=== PATIENT | female | born 1940 | race Caucasian/White ===

== ENCOUNTER 2016-06-19 10:29 | Inpatient (IN) | payer OTHER ==
[~2016-06-19] VITALS: Ht 157.5 cm; Wt 92.8 kg
[2016-06-19] VITALS (10 sets, daily range): BP systolic 115–153; BP diastolic 56–78; PULSE 62–72; TEMP 36.9; O2SAT 92–100; Ht 157.5 cm; Wt 92.8 kg
[~2016-06-19 10:29] MED LIST: CALCTAB5 PO; CYAN3INJ; CYM60 PO; FERR325T51 PO; GABA-113 PO; LYR/50 PO; MISCTAB30 PO; MULT-190 PO; MULT-506 PO; NXM/40 PO; PRAM0.129 PO; VERA240C2 PO; WARF5TAB90 PO; ZOLP5TAB6 PO
[2016-06-19] MEDS ORDERED: HEPARIN 25000 UNIT/500 ML D5W ONE (10:50)
--- NOTE | 2016-06-19 10:50 | EMERGENCY ROOM VISIT NOTE ---
History Report prepared by Andres: Christine Gill Under the Supervision of: Dr. Roman Will M.D. 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 The patient was initially seen at [facility] and was given TPA and started on Heparin drip. Her pain resolved after being started on Heparin. Her EKG en route to [facility] suggested that the patient was having an inferior wall STEMI. The patient was pain free en route to [facility] and is currently pain free. The patient is on Xarelto. She took her dose yesterday, but did not get the chance to take today's dose prior to going to the hospital this morning. The patient does not have a history of heart or lung problems. 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 A total of 10 systems reviewed and were otherwise negative. Past Medical & Surgical Medical Problems: (1) DVT (deep venous thrombosis) (2) Dyslipidemia (3) GERD (gastroesophageal reflux disease) (4) Hypertension (5) Hypertension (6) Osteoarthritis (7) Osteoporosis (8) RLS (restless legs syndrome) Surgical Problems: (1) History of gastric bypass (2) S/P appendectomy (3) S/P cholecystectomy (4) S/p left hip surgery (5) S/p lumbar spine decompression/ fusion (6) S/P MINA-BSO (7) Status post total knee replacement, bilateral Family History Diabetes mellitus Hypertension Social History Smoking Status: Never Smoker Alcohol Use: none Drug Use: none Marital Status: Housing Status: lives alone Occupation Status: retired Current/Historical Medications Scheduled Calcium Carbonate-Vitamin D (Calcium + D), 1 TAB PO DAILY Celecoxib (CeleBREX), 200 MG PO DAILY Cyanocobalamin (Vitamin B-12 Inj), 1 ML MONTHLY Duloxetine HCl (Duloxetine HCl), 60 MG PO DAILY Esomeprazole Magnesium (Nexium), 40 MG PO DAILY Pramipexole (Mirapex), 2 TABS PO HS Pramipexole Dihydrochloride (Mirapex), 0.125 MG PO NOON Prednisone (Prednisone), 5 MG PO DAILY Pregabalin (Lyrica), 50 MG PO DAILY Rivaroxaban (Xarelto), 20 MG PO DAILY Verapamil Hcl (Verapamil Hcl Er), 240 MG PO BID [Ferrous Gluconate], 200 MG PO DAILY Scheduled PRN Oxycodone/Acetaminophen 5MG/325MG (Percocet 5MG/325MG), 1 TABLET PO Q6H PRN for Pain Tramadol (Ultram), 50 MG PO TID PRN for Pain Allergies Coded Allergies: Hydrocodone (Unverified Allergy, Severe, SHORTNESS OF BREATH, 06/19/16) pt reported this am Oxaprozin (Verified Allergy, Mild, RASH, 06/19/16) Sulfamethoxazole w/Trimethoprim (Unverified Allergy, Unknown, INCREASED POTASSIUM LEVELS, 06/19/16) Sertraline (Verified Adverse Reaction, Intermediate, MOOD SWING, 06/19/16) Erythromycin (Verified Adverse Reaction, Mild, N/V, 06/19/16) Lisinopril (Verified Adverse Reaction, Unknown, cough, 06/19/16) Physical Exam Vital Signs Date Time Temp Pulse Resp B/P Pulse Ox O2 Delivery O2 Flow Rate FiO2 06/19/16 14:38 82 20 155/64 100 06/19/16 13:45 82 20 155/64 100 Nasal Cannula 2.0 06/19/16 13:03 73 06/19/16 12:20 85 18 138/83 99 Nasal Cannula 2.0 06/19/16 11:50 81 16 155/70 93 Room Air 06/19/16 11:21 84 18 146/95 100 Nasal Cannula 06/19/16 11:03 81 18 152/91 100 Nasal Cannula 2.0 06/19/16 10:42 79 06/19/16 10:31 100 Nasal Cannula 2.0 06/19/16 10:30 36.9 79 18 148/66 100 Room Air 06/19/16 10:30 100 Room Air 06/19/16 10:30 100 Room Air Physical Exam GENERAL: Patient is a healthy-appearing well-nourished 76 year old female HEAD: Normocephalic atraumatic EYES: Ocular movements intact pupils equal and react to light OROPHARYNX mucous membranes are moist no exudates present no erythema or edema present NECK: Supple no nuchal rigidity CHEST: Good equal expansion LUNGS: Clear and equal to auscultation CARDIAC: Normal S1 and S2 ABDOMEN: Soft nontender no guarding BACK: No CVA tenderness EXTREMITIES: No pain upon palpation normal muscle strength in all groups no clubbing cyanosis or edema NEURO: Patient is following commands is answering questions appropriately. Alert and oriented x3 Cranial Nerves 2-12 grossly intact Medical Decision & Procedures ER Provider Diagnostic Interpretation: X-ray results as stated below per interpretation by me and the radiologist: CHEST ONE VIEW PORTABLE CLINICAL HISTORY: CHEST PAIN dyspnea COMPARISON STUDY: 08/06/2014 FINDINGS: The bones soft tissues and hemidiaphragms are normal. The cardiomediastinal silhouette is normal. The lungs are clear. The pulmonary vasculature is normal. IMPRESSION: Negative chest. Electronically signed by: Gurinder Beauchamp M.D. 06/19/2016 11:07 AM Laboratory Results Test 06/19/16 12:13 Creatine Kinase MB Ratio (0-3.0) Labs reviewed by ED physician. Medications Administered Medications (Trade) Dose Ordered Sig/[place] Route Start Time Stop Time Status Last Admin Dose Admin Heparin Sodium/ Dextrose 1 ea NOW STAT N/A 06/19/16 10:36 06/19/16 10:38 DC 06/19/16 10:36 1 EA Heparin Sodium/ Dextrose (Heparin 25,000 Unit/500ml D5W) 25,000 unit STK-MED ONCE .ROUTE 06/19/16 10:50 06/19/16 10:51 DC 06/19/16 10:58 25,000 UNIT Metoprolol Tartrate (Lopressor Tab) 25 mg NOW ONCE PO 06/19/16 12:00 06/19/16 13:15 DC 06/19/16 13:42 25 MG Atorvastatin Calcium (Lipitor Tab) 80 mg NOW ONCE PO 06/19/16 12:00 06/19/16 13:16 DC 06/19/16 13:43 80 MG Losartan Potassium (coZAAR TAB) 50 mg NOW ONCE PO 06/19/16 12:15 06/19/16 13:16 DC 06/19/16 13:43 50 MG Perflutren Lipid Microsphere (Definity) 2 ml ONE ONCE IV 06/19/16 13:29 06/19/16 13:30 DC 06/19/16 13:30 2 ML ECG Indication: chest pain Rate (beats per minute): 79 Rhythm: normal sinus Findings: no acute ischemic change, no ectopy ED Course 1028: Past medical records reviewed. The patient was evaluated in room A1. A complete history and physical examination was performed. Dr. Bruno was at bedside. 1036: Ordered Heparin Sodium/Dextrose 1 ea. 1051: I discussed the case with [facility]. The patient will be evaluated for further management. Medical Decision Differential diagnosis: Etiologies such as cardiac ischemia, aortic dissection, pulmonary embolism, pneumonia, pneumothorax, musculoskeletal, infections, pericarditis, myocarditis , esophageal rupture, gastrointestinal, as well as others were entertained. This is a 76-year-old female who presents emergency department complaining of chest pain. The patient was already seen at [facility] and is being transferred here for cardiology consultation. The patient received lytics at [place] was placed on a heparin drip. Upon arrival to the emergency department here she is pain-free. I did discuss the case with Dr. Bruno in the emergency department. Patient will be admitted and started on a heparin drip and was in agreement with the treatment plan. Consults Time Called: 1048 Consulting Physician: [facility] Returned Call: [phone] I discussed the case with her. The patient will be evaluated for further management. Impression Primary Impression: STEMI (ST elevation myocardial infarction) Critical Care I have personally spent greater than 30 minutes of critical care time in the direct management of this patient. This includes bedside care, interpretation of diagnostic studies, and testing, discussion with consultants, patient, and family members, and other required patient management activities. This 30 minutes is in excess of all separately billable procedures. Scribe Attestation The scribe's documentation has been prepared under my direction and personally reviewed by me in its entirety. I confirm that the note above accurately reflects all work, treatment, procedures, and medical decision making performed by me. Departure Information Dispostion Being Evaluated By Hospitalist Chuy Molina (PCP) Patient Instructions A Signature Page, My [facility]
--- NOTE | 2016-06-19 11:09 | DIAGNOSTIC IMAGING REPORT ---
CHEST ONE VIEW PORTABLE CLINICAL HISTORY: CHEST PAIN dyspnea COMPARISON STUDY: 08/06/2014 FINDINGS: The bones soft tissues and hemidiaphragms are normal. The cardiomediastinal silhouette is normal. The lungs are clear. The pulmonary vasculature is normal. IMPRESSION: Negative chest. Electronically signed by: Gurinder Beauchamp M.D. 06/19/2016 11:07 AM
[2016-06-19] MEDS ORDERED: RIVA1TAB4 PO (11:16)
[2016-06-19] MEDS ORDERED: PRED-301 PO (11:16)
[2016-06-19] MEDS ORDERED: LISI40TA PO (11:16)
[2016-06-19] MEDS ORDERED: FERROUS GLUCONATE PO (11:16)
[2016-06-19] MEDS ORDERED: CLB/200 PO (11:16)
[2016-06-19] MEDS ORDERED: OXYC-57 PO (11:39)
[2016-06-19] MEDS ORDERED: PRAM0.129 PO (11:39)
[2016-06-19] MEDS ORDERED: TRAM-10 PO (11:39)
[2016-06-19] MEDS ORDERED: MULT-190 PO (11:40)
[2016-06-19] MEDS ORDERED: MULT-506 PO (11:40)
[2016-06-19] MEDS ORDERED: CALC500T85 PO (11:41)
[2016-06-19] MEDS ORDERED: DNSIS60 INJ (11:41)
[2016-06-19] MEDS ORDERED: METOPROLOL TARTRATE 25 MG TAB PO ONE (12:00)
[2016-06-19] MEDS ORDERED: ATORVASTATIN 40 MG TAB PO ONE (12:00)
[2016-06-19] MEDS ORDERED: LOSARTAN POTASSIUM 50 MG TAB PO ONE (12:15)
[2016-06-19] MEDS ORDERED: ONDANSETRON INJ 2 MG/ML 2 ML VIAL IV PRN (13:00)
[2016-06-19] MEDS ORDERED: CALC600T9 PO (13:10)
[2016-06-19] MEDS ORDERED: TRAMADOL HCL 50 MG TAB PO PRN (13:15)
[2016-06-19] MEDS ORDERED: OXYCODONE/ACETAMINOPHEN 5-325 TAB PO PRN (13:15)
[2016-06-19] MEDS ORDERED: PERFLUTREN LIPID MICROSPHERE (DEFINITY) IV ONE (13:29)
--- NOTE | 2016-06-19 14:19 | CARDIOLOGY CONSULTATION ---
DATE OF CONSULTATION: 06/19/2016 REFERRING PHYSICIAN: Roman Will MD and Meg Pantoja PA-C PRIMARY PHYSICIAN: Chuy Magdaleno MD CONSULTATION: Dale Bruno MD HISTORY OF PRESENT ILLNESS: The patient is a 76-year-old white female. No prior history of heart disease. No history of cerebrovascular disease or peripheral vascular disease. History of hypertension. History of a total cholesterol of 197. No history of diabetes mellitus. No family history of premature coronary artery disease. She has never smoked cigarettes. The patient states that 3 days prior to admission, she began to awaken in the morning from sleep with sensation of lower retrosternal burning. This would radiate into her neck. The symptoms would be relieved with getting out of bed and walking around. The longest episodes lasted 10-15 minutes. After the symptoms would resolve, she would feel fine in the rest of the day. No unusual fatigue over the past 3 days. Stable exercise tolerance and stamina. No dyspnea at rest or with her normal activities. This morning, she awoke at approximately 5:30 a.m. with the same discomfort. However, it was more intense than the previous days. It did not resolve with getting up and walking around. The patient lives with her daughter. 911 was called. An electrocardiogram performed by emergency medical services at 06:59 a.m. revealed normal sinus rhythm, ST segment elevations in the inferior leads, slight ST elevation in leads V5 and V6, and ST depressions in leads 1, aVL, V1, and V2. She was transported by ambulance to [facility]. An electrocardiogram performed at [facility] at 07:36 a.m. revealed normal sinus rhythm, inferior ST elevations. ST elevation in V4 and V6, and ST depressions in 1, aVL, V1, and V2. The patient was ultimately given intravenous alteplase 100 mg IV over 2 hours starting at 08:03 a.m. She arrived at [facility] at 07:29 a.m. An electrocardiogram performed at 08:47 a.m. at the [facility] revealed resolution of the ST segment elevations and depressions. The patient states that after she received the intravenous thrombolytic, her chest discomfort resolved within 10-20 minutes. She was then transported by ground ambulance to [facility]. Since the resolution of her chest discomfort at [facility], she has had no further episodes of chest discomfort. No other anginal type symptoms. The patient was promptly evaluated on arrival to [facility] by Dr. Roman Will and then by myself. She appeared well. She denied any chest pain or any other anginal type pains. No neck pain. No dyspnea. No orthopnea or PND. No palpitations, lightheadedness, or syncope. No bleeding complaints other than bleeding from venipuncture sites performed at [facility]. Pressure dressings had been applied to these sites. The patient recently has had no dyspnea on exertion or with her normal activities. No orthopnea, PND, palpitations, lightheadedness, syncope, or leg edema. She does have edema of her left hand for the past year, which is felt to be secondary to arthritis. Despite to swelling in her left hand, she has no pain in her left hand. PAST MEDICAL HISTORY: Significant for deep venous thrombosis. In 1987, she underwent gastric bypass surgery. After discharge from the surgery, she developed a right leg deep venous thrombosis. This was treated with warfarin. She cannot remember the length of the course of warfarin. It was ultimately discontinued. In 2013, she underwent left hip surgery at [facility]. In 2014, she was admitted to [facility] on August 04 with a left hip abscess. This was treated with I\T\D and debridement of the fascia and greater trochanter. A PICC line was inserted in her right arm. It was planned for her to receive 6 weeks of IV cefazolin. She was discharged on 07/28/2014. [facility]. She states that within 1 day of discharge, she developed marked swelling in her right arm. She was subsequently diagnosed with a right arm DVT. This was originally treated with warfarin. She states approximately 3 months ago, she was switched to Xarelto. She still takes Xarelto. Her last dose of Xarelto was yesterday. PAST MEDICAL HISTORY: 1. Hypertension. 2. History of hypoglycemia since her gastric bypass surgery. No history of diabetes mellitus. 3. She denies history of dyslipidemia. No treatment for dyslipidemia. She states her most recent total cholesterol was 197. 4. Osteoporosis. 5. Osteoarthritis. 6. History of anemia. Her discharge hemoglobin on 06/06/2015 was 8.6. 7. History of acute kidney injury on her July 2014 admission. Peak creatinine was 2.07. At the time of discharge, her creatinine was 1.08. 8. Restless legs syndrome. 9. History of gastric ulcer. 10. Gastroesophageal reflux disease. PAST SURGICAL HISTORY: 1. Status post gastric bypass surgery in 1987. 2. Status post bilateral total knee arthroplasty. 3. Status post lumbar surgery in 2003 at [facility]. Performed by Dr. Omega Brown. 4. Status post MINA-BSO. 5. Status post incidental cholecystectomy and appendectomy at the time of her gastric bypass surgery in 1987. 6. Status post hips surgery in 2013. 7. Status post I\T\D of left hip abscess in 2014. ALLERGIES AND ADVERSE DRUG REACTIONS: Lisinopril, HYDROCODONE, OXAPROZIN, SERTRALINE, AND SULFAMETHOXAZOLE WITH TRIMETHOPRIM. THE PATIENT HAD BEEN ON LISINOPRIL FOR HYPERTENSION. SHE HAS RECENTLY DEVELOPED A COUGH WITH THIS MEDICATION. THE MEDICATION WAS DISCONTINUED BY HER PRIMARY CARE PROVIDER. THE COUGH HAS RESOLVED. MEDICATIONS: Her medications listed on her [facility] note this morning states that they are verapamil 240 mg daily, Xarelto 20 mg daily, Celebrex 200 mg daily, Cymbalta 60 mg daily, Nexium 40 mg daily, pramipexole 0.125 mg daily, vitamin B12 at 1000 units IM q. monthly, vitamin D3 daily, Lyrica 50 mg daily, and Prednisone 5 mg daily. Previously, the patient had been on lisinopril. As above, this was discontinued after she developed a cough with the lisinopril. She states that she has not been taking the prednisone recently. It had been prescribed for her arthralgias. She states that it had no effect on alleviating her arthralgias. She does achieve some relief of her arthralgias with Celebrex. SOCIAL HISTORY: The patient is a . She does not smoke cigarettes or drink alcohol. She lives with one of her daughters. She has 2 children, who are alive. It is a son and daughter. She had another daughter, who is . FAMILY HISTORY: No family history of premature coronary artery disease. There is a family history of hypertension. REVIEW OF SYSTEMS: 1. As above. 2. Arthralgias of the feet, shoulders, and hips. She states that over the past several months, she has received steroidal injections in both shoulders. 3. No history of cerebrovascular disease. No current or recent symptoms suggestive of CVA or TIA. 4. No history of peripheral vascular disease. She denies any claudication type symptoms. 5. Her stools are dark in color. She denies any black stools. No blood in her stools. 6. Her reflux symptoms are an epigastric burning. This is a different type of burning sensation in that which she has experienced for the past 3 days. No other GI complaints. 7. No HEENT complaints. She has full dentures. 8. No skin rash complaints. 9. No urinary complaints. PHYSICAL EXAMINATION: VITAL SIGNS: In the Emergency Department at [facility], her initial blood pressure is 148/66. Pulse 79. Pulse oximetry on room air 100%. Repeat blood pressures 152/91 and 146/95. GENERAL APPEARANCE: Shows her to be in no distress. HEAD: Normal. EYES: Pupils equal and round. Anicteric. Conjunctivae normal. No xanthelasma. MOUTH: Full dentures. Oropharynx visualized. No abnormalities noted. NECK: No jugular venous distention. JVP less than 7 cm. Carotids 2/2 bilaterally. Normal upstroke. No bruits. LUNGS: Normal respiratory effort. Clear. No rales or wheezes. HEART: PMI normal. No lifts or heaves. Regular rate and rhythm. S1 and S2 normal. No S3 or S4. No murmur or rub. ABDOMEN: Soft. Obese. Nontender. Normal bowel sounds. No bruits. No palpable masses or organomegaly. EXTREMITIES: Arthritic changes of the fingers of both hands. Swelling in left hand. No tenderness on palpation of the left hand. No tenderness on palpation of the fingers. No pretibial edema. PULSES: Radial pulses strongly palpable bilaterally. Dorsalis pedis and posterior tibial pulses weakly palpable bilaterally. Femoral pulses palpable bilaterally. NEUROLOGIC: Alert and oriented x3. Motor grossly intact. Gait not assessed as the patient is lying in a stretcher bed. PSYCHIATRIC: Affect is normal. SKIN: No rashes. LABORATORY DATA: Labs performed at [facility] revealed a troponin of 0.038, CK total of 37, INR 0.94, hemoglobin 11, hematocrit 36.4, WBC 13.5, and platelet count 344. Metabolic profile is not available for review. Chest x-ray at [facility] reported to be normal. Chest x-ray was also performed at [facility]. Reviewed by me. Chest x-ray reveals no heart failure. No infiltrate. Electrocardiogram on arrival to [facility] at 10:33 a.m. today shows normal sinus rhythm. Normal ST segments and T waves. No evidence of myocardial injury or ischemia. ASSESSMENT: 1. Acute inferior posterolateral myocardial infarction this morning. Preceded by a 3-day history of unstable anginal symptoms. These were new symptoms. Coronary artery disease risk factors include hypertension and probable dyslipidemia. Her total cholesterol is 197. Suspect that her LDL was greater than 100. Myocardial infarction manifested by a lower retrosternal burning sensation, radiating into her neck. Within 30 minutes of receiving intravenous thrombolytics at [facility], she had complete resolution of her chest discomfort. Normalization of ST segments. Since resolution of the chest discomfort at [facility], she has had no recurrence of any anginal type symptoms. 2. No evidence of any arrhythmias thus far. 3. No evidence of heart failure by signs or symptoms. 4. Mild hypertension this morning. 5. No cerebrovascular or peripheral vascular complaints. She does have diminished posterior tibial and dorsalis pedis pulses bilaterally. 6. Mild anemia. This may be secondary to her gastric bypass surgery and malabsorption. No symptoms of GI bleeding. She does have a history of gastric ulcer in the past. 7. Osteoarthritis. PLAN: 1. The patient received intravenous thrombolytic therapy this morning. She is also on Xarelto. Performance of cardiac catheterization today would be of increased bleeding risk. She is currently without any anginal symptoms. She is hemodynamically stable. No evidence of arrhythmias. No evidence of heart failure. Normalization of her ST segment abnormalities on electrocardiogram. Thus, there is no urgent or emergent need to perform a cardiac catheterization procedure at this time. In light of her taking Xarelto yesterday, would like to delay elective cardiac catheterization ideally for 48 hours. A femoral arterial access was needed as there could be an increased risk of bleeding. This is secondary to her body habitus. It would be first attempted to perform cardiac catheterization via radial artery access. She does have strongly palpable radial arteries bilaterally. The patient was instructed to contact the nursing staff immediately if she has any reoccurrence of her retrosternal burning discomfort. If she has recurrent anginal symptoms or return of ST segment changes of myocardial ischemia and injury, we would then perform emergent cardiac catheterization. If she remains stable, we will delay elective cardiac catheterization until 06/22/2016. 2. She was started on intravenous heparin at this time of starting the alteplase. Continue intravenous heparin. Maintain therapeutic PTT. 3. Continue aspirin. She received four 81-mg aspirin tablets this morning. She should remain on aspirin 81 mg daily. 4. Start beta gera therapy with metoprolol tartrate 25 mg b.i.d. Dose now. Titrate dose upwards as needed to control heart rate. Ideally, would want heart rate around 60. 5. Start angiotensin receptor gera with losartan 50 mg daily. Dose today. 6. Lipid profile and direct LDL. 7. Start atorvastatin 80 mg daily today. 8. If she has no evidence of bleeding later today, we will start her on intravenous Integrilin. This would be in addition to the intravenous heparin. We will not start her on clopidogrel or alternative antiplatelet agent at this time. This would be in the event that cardiac catheterization reveals coronary stenosis, which would require CABG surgery. 9. Serial electrocardiograms. Would perform at least on a daily basis. 10. Serial cardiac enzymes today. 11. Echocardiogram today to assess LV and RV function. Assess valvular function. 12. Topical nitrates. 13. Intravenous fluids. 14. We will keep the patient on clear liquids for the next several hours. If she remains stable, we will then advance her diet. 15. Check renal function, liver function, and magnesium. 16. At this time, would hold Celebrex. Treat the pain with tramadol. The above assessment and recommendations were discussed with Ms. Meg Pantoja. The plan for delaying cardiac catheterization if she remains stable was discussed with Dr. Will. I will follow this patient while she is hospitalized. Cardiac catheterization will be tentatively scheduled for June 22. This provides if she remains stable. Certainly if she develops any evidence of reocclusion, would then perform an emergency cardiac catheterization and possible coronary intervention. The procedure, risks, benefits, and alternatives of cardiac catheterization and coronary intervention were extensively discussed with the patient. She is agreeable to undergoing a procedure. At least 60 minutes of critical care time was spent by me this morning in management of this patient. RICCI
--- NOTE | 2016-06-19 15:12 | ECHOCARDIOGRAM REPORT ---
*NOTICE TO RECEIVING LIBERTARIAN AGENCY This information is strictly Confidential and protected under [place] law. [place] law prohibits you from making any further disclosure of this information unless further disclosure is expressly permitted by the written consent of the person to whom it pertains or is authorized by law. A general authorization for the release of medical or other information is not sufficient for this purpose. Hospital accepts no responsibility if the information is made available to any other person, INCLUDING THE PATIENT. Interpretation Summary * Name: LIBERTY PACK Study Date: 06/19/2016 12:55 PM BP: 138/83 mmHg * Patient Location: ED: HR: 85 * : 1940 (M/d/yyyy) Gender: Female Height: 62 in * Age: 76 yrs Ethnicity: CA Weight: 200 lb * Ordering Physician: Dale Bruno * Performed By: Irma Su RDCS * * Reason For Study: AMI * BSA: 1.9 m2 * Normal overall left ventricular systolic function. * Basal septal, inferior, and posterior hypokinesis. * Mild left atrial dilatation. * Mild aortic regurgitation. * Trace mitral regurgitation. * -- Conclusions -- * Aortic valve sclerosis mild, without significant aortic valvular stenosis. Procedure Details * A complete two-dimensional transthoracic echocardiogram was performed (2D, M-mode, Doppler and color flow Doppler). * A contrast injection of Definity was performed to improve assessment of LV function. * Contrast was injected into an intravenous site in the right arm. * One vial of Definity ultrasound contrast was diluted in normal saline to a total volume of 10 ml. A total of '2' ml of solution was administered during imaging. * Lot # [id number] of Definity utilized for procedure. * Expiration date 1 DEC 05. * The attending nurse who injected the contrast agent was Elda Edge RN. Left Ventricle * The left ventricle is normal in size. * There is normal left ventricular wall thickness. * Ejection Fraction = 55-60%. * Left ventricular systolic function is normal. * A full diastolic examination was done with clinical findings of Class I diastolic dysfunction. * Basal septal,posterior,and inferior hypokinesis. Right Ventricle * The right ventricle is normal in size and function. Atria * The left atrium is mildly dilated. * Right atrial size is normal. * No ASD detected; PFO is not assessed. Mitral Valve * The mitral valve is normal. * There is trace mitral regurgitation. Tricuspid Valve * The tricuspid valve is not well visualized, but is grossly normal. * Significant tricuspid regurgitation is absent. Aortic Valve * The aortic valve is trileaflet. * The aortic valve opens well. * Aortic valve sclerosis mild, without significant aortic valvular stenosis. * Mild aortic regurgitation. Pulmonic Valve * The pulmonic valve is not well seen, but is grossly normal. * There is no pulmonic valvular regurgitation. Great Vessels * The aortic root is normal size. Pericardium/Pleural * There is no pericardial effusion. Great Vessels * Normal inferior vena cava diameter and respiratory variation suggests normal central venous pressure. MMode 2D Measurements and Calculations IVSd 1.0 cm LVIDd 4.3 cm LVIDs 3.0 cm LVPWd 1.1 cm IVS/LVPW 0.93 FS 30.0 % EDV(Teich) 81.9 ml ESV(Teich) 34.8 ml EF(Teich) 57.5 % EDV(cubed) 78.1 ml ESV(cubed) 26.8 ml EF(cubed) 65.7 % LV mass(C)d 150.1 grams LV mass(C)dI 78.5 grams/m\S\2 CO(Teich) 3.6 l/min CI(Teich) 1.9 l/min/m\S\2 SV(Teich) 47.1 ml SI(Teich) 24.6 ml/m\S\2 CO(cubed) 3.9 l/min CI(cubed) 2.1 l/min/m\S\2 SV(cubed) 51.3 ml SI(cubed) 26.8 ml/m\S\2 Ao root diam 2.6 cm Ao root area 5.4 cm\S\2 ACS 1.9 cm LA dimension 4.4 cm asc Aorta Diam 3.1 cm LA/Ao 1.7 LVAd ap4 33.2 cm\S\2 LVLd ap4 8.0 cm EDV(MOD-sp4) 112.0 ml LVAs ap4 17.9 cm\S\2 LVLs ap4 5.8 cm ESV(MOD-sp4) 45.4 ml EF(MOD-sp4) 59.5 % LVAd ap2 32.8 cm\S\2 LVLd ap2 8.1 cm EDV(MOD-sp2) 110.0 ml LVAs ap2 18.1 cm\S\2 LVLs ap2 6.0 cm ESV(MOD-sp2) 45.3 ml EF(MOD-sp2) 58.8 % CO(MOD-sp4) 5.1 l/min CI(MOD-sp4) 2.7 l/min/m\S\2 SV(MOD-sp4) 66.6 ml SI(MOD-sp4) 34.8 ml/m\S\2 CO(MOD-sp2) 5.0 l/min CI(MOD-sp2) 2.6 l/min/m\S\2 SV(MOD-sp2) 64.7 ml SI(MOD-sp2) 33.8 ml/m\S\2 Doppler Measurements and Calculations MV E max tri 83.4 cm/sec MV A max tri 119.3 cm/sec MV E/A 0.70 MV V2 max 159.0 cm/sec MV max PG 10.1 mmHg MV V2 mean 85.5 cm/sec MV mean PG 3.5 mmHg MV V2 VTI 39.7 cm MV dec time 0.21 sec Ao V2 max 189.1 cm/sec Ao max PG 14.3 mmHg Ao max PG (full) 10.5 mmHg Ao V2 mean 120.2 cm/sec Ao mean PG 7.1 mmHg Ao V2 VTI 38.1 cm AI max tri 475.1 cm/sec AI max PG 90.3 mmHg AI dec slope 380.1 cm/sec\S\2 AI P1/2t 366.0 msec LV V1 max PG 3.8 mmHg LV V1 max 98.0 cm/sec SV(Ao) 205.2 ml SI(Ao) 107.4 ml/m\S\2 PA V2 max 114.0 cm/sec PA max PG 5.2 mmHg PA acc slope 821.8 cm/sec\S\2 PA acc time 0.10 sec PA pr(Accel) 33.1 mmHg
[2016-06-19 16:10] LABS: BASO % 0.6 %; BASO ABS # 0.07 K/uL (0-0.2); EOS % 4.4 %; HEMATOCRIT 31.6 % (37-47); IG% 0.5 %; LYMPH % 21.4 %; LYMPH ABS # 2.63 K/uL (1.2-3.4); MEAN CELL VOLUME 93.2 fL (80-100); MEAN CORPUSCULAR HEMOGLOBIN 29.5 pg (25-34); MEAN PLATELET VOLUME 9.3 fL (7.4-10.4); MONO % 11.1 %; PLATELET COUNT 287 K/uL (130-400); RED BLOOD COUNT 3.39 M/uL (4.2-5.4)
[2016-06-19 16:18] LABS: COMPLETE YES; MEAN CORPUSCULAR HGB CONC 31.6 g/dl (32-36)
[2016-06-19 16:32] LABS: BUN/CREATININE RATIO 30.6 (10-20); CALCIUM 7.9 mg/dl (8.5-10.1); CREATININE 0.65 mg/dl (0.60-1.20); MAGNESIUM 2.3 mg/dl (1.8-2.4)
[2016-06-19 16:49] LABS: URINE APPEARANCE CLEAR (CLEAR); URINE BILIRUBIN NEG (NEG); URINE COLOR YELLOW; URINE NITRITE NEG (NEG); URINE PH 7.5 (4.5-7.5); URINE SPECIFIC GRAVITY 1.007 (1.000-1.030); UROBILINOGEN NEG (NEG)
[2016-06-19 16:53] LABS: MANUAL MICROSCOPIC REQUIRED? NO; REVIEW REQ? NO
[2016-06-19 17:04] LABS: CKMB/CK RATIO 2.3 (0-3.0)
--- NOTE | 2016-06-19 18:50 | Progress Note ---
Progress Note Attending addendum: The patient was seen and examined in ER Was evaluated in [place] ER with Acute Inferolateral AR s/p TPA administration Was transferred to [facility] for continued care NO pain during my exam And the EKG is reverting to normality O/E Hemodynamically stable Chest-clear Heart-regular Abdomen-benign,no masses,bowel sound present Extremities-no edema Labs and Imaging studies were reviewed Has Acute inferior posterolateral myocardial infarction S/P TPA Since resolution of the chest discomfort at [facility] [place], she has had no recurrence of any anginal type symptoms. On Heparin,Aspirin,BB,ARB and Statin Cardiology evaluation Agree with the assessment and plan. DR Cristo Adam
--- NOTE | 2016-06-19 20:02 | History and Physical ---
History & Physical Date & Time of Service: Jun 19, 2016 at 13:21 Chief Complaint: chest pain Primary Care Physician: Chuy Magdaleno History of Present Illness Source: patient, family (daughter at bedside), hospital records This is a 76 y/o female with PMH of hypertension, borderline dyslipidemia not on medication, history of DVT on Xarelto, OA, GERD, history of gastric bypass, and other problems listed below who presents with chest pain. Pt follows with Dr. Magdaleno in [place]. Pt states she was feeling at her baseline until 2 days ago she developed chest pain described as burning in substernal area with radiation to her neck. She initially had episodes lasting 10-15 minutes which were relieved with getting up and walking around. Then this morning at 5:30 she had recurrent chest pain which was more severe, also radiating to her neck, which awoke her from sleep. 911 was called and she was brought to [place] ER by ambulance. Her EKG en route at 7:[address] elevation in inferior leads with ST depression in V2. She states the chest pain was fairly constant but resolved during infusion of tPA at [place] (infusion of 100 mg given over 2 hours ending at 10 am). She is on a heparin drip started in [place] ER. She received aspirin 324 mg this morning. [place] ER labs showed WBC 13.5, Hg 11 , troponin 0.038. No BMP in [place] records. She was transferred to [facility], at which time EKG showed resolution of ST abnormalities. Patient denies any recurrence of chest pain. Her blood draw sites from [place] ER were seeping but hemostasis was achieved with quik clot and austyn wrap. 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 She reports edema of left hand which is intermittent x 1 year and attributed to arthritis. She reports having negative doppler of the LUE. Denies diaphoresis, dizziness, cough, SOB, abdominal pain, nausea, vomiting, diarrhea, prior abnormal bleeding, increasing edema, weight gain. Pt notes she was taken off lisinopril 40 mg daily 1 month ago by her PCP due to cough which resolved with stopping the medication. She denies history of CAD, CHF, arrhythmia, lung disease. No recent stress test or echo. Past Medical/Surgical History Medical Problems: (1) DVT (deep venous thrombosis) Permanent Comment: 1st DVT occurred s/p gastric bypass in 1988; 2nd DVT occurred in right arm s/p hip surgery in 2014 Status: Chronic (2) Dyslipidemia Status: Chronic (3) GERD (gastroesophageal reflux disease) Status: Chronic (4) Hypertension Status: Chronic (5) Hypertension Status: Chronic (6) Osteoarthritis Status: Chronic (7) Osteoporosis Status: Chronic (8) RLS (restless legs syndrome) Status: Chronic Surgical Problems: (1) History of gastric bypass Status: Chronic (2) S/P appendectomy Status: Chronic (3) S/P cholecystectomy Status: Chronic (4) S/p left hip surgery Status: Chronic (5) S/p lumbar spine decompression/ fusion Status: Chronic (6) S/P MINA-BSO Status: Chronic (7) Status post total knee replacement, bilateral Status: Chronic Family History Diabetes mellitus Hypertension Stroke MOTHER (in 40s) Denies family history of CAD. Social History Smoking Status: Never Smoker Alcohol Use: none Drug Use: none Marital Status: Housing status: lives with family (lives with daughter) Occupational Status: retired Immunizations History of Tetanus Vaccine?: Unknown History of Pneumococcal: No History of Hepatitis B Vaccine: No Multi-Drug Resistant Organisms History of MDRO: No Allergies Coded Allergies: Hydrocodone (Unverified Allergy, Severe, SHORTNESS OF BREATH, 06/19/16) pt reported this am Oxaprozin (Verified Allergy, Mild, RASH, 06/19/16) Sulfamethoxazole w/Trimethoprim (Unverified Allergy, Unknown, INCREASED POTASSIUM LEVELS, 06/19/16) Sertraline (Verified Adverse Reaction, Intermediate, MOOD SWING, 06/19/16) Erythromycin (Verified Adverse Reaction, Mild, N/V, 06/19/16) Lisinopril (Verified Adverse Reaction, Unknown, cough, 06/19/16) Home Medications Scheduled Calcium Carbonate-Vitamin D (Calcium + D), 1 TAB PO DAILY Celecoxib (CeleBREX), 200 MG PO DAILY Cyanocobalamin (Vitamin B-12 Inj), 1 ML MONTHLY Duloxetine HCl (Duloxetine HCl), 60 MG PO DAILY Esomeprazole Magnesium (Nexium), 40 MG PO DAILY Pramipexole (Mirapex), 2 TABS PO HS Pramipexole Dihydrochloride (Mirapex), 0.125 MG PO NOON Prednisone (Prednisone), 5 MG PO DAILY Pregabalin (Lyrica), 50 MG PO DAILY Rivaroxaban (Xarelto), 20 MG PO DAILY Verapamil Hcl (Verapamil Hcl Er), 240 MG PO BID [Ferrous Gluconate], 200 MG PO DAILY Scheduled PRN Oxycodone/Acetaminophen 5MG/325MG (Percocet 5MG/325MG), 1 TABLET PO Q6H PRN for Pain Tramadol (Ultram), 50 MG PO TID PRN for Pain Review of Systems Constitutional: No chills, No fever Eyes: No worsening of vision ENT: No nasal symptoms Respiratory: + dyspnea on exertion, No cough, No dyspnea at rest Cardiovascular: + chest pain, + edema (+ left hand swelling intermittent x 1 year. no worsening LE edema) Abdomen: No GI bleeding, No diarrhea, No nausea, No pain, No vomiting Musculoskeletal: + joint pain (chronic), No calf pain Genitourinary - Female: No dysuria, No urinary frequency Neurologic: No problem reported (no dizziness) Hematologic / Lymphatic: + abnormal bleeding/bruising (seeping from lab draw sites in ER. no prior abnormal bleeding including gum bleeding or epistaxis) Integumentary: No rash Physical Exam Vital Signs Date Time Temp Pulse Resp B/P Pulse Ox O2 Delivery O2 Flow Rate FiO2 06/19/16 13:03 73 06/19/16 12:20 85 18 138/83 99 Nasal Cannula 2.0 06/19/16 11:50 81 16 155/70 93 Room Air 06/19/16 11:21 84 18 146/95 100 Nasal Cannula 06/19/16 11:03 81 18 152/91 100 Nasal Cannula 2.0 06/19/16 10:42 79 06/19/16 10:31 100 Nasal Cannula 2.0 06/19/16 10:30 36.9 79 18 148/66 100 Room Air 06/19/16 10:30 100 Room Air 06/19/16 10:30 100 Room Air General Appearance: no apparent distress, + obese, + pertinent finding ( daughter and son at bedside) Head: normocephalic, atraumatic Eyes: normal inspection, PERRL, EOMI, sclerae normal ENT: normal ENT inspection, hearing grossly normal, pharynx normal Neck: supple, no JVD, no carotid bruits, trachea midline Respiratory/Chest: lungs clear, normal breath sounds, no respiratory distress, no accessory muscle use Cardiovascular: regular rate, rhythm, no murmur, + pertinent finding (radial pulses 2+, right DP pulse 1+, unable to appreciate left DP pulse) Abdomen/GI: normal bowel sounds, non tender, soft, + pertinent finding (obese habitus) Extremities/Musculoskelatal: no calf tenderness, no pedal edema, + pertinent finding (trace left hand edema) Neurologic/Psych: alert, normal mood/affect, oriented x 3, + pertinent finding (no focal deficit on gross examination) Skin: normal color, warm/dry, no rash Diagnostics Laboratory Results Results Past 24 Hours Test 06/19/16 10:36 06/19/16 12:13 Range/Units Creatine Kinase MB Ratio 0-3.0 Diagnostic Radiology CHEST ONE VIEW PORTABLE CLINICAL HISTORY: CHEST PAIN dyspnea COMPARISON STUDY: 08/06/2014 FINDINGS: The bones soft tissues and hemidiaphragms are normal. The cardiomediastinal silhouette is normal. The lungs are clear. The pulmonary vasculature is normal. IMPRESSION: Negative chest. 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 Bruno; appreciate input- patient at increased risk for bleeding for 48 hours after Xarelto (last dose 06/18); plan for cath on Wednesday unless develops recurrent symptoms, ischemic EKG changes, or hemodynamic instability Continue heparin drip Started on metoprolol 25 mg BID, losartan 50 mg daily (due to hx of AUSTYN-I intolerance), atorvastatin 80 mg daily, nitro paste Cardiology to start Integrilin as long as bleeding remains controlled (was having seeping from venipuncture sites in ER) Aspirin 81 mg daily Check echo Trend cardiac enzymes- initial trop 0.038 at [facility] -> 0.238 at 1600 -> recheck x 1 Check lipid panel in am IVF's; clear liquid diet for 1st few hours then advance at dinnertime HISTORY OF DVT 2 episodes both provoked by surgery; most recently in 2014 s/p hip surgery On Xarelto- last dose yesterday- hold HYPERTENSION BP mildly elevated in [facility] ER ANEMIA Hg is 10; similar to prior baseline Monitor OSTEOARTHRITIS Hold Celebrex Continue Percocet and tramadol for pain control CODE STATUS Full code per my discussion with the patient Patient seen in collaboration with Dr. Adam. Please see his addendum. Attending addendum: The patient was seen and examined in ER Was evaluated in [place] ER with Acute Inferolateral [place] s/p TPA administration Was transferred to [facility] for continued care NO pain during my exam And the EKG is reverting to normality O/E Hemodynamically stable Chest-clear Heart-regular Abdomen-benign,no masses,bowel sound present Extremities-no edema Labs and Imaging studies were reviewed Has Acute inferior posterolateral myocardial infarction S/P TPA Since resolution of the chest discomfort at [facility], she has had no recurrence of any anginal type symptoms. On Heparin,Aspirin,BB,ARB and Statin Cardiology evaluation Agree with the assessment and plan. DR Cristo Adam VTE Prophylaxis VTE Risk Assessment Done? Y/N: Yes Risk Level: High Given or contraindicated: Other Anticoagulation
[2016-06-19] MEDS: NITROGLYCERIN OINT 2% 1GM PACKET EXT SCH (20:29)
[2016-06-19] MEDS: D5W AND NSS 1,000 ML IV SCH (20:29)
[2016-06-19] MEDS: METOPROLOL TARTRATE 25 MG TAB PO SCH (21:21)
[2016-06-19] MEDS: PANTOprazole INJ 40 MG in SYRINGE 0 ML IV SCH (21:21)
[2016-06-19] MEDS: PRAMIPEXOLE DIHYDROCHLORIDE 0.25MG TAB PO SCH (21:21)
[2016-06-19 21:51] LABS: PARTIAL THROMBOPLASTIN RATIO 2.3
[2016-06-20] VITALS (15 sets, daily range): BP systolic 121–150; BP diastolic 55–89; PULSE 63–76; TEMP 36.7–37; O2SAT 94–100
[2016-06-20] MEDS: D5W AND NSS 1,000 ML IV SCH (01:15)
[2016-06-20] MEDS: NITROGLYCERIN OINT 2% 1GM PACKET EXT SCH ×5 (01:23→21:05)
--- NOTE | 2016-06-20 02:04 | CRITICAL CARE CONSULTATION ---
DATE OF CONSULTATION: 06/19/2016 CHIEF COMPLAINT: Chest pain. HISTORY OF PRESENT ILLNESS: The patient is a 76-year-old woman with a history of hypertension and borderline hypercholesterolemia, who presented to the [facility] Emergency Department early this morning with complaints of chest pain, 7-01/28. She tells me she has been having this chest pain on and off for 3 days and she thought it was her gastroesophageal reflux disease. This morning, she woke up and sat on the side of the bed and noticed a burning sensation on the right side of her chest, which made her neck feel tingly. She denies shortness of breath, nausea, vomiting, diaphoresis. She is not a diabetic. She has never smoked. Her daughter summoned EMS and she was taken to the Emergency Room. In the ambulance, she received fentanyl and one sublingual nitroglycerin. In the Emergency Department, she received more fentanyl as well as normal saline. EKG showed acute inferior wall ST segment elevation myocardial infarction and she received TPA and heparin. She was then transferred to [facility] and is in the intensive care unit. She denies pain presently and is eating and drinking without any problems. She has been seen by Dr. Bruno and the hospitalists. She denies a family history of heart disease other than her father who at age 85. She had a stress test in 2006. PAST MEDICAL HISTORY: Upper extremity DVT in 2014, hypertension, borderline hyperlipidemia, gastroesophageal reflux disease, lower extremity DVT in 1981, restless legs syndrome, osteoarthritis, gastric ulcer, macular degeneration. 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 ALLERGIES: ERYTHROMYCIN, HYDROCODONE, LISINOPRIL, OXAPROZIN, SERTRALINE, SULFAMETHOXAZOLE WITH TRIMETHOPRIM. OUTPATIENT MEDICATIONS: Verapamil, Xarelto (she was taking Coumadin until several months ago), celecoxib, Cymbalta, Nexium, pramipexole, cyanocobalamin, vitamin D3 and Lyrica, prednisone for her joints. SOCIAL HISTORY: She lives with her daughter and does not drink or smoke. She is . FAMILY HISTORY: Significant for father who of heart disease and mother who at age 47 of a CVA. REVIEW OF SYSTEMS: She has been in her usual state of health over the past week. She walks with a cane. She wears glasses. She denies any weight loss or weight gain. She denies any hematemesis, fevers, chills, melena. PHYSICAL EXAMINATION: GENERAL: This is a very nice elderly lady lying in bed, in no acute distress. VITAL SIGNS: Temperature 36.9, heart rate 70, respiratory rate 16, blood pressure 115/78, oxygen saturation 100% on 2 liters nasal cannula. HEENT: Pupils are equally round and reactive to light. Oral mucosa is slightly dry. She is edentulous. Posterior pharynx clear. NECK: No adenopathy, no bruits. LUNGS: Clear to auscultation bilaterally. No rales, rhonchi or wheezes. HEART: Regular rate and rhythm. No murmurs. ABDOMEN: Obese, soft, nondistended, nontender. Active bowel sounds. EXTREMITIES: Warm and without pedal or ankle edema. She has Heberden's nodes and deformities of several of her DIP joints on both hands. She has a large indurated ecchymosis that begins around her antecubital fossa of the left arm and extends up to the mid part of her humerus. NEUROLOGIC: She follows commands and can carry on a conversation without any problem whatsoever. LABORATORY DATA: White blood cell count 12.3, hemoglobin 10, hematocrit 31.6, platelets 287. PTT 60.5, sodium 144, potassium 4, chloride 108, CO2 of 28, BUN 20, creatinine 0.65. Followup troponin 0.238. Urinalysis normal. Echocardiogram shows normal left ventricular systolic function, basal septal, inferior and posterior hypokinesis. Mild left atrial dilatation, mild aortic regurgitation, trace mitral regurgitation. EKGs from [facility] have been reviewed and confirmed ST segment elevation inferior wall myocardial infarction with improvement after TPA. IMPRESSION: 1. Inferior wall ST segment elevation myocardial infarction, status post tissue plasminogen activator with improvement of her symptoms and her EKG. She remains on heparin infusion. She has been seen by the cardiology service, who plan to do a cardiac catheterization in the next few days. She has no signs of active bleeding. 2. History of upper and lower extremity deep venous thrombosis, now on Xarelto, formerly on Coumadin. 3. History of gastroesophageal reflux disease, she is requesting Nexium rather than Protonix. 4. Remote history of gastric ulcers. 5. History of gastric bypass surgery. 6. History of hypertension. PLAN: 1. Continue to watch for any signs of bleeding. She is already on a baby aspirin, Cozaar, heparin infusion, Lopressor and nitroglycerin. 2. Await further information regarding when she will be taken to the cardiac catheterization lab. 3. Hold on any stress dose steroids in light of her myocardial infarction. Should she show signs of adrenal insufficiency, reconsider at that time. Thank you for asking me to see this nice lady. Please call me with any questions or concerns.
[2016-06-20 05:59] LABS: HEMATOCRIT 33.5 % (37-47); MEAN CELL VOLUME 94.6 fL (80-100); MEAN CORPUSCULAR HEMOGLOBIN 29.4 pg (25-34); MEAN PLATELET VOLUME 9.6 fL (7.4-10.4); PLATELET COUNT 290 K/uL (130-400); RED BLOOD COUNT 3.54 M/uL (4.2-5.4); WHITE BLOOD COUNT 10.91 K/uL (4.8-10.8)
[2016-06-20 06:29] LABS: BUN/CREATININE RATIO 23.2 (10-20); CALCIUM 7.9 mg/dl (8.5-10.1); CREATININE 0.63 mg/dl (0.60-1.20); MAGNESIUM 2.4 mg/dl (1.8-2.4); POTASSIUM 3.8 mmol/L (3.5-5.1)
[2016-06-20 06:32] LABS: CHOLESTEROL/HDL RATIO 2.8
[2016-06-20] MEDS ORDERED: PNEUMOCOCCAL POLYSACCHARIDES 25 MCG/0.5 ML VIAL/SYR IM. ONE (08:00)
[2016-06-20] MEDS ORDERED: PNEUMOCOCCAL ADMINISTRATION CHARGE ONE (08:00)
[2016-06-20] MEDS ORDERED: INFLUENZA ADMINISTRATION CHARGE ONE (08:00)
[2016-06-20] MEDS ORDERED: INFLUENZA VIRUS QUAD VACCINE 0.5 ML SYR IM. ONE (08:00)
[2016-06-20] MEDS ORDERED: CALCIUM 600MG + VIT D 400 IU TAB PO SCH (09:00)
[2016-06-20] MEDS ORDERED: CALCIUM CARBONATE 500 MG CHEWABLE PO SCH (09:00)
[2016-06-20] MEDS: PREGABALIN 50 MG CAP PO SCH (09:35)
[2016-06-20] MEDS: ATORVASTATIN 40 MG TAB PO SCH (09:36)
[2016-06-20] MEDS: PANTOprazole INJ 40 MG in SYRINGE 0 ML IV SCH ×2 (09:36→22:44)
[2016-06-20] MEDS: METOPROLOL TARTRATE 25 MG TAB PO SCH (09:36)
[2016-06-20] MEDS: ASPIRIN 81 MG ECTAB PO SCH (09:36)
[2016-06-20] MEDS: DULOXETINE HCL 60 MG CAP PO SCH (09:36)
[2016-06-20] MEDS: LOSARTAN POTASSIUM 50 MG TAB PO SCH (09:36)
[2016-06-20] MEDS: FERROUS GLUCONATE 324 MG TAB PO SCH (09:36)
[2016-06-20] MEDS ORDERED: EPTIFIBATIDE BOLUS / DRIP IV STA (10:12)
[2016-06-20] MEDS ORDERED: METOPROLOL TARTRATE 25 MG TAB PO ONE (10:30)
[2016-06-20] MEDS ORDERED: EPTIFIBATIDE IV ONE (10:30)
--- NOTE | 2016-06-20 11:00 | CARDIOLOGY PROGRESS NOTE ---
DATE: 06/20/2016 DATE: 06/20/2016. SUBJECTIVE: The patient was seen by me this morning in her intensive care unit room. Since admission to the ICU, she has done well. Since arrival to [facility], she has had no chest pain or other anginal type pains. She denies any dyspnea. No orthopnea or PND overnight. No palpitations, lightheadedness, syncope, or lower extremity edema. She denies any active bleeding complaints. She does have ecchymoses in her left arm at the site of venipuncture yesterday. She had had bleeding after she had received thrombolytic therapy at [facility]. She denies any pain in her hands. Her left forearm is mildly tender. No abdominal pain or nausea. No urinary complaints. No pulmonary complaints. No fevers or chills. Her only complaint is she is anxious to get out of bed today. She does have restless leg syndrome. CURRENT MEDICATIONS: Pramipexole 0.125 mg daily, duloxetine 60 mg daily, pregabalin 50 mg p.o. daily, ferrous gluconate 324 mg daily, losartan 50 mg daily, atorvastatin 80 mg daily, calcium with vitamin D 1 tablet daily, aspirin 81 mg daily, pramipexole 0.2 mg at bedtime, pantoprazole 40 mg IV b.i.d., metoprolol tartrate 25 mg b.i.d., nitroglycerin ointment 0.5 inch q. 6 hours, intravenous heparin by weight base protocol, Percocet p.r.n., tramadol p.r.n., Tylenol p.r.n., Zofran p.r.n. ALLERGIES AND ADVERSE DRUG REACTIONS: ERYTHROMYCIN, HYDROCODONE, LISINOPRIL, OXAPROZIN, SERTRALINE, SULFAMETHOXAZOLE WITH TRIMETHOPRIM. Monitor history since admission to the intensive care unit reviewed by me. Sinus rhythm. No ventricular tachycardia. No atrioventricular block. PHYSICAL EXAMINATION: VITAL SIGNS: Today with oral temperature 36.9. Most recent blood pressure 150/81. Pulse 71. Pulse oximetry room air 99%. NECK: No jugular venous distention. LUNGS: Normal respiratory effort. Clear. No rales or wheezes. HEART: Regular rate and rhythm. S1, S2 normal. No S3 or S4. 1/6 systolic murmur second right intercostal space. No diastolic murmur or rub. ABDOMEN: Soft. Nontender. No palpable masses or organomegaly. Normal bowel sounds. No bruits. EXTREMITIES: No pretibial edema. Ecchymoses and small hematoma left forearm. Slightly tender. No cyanosis or clubbing. PULSES: Distal pulses all extremities palpable. Femoral pulses are strongly palpable bilaterally. NEUROLOGIC: Alert and oriented x3. She can move all extremities. PSYCHIATRIC: Affect is normal. DATA: Electrocardiogram performed today reveals normal sinus rhythm, inferolateral T-wave inversions. No ST segment elevation or depressions suggestive of infarction or ischemia. Echocardiogram performed yesterday revealed normal overall LV ejection fraction of 55-60%, left ventricular diastolic dysfunction, basal septal, posterior, and inferior hypokinesis. Aortic valve sclerosis without stenosis. Trace mitral regurgitation. Mild aortic regurgitation. LABORATORY DATA: Labs this morning with WBC 10.91, hemoglobin 10.4, hematocrit 33.5, platelet count 290. Most recent PTT was 60.5. Metabolic profile this morning with sodium 143, potassium 3.8, chloride 108, carbon dioxide 28, BUN 15, creatinine 0.63, random glucose 91. Magnesium 2.4. Lipid profile today with triglycerides 91, total cholesterol 149, calculated LDL 77, HDL 54. Troponin I's have been 0.238 yesterday at 4:00 p.m., this morning 0.103. CK totals have been 30 and 27 with respective MBs of 0.7 and less than 0.5. ASSESSMENT: 1. Presentation to [facility] yesterday morning with acute inferolateral and posterior myocardial infarction. Successful reperfusion with administration of intravenous thrombolytic therapy with alteplase. Within a half an hour of the administration of this medication she had resolution of her chest pain and normalization of her ST segments on electrocardiogram. Since reperfusion she has had no further anginal type symptoms. She has had no reperfusion arrhythmias. Her electrocardiogram reveals only inferolateral T inversions today. Her cardiac enzymes show normal CK and CK-MB. The troponin I was minimally elevated post reperfusion. On echocardiography there is basal septal, posterior, and inferior hypokinesis. Based on the minimal enzyme elevation, suspect that these wall motion abnormalities represent stunned myocardium rather than permanently infarcted myocardium. 2. Normal overall left ventricular systolic function. Left ventricular diastolic dysfunction. No evidence of congestive heart failure on exam. No symptoms of heart failure. Good oxygen saturation. 3. No significant arrhythmias. 4. Mild systolic hypertension today. Her heart rate is generally controlled. However, she has had heart rates up into the 90s today. 5. Lipid profile following admission shows good LDL and HDL. These labs were performed after presentation yesterday. There can be acute lowering in cholesterol levels at the time of severe stress. 6. Chronic anemia. Hemoglobin actually increased today compared to yesterday. 7. Therapeutic PTT. 8. Renal function has improved since admission. Resolution of prerenal azotemia. PLAN: 1. Increase metoprolol tartrate to 50 mg b.i.d. 2. Continue metoprolol. Increase dose to 50 mg b.i.d. to achieve better heart rate control. 3. Continue aspirin and losartan. 4. Continue atorvastatin despite the good lipid profile today. There is an acute benefit of statins in regards to endothelial function. 5. Will start intravenous Integrilin this morning. This will be in addition to the heparin. It will provide additional antiplatelet effect above and beyond aspirin. 6. The patient can be transferred to the telemetry unit. 7. The patient can be out of bed to chair and restroom. 8. She is tentatively scheduled to undergo cardiac catheterization on Wednesday06/22/2016 at 7:30 a.m. The procedure, risks, benefits, and alternatives of cardiac catheterization and percutaneous coronary intervention have been discussed with the patient. She agrees to the procedure. 9. Can switch her proton pump inhibitor to oral formulation.
[2016-06-20] MEDS: HEPARIN 25,000 UNIT/500ML D5W 500 ML IV PRN (11:21)
[2016-06-20] MEDS: EPTIFIBATIDE INJ 75 MG PREMIXED IV SCH ×3 (11:22→23:49)
[2016-06-20] MEDS: PRAMIPEXOLE DIHYDROCHLORIDE 0.25MG TAB PO SCH ×2 (11:23→21:04)
--- NOTE | 2016-06-20 11:27 | Progress Note ---
Internal Med Progress Note Date of Service: Jun 20, 2016. Provider Documentation: SUBJECTIVE: The patient was seen and examined No more pain since admission Hemodynamically stable OBJECTIVE: Vital Signs-as noted below Exam: General-NO distress at rest Eyes-normal ENT-normal Neck-supple Lungs-Clear to auscultate bilaterally Heart-Regular,no murmur appreciated Abdomen-Benign,no masses,bowel sound present Extremities-Trace edema bilaterally Neuro-AAox3 Lab data as noted below. ASSESSMENT & PLAN: Acute inferior posterolateral myocardial infarction S/P TPA Risk factors- HTN, borderline dyslipidemia per patient Had EKG changes this morning [employer] (ST elevation inferior leads, 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; most recently in 2014 s/p hip surgery On Xarelto- last dose yesterday- hold Likely not to restart HYPERTENSION BP mildly elevated in [facility] ER Controlled now ANEMIA with H/O Gastric Bypass Surgery Hg is 10; similar to prior baseline Monitor OSTEOARTHRITIS Hold Celebrex Continue Percocet and tramadol for pain control CODE STATUS Full code per my discussion with the patient Disposition Awaited Vital Signs: Date Time Temp Pulse Resp B/P Pulse Ox O2 Delivery O2 Flow Rate FiO2 06/20/16 10:00 74 20 150/81 Nasal Cannula 2.0 06/20/16 08:00 69 16 140/89 94 Nasal Cannula 2.0 06/20/16 08:00 Nasal Cannula 2.0 06/20/16 05:59 76 23 140/60 99 06/20/16 04:59 67 15 128/67 96 06/20/16 04:28 98 Nasal Cannula 2.0 06/20/16 03:59 68 16 141/58 100 Nasal Cannula 2.0 06/20/16 02:59 68 23 137/68 98 Nasal Cannula 2.0 06/20/16 01:59 67 16 128/55 98 Nasal Cannula 2.0 06/20/16 00:59 36.9 68 19 132/58 98 Nasal Cannula 2.0 06/20/16 00:58 98 Nasal Cannula 2.0 06/19/16 23:40 69 18 123/61 97 Nasal Cannula 2.0 06/19/16 22:59 62 23 123/61 98 Nasal Cannula 2.0 06/19/16 21:59 66 16 119/64 98 Nasal Cannula 2.0 06/19/16 20:59 68 20 126/65 96 Nasal Cannula 2.0 06/19/16 20:04 98 Nasal Cannula 2.0 06/19/16 19:59 71 15 143/56 92 Nasal Cannula 2.0 06/19/16 18:59 68 16 122/61 97 Nasal Cannula 2.0 06/19/16 18:48 71 21 153/67 97 Nasal Cannula 2.0 06/19/16 16:59 36.9 70 16 115/78 100 Nasal Cannula 2.0 06/19/16 14:48 36.9 72 16 128/64 96 Nasal Cannula 2.0 06/19/16 14:38 82 20 155/64 100 06/19/16 13:45 82 20 155/64 100 Nasal Cannula 2.0 06/19/16 13:03 73 06/19/16 12:20 85 18 138/83 99 Nasal Cannula 2.0 06/19/16 11:50 81 16 155/70 93 Room Air 06/19/16 11:21 84 18 146/95 100 Nasal Cannula Lab Results: Results Past 24 Hours Test 06/19/16 16:00 06/19/16 16:15 06/19/16 21:10 06/20/16 05:35 Range/Units White Blood Count 12.30 10.91 4.8-10.8 K/uL Red Blood Count 3.39 3.54 4.2-5.4 M/uL Hemoglobin 10.0 10.4 12.0-16.0 g/dL Hematocrit 31.6 33.5 37-47 % Mean Corpuscular Volume 93.2 94.6 80-100 fL Mean Corpuscular Hemoglobin 29.5 29.4 25-34 pg Mean Corpuscular Hemoglobin Concent 31.6 31.0 32-36 g/dl Platelet Count 287 290 130-400 K/uL Mean Platelet Volume 9.3 9.6 7.4-10.4 fL Neutrophils (%) (Auto) 62.0 % Lymphocytes (%) (Auto) 21.4 % Monocytes (%) (Auto) 11.1 % Eosinophils (%) (Auto) 4.4 % Basophils (%) (Auto) 0.6 % Neutrophils # (Auto) 7.64 1.4-6.5 K/uL Lymphocytes # (Auto) 2.63 1.2-3.4 K/uL Monocytes # (Auto) 1.36 0.11-0.59 K/uL Eosinophils # (Auto) 0.54 0-0.5 K/uL Basophils # (Auto) 0.07 0-0.2 K/uL RDW Standard Deviation 48.9 49.6 36.4-46.3 fL RDW Coefficient of Variation 14.4 14.4 11.5-14.5 % Immature Granulocyte % (Auto) 0.5 % Immature Granulocyte # (Auto) 0.06 0.00-0.02 K/uL Sodium Level 144 143 136-145 mmol/L Potassium Level 4.0 3.8 3.5-5.1 mmol/L Chloride Level 108 108 98-107 mmol/L Carbon Dioxide Level 28 28 21-32 mmol/L Anion Gap 8.0 7.0 3-11 mmol/L Blood Urea Nitrogen 20 15 7-18 mg/dl Creatinine 0.65 0.63 0.60-1.20 mg/dl Est Creatinine Clear Calc Drug Dose 78.5 81.8 ml/min Estimated GFR () 100.7 101.7 Estimated GFR (Non- 86.8 87.7 BUN/Creatinine Ratio 30.6 23.2 10-20 Random Glucose 88 91 70-99 mg/dl Calcium Level 7.9 7.9 8.5-10.1 mg/dl Magnesium Level 2.3 2.4 1.8-2.4 mg/dl Total Creatine Kinase 30 27 26-192 U/L Creatine Kinase MB 0.7 < 0.5 0.5-3.6 ng/ml Creatine Kinase MB Ratio 2.3 0-3.0 Troponin I 0.238 0.103 0-0.045 ng/ml Urine Color YELLOW Urine Appearance CLEAR CLEAR Urine pH 7.5 4.5-7.5 Urine Specific [place] 1.007 1.000-1.030 Urine Protein NEG NEG Urine Glucose (UA) NEG NEG Urine Ketones NEG NEG Urine Occult Blood NEG NEG Urine Nitrite NEG NEG Urine Bilirubin NEG NEG Urine Urobilinogen NEG NEG Urine Leukocyte Esterase NEG NEG Activated Partial Thromboplast Time 60.5 21.0-31.0 SECONDS Partial Thromboplastin Ratio 2.3 Triglycerides Level 91 0-150 mg/dl Cholesterol Level 149 0-200 mg/dl HDL Cholesterol 54 mg/dl LDL Cholesterol, Calculated 77 mg/dl VLDL Cholesterol, Calculated 18 mg/dl Cholesterol/HDL Ratio 2.8 Microbiology Results 06/19/16 MRSA DNA Surveillance Screen - Final, Complete Specimen Positive for MRSA by DNA Probe
[2016-06-20] MEDS ORDERED: NURSING VERBAL MED ORDER ONE ×2 (13:15→15:45)
[2016-06-20] MEDS: METOPROLOL TARTRATE 50 MG TAB PO SCH (21:05)
--- NOTE | 2016-06-20 23:17 | CRITICAL CARE PROGRESS NOTE ---
DATE: 06/20/2016 There were no acute events overnight. This is a patient who presented to [facility] with acute ST segment elevation inferior wall myocardial infarction. She received TPA and was transferred to [facility] [address] [facility]. She has not had any chest pain since her admission to the ICU. She has no complaints at all. She is out of bed, in a chair, eating well. She has been started on Integrilin today by Dr. Bruno. PHYSICAL EXAMINATION: VITAL SIGNS: Temperature 36.9, heart rate 60s-70s, respiratory rate 15-20, blood pressure 128-150/70-80, oxygen saturation 98% on 2 liters nasal cannula, 24-hour fluid balance is -43 mL. GENERAL: She is awake, alert and in no distress. LUNGS: Clear to auscultation bilaterally. No rales, rhonchi or wheezes. HEART: Regular rate and rhythm, no murmurs. ABDOMEN: Obese, soft, nondistended, nontender. EXTREMITIES: Warm. No edema. LABORATORY DATA: White blood cell count 10.91, hemoglobin 10.4, hematocrit 33.5, platelets 290. Sodium 143, potassium 3.8, chloride 108, CO2 28, BUN 15, creatinine 0.63, calcium 7.9, troponin 0.238 yesterday, 0.103 this morning. Blood sugar 129. MEDICATIONS: Tylenol, aspirin, Lipitor, calcium, Cymbalta, Integrilin, ferrous gluconate, heparin infusion, losartan, Lopressor, nitroglycerin, Zofran, Percocet, Mirapex, prednisone, Lyrica, Ultram. IMPRESSION: 1. Status post acute inferior wall myocardial infarction, status post TPA doing well, now on heparin and Integrilin. 2. History of upper and lower extremity deep venous thrombosis, on Xarelto as an outpatient. 3. Chronic steroid use for her joints, she has not received stress dose steroids. 4. History of gastric ulcers, remotely. 5. History of gastric bypass surgery. 6. History of hypertension. PLAN: 1. Continue Integrilin, heparin, aspirin, Cozaar and Lopressor per cardiology service. 2. Anticipate cardiac catheterization on Wednesday morning. 3. She prefers Nexium to Protonix and has brought in her medication, which was given to her nurse. 4. She is stable for transfer to telemetry.
[2016-06-20 23:18] LABS: CKMB/CK RATIO 2.3 (0-3.0)
[2016-06-21] MEDS: NITROGLYCERIN OINT 2% 1GM PACKET EXT SCH ×4 (03:16→22:05)
[2016-06-21 04:00] VITALS: BP 155/83; PULSE 64; TEMP 36.5; O2SAT 98; O2SAT 99
[2016-06-21] MEDS: HEPARIN 25,000 UNIT/500ML D5W 500 ML IV PRN ×2 (04:05→07:24)
[2016-06-21 06:02] LABS: HEMATOCRIT 32.1 % (37-47); MEAN CELL VOLUME 93.3 fL (80-100); MEAN CORPUSCULAR HEMOGLOBIN 29.4 pg (25-34); MEAN CORPUSCULAR HGB CONC 31.5 g/dl (32-36); MEAN PLATELET VOLUME 9.5 fL (7.4-10.4); PLATELET COUNT 287 K/uL (130-400); RED BLOOD COUNT 3.44 M/uL (4.2-5.4); WHITE BLOOD COUNT 11.69 K/uL (4.8-10.8)
[2016-06-21 06:30] LABS: PARTIAL THROMBOPLASTIN RATIO 3.2
[2016-06-21 06:33] LABS: BUN/CREATININE RATIO 23.9 (10-20); CALCIUM 7.7 mg/dl (8.5-10.1); CREATININE 0.66 mg/dl (0.60-1.20); MAGNESIUM 2.4 mg/dl (1.8-2.4); POTASSIUM 3.6 mmol/L (3.5-5.1)
[2016-06-21] MEDS: EPTIFIBATIDE INJ 75 MG PREMIXED IV SCH ×3 (07:22→22:07)
[2016-06-21] MEDS: DULOXETINE HCL 60 MG CAP PO SCH (07:27)
[2016-06-21] MEDS: METOPROLOL TARTRATE 50 MG TAB PO SCH ×2 (07:28→22:05)
[2016-06-21] MEDS: CALCIUM 600MG + VIT D 400 IU TAB PO SCH (07:28)
[2016-06-21] MEDS: LOSARTAN POTASSIUM 50 MG TAB PO SCH (07:28)
[2016-06-21] MEDS: ATORVASTATIN 40 MG TAB PO SCH (07:28)
[2016-06-21] MEDS: ASPIRIN 81 MG ECTAB PO SCH (07:28)
[2016-06-21] MEDS: FERROUS GLUCONATE 324 MG TAB PO SCH (07:29)
[2016-06-21] MEDS: PREGABALIN 50 MG CAP PO SCH (07:34)
[2016-06-21 07:44] VITALS: BP 106/67; PULSE 68; TEMP 36.5; O2SAT 98
[2016-06-21] MEDS: PANTOprazole INJ 40 MG in SYRINGE 0 ML IV SCH ×2 (07:44→22:05)
[2016-06-21] MEDS ORDERED: ESOMEPRAZOLE MAGNESIUM 40 MG PO SCH (09:00)
[2016-06-21] MEDS ORDERED: ESOMEPRAZOLE MAGNESIUM 40 MG CAP PO SCH (09:00)
[2016-06-21] MEDS: PRAMIPEXOLE DIHYDROCHLORIDE 0.25MG TAB PO SCH ×2 (10:59→22:05)
[2016-06-21 11:41] VITALS: BP 147/76; PULSE 67; TEMP 36.7; O2SAT 99
--- NOTE | 2016-06-21 13:38 | PROGRESS NOTE ---
DATE: 06/21/2016 The patient was seen in her room in the telemetry unit. She is feeling well. She got good night's rest. She denies any chest pain or other anginal type pains. No dyspnea. No orthopnea or PND. No palpitations, lightheadedness, syncope or leg pain. She did have bleeding from her left forearm overnight. A pressure dressing was applied. No pain in her left arm. No cerebrovascular complaints. No GI or pulmonary complaints. No urinary complaints. CURRENT MEDICATIONS: Intravenous heparin and Integrilin by weight based protocol, Nexium 40 mg p.o. daily, Caltrate Plus 1 tab daily, metoprolol tartrate 6 mg b.i.d., Mirapex 0.125 mg daily at 12:00 noon, Mirapex 0.25 mg at bedtime, prednisone 5 mg daily, Cymbalta 60 mg daily, pregabalin 50 mg p.o. daily, ferrous gluconate 324 mg daily, losartan 50 mg daily, atorvastatin 80 mg daily, aspirin 81 mg daily, nitroglycerin ointment 1/2 inch q. 6 hours, pantoprazole 40 mg IV b.i.d., and several p.r.n. medications. ALLERGIES AND ADVERSE DRUG REACTIONS: ERYTHROMYCIN, HYDROCODONE, LISINOPRIL, SERTRALINE, BACTRIM, OXAPROZIN. Monitor history over the past 24 hours reviewed by me. Sinus rhythm. No ventricular tachycardia, no atrioventricular block. PHYSICAL EXAMINATION: This morning: VITAL SIGNS: With oral temperature 36.7, pulse 67, blood pressure 147/76, pulse oximetry room air 99%. NECK: No jugular venous distention. LUNGS: Normal respiratory effort. Clear. No rales or wheezes. HEART: Regular rate and rhythm. S1, S2 normal. No S3 or S4. 1/6 systolic murmur right upper sternal border. No diastolic murmur or rub. ABDOMEN: Soft. Nontender. No palpable masses or organomegaly. Normal bowel sounds. No bruits. EXTREMITIES: Left forearm bandage. No evidence of any active bleeding. Trace pretibial edema. No calf tenderness. PSYCHIATRIC: Affect is normal. NEUROLOGIC: Alert and oriented x3. Motor grossly intact. She can move all extremities. DATA: Electrocardiogram today with sinus rhythm, inferior T inversions. LABS TODAY: With WBC 11.69, hemoglobin 10.4, hematocrit 32.1, platelet count 287, PTT 83.5. Sodium 140, potassium 3.6, chloride 106, carbon dioxide 26, BUN 16, creatinine 0.66, random glucose 99. Magnesium 2.4. Troponin I last evening was 0.049. CK total was 40 with an MB of 0.9. Peak troponin I on day of admission at 4:00 p.m. was 0.238. This was approximately 8 hours after the administration of intravenous thrombolytics for her acute OK. ASSESSMENT: 1. Status post acute inferolateral and posterior myocardial infarction on EKG the morning of 06/19/2016. Successful reperfusion with intravenous thrombolytic therapy. Quick resolution of ST segment elevations and anginal symptoms following administration of the thrombolytic. Since then, no further anginal symptoms. Very minimal enzyme elevation. Electrocardiogram reveals small inferior T inversions. No ST segment evidence of myocardial ischemia or injury on post reperfusion electrocardiograms. Normal overall left ventricular systolic function. Basal inferior, posterior, and septal hypokinesis on echo. With the low enzyme elevation, suspect that these wall motion abnormalities represent stunned myocardium. 2. No heart failure. 3. Hypertension. Blood pressure mildly increased this morning. Blood pressures earlier today were better. 4. Heart rate controlled. 5. No significant arrhythmias. 6. Bleeding from left forearm at the site of prior venipunctures. No other bleeding complaints. 7. Hemoglobin stable. She does have chronic anemia. 8. Renal function stable. 9. No cerebrovascular or peripheral vascular complaints. PLAN: 1. Diagnostic cardiac catheterization 06/22/2016. We will attempt right radial artery access. The procedure, risk, benefits, and alternatives of cardiac catheterization and percutaneous coronary intervention have been extensively discussed with the patient. She is aware of the nature of [facility] PCI program with off-site CABG surgery. She is agreeable to undergoing the procedure at [facility]. Further plans and recommendations will be based upon the results of the catheterization and any possible coronary intervention. 2. Continue intravenous heparin and Integrilin. 3. Continue current oral cardiac medications. 4. NPO after 12:00 midnight. 5. We will start her on maintenance intravenous fluids tonight.
[2016-06-21 13:47] LABS: PARTIAL THROMBOPLASTIN RATIO 2.1
[2016-06-21 15:51] VITALS: BP 129/79; PULSE 73; TEMP 36.8; O2SAT 98
--- NOTE | 2016-06-21 15:54 | Progress Note ---
Internal Med Progress Note Date of Service: Jun 21, 2016. Provider Documentation: SUBJECTIVE: The patient was seen and examined No more pain since admission Hemodynamically stable Denies any complaints OBJECTIVE: Vital Signs-as noted below Exam: General-NO distress at rest Eyes-normal ENT-normal Neck-supple Lungs-Clear to auscultate bilaterally Heart-Regular,no murmur appreciated Abdomen-Benign,no masses,bowel sound present Extremities-Trace edema bilaterally Neuro-AAox3 Lab data as noted below. 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; most recently in 2014 s/p hip surgery On Xarelto- last dose yesterday- hold Likely not to restart Has been on Heparin and Integrelin now HYPERTENSION BP mildly elevated in [facility] ER Controlled now ANEMIA with H/O Gastric Bypass Surgery Hg is 10; similar to prior baseline Monitor ,Hb >10 OSTEOARTHRITIS Hold Celebrex Continue Percocet and tramadol for pain control CODE STATUS Full code per my discussion with the patient Disposition Awaited Vital Signs: Date Time Temp Pulse Resp B/P Pulse Ox O2 Delivery O2 Flow Rate FiO2 06/21/16 15:51 36.8 73 18 129/79 98 Room Air 06/21/16 12:00 Room Air 06/21/16 11:41 36.7 67 18 147/76 99 Room Air 06/21/16 08:00 Room Air 06/21/16 07:44 36.5 68 19 106/67 98 Room Air 06/21/16 04:00 98 Room Air 06/21/16 04:00 36.5 64 16 155/83 99 Room Air 06/20/16 23:59 98 Room Air 06/20/16 23:27 37.0 69 18 130/78 98 Room Air 06/20/16 20:05 36.7 66 20 121/68 98 Room Air 06/20/16 20:00 Room Air 06/20/16 18:07 65 18 148/76 99 Room Air 06/20/16 16:00 Nasal Cannula 2.0 Lab Results: Results Past 24 Hours Test 06/20/16 22:08 06/21/16 05:45 06/21/16 13:15 Range/Units Total Creatine Kinase 40 26-192 U/L Creatine Kinase MB 0.9 0.5-3.6 ng/ml Creatine Kinase MB Ratio 2.3 0-3.0 Troponin I 0.049 0-0.045 ng/ml White Blood Count 11.69 4.8-10.8 K/uL Red Blood Count 3.44 4.2-5.4 M/uL Hemoglobin 10.1 12.0-16.0 g/dL Hematocrit 32.1 37-47 % Mean Corpuscular Volume 93.3 80-100 fL Mean Corpuscular Hemoglobin 29.4 25-34 pg Mean Corpuscular Hemoglobin Concent 31.5 32-36 g/dl RDW Standard Deviation 48.8 36.4-46.3 fL RDW Coefficient of Variation 14.2 11.5-14.5 % Platelet Count 287 130-400 K/uL Mean Platelet Volume 9.5 7.4-10.4 fL Activated Partial Thromboplast Time 83.5 54.0 21.0-31.0 SECONDS Partial Thromboplastin Ratio 3.2 2.1 Sodium Level 140 136-145 mmol/L Potassium Level 3.6 3.5-5.1 mmol/L Chloride Level 106 98-107 mmol/L Carbon Dioxide Level 26 21-32 mmol/L Anion Gap 8.0 3-11 mmol/L Blood Urea Nitrogen 16 7-18 mg/dl Creatinine 0.66 0.60-1.20 mg/dl Est Creatinine Clear Calc Drug Dose 78.6 ml/min Estimated GFR () 100.2 Estimated GFR (Non- 86.4 BUN/Creatinine Ratio 23.9 10-20 Random Glucose 99 70-99 mg/dl Calcium Level 7.7 8.5-10.1 mg/dl Phosphorus Level 2.0 2.5-4.9 mg/dl Magnesium Level 2.4 1.8-2.4 mg/dl
[2016-06-21 19:48] VITALS: BP 130/67; PULSE 77; TEMP 37.2; O2SAT 98
[2016-06-21] MEDS: SODIUM CHLORIDE 0.9% 1000ML 1,000 ML IV SCH (22:34)
[2016-06-21 23:56] VITALS: BP 122/69; PULSE 67; TEMP 36.5; O2SAT 99
[2016-06-22] VITALS (9 sets, daily range): BP systolic 119–164; BP diastolic 61–78; PULSE 61–74; TEMP 36.6–37; O2SAT 97–100
[2016-06-22] MEDS: NITROGLYCERIN OINT 2% 1GM PACKET EXT SCH ×4 (04:16→21:01)
[2016-06-22] MEDS: EPTIFIBATIDE INJ 75 MG PREMIXED IV SCH ×4 (04:16→19:31)
[2016-06-22] MEDS ORDERED: NiCARDipine HCL INJ 2.5 MG/ML 10 ML AMP ONE (07:05)
[2016-06-22] MEDS ORDERED: FENTANYL CITRATE INJ 50 MCG/1 ML 2 ML VIAL ONE (07:05)
[2016-06-22] MEDS ORDERED: MIDAZOLAM HCL 1 MG/ML 2ML VIAL ONE ×2 (07:05→09:43)
[2016-06-22] MEDS ORDERED: HEPARIN SOD (PORCINE) 1000 UNIT/ML 10 ML VIAL ONE (07:05)
[2016-06-22] MEDS ORDERED: NITROGLYCERIN/D5W 100MCG/ML 20ML SYR ONE (07:07)
--- NOTE | 2016-06-22 07:44 | Procedure Note ---
Pre-Mod Sedation Assessment General Date of Moderate Sedation: Jun 22, 2016. Vital Signs: Vital Signs Past 12 Hours Date Time Temp Pulse Resp B/P Pulse Ox O2 Delivery O2 Flow Rate FiO2 06/22/16 04:00 Room Air 06/22/16 03:34 36.7 73 17 119/72 100 Room Air 06/22/16 00:02 Room Air 06/21/16 23:56 36.5 67 17 122/69 99 Room Air 06/21/16 20:00 Room Air 06/21/16 19:48 37.2 77 18 130/67 98 Room Air Review Cardiovascular: regular rate, rhythm, no gallop, no JVD, no murmur, normal peripheral pulses, + pertinent finding (hematoma left arm) Abdomen: normal bowel sounds, non tender, soft, no organomegaly Lungs: lungs clear, normal breath sounds, no respiratory distress, no accessory muscle use Pre-Sedation Airway Assessment Oral Cavity: Dentures Short Thick Neck: No Hx of Sleep Apnea: No Smoking Status: Never Smoker ASA Classification: Class III Procedure Planning Contraindications-for Mod Sed: None Yes Notes The planned sedation has been discussed with the patient and consent obtained. I have identified the patient, determined the appropriateness of sedation and have assessed the patient immediately prior to the procedure. All medicine(s) and interventions are by my order.
[2016-06-22] MEDS: PREGABALIN 50 MG CAP PO SCH (09:00)
[2016-06-22] MEDS ORDERED: CLOPIDOGREL BISULFATE 300 MG TAB PO ONE (10:02)
[2016-06-22] MEDS ORDERED: ATROPINE SULFATE 0.1 MG/ML 5ML SYR IV PRN (10:30)
--- NOTE | 2016-06-22 10:36 | Procedure Note ---
Post-Mod Sedation Assessment General Date of Moderate Sedation Jun 22, 2016. Vital Signs: Vital Signs Past 12 Hours Date Time Temp Pulse Resp B/P Pulse Ox O2 Delivery O2 Flow Rate FiO2 06/22/16 10:20 69 20 144/59 99 Room Air 06/22/16 10:05 74 20 153/59 99 Room Air 06/22/16 08:27 36.6 74 18 128/75 98 Room Air 06/22/16 04:00 Room Air 06/22/16 03:34 36.7 73 17 119/72 100 Room Air 06/22/16 00:02 Room Air 06/21/16 23:56 36.5 67 17 122/69 99 Room Air Review - Discharge Criteria Vital Signs Stable: Yes Alert/Oriented/Conversant: Yes Returned to Baseline Mental St: Yes Nausea Absent/Minimal: Yes Pain/Discomfort/Absent/Minimal: Yes Normal/Baseline Respirations: Yes Active Bleeding?: No Pt Received D/C Instructions: N/A Prescriptions Given: None Specific Proced. D/C Criteria Distal Pulses Present (Cardiac: Yes Groin site assessed-Card Cath: N/A Voided Prior To Discharge: N/A Discharged Patients Adult Escort/Transportation: N/A
--- NOTE | 2016-06-22 11:06 | [facility] Post Operative Brief Note ---
Preliminary Procedure Note Procedure Date Jun 22, 2016. 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 Successful reperfusion. Started on IV heparin with the lytic. Transferred to [facility]. No further chest pain. Because patient was on Xarelto and was stable , coronary angiography delayed till today. IV Integrilin started on 06/20/17. Cath site: 6 Fr slender glide sheath right radial artery. Hemostasis: Terumo TR band. Complications: none. Preliminary report: Right dominant circulation. Sub total mid RCA occlusion. DEMAR 3 flow. No other significant CAD. LVEDP 15 mm Hg. PTCA ( 2.5 X 12 mm balloon ) performed to mid RCA. 3 X 18 mm Resolute Integrity stent deployed in mid RCA. Post dilated with 3.25 X 12 mm NC balloon. Residual stenosis 0-10%. No dissection,thrombus,perforation,or distal embolic event. TIMI3 flow. Plan: DC IV heparin. Continue IV Integrilin for at least 12 hr. 600 mg clopidogrel given post PCI. Aspirin,clopidogrel for one year. ASA indefinitely. Continue metoprolol,ARB,statin. Xarelto discontinued on admission. Patient was on Xarelto for a provoked DVT over 6 months ago.Will not restart. Recommendations Medical therapy and/or Counseling, PCI without planned CABG Specimens None Fluids (cc crystalloids) 110 Drains none Procedural Complication(s) None Disposition PCU
[2016-06-22 11:13] LABS: HEMATOCRIT 30.3 % (37-47); MEAN CELL VOLUME 92.9 fL (80-100); MEAN CORPUSCULAR HEMOGLOBIN 30.1 pg (25-34); MEAN CORPUSCULAR HGB CONC 32.3 g/dl (32-36); MEAN PLATELET VOLUME 9.9 fL (7.4-10.4); PLATELET COUNT 275 K/uL (130-400); RED BLOOD COUNT 3.26 M/uL (4.2-5.4); WHITE BLOOD COUNT 10.77 K/uL (4.8-10.8)
[2016-06-22] MEDS: SODIUM CHLORIDE 0.9% 1000ML 1,000 ML IV SCH ×4 (11:20→23:49)
[2016-06-22] MEDS: ATORVASTATIN 40 MG TAB PO SCH (11:22)
[2016-06-22] MEDS: METOPROLOL TARTRATE 50 MG TAB PO SCH ×2 (11:22→21:01)
[2016-06-22] MEDS: ASPIRIN 81 MG ECTAB PO SCH (11:22)
[2016-06-22] MEDS: DULOXETINE HCL 60 MG CAP PO SCH (11:22)
[2016-06-22] MEDS: LOSARTAN POTASSIUM 50 MG TAB PO SCH (11:24)
[2016-06-22] MEDS: CALCIUM 600MG + VIT D 400 IU TAB PO SCH (11:25)
[2016-06-22] MEDS: FERROUS GLUCONATE 324 MG TAB PO SCH (11:25)
[2016-06-22] MEDS: PANTOprazole INJ 40 MG in SYRINGE 0 ML IV SCH ×2 (11:25→21:00)
[2016-06-22 11:42] LABS: BLOOD UREA NITROGEN 13 mg/dl (7-18); BUN/CREATININE RATIO 20.8 (10-20); CALCIUM 7.4 mg/dl (8.5-10.1); CARBON DIOXIDE 24 mmol/L (21-32); CHLORIDE 106 mmol/L (98-107); CREATININE 0.61 mg/dl (0.60-1.20); GLUCOSE 98 mg/dl (70-99); SODIUM 139 mmol/L (136-145)
[2016-06-22] MEDS: PRAMIPEXOLE DIHYDROCHLORIDE 0.25MG TAB PO SCH ×2 (13:54→21:00)
--- NOTE | 2016-06-22 14:57 | Progress Note ---
Internal Med Progress Note Date of Service: Jun 22, 2016. Provider Documentation: SUBJECTIVE: The patient was seen and examined No more pain since admission Hemodynamically stable Denies any complaints except left UE swelling with hematoma and bruising S/P Cardiac cath OBJECTIVE: Vital Signs-as noted below Exam: General-NO distress at rest Eyes-normal ENT-normal Neck-supple Lungs-Clear to auscultate bilaterally Heart-Regular,no murmur appreciated Abdomen-Benign,no masses,bowel sound present Extremities-Trace edema bilaterally Neuro-AAox3 Lab data as noted below. 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; most recently in 2014 s/p hip surgery On Xarelto- last dose yesterday- hold Likely not to restart Has been on Heparin and Integrilin now.Heparin stopped HYPERTENSION BP mildly elevated in [facility] ER Controlled now ANEMIA with H/O Gastric Bypass Surgery Hg is 10; similar to prior baseline Monitor ,Hb-9.8 0n 06/22/16 OSTEOARTHRITIS Hold Celebrex Continue Percocet and tramadol for pain control CODE STATUS Full code per my discussion with the patient Disposition Likely home tomorrow Vital Signs: Date Time Temp Pulse Resp B/P Pulse Ox O2 Delivery O2 Flow Rate FiO2 06/22/16 10:58 66 20 136/76 100 Room Air 06/22/16 10:44 37.0 72 20 130/65 100 Room Air 06/22/16 10:20 69 20 144/59 99 Room Air 06/22/16 10:05 74 20 153/59 99 Room Air 06/22/16 08:27 36.6 74 18 128/75 98 Room Air 06/22/16 04:00 Room Air 06/22/16 03:34 36.7 73 17 119/72 100 Room Air 06/22/16 00:02 Room Air 06/21/16 23:56 36.5 67 17 122/69 99 Room Air 06/21/16 20:00 Room Air 06/21/16 19:48 37.2 77 18 130/67 98 Room Air 06/21/16 16:00 Room Air 06/21/16 15:51 36.8 73 18 129/79 98 Room Air Lab Results: Results Past 24 Hours Test 06/22/16 11:00 06/22/16 12:00 Range/Units White Blood Count 10.77 4.8-10.8 K/uL Red Blood Count 3.26 4.2-5.4 M/uL Hemoglobin 9.8 12.0-16.0 g/dL Hematocrit 30.3 37-47 % Mean Corpuscular Volume 92.9 80-100 fL Mean Corpuscular Hemoglobin 30.1 25-34 pg Mean Corpuscular Hemoglobin Concent 32.3 32-36 g/dl RDW Standard Deviation 48.3 36.4-46.3 fL RDW Coefficient of Variation 14.3 11.5-14.5 % Platelet Count 275 130-400 K/uL Mean Platelet Volume 9.9 7.4-10.4 fL Sodium Level 139 136-145 mmol/L Potassium Level 4.3 3.5-5.1 mmol/L Chloride Level 106 98-107 mmol/L Carbon Dioxide Level 24 21-32 mmol/L Anion Gap 9.0 3-11 mmol/L Blood Urea Nitrogen 13 7-18 mg/dl Creatinine 0.61 0.60-1.20 mg/dl Est Creatinine Clear Calc Drug Dose 84.4 ml/min Estimated GFR () 102.8 Estimated GFR (Non- 88.7 BUN/Creatinine Ratio 20.8 10-20 Random Glucose 98 70-99 mg/dl Calcium Level 7.4 8.5-10.1 mg/dl
--- NOTE | 2016-06-22 18:48 | CARDIOLOGY PROGRESS NOTE ---
DATE: 06/22/2016 SUBJECTIVE: The patient was seen by me this morning and this afternoon. She was seen prior to her cardiac catheterization interventional procedure. She was seen in her room following the procedure. She did well yesterday and overnight. No chest pain or other anginal type pains. No orthopnea or PND. No palpitations, lightheadedness, syncope, or leg pain. No bleeding complaints other than bleeding from her left venipuncture sites. Pressure dressings were again applied yesterday evening. No GI bleeding symptoms. No fevers or chills. No pulmonary or urinary complaints. No cerebrovascular complaints. MEDICATIONS: This morning included intravenous heparin by weight-based protocol, intravenous Integrilin, metoprolol tartrate 50 mg b.i.d., Cymbalta 60 mg daily, prednisone 5 mg daily, pregabalin 50 mg daily, Caltrate with vitamin D 1 tablet daily, pantoprazole 40 mg IV b.i.d., Mirapex 0.125 mg daily, Mirapex at bedtime, nitroglycerin ointment 1/2 inch q. 6 hours, losartan 50 mg daily, atorvastatin 80 mg daily, aspirin 81 mg daily, and a few p.r.n. medications. ALLERGIES AND ADVERSE DRUG REACTIONS: See EHR. PHYSICAL EXAMINATION: VITAL SIGNS: Post-intervention revealed oral temperature 37.0, pulse 72, blood pressure 130/65, pulse oximetry 100%. NECK: No jugular venous distention. LUNGS: Normal respiratory effort. Clear. No rales or wheezes. HEART: Regular rate and rhythm. S1, S2 normal. No gallop or rub. 1/6 systolic murmur second right intercostal space. No diastolic murmur. ABDOMEN: Soft. Nontender. No palpable masses or organomegaly. No bruits. EXTREMITIES: Right radial catheterization site without bleeding or hematoma. No evidence of arterial insufficiency in the right hand. No pretibial edema. NEUROLOGIC: Alert and oriented x3. Motor grossly intact. PSYCHIATRIC: Affect is normal. DATA: Electrocardiogram post-PCI revealed sinus rhythm with PACs, T-wave inversion leads III and AVF. Premature supraventricular beats. No diagnostic ST-segment changes of myocardial ischemia or injury. Post-PCI - CBC with WBC 10.77, hemoglobin 9.8, hematocrit 30.3, platelet count 275. Metabolic profile - sodium 139, potassium 4.3, chloride 106, carbon dioxide 24, BUN 13, creatinine 0.61, random glucose 98. Today's electrocardiogram post-PCI without significant change from yesterday. ASSESSMENT: 1. Status post thrombolytic therapy for acute inferior posterolateral myocardial infarction on 06/19/2016. Successful clinical reperfusion. After repeat perfusion, no further anginal symptoms. Troponin I post-reperfusion minimally increased. Peak troponin I was 0.238. 2. Echocardiogram revealed basal posterior, inferior, and septal hypokinesis. Normal overall left ventricular systolic function. 3. No angina post-reperfusion. No arrhythmias. No heart failure. 4. Severe mid right coronary artery stenosis on diagnostic cardiac catheterization performed this morning. Successful intervention to the mid right coronary artery stenosis with deployment of a 3 x 18 mm drug-eluting stent. Post-dilated with a 3.25 mm diameter noncompliant balloon. No procedural complications. No post-percutaneous coronary intervention angina. No vascular complications. 5. Blood pressure under good control. 6. Anemia. This is chronic. 7. Normal renal function post-percutaneous coronary intervention. PLAN: 1. Her heparin was discontinued following PCI. 2. Continue intravenous Integrilin until 5:00 a.m. June 23. 3. She was given clopidogrel 600 mg post-PCI. 4. Continue aspirin and clopidogrel for 1 year. Aspirin therapy indefinitely. 5. Continue beta gera and angiotensin receptor gera. Continue losartan. Continue statin. 6. Out of bed as tolerated today. MTDD
[2016-06-23] VITALS (8 sets, daily range): BP systolic 115–163; BP diastolic 63–81; PULSE 74–97; TEMP 36.7–37.1; O2SAT 94–99
[2016-06-23] MEDS: EPTIFIBATIDE INJ 75 MG PREMIXED IV SCH (02:37)
[2016-06-23] MEDS: NITROGLYCERIN OINT 2% 1GM PACKET EXT SCH (03:45)
[2016-06-23] MEDS: ACETAMINOPHEN 325 MG TAB PO PRN (05:05)
[2016-06-23 06:38] LABS: HEMATOCRIT 28.9 % (37-47); MEAN CELL VOLUME 92.3 fL (80-100); MEAN CORPUSCULAR HGB CONC 32.5 g/dl (32-36); MEAN PLATELET VOLUME 9.9 fL (7.4-10.4); PLATELET COUNT 254 K/uL (130-400); RED BLOOD COUNT 3.13 M/uL (4.2-5.4); WHITE BLOOD COUNT 12.19 K/uL (4.8-10.8)
[2016-06-23 07:15] LABS: BUN/CREATININE RATIO 16.5 (10-20); CALCIUM 7.3 mg/dl (8.5-10.1); CREATININE 0.6 mg/dl (0.60-1.20); MAGNESIUM 2.5 mg/dl (1.8-2.4); POTASSIUM 3.3 mmol/L (3.5-5.1)
[2016-06-23] MEDS: PANTOprazole INJ 40 MG in SYRINGE 0 ML IV SCH (08:03)
[2016-06-23] MEDS: LOSARTAN POTASSIUM 50 MG TAB PO SCH (08:04)
[2016-06-23] MEDS: METOPROLOL TARTRATE 50 MG TAB PO SCH ×2 (08:04→22:50)
[2016-06-23] MEDS: DULOXETINE HCL 60 MG CAP PO SCH (08:05)
[2016-06-23] MEDS: FERROUS GLUCONATE 324 MG TAB PO SCH (08:05)
[2016-06-23] MEDS: ASPIRIN 81 MG ECTAB PO SCH (08:05)
[2016-06-23] MEDS: CALCIUM 600MG + VIT D 400 IU TAB PO SCH (08:05)
[2016-06-23] MEDS: ATORVASTATIN 40 MG TAB PO SCH (08:06)
[2016-06-23] MEDS: PREGABALIN 50 MG CAP PO SCH (08:12)
[2016-06-23] MEDS ORDERED: POTASSIUM CHLORIDE 20 MEQ TABCR PO ONE (08:30)
--- NOTE | 2016-06-23 09:45 | CARDIOLOGY PROGRESS NOTE ---
DATE: 06/23/2016 DATE: 06/23/2016. SUBJECTIVE: The patient was seen in her room in the telemetry unit. She is feeling very well. No chest pain or other anginal type pains. No dyspnea or orthopnea. No PND, palpitations, lightheadedness, or syncope. No bleeding complaints. No skin rash complaints. No fevers or chills. No pulmonary, GI, or urinary complaints. No cerebrovascular complaints. No vascular complaints. No pain at her right radial catheterization site. No right hand pain. MEDICATIONS: This morning were normal saline 75 mL per hour, clopidogrel 75 mg daily, metoprolol tartrate 50 mg b.i.d., pramipexole 0.125 mg daily at noontime, Cymbalta 60 mg daily, prednisone 5 mg daily, pregabalin 50 mg daily, ferrous gluconate 324 mg daily, losartan 50 mg daily, atorvastatin 80 mg daily, aspirin 81 mg daily, pramipexole 0.25 mg at bedtime, pantoprazole 40 mg IV b.i.d., nitroglycerin ointment 1/2 inch q. 6 hours. She had been on intravenous Integrilin until early this morning. This was then discontinued according to plan. PHYSICAL EXAMINATION: VITAL SIGNS: This morning with oral temperature is 36.7, pulse 76, blood pressure 159/64, pulse oximetry 99%. NECK: No jugular venous distention. LUNGS: Normal respiratory effort. Clear. No rales or wheezes. HEART: Regular rate and rhythm. S1, S2 normal. No S3 or S4. 1/6 systolic murmur second intercostal space. No diastolic murmur or rub. ABDOMEN: Soft. Nontender. No palpable masses or organomegaly. EXTREMITIES: Right radial catheterization site without bleeding or hematoma. No tenderness. Right radial pulse strongly palpable. No evidence of arterial insufficiency in the right hand. NEUROLOGIC: Alert and oriented x3. Motor grossly intact. PSYCHIATRIC: Affect is normal. LABORATORY DATA: Today with WBC 12.19, hemoglobin 9.4, hematocrit 28.9, platelet count 254. Sodium 142, potassium 3.3, chloride 110, carbon dioxide 25, BUN 10, creatinine 0.60, random glucose 84. Magnesium 2.5. ASSESSMENT: 1. Status post thrombolytic therapy for acute inferior posterolateral myocardial infarction 06/19/2016. She presented to [facility] with this myocardial infarction. Treated with intravenous thrombolytic therapy. Clinical reperfusing within 30 minutes of administration of thrombolytic. Subsequent transfer to [facility]. Since transfer to [facility], she has had no further anginal type complaints. Peak troponin I was only 0.238. Resolution of ST segment elevations following thrombolytic therapy. 2. Cardiac catheterization performed 06/22/2016 [facility] with subtotal mid right coronary artery occlusion. Successful intervention to the right coronary artery occlusion with a 3 x 18 mm drug-eluting stent. No coronary, cardiac, or vascular complications. Procedure performed via right radial artery. 3. No post-percutaneous coronary intervention angina. No vascular complications at right radial catheterization site. 4. Chronic anemia. Hemoglobin today is slightly decreased compared to yesterday. 5. Stable renal function. 6. Hypokalemia. She did receive potassium supplementation this morning after the lab results returned. RECOMMENDATIONS: 1. Discontinue IV fluids. 2. Discontinue pantoprazole IV. 3. Restart patient on her usual Nexium 40 mg daily. 4. Discontinue nitro paste. 5. No limitations to walking activities. 6. From a cardiac standpoint, the patient can be discharged home. Recommend discharge home today. 7. Outpatient cardiology follow-up visit with me in 1-2 weeks. 8. Her cardiac discharge medications should be aspirin 81 mg daily, clopidogrel 75 mg daily, metoprolol tartrate 50 mg b.i.d., losartan 50 mg daily, atorvastatin 80 mg daily, sublingual nitroglycerin 0.4 mg as needed for chest pain. At the time of admission, the patient had been on verapamil. This was discontinued. She had also been on Xarelto. This was for remote history of deep venous thrombosis in July of 2014. This was a provoked deep venous thrombosis secondary to a PICC line in her right arm. She does not require anticoagulation therapy at this time. As stated above her verapamil and Xarelto are discontinued.
--- NOTE | 2016-06-23 10:54 | Progress Note ---
Internal Med Progress Note Date of Service: Jun 23, 2016. Provider Documentation: SUBJECTIVE: The patient was seen and examined No more pain since admission Hemodynamically stable Denies any complaints except left UE swelling with hematoma and bruising S/P Cardiac cath -remained stable following cardiac cath Ready to be discharged Has had Bloody junior this morning Will not discharge today Check CBC tomorrow and if stable can be discharged OBJECTIVE: Vital Signs-as noted below Exam: General-NO distress at rest Eyes-normal ENT-normal Neck-supple Lungs-Clear to auscultate bilaterally Heart-Regular,no murmur appreciated Abdomen-Benign,no masses,bowel sound present Distended soft Extremities-Trace edema bilaterally Neuro-AAox3 Lab data as noted below. 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; most recently in 2014 s/p hip surgery On Xarelto- last dose yesterday- hold Likely not to restart Has been on Heparin and Integrilin now.Heparin stopped HYPERTENSION BP mildly elevated in [facility] Controlled now ANEMIA with H/O Gastric Bypass Surgery Hg is 10; similar to prior baseline Monitor ,Hb-9.4 0n 06/23/16 OSTEOARTHRITIS Hold Celebrex Continue Percocet and tramadol for pain control CODE STATUS Full code per my discussion with the patient Disposition Discharge home today Will make appointment with PCP Vital Signs: Date Time Temp Pulse Resp B/P Pulse Ox O2 Delivery O2 Flow Rate FiO2 06/23/16 11:31 37.0 76 20 129/63 94 Room Air 06/23/16 08:42 36.7 76 20 159/64 99 06/23/16 08:00 99 Room Air 2.0 06/23/16 04:01 Room Air 06/23/16 03:45 36.7 76 19 163/67 99 Room Air 06/23/16 00:00 Room Air 06/22/16 23:58 36.8 71 16 126/71 97 Room Air 06/22/16 20:01 Room Air 06/22/16 19:46 36.7 73 16 124/77 98 Room Air 06/22/16 16:19 69 125/61 06/22/16 16:00 Room Air 06/22/16 14:17 67 119/73 98 Lab Results: Results Past 24 Hours Test 06/23/16 06:08 Range/Units White Blood Count 12.19 4.8-10.8 K/uL Red Blood Count 3.13 4.2-5.4 M/uL Hemoglobin 9.4 12.0-16.0 g/dL Hematocrit 28.9 37-47 % Mean Corpuscular Volume 92.3 80-100 fL Mean Corpuscular Hemoglobin 30.0 25-34 pg Mean Corpuscular Hemoglobin Concent 32.5 32-36 g/dl RDW Standard Deviation 48.1 36.4-46.3 fL RDW Coefficient of Variation 14.4 11.5-14.5 % Platelet Count 254 130-400 K/uL Mean Platelet Volume 9.9 7.4-10.4 fL Sodium Level 142 136-145 mmol/L Potassium Level 3.3 3.5-5.1 mmol/L Chloride Level 110 98-107 mmol/L Carbon Dioxide Level 25 21-32 mmol/L Anion Gap 7.0 3-11 mmol/L Blood Urea Nitrogen 10 7-18 mg/dl Creatinine 0.60 0.60-1.20 mg/dl Est Creatinine Clear Calc Drug Dose 85.9 ml/min Estimated GFR () 103.3 Estimated GFR (Non- 89.2 BUN/Creatinine Ratio 16.5 10-20 Random Glucose 84 70-99 mg/dl Calcium Level 7.3 8.5-10.1 mg/dl Magnesium Level 2.5 1.8-2.4 mg/dl
[2016-06-23] MEDS: PRAMIPEXOLE DIHYDROCHLORIDE 0.25MG TAB PO SCH ×2 (12:00→21:46)
[2016-06-23] MEDS: SODIUM CHLORIDE 0.9% 1000ML 1,000 ML IV SCH (14:02)
[2016-06-24] VITALS (10 sets, daily range): BP systolic 147–165; BP diastolic 59–77; PULSE 66–76; TEMP 36.8–37; O2SAT 98–99
[2016-06-24] MEDS: ACETAMINOPHEN 325 MG TAB PO PRN (02:24)
[2016-06-24 05:56] LABS: HEMATOCRIT 27.9 % (37-47); MEAN CELL VOLUME 93.9 fL (80-100); MEAN CORPUSCULAR HEMOGLOBIN 29.6 pg (25-34); MEAN CORPUSCULAR HGB CONC 31.5 g/dl (32-36); MEAN PLATELET VOLUME 9.9 fL (7.4-10.4); PLATELET COUNT 244 K/uL (130-400); RED BLOOD COUNT 2.97 M/uL (4.2-5.4); WHITE BLOOD COUNT 10.74 K/uL (4.8-10.8)
[2016-06-24] MEDS: METOPROLOL TARTRATE 50 MG TAB PO SCH (08:12)
[2016-06-24] MEDS: FERROUS GLUCONATE 324 MG TAB PO SCH (08:13)
[2016-06-24] MEDS: DULOXETINE HCL 60 MG CAP PO SCH (08:13)
[2016-06-24] MEDS: ASPIRIN 81 MG ECTAB PO SCH (08:13)
[2016-06-24] MEDS: LOSARTAN POTASSIUM 50 MG TAB PO SCH (08:13)
[2016-06-24] MEDS: ATORVASTATIN 40 MG TAB PO SCH (08:13)
[2016-06-24] MEDS: CALCIUM 600MG + VIT D 400 IU TAB PO SCH (08:14)
[2016-06-24] MEDS: PREGABALIN 50 MG CAP PO SCH (08:15)
[2016-06-24 08:22] LABS: BUN/CREATININE RATIO 24.2 (10-20); CALCIUM 7.5 mg/dl (8.5-10.1); CREATININE 0.53 mg/dl (0.60-1.20); POTASSIUM 3.7 mmol/L (3.5-5.1)
[2016-06-24] MEDS ORDERED: PANTOprazole SOD 40 MG TAB PO SCH (09:00)
[2016-06-24] MEDS ORDERED: CLOPIDOGREL BISULFATE 75 MG TAB PO ONE (09:45)
--- NOTE | 2016-06-24 10:21 | CARDIOLOGY PROGRESS NOTE ---
DATE: 06/24/2016 The patient was seen in her room in the telemetry unit. Yesterday, she had passage of bright red blood with a bowel movement. She describes red blood clots. She also had some dark stools. No associated abdominal pain. Her appetite is good. No abdominal pain or nausea. No other symptoms of bleeding. From a cardiac standpoint, she feels well. No chest pain or other anginal type pains. No dyspnea at rest. No orthopnea or PND. No palpitations, lightheadedness or syncope. No leg pain. No pain at her right radial catheterization site. She does complain of a hematoma in her left arm. This has been present since 06/19/2016. She developed bleeding at that time from venipuncture sites. She had received thrombolytic therapy for her acute DE. This was administered at [facility]. No pulmonary or urinary complaints. No neurologic complaints. No fevers or chills. No skin rash complaints. CURRENT MEDICATIONS: Caltrate Plus 1 tab daily, metoprolol tartrate 50 mg b.i.d., Mirapex 0.125 mg daily at 12 noon and 0.25 mg at bedtime, Cymbalta 60 mg daily, prednisone 5 mg daily, pregabalin 50 mg daily, ferrous gluconate 324 mg daily, losartan 50 mg daily, atorvastatin 80 mg daily, aspirin 81 mg daily, clopidogrel 75 mg daily, and several p.r.n. medications. ALLERGIES AND ADVERSE DRUG REACTIONS: See EHR. PHYSICAL EXAMINATION: GENERAL: The patient is sitting up in her bed. No distress. VITAL SIGNS: This morning with oral temperature 37, pulse 76, blood pressure 165/75, pulse oximetry on room air 99%. NECK: No jugular venous distention. LUNGS: Clear. No rales or wheezes. HEART: Regular rate and rhythm. S1, S2 normal. No S3 or S4. 1/6 systolic murmur 2nd right intercostal space. No diastolic murmur or rub. ABDOMEN: Soft. Nontender. Normal bowel sounds. No palpable masses or organomegaly. EXTREMITIES: Hematoma left forearm. Ecchymoses both forearms. Right radial pulse strongly palpable. No cyanosis or clubbing. No evidence of arterial insufficiency in the right hand. LABORATORY DATA: Today with WBC 10.74, hemoglobin 8.8, hematocrit 27.9, platelet count 244. Her admission hemoglobin on 06/19/2016 was 10.0. Hemoglobin on 06/23/2016 was 9.4. Metabolic profile today was sodium 144, potassium 3.7, chloride 113, carbon dioxide 23, BUN 13, creatinine 0.53, random glucose 86. ASSESSMENT: 1. Status post acute inferior myocardial infarction 06/19/2016. Treated with thrombolytic therapy at [facility]. Clinical reperfusion within half an hour of administration of thrombolytic. Since then, she has had no post-thrombolytic anginal symptoms. 2. Diagnostic cardiac catheterization 06/22/2016 with subtotal mid right coronary artery occlusion. Subsequent deployment of 3 x 18 mm drug-eluting stent. No residual stenosis. No complications. 3. Minimally elevated troponin I after administration of thrombolytic therapy. The peak troponin I was only 0.238. 4. Mild basal posterior, inferior, and septal hypokinesis on the echo. Normal overall left ventricular systolic function. 5. No post-myocardial infarction angina, heart failure, or arrhythmia. 6. No vascular complications at right radial catheterization site. 7. Hematoma left arm. She had recurrent episodes of bleeding from venipuncture sites. This occurred after she had received thrombolytic therapy. After thrombolytic therapy, she was also treated with heparin and Integrilin. Integrilin discontinued yesterday morning. Heparin was discontinued on 06/22/2016. 8. Gastrointestinal bleeding. History of gastric ulcer. No abdominal pain. 9. Chronic anemia. Her hemoglobin has decreased slightly since admission. Slight decrease from yesterday until today. Since her episode of gastrointestinal bleeding yesterday, she has had no further bowel movements. RECOMMENDATIONS AND PLAN: 1. The patient has a drug-eluting stent placed in an acute coronary lesion. She requires dual-antiplatelet therapy. Ideally, this should be for 6 months. She should be on aspirin therapy indefinitely. 2. Continue metoprolol. 3. If her blood pressure remains elevated, can increase losartan dose to 100 mg daily. 4. I have placed a consult to [facility]. Consult was phoned in to the GI lab. This is in regard to the GI bleeding. Consideration of the patient for an EGD. She is an acceptable cardiac risk to undergo this procedure.
--- NOTE | 2016-06-24 10:22 | Gastrointestinal Consultation ---
Gastrointestinal Consultation Date of Consultation: Jun 24, 2016 Consulting Physician: Dr. Castaneda Reason for Consultation: BRBPR History of Present Illness Patient is a 76 year old female who was admitted with chest pain, found to have an acute OK Past medical history is significant for HTN, dyslipidemia, history of DVT on Xarelto, OA, GERD, hx gastric ulcer, gastric bypass surgery (1989). She reports that she was about to go home when yesterday she has one episode of BRBPR without associated abdominal pain. She reports that the blood was bright red and on the toilet tissue. She stated that there were two small clots on the toilet tissue as well. She reports that the stool was brown and formed, however she did not assess it in detail - she is unsure if it contained any streaks of blood she did not assess. She denies any previous episodes of PRPBR. She denies previous colonoscopy. She reports that she had numerous hemorrhoids surgically removed many years ago and has not had an issue with hemorrhoids since then. She denies chest pain, SOB, lightheadedness, dizziness, abdominal pain or nausea /vomiting. Hgb on admission was 10. Today was 8.8 She has been on IVF and had a cardiac stent placed. APTT 54 - She is on plavix and aspirin Past Medical/Surgical History Medical Problems: (1) STEMI (ST elevation myocardial infarction) Status: Acute Family History Diabetes mellitus Hypertension Stroke MOTHER (in 40s) Social History Smoking Status: Never Smoker Alcohol Use: none Drug Use: none Marital Status: Housing Status: lives alone Occupation Status: retired Allergies Coded Allergies: Hydrocodone (Unverified Allergy, Severe, SHORTNESS OF BREATH, 06/19/16) pt reported this am Oxaprozin (Verified Allergy, Mild, RASH, 06/19/16) Sulfamethoxazole w/Trimethoprim (Unverified Allergy, Unknown, INCREASED POTASSIUM LEVELS, 06/19/16) Sertraline (Verified Adverse Reaction, Intermediate, MOOD SWING, 06/19/16) Erythromycin (Verified Adverse Reaction, Mild, N/V, 06/19/16) Lisinopril (Verified Adverse Reaction, Unknown, cough, 06/19/16) Current Medications Home Meds and Scripts Medications Dose Route/Sig Max Daily Dose Days Date Category Dose Instructions Calcium + D (Calcium Carbonate-Vitamin D) 1 Tab Tab 1 Tab PO DAILY 06/19/16 Reported Ultram (Tramadol HCl) 50 Mg Tab 50 Mg PO TID PRN 06/19/16 Reported Percocet 5MG/325MG (Oxycodone/Acetaminophen) Tab 1 Tablet PO Q6H PRN 06/19/16 Reported PAIN Mirapex (Pramipexole Dihydrochloride) 0.125 Mg Tab 2 Tabs PO HS 06/19/16 Reported [Ferrous Gluconate] 200 Mg PO DAILY 06/19/16 Reported Prednisone 5 Mg Tab 5 Mg PO DAILY 06/19/16 Reported CeleBREX (Celecoxib) 200 Mg Cap 200 Mg PO DAILY 06/19/16 Reported Xarelto (Rivaroxaban) 20 Mg Tab 20 Mg PO DAILY 06/19/16 Reported Vitamin B-12 Inj (Cyanocobalamin) Inj 1 Ml MONTHLY 12/12/14 Reported Mirapex (Pramipexole Dihydrochloride) 0.125 Mg Tab 0.125 Mg PO NOON 12/12/14 Reported Verapamil Hcl Er (Verapamil Hcl) 240 Mg Cap 240 Mg PO BID 08/01/14 Reported Nexium (Esomeprazole Magnesium) 40 Mg Capcr 40 Mg PO DAILY 08/01/14 Reported Lyrica (Pregabalin) 50 Mg Cap 50 Mg PO DAILY 08/01/14 Reported Duloxetine HCl 60 Mg Cap 60 Mg PO DAILY 08/01/14 Reported Review of Systems Constitutional: No chills, No fever Respiratory: No shortness of breath Cardiac: No chest pain Abdomen: + GI bleeding (reports one epside of PRPBR on toilet paper after BM yesterday. BM was semi-formed. Has not had a BM since.), No constipation, No diarrhea, No nausea, No pain, No vomiting Physical Exam Date Time Temp Pulse Resp B/P Pulse Ox O2 Delivery O2 Flow Rate FiO2 06/24/16 08:00 99 Room Air 2.0 06/24/16 07:21 37.0 76 16 165/75 99 Room Air 06/24/16 04:00 98 Room Air 06/24/16 03:48 36.8 75 16 147/59 98 Room Air 06/24/16 00:00 99 Room Air 06/24/16 00:00 37.0 70 17 164/75 99 06/23/16 20:00 97 Room Air 06/23/16 20:00 37.1 86 20 152/81 97 Room Air 06/23/16 16:47 37.0 74 20 154/81 99 Room Air 06/23/16 16:00 99 Room Air 2.0 06/23/16 12:00 99 Room Air 2.0 06/23/16 11:31 37.0 76 20 129/63 94 Room Air General Appearance: no apparent distress Eyes: PERRL Respiratory/Chest: lungs clear, normal breath sounds, no respiratory distress, no accessory muscle use Cardiovascular: regular rate, rhythm, no edema, no gallop, no JVD, no murmur Abdomen: normal bowel sounds, non tender, soft, no organomegaly, no pulsatile mass Neurologic/Psych: alert, normal mood/affect, oriented x 3 Skin: normal color, warm/dry, no rash Laboratory Results Last 24 Hours Test 06/24/16 05:42 White Blood Count 10.74 K/uL Red Blood Count 2.97 M/uL Hemoglobin 8.8 g/dL Hematocrit 27.9 % Mean Corpuscular Volume 93.9 fL Mean Corpuscular Hemoglobin 29.6 pg Mean Corpuscular Hemoglobin Concent 31.5 g/dl RDW Standard Deviation 49.9 fL RDW Coefficient of Variation 14.8 % Platelet Count 244 K/uL Mean Platelet Volume 9.9 fL Sodium Level 144 mmol/L Potassium Level 3.7 mmol/L Chloride Level 113 mmol/L Carbon Dioxide Level 23 mmol/L Anion Gap 8.0 mmol/L Blood Urea Nitrogen 13 mg/dl Creatinine 0.53 mg/dl Est Creatinine Clear Calc Drug Dose 97.3 ml/min Estimated GFR () 107.6 Estimated GFR (Non- 92.9 BUN/Creatinine Ratio 24.2 Random Glucose 86 mg/dl Calcium Level 7.5 mg/dl Impression Patient is a 76 year old female who was admitted for a STEMI with cardiac stent placement on 06/22/16. She had one episode of BRBPR, blood was on the tissue paper. Differentials include hemorrhoidal bleed, diverticular bleed, colon CA, etc Plan Monitor H&H Monitor stools for black/bloody BM Follow up outpt with PCP - she can be considered for eventual cscopy Attg addendum: I interviewed and examined pt, reviewed chart and labs. Pt with stemi s/p thrombolytics and cath with CAPRICE, with single episode of small vol rectal bleeding while on aggressive anticoagulant therapy. No prior h/o this, no prior h/o cscopy. On exam, she has hemorrhoids, ROMAN otherwise normal. She likely has perianal bleeding, although I cannot rule out occult malignancy. Given her STEMI, would defer further w/u for now. Can consider eventual cscopy after has fully convalesced from her OK. She should f.u with her PCP, who can contact us when she is cleared for an elective procedure. Please call with questions.
[2016-06-24] MEDS: PRAMIPEXOLE DIHYDROCHLORIDE 0.25MG TAB PO SCH (12:13)
[2016-06-24 16:42] LABS: HEMATOCRIT 28.8 % (37-47)
--- NOTE | 2016-06-24 17:55 | Progress Note ---
Medicine Progress Note Date & Time of Visit: Jun 24, 2016 at 17:30. Subjective Pt was seen and examined Lying in bed comfortable watching TV Pt said that she feels fine She would like to go home today denies any chest pain, palpitation, dizziness and SOB No GI bleed since the last episodes yesterday Objective Last 8 Hrs Date Time Temp Pulse Resp B/P Pulse Ox O2 Delivery O2 Flow Rate FiO2 06/24/16 16:00 99 Room Air 2.0 06/24/16 16:00 99 Room Air 2.0 06/24/16 15:37 37.0 66 18 147/68 98 06/24/16 12:00 99 Room Air 2.0 06/24/16 11:30 37.0 69 16 149/77 99 Room Air Physical Exam: General- pleasant, no acute distress Head- atraumatic Eyes- PERRL, EOMI ENT- oropharynx clear Neck- supple, no JVD Lungs- clear to auscultation and percussion Heart- regular rhythm; no murmur Abdomen- normal bowel sounds, soft, nontender Extremities- no calf tenderness Neuro- alert, oriented x 3; PERRL, EOMI Skin- warm & dry Laboratory Results: Last 24 Hours Test 06/24/16 05:42 06/24/16 16:23 White Blood Count 10.74 K/uL Red Blood Count 2.97 M/uL Hemoglobin 8.8 g/dL 9.0 g/dL Hematocrit 27.9 % 28.8 % Mean Corpuscular Volume 93.9 fL Mean Corpuscular Hemoglobin 29.6 pg Mean Corpuscular Hemoglobin Concent 31.5 g/dl RDW Standard Deviation 49.9 fL RDW Coefficient of Variation 14.8 % Platelet Count 244 K/uL Mean Platelet Volume 9.9 fL Sodium Level 144 mmol/L Potassium Level 3.7 mmol/L Chloride Level 113 mmol/L Carbon Dioxide Level 23 mmol/L Anion Gap 8.0 mmol/L Blood Urea Nitrogen 13 mg/dl Creatinine 0.53 mg/dl Est Creatinine Clear Calc Drug Dose 97.3 ml/min Estimated GFR () 107.6 Estimated GFR (Non- 92.9 BUN/Creatinine Ratio 24.2 Random Glucose 86 mg/dl Calcium Level 7.5 mg/dl Assessment & Plan Acute inferior posterolateral myocardial infarction S/P TPA ([facility] ) Risk factors- HTN, borderline dyslipidemia per patient 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 Normal LV systolic function,Has Diastolic dysfunction Appreciate Cardiology input BB has been increased and Integrilin is added Diagnostic cardiac catheterization 06/22/2016 with subtotal mid right coronary artery occlusion, a of 3 x 18 mm drug-eluting stent placed. She requires dual-antiplatelet therapy. Ideally, this should be on for at least 6months as per Cardio She needs to be on aspirin indefinite. Asymptomatic HISTORY OF DVT 2 episodes both provoked by surgery; most recently in 2014 s/p hip surgery On Xarelto- last dose yesterday- hold Xarelto was discontinue as per Cardio since pt had both episodes of DVT as provoke Has been on Heparin and Integrilin now.Heparin stopped HYPERTENSION BP mildly elevated in [facility] If BP start to elevate, losartan can be increase to 100mg daily Controlled now ANEMIA with H/O Gastric Bypass Surgery Hgb is 10 on admission; similar to prior baseline hgb this morning was 8.8, repeat h/h later in the afternoon was 9 Denies any active bleeding GI was consult that defer any intervention for now Please schedule follow up with GI as an outpatient for elective c-scope Case discussed with GI that agreed to discharge home if repeat h/h is stable Continue follow h/h OSTEOARTHRITIS Hold Celebrex Continue Percocet and tramadol for pain control CODE STATUS Full code per my discussion with the patient Disposition Discharge home today Pt already had a follow up appointment with Dr. Magdaleno on Jun 30. Consultants: Cardio Gastro Current Inpatient Medications: Current Inpatient Medications Medications (Trade) Dose Ordered Sig/[place] Route Start Time Stop Time Status Last Admin Dose Admin Acetaminophen (Tylenol Tab) 650 mg Q4H PRN PO 06/19/16 13:00 07/19/16 12:59 06/24/16 02:24 650 MG Ondansetron HCl (Zofran Inj) 4 mg Q6H PRN IV 06/19/16 13:00 07/19/16 12:59 Duloxetine HCl (Cymbalta Cap) 60 mg DAILY PO 06/20/16 09:00 07/20/16 08:59 06/24/16 08:13 60 MG Oxycodone/ Acetaminophen (Percocet 5-325MG Tab) 1 tab Q6H PRN PO 06/19/16 13:15 07/03/16 13:14 Pramipexole Dihydrochloride (miraPEX TAB) 0.25 mg HS PO 06/19/16 21:00 07/19/16 20:59 06/23/16 21:46 0.25 MG Pramipexole Dihydrochloride (miraPEX TAB) 0.125 mg DAILY@1200 PO 06/20/16 12:00 07/20/16 11:59 06/24/16 12:13 0.125 MG Prednisone (PredniSONE TAB) 5 mg DAILY PO 06/20/16 09:00 07/20/16 08:59 06/24/16 08:14 5 MG Pregabalin (Lyrica Cap) 50 mg DAILY PO 06/20/16 09:00 07/20/16 08:59 06/24/16 08:15 50 MG Tramadol HCl (Ultram Tab) 50 mg TID PRN PO 06/19/16 13:15 07/19/16 13:14 Ferrous Gluconate (Ferrous Gluconate Tab) 324 mg DAILY PO 06/20/16 09:00 07/20/16 08:59 06/24/16 08:13 324 MG Losartan Potassium (coZAAR TAB) 50 mg QAM PO 06/20/16 09:00 07/20/16 08:59 06/24/16 08:13 50 MG Atorvastatin Calcium (Lipitor Tab) 80 mg QAM PO 06/20/16 09:00 07/20/16 08:59 06/24/16 08:13 80 MG Aspirin (Ecotrin Tab) 81 mg QAM PO 06/20/16 09:00 07/20/16 08:59 06/24/16 08:13 81 MG Metoprolol Tartrate (Lopressor Tab) 50 mg BID PO 06/20/16 21:00 07/20/16 20:59 06/24/16 08:12 50 MG Esomeprazole Magnesium (Nexium) 40 mg DAILY PO 06/21/16 09:00 07/21/16 08:59 Future Hold 06/21/16 07:27 40 MG Calcium/Vitamin D (Caltrate Plus Tab) 1 tab DAILY PO 06/21/16 09:00 07/20/16 08:59 06/24/16 08:14 1 TAB Atropine Sulfate (Atropine Sulfate 0.1MG/Ml Inj) 0.5 mg ONE PRN IV 06/22/16 10:30 07/22/16 10:29 Pantoprazole Sodium (Protonix Tab) 40 mg BID PO 06/24/16 09:00 07/24/16 08:59 06/24/16 09:11 40 MG Clopidogrel Bisulfate (plAVix TAB) 75 mg QAM PO 06/25/16 09:00 07/25/16 08:59
[2016-06-24] MEDS ORDERED: CZR50 PO (18:07)
[2016-06-24] MEDS ORDERED: METO50TA17 PO (18:07)
[2016-06-24] MEDS ORDERED: NTRGSL4 SL ×2 (18:07→18:09)
[2016-06-24] MEDS ORDERED: ASPEC81 PO (18:07)
[2016-06-24] MEDS ORDERED: LPT40 PO (18:07)
[2016-06-24] MEDS ORDERED: PRT40 PO (18:07)
[2016-06-24] MEDS ORDERED: PLV75 PO (18:07)
--- NOTE | 2016-06-24 18:20 | Discharge Instructions ---
Discharge Instructions Admission Reason for Admission: STEMI Discharge Discharge Diagnosis / Problem: acute inferior myocardial infarction S/P drug eluting stent, GI bleed Discharge Goals Goal(s): Decrease discomfort, Improve function, Improve disease control Activity Recommendations Activity Limitations: resume your previous activity No walking limitation . Instructions / Follow-Up Instructions / Follow-Up Already had an appointment schedule with her primary physician Dr. Magdaleno on Jun 30 Follow up with cardiology between 1 to 2 weeks Continue monitor hemoglobin Watch for any rectal bleed Follow up with Gastro, Your primary physician will schedule you for a follow up Current Hospital Diet Patient's current hospital diet: AHA Diet (Heart Healthy) Discharge Diet Recommended Diet: AHA Diet (Heart Healthy), Low Sodium Diet (2gm Na) Pending Studies Studies pending at discharge: no List of pending studies: Coronary Angiography, Left Heart Cath, PTCA, Drug Eluting Stent Laboratory Results Lipid Panel Test 06/20/16 05:35 Range/Units Triglycerides Level 91 0-150 mg/dl Cholesterol Level 149 0-200 mg/dl HDL Cholesterol 54 mg/dl Cholesterol/HDL Ratio 2.8 LDL Cholesterol, Calculated 77 mg/dl Medical Emergencies . Who to Call and When: Medical Emergencies: If at any time you feel your situation is an emergency such as chest pain, palpitation and shortness of breath , please call 911 immediately. . Non-Emergent Contact Non-Emergency issues call your: Primary Care Provider Call Non-Emergent contact if: you have any medication questions . . "Provider Documentation" section prepared by Felix Jhonson. VTE Core Measure Inpt VTE Proph given/why not?: Other Anticoagulation, SCD's
[2016-06-25] MEDS ORDERED: CLOPIDOGREL BISULFATE 75 MG TAB PO SCH (09:00)
--- NOTE | 2016-06-30 22:18 | Discharge Summary ---
Discharge Summary Admission Date: Jun 19, 2016 at 12:55 Discharge Date: Jun 24, 2016 Discharge Disposition: Home Principal Diagnosis: Acute inferior posterolateral myocardial infarction S/P TPA Secondary Diagnoses/Problems: Hx of DVT Anemia Procedures: Diagnostic cardiac catheterization 06/22/2016 with subtotal mid right coronary artery occlusion, a of 3 x 18 mm drug-eluting Consultations: Cardio Gastro Medication Reconciliation New Medications: Nitroglycerin (Nitrostat) 0.4 Mg/1 Tab Subl 1 TAB SL BLANK PRN for Chest Pain for 30 Days, #30 BTL take 1 tab as needed subL for chest pain, may repeat after 5 min. Aspirin (Aspirin EC Low Dose) 81 Mg Ectab 81 MG PO QAM for 30 Days, #30 Atorvastatin (Atorvastatin Calcium) 40 Mg Tab 80 MG PO QAM for 30 Days, #60 TAB Clopidogrel Bisulfate (Clopidogrel) 75 Mg Tab 75 MG PO QAM for 30 Days, #30 TAB Losartan Potassium (Losartan Potassium) 50 Mg Tab 50 MG PO QAM for 30 Days, #30 TAB Metoprolol Tartrate (Metoprolol Tartrate) 50 Mg Tab 50 MG PO BID for 30 Days, #60 TAB Continued Medications: Calcium Carbonate-Vitamin D (Calcium + D) 1 Tab Tab 1 TAB PO DAILY Cyanocobalamin (Vitamin B-12 Inj) Inj 1 ML MONTHLY Duloxetine HCl (Duloxetine HCl) 60 Mg Cap 60 MG PO DAILY, #90 Esomeprazole Magnesium (Nexium) 40 Mg Capcr 40 MG PO DAILY, #90 Oxycodone/Acetaminophen 5MG/325MG (Percocet 5MG/325MG) Tab 1 TABLET PO Q6H PRN for Pain, TAB PAIN Pramipexole (Mirapex) 0.125 Mg Tab 2 TABS PO HS, TAB Pramipexole Dihydrochloride (Mirapex) 0.125 Mg Tab 0.125 MG PO NOON, TAB Prednisone (Prednisone) 5 Mg Tab 5 MG PO DAILY, TAB Pregabalin (Lyrica) 50 Mg Cap 50 MG PO DAILY, #270 Tramadol (Ultram) 50 Mg Tab 50 MG PO TID PRN for Pain, TAB [Ferrous Gluconate] () 200 MG PO DAILY Discontinued Medications: Celecoxib (CeleBREX) 200 Mg Cap 200 MG PO DAILY, CAP Rivaroxaban (Xarelto) 20 Mg Tab 20 MG PO DAILY, TAB Verapamil Hcl (Verapamil Hcl Er) 240 Mg Cap 240 MG PO BID, #180 Admission Information HPI (per Admitting provider): This is a 76 y/o female with PMH of hypertension, borderline dyslipidemia not on medication, history of DVT on Xarelto, OA, GERD, history of gastric bypass, and other problems listed below who presents with chest pain. Pt follows with Dr. Magdaleno in [place]. Pt states she was feeling at her baseline until 2 days ago she developed chest pain described as burning in substernal area with radiation to her neck. She initially had episodes lasting 10-15 minutes which were relieved with getting up and walking around. Then this morning at 5:30 she had recurrent chest pain which was more severe, also radiating to her neck, which awoke her from sleep. 911 was called and she was brought to [place] [facility] by ambulance. Her EKG en route at 7:[address] elevation in inferior leads with ST depression in V2. She states the chest pain was fairly constant but resolved during infusion of tPA at [place] (infusion of 100 mg given over 2 hours ending at 10 am). She is on a heparin drip started in [place] ER. She received aspirin 324 mg this morning. [place] ER labs showed WBC 13.5, Hg 11 , troponin 0.038. No BMP in [place] records. She was transferred to [facility], at which time EKG showed resolution of ST abnormalities. Patient denies any recurrence of chest pain. Her blood draw sites from [place] ER were seeping but hemostasis was achieved with quik clot and migue wrap. 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 She reports edema of left hand which is intermittent x 1 year and attributed to arthritis. She reports having negative doppler of the LUE. Denies diaphoresis, dizziness, cough, SOB, abdominal pain, nausea, vomiting, diarrhea, prior abnormal bleeding, increasing edema, weight gain. Pt notes she was taken off lisinopril 40 mg daily 1 month ago by her PCP due to cough which resolved with stopping the medication. She denies history of CAD, CHF, arrhythmia, lung disease. No recent stress test or echo. Physical Exam (per Admitting): General Appearance: no apparent distress, + obese, + pertinent finding ( daughter and son at bedside) Head: normocephalic, atraumatic Eyes: normal inspection, PERRL, EOMI, sclerae normal ENT: normal ENT inspection, hearing grossly normal, pharynx normal Neck: supple, no JVD, no carotid bruits, trachea midline Respiratory/Chest: lungs clear, normal breath sounds, no respiratory distress, no accessory muscle use Cardiovascular: regular rate, rhythm, no murmur, + pertinent finding ( radial pulses 2+, right DP pulse 1+, unable to appreciate left DP pulse) Abdomen/GI: normal bowel sounds, non tender, soft, + pertinent finding ( obese habitus) Extremities/Musculoskelatal: no calf tenderness, no pedal edema, + pertinent finding (trace left hand edema) Neurologic/Psych: alert, normal mood/affect, oriented x 3, + pertinent finding (no focal deficit on gross examination) Skin: normal color, warm/dry, no rash Hospital Course Acute inferior posterolateral myocardial infarction S/P TPA (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 Normal LV systolic function,Has Diastolic dysfunction Appreciate Cardiology input BB has been increased and Integrilin is added Diagnostic cardiac catheterization 06/22/2016 with subtotal mid right coronary artery occlusion, a of 3 x 18 mm drug-eluting stent placed. She requires dual-antiplatelet therapy. Ideally, this should be on for at least 6months as per Cardio She needs to be on aspirin indefinite. Asymptomatic HISTORY OF DVT 2 episodes both provoked by surgery; most recently in 2014 s/p hip surgery On Xarelto- last dose yesterday- hold Xarelto was discontinue as per Cardio since pt had both episodes of DVT as provoke Has been on Heparin and Integrilin now.Heparin stopped HYPERTENSION BP mildly elevated in [facility] ER If BP start to elevate, losartan can be increase to 100mg daily Controlled now ANEMIA with H/O Gastric Bypass Surgery Hgb is 10 on admission; similar to prior baseline hgb this morning was 8.8, repeat h/h later in the afternoon was 9 Denies any active bleeding GI was consult that defer any intervention for now Please schedule follow up with GI as an outpatient for elective c-scope Case discussed with GI that agreed to discharge home if repeat h/h is stable Continue follow h/h OSTEOARTHRITIS Hold Celebrex Continue Percocet and tramadol for pain control CODE STATUS Full code per my discussion with the patient Disposition Discharge home today Pt already had a follow up appointment with Dr. Magdaleno on Jun 30. Total time spent on discharge = 35 minutes This includes examination of the patient, discharge planning, medication reconciliation, and communication with other providers. Discharge Instructions Discharge Instructions Admission Reason for Admission: STEMI Discharge Discharge Diagnosis / Problem: acute inferior myocardial infarction S/P drug eluting stent, GI bleed Discharge Goals Goal(s): Decrease discomfort, Improve function, Improve disease control Activity Recommendations Activity Limitations: resume your previous activity No walking limitation . Instructions / Follow-Up Instructions / Follow-Up Already had an appointment schedule with her primary physician Dr. Magdaleno on Jun 30 Follow up with cardiology between 1 to 2 weeks Continue monitor hemoglobin Watch for any rectal bleed Follow up with Gastro, Your primary physician will schedule you for a follow up Current Hospital Diet Patient's current hospital diet: AHA Diet (Heart Healthy) Discharge Diet Recommended Diet: AHA Diet (Heart Healthy), Low Sodium Diet (2gm Na) Pending Studies Studies pending at discharge: no List of pending studies: Coronary Angiography, Left Heart Cath, PTCA, Drug Eluting Stent Laboratory Results Lipid Panel Test 06/20/16 05:35 Range/Units Triglycerides Level 91 0-150 mg/dl Cholesterol Level 149 0-200 mg/dl HDL Cholesterol 54 mg/dl Cholesterol/HDL Ratio 2.8 LDL Cholesterol, Calculated 77 mg/dl Medical Emergencies . Who to Call and When: Medical Emergencies: If at any time you feel your situation is an emergency such as chest pain, palpitation and shortness of breath , please call 911 immediately. . Non-Emergent Contact Non-Emergency issues call your: Primary Care Provider Call Non-Emergent contact if: you have any medication questions . . "Provider Documentation" section prepared by Felix Johnson. VTE Core Measure Inpt VTE Proph given/why not?: Other Anticoagulation, SCD's Additional Copies To Chuy Magdaleno
== END 2016-06-24 18:47 | disposition home or self-care (01) | DRG 247 ==
LOC: ENRESERVTM → ENRESERVDT → EDBD 10:29 → C.ED 10:35 → UNDOADMIN 12:55 → C.MSICU 12:55 → C.2T 06-20 19:02 → C.MSICU 06-20 19:02
PROVIDERS: ADMIT Internal Medicine; ATTEND Internal Medicine
PROC: B2111ZZ Fluoroscopy of Multiple Coronary Arteries using Low Osmolar Contrast (ICD-10-PCS; 2016-06-22)
PROC: 4A023N7 Measurement of Cardiac Sampling and Pressure, Left Heart, Percutaneous Approach (ICD-10-PCS; 2016-06-22)
PROC: 3E053PZ Introduction of Platelet Inhibitor into Peripheral Artery, Percutaneous Approach (ICD-10-PCS; 2016-06-22)
PROC: 027034Z Dilation of Coronary Artery, One Artery with Drug-eluting Intraluminal Device, Percutaneous Approach (ICD-10-PCS; principal; 2016-06-22 07:42)
DX: I21.29 ST elevation (STEMI) myocardial infarction involving other sites (principal); I25.110 Atherosclerotic heart disease of native coronary artery with unstable angina pectoris; K21.9 Gastro-esophageal reflux disease without esophagitis; I10 Essential (primary) hypertension; M81.0 Age-related osteoporosis without current pathological fracture; G25.81 Restless legs syndrome; Z83.3 Family history of diabetes mellitus; Z86.718 Personal history of other venous thrombosis and embolism; M19.90 Unspecified osteoarthritis, unspecified site; E78.00 Pure hypercholesterolemia, unspecified; D64.9 Anemia, unspecified; Z79.01 Long term (current) use of anticoagulants; Z98.84 Bariatric surgery status

== ENCOUNTER → 2016-11-19 | Outpatient (CLI) | payer OTHER ==
[~2016-11-19] MED LIST changes: +ASPEC81 PO; +CALC600T9 PO; -CALCTAB5 PO; +CZR50 PO; -FERR325T51 PO; +FERROUS GLUCONATE PO; -GABA-113 PO; +LPT40 PO; +METO50TA17 PO; -MISCTAB30 PO; -MULT-190 PO; -MULT-506 PO; +NTRGSL4 SL; +OXYC-57 PO; +PLV75 PO; +PRED-301 PO; +TRAM-10 PO; -VERA240C2 PO; -WARF5TAB90 PO; -ZOLP5TAB6 PO
[2016-11-19 14:44] LABS: BLOOD UREA NITROGEN 23 mg/dl (7-18); BUN/CREATININE RATIO 25.2 (10-20); CARBON DIOXIDE 24 mmol/L (21-32); CHLORIDE 103 mmol/L (98-107); GLUCOSE 86 mg/dl (70-99); POTASSIUM 4.9 mmol/L (3.5-5.1); SODIUM 135 mmol/L (136-145)
[2016-11-19 15:09] LABS: CALCIUM 9.1 mg/dl (8.5-10.1)
== END | disposition home or self-care (01) ==
LOC: C.LABPBG 11:19
PROVIDERS: ATTEND Internal Medicine Cardiovascular Disease
DX: I10 Essential (primary) hypertension (principal); I25.10 Atherosclerotic heart disease of native coronary artery without angina pectoris; R60.9 Edema, unspecified

== ENCOUNTER → 2017-01-26 | Day surgery (SDC) | payer OTHER ==
--- NOTE | 2017-01-26 11:43 | DIAGNOSTIC IMAGING REPORT ---
CT GUIDED ASPIRATION OF LEFT TROCHANTERIC BURSA CLINICAL HISTORY: Left hip pain. Request for aspiration. COMPARISON STUDY: MRI of the left hip January 08, 2017. PROCEDURE: The procedure, risks and benefits were discussed with the patient including the risk of bleeding, infection and injury to adjacent structures. The patient agreed to the procedure and informed written consent was obtained. The procedure was performed by Dr. Hernandez following a time out. The patient was placed supine on the CT table and axial unenhanced images through the left hip were obtained and again demonstrated postoperative findings at the level of the greater trochanter of the left femur. There is an overlying 2.7 x 1.4 cm fluid collection which corresponds to the collection shown on MRI of January 08, 2017. This was targeted for aspiration. Under intermittent CT guidance, a 5 inch, 22-gauge spinal needle was directed into this fluid collection. A total of 1 cc of viscous fluid was aspirated and sent to laboratory as ordered. The needle was removed. The patient tolerated the procedure well and no immediate complications were evident. IMPRESSION: Successful CT guided aspiration of small fluid collection overlying the left greater trochanter. 1 cc of viscous fluid aspirated and sent to the laboratory for analysis as ordered. Electronically signed by: Jonatan Hernandez M.D. 01/26/2017 11:41 AM Dictated Date/Time: 01/26/2017 11:36 AM
== END | disposition home or self-care (01) ==
LOC: C.ACU 10:04
PROVIDERS: ATTEND Orthopaedic Surgery Sports Medicine
DX: M16.12 Unilateral primary osteoarthritis, left hip (principal)

== ENCOUNTER → 2017-09-01 | Outpatient (CLI) | payer OTHER ==
[~2017-09-01] MED LIST changes: +PRAM0.1212 PO; -PRAM0.129 PO; +[UNRECOGNIZED DRUG - CODE] PO
== END | disposition home or self-care (01) ==
LOC: C.LAB1850 14:41
PROVIDERS: ATTEND Physician Assistant Medical
DX: R63.5 Abnormal weight gain (principal)

== ENCOUNTER 2018-10-07 08:20 | Inpatient (IN) ==
--- NOTE | 2018-09-08 12:09 | PAT Medication Instructions ---
Medication Instructions Date of Service September 08, 2018 Home Medications aspirin [Aspirin Low Dose] 81 mg PO QAM calcium carbonate-vitamin D3 1 tab PO BID cyanocobalamin (vitamin B-12) 1 dose SUBCUT MONTHLY duloxetine 60 mg PO BID esomeprazole magnesium [Nexium] 40 mg PO QAM [Glucagon Emergency Kit (human)] 0.1 mg/kg IM Q3H PRN hydrochlorothiazide 1 tab PO QAM losartan 50 mg PO QAM nitroglycerin [Nitrostat] 1 tab SUBLINGUAL UD PRN pramipexole 2 tab PO 1200 pramipexole 2 tab PO HS pregabalin [Lyrica] 1 tab PO TID rosuvastatin 1 tab PO HS colestipol 2 tab PO BID denosumab [Prolia] 1 dose SUBCUT UD PRN ferrous gluconate 256 mg PO DAILY metoprolol succinate 0.5 tab PO QAM [Systane (PF)] 1 drp OPHTHALMIC (EYE) BID PRN [PreserVision AREDS-2] 1 tab PO BID Continue as directed cyanocobalamin (vitamin B-12) 1 dose SUBCUT MONTHLY denosumab [Prolia] 1 dose SUBCUT UD PRN ASK your prescriber and surgeon aspirin [Aspirin Low Dose] 81 mg PO QAM STOP taking 2 weeks before surgery [PreserVision AREDS-2] 1 tab PO BID STOP taking 48 hours before surgery colestipol 2 tab PO BID--substitute Lomotil or Metamucil, but do not use these the morning of surgery. STOP taking 24 hours before surgery pramipexole 2 tab PO 1200 pramipexole 2 tab PO HS DO NOT take the morning of surgery calcium carbonate-vitamin D3 1 tab PO BID hydrochlorothiazide 1 tab PO QAM losartan 50 mg PO QAM ferrous gluconate 256 mg PO DAILY Take morning of surgery With a small sip of water, OTHERWISE NOTHING TO EAT OR DRINK AFTER MIDNIGHT: duloxetine 60 mg PO BID esomeprazole magnesium [Nexium] 40 mg PO QAM [Glucagon Emergency Kit (human)] 0.1 mg/kg IM Q3H PRN (if needed) nitroglycerin [Nitrostat] 1 tab SUBLINGUAL UD PRN (if needed) pregabalin [Lyrica] 1 tab PO TID metoprolol succinate 0.5 tab PO QAM [Systane (PF)] 1 drp OPHTHALMIC (EYE) BID PRN (if needed) Take evening before surgery calcium carbonate-vitamin D3 1 tab PO BID duloxetine 60 mg PO BID [Glucagon Emergency Kit (human)] 0.1 mg/kg IM Q3H PRN (if needed) nitroglycerin [Nitrostat] 1 tab SUBLINGUAL UD PRN (if needed) pregabalin [Lyrica] 1 tab PO TID rosuvastatin 1 tab PO HS [Systane (PF)] 1 drp OPHTHALMIC (EYE) BID PRN (if needed) Other Notes If you have any questions please call us at [phone] or [phone] or [phone] or [phone]
--- NOTE | 2018-09-08 12:52 | Anesthesiology Consultation ---
Date of Service September 08, 2018 Assessment & Plan (1) Encounter for pre-operative examination: Cardiac clearance 09/30: "She remains stable from cardiac standpoint. Her activity level is limited by her ankle pain but no limiting cardiac symptoms. Recent dobutamine stress echo was negative for ischemia. On exam she appears well perfused without signs of heart failure. She is an acceptable risk to proceed with surgery without any additional cardiac testing or intervention. Given her history of intracoronary stent placement she should remain on aspirin in uninterrupted fashion throughout the perioperative period." PCP clearance 09/28: "Presently has no medical contraindications to proceed with her surgery. I feel she is at low medical risk for any complications." *Surgeon orders received late, patient had already left. UA not completed. DAHLIA Pratt at surgeon's office, made aware if they want the UA to be completed they will need to f/u with the patient. Chart Review Chart Review: Acceptable Risk for Surgery and Patient seen in Pre Admission Testing Teaching & Discussion Instructed NPO after midnight before surgery, except medications with 15 cc of water. Medication instructions provided according to the PAT guidelines. History Surgery Operation Date: 10/07/18 10:20 Proposed Procedures p Right Foot Triple Arthrodesis, - Anton Graves DO s Percutaneous Tendon Achilles Lengthening, Unlisted Procedures Foot and Toes - Anton Graves DO Height/Weight Height: 5 ft 2 in Weight: 99.4 kg Allergies Allergy/AdvReac Type Severity Reaction Status Date / Time Bactrim Allergy Unknown INCREASED Unverified 11/23/17 10:16 POTASSIUM LEVELS cyclobenzaprine Allergy Unknown PASSED OUT Verified 09/06/18 14:15 hydrocodone Allergy Unknown SHORTNESS Unverified 09/06/18 14:15 OF BREATH oxaprozin Allergy Unknown RASH Verified 09/06/18 14:15 sulfamethoxazole Allergy Unknown INCREASED Unverified 09/06/18 14:15 POTASSIUM LEVELS trimethoprim Allergy Unknown INCREASED Unverified 09/06/18 14:15 POTASSIUM LEVELS erythromycin base AdvReac Unknown N/V Verified 09/06/18 14:15 lisinopril AdvReac Unknown cough Verified 09/06/18 14:15 sertraline AdvReac Unknown MOOD SWING Verified 09/06/18 14:15 Medications Home Medications Medication Instructions Recorded Confirmed Last Taken aspirin [Aspirin Low Dose] 81 mg PO QAM 09/07/0809/06/18 09/06/18 calcium carbonate-vitamin D3 1 tab PO BID 02/19/18 09/06/18 09/06/18 [Caltrate 600 + D] cyanocobalamin (vitamin B-12) 1 dose SUBCUT MONTHLY 02/19/18 09/06/18 02/13/18 duloxetine 60 mg PO BID 02/19/18 09/06/18 09/06/18 esomeprazole magnesium [Nexium] 40 mg PO QAM 02/19/18 09/06/18 09/06/18 glucagon (human recombinant) 0.1 mg/kg IM Q3H PRN 02/19/18 09/06/18 Unknown [Glucagon Emergency Kit (human)] hydrochlorothiazide 1 tab PO QAM 02/19/18 09/06/18 09/06/18 losartan 50 mg PO QAM 02/19/18 09/06/18 09/06/18 nitroglycerin [Nitrostat] 1 tab SUBLINGUAL UD PRN 02/19/18 09/06/18 02/19/18 pramipexole 2 tab PO 1200 02/19/18 09/06/18 09/06/18 pramipexole 2 tab PO HS 02/19/18 09/06/18 09/05/18 pregabalin [Lyrica] 1 tab PO TID 02/19/18 09/06/18 09/06/18 rosuvastatin 1 tab PO HS 02/19/18 09/06/18 09/05/18 colestipol 2 tab PO BID 09/06/18 09/06/18 09/06/18 denosumab [Prolia] 1 dose SUBCUT UD PRN 09/06/18 09/06/18 Unknown ferrous gluconate 256 mg PO DAILY 09/06/18 09/06/18 Unknown metoprolol succinate 0.5 tab PO QAM 09/06/18 09/06/18 09/06/18 peg 400-propylene glycol (PF) 1 drp OPHTHALMIC (EYE) BID PRN 09/06/18 09/06/18 09/06/18 [Systane (PF)] vit C,N-Yw-zknft-lutein-zeaxan 1 tab PO BID 09/06/18 09/06/18 09/06/18 [PreserVision AREDS-2] Past Medical History Medical History DVT (deep venous thrombosis) (Chronic) 1st DVT occurred s/p gastric bypass in 1988; 2nd DVT occurred in right arm s/p PICC LINE inserted for IV ABX for treatment of MRSA (s/p LUCIUS) GERD (gastroesophageal reflux disease) (Chronic) Hypertension (Chronic) Osteoarthritis (Chronic) Osteoporosis (Chronic) RLS (restless legs syndrome) (Chronic) Ambulatory dysfunction DUE TO CURRENT ANKLE ISSUE CAD (coronary artery disease) [place] 2015, s/p cardiac stent x 1 History of MRSA infection S/P L HIP SURGERY History of endometrial cancer s/p hysterectomy History of heart attack 06/19/16 STEMI...CATH ([facility]) 06/22/16 rec'd single CAPRICE to RCA. History of kidney stones History of neck injury 03/2018 slipped in shower, was evaluated in [facility] ED, consult with Dr Brown, sent home in [facility]. Had OP f/u with Stephanie's office, per pt no further f/u needed. Low blood sugar DIETARY CONTROLLED Past Surgical History Surgical History History of gastric bypass (Chronic) Status post total knee replacement, bilateral (Chronic) History of appendectomy History of back surgery "CAGE" - LOWER BACK History of cholecystectomy History of colonoscopy History of hip surgery LEFT , CALCIUM DEPOSITS REMOVED History of hysterectomy "COMPLETE" Past Anesthesia History No Hx of Anesthesia Complications and No Family Hx of Anesthesia Complications History of PONV No Motion Sickness Screening History of Motion Sickness: No Social History Smoking Status: Never smoker Do You Dip or Chew Tobacco: No Hx Alcohol Use: No Hx Substance Use: No substance use type: does not use Exercise / Class Metabolic Activity III < 4 Walking/Shop/Light housework (Denies CP or SOB with ambulation, but moving slowly and using cane 2/2 ankle pain) Review of Systems Pt denies any recent chest pain, shortness of breath, palpitations, cough, fever or URI. Physical Exam Vital Signs BP: 117/73 P: 68bpm SPO2: 100% T: 98.1 F R: 14 ENMT Mouth: + dentures and + edentulous Thyromental Distance: > or= 3.5 Finger Breadths (3.5) Mallampati Class: III Neck + short neck and + limited neck extension (mildly limited 2/2 arthritis; denies pain or tenderness) Respiratory normal respiratory effort Auscultation: lungs clear to auscultation bilaterally Cardiovascular Rate/Rhythm: regular rate and regular rhythm Heart Sounds: no murmur Vessels: no carotid bruit Testing Electrocardiogram Date: 02/19/18 Findings: + NSR @ (70) Chest X-Ray Date: 03/28/18 Findings: + NAD Echocardiogram Date: 06/19/16 EF: 55-60% Normal overall left ventricular systolic function. Basal septal, inferior, and posterior hypokinesis. Mild left atrial dilatation. Mild aortic regurg and trace mitral regurg. Aortic valve sclerosis mild, without significant aortic valve stenosis. Stress Test Date: 06/06/18 Type: DSE Negative dobutamine stress echo and EKG for myocardial ischemia at 87% maximum predicted heart rate. Resting echocardiogram with normal biventricular systolic function. Grade 1 left ventricular diastolic dysfunction. Mild AR. Trace MR and TR. Cervical Spine Date: 03/28/18 1. Nondisplaced fracture the left C5 pedicle with extension to the vertebral foramen. 2. Advanced multilevel degenerative change. 2 mm of anterior subluxation of C4 on C5, likely arthritic. Other Testing CT Chest 03/28/18 1. Age-indeterminate nondisplaced fracture the right fifth anterior rib 2. No evidence of mediastinal injury 3. No evidence of pulmonary consolidation 4. 5 mm left lower lobe nodule. In a high risk patient, a 12 month follow-up is optional 5. Mildly enlarged precarinal lymph node 6. Multinodular thyroid gland Laboratory Results 09/08/18 13:15 09/08/18 13:15 *anemia c/w baseline
[2018-09-08 13:59] LABS: Basophils # (auto) 0.03 K/uL (0-0.2); Basophils % (auto) 0.4 %; Eosinophils # (auto) 0.51 K/uL (0-0.5); Eosinophils % (auto) 7.3 %; Hemoglobin 10.6 g/dL (12.0-16.0); Immature Granulocytes # (auto) 0.02 K/uL (0.00-0.02); Immature Granulocytes % (auto) 0.3 %; Lymphocytes # (auto) 1.74 K/uL (1.2-3.4); Lymphocytes % (auto) 24.8 %; Mean Corpuscular Hgb Conc 32.1 g/dL (32-36); Mean Corpuscular Volume 90.2 fL (80-100); Mean Platelet Volume 10.2 fL (7.4-10.4); Monocytes # (auto) 0.76 K/uL (0.11-0.59); Monocytes % (auto) 10.8 %; Neutrophils # (auto) 3.96 K/uL (1.4-6.5); Neutrophils % (auto) 56.4 %; Platelet Count 208 K/uL (130-400); RDW Coefficient of Variation 14.6 % (11.5-14.5); RDW Standard Deviation 48.5 fL (36.4-46.3); Red Blood Count 3.66 M/uL (4.2-5.4); White Blood Count 7.02 K/uL (4.8-10.8)
[2018-09-08 14:20] LABS: BUN Creatinine Ratio 27.6 (10-20); Calcium 8.4 mg/dl (8.5-10.1); Creatinine Clr Calc Pharmacy 48.5 ml/min; Potassium 4.5 mmol/L (3.5-5.1)
--- NOTE | 2018-10-06 19:10 | History & Physical Report ---
Date of Service October 06, 2018 Assessment & Plan (1) Osteoarthritis of right hindfoot: Schedule a right triple arthrodesis with percutaneous tendoachilles lengthening for 10.07.18. All potential risks, benefits, complications, alternatives, and rehab have been discussed with the patient and she wishes to proceed. Plan for Lovenox vs. Xarelto post op for DVT prophylaxis. (2) Acquired pes planus of right foot: (3) Achilles tendon contracture, right: History of Present Illness Chief Complaint: right hindfoot pain Primary Care Provider: Chuy Magdaleno This is a patient who has been treated for a prolonged time for right hindfoot osteoarthritis and pes planus deformity. She failed all conservative management. She is now being set up for surgical treatment. Allergies Allergy/AdvReac Type Severity Reaction Status Date / Time Bactrim Allergy Unknown INCREASED Unverified 11/23/17 10:16 POTASSIUM LEVELS cyclobenzaprine Allergy Unknown PASSED OUT Verified 09/06/18 14:15 hydrocodone Allergy Unknown SHORTNESS Unverified 09/06/18 14:15 OF BREATH oxaprozin Allergy Unknown RASH Verified 09/06/18 14:15 sulfamethoxazole Allergy Unknown INCREASED Unverified 09/06/18 14:15 POTASSIUM LEVELS trimethoprim Allergy Unknown INCREASED Unverified 09/06/18 14:15 POTASSIUM LEVELS erythromycin base AdvReac Unknown N/V Verified 09/06/18 14:15 lisinopril AdvReac Unknown cough Verified 09/06/18 14:15 sertraline AdvReac Unknown MOOD SWING Verified 09/06/18 14:15 Home Medications Home Medications Medication Instructions Recorded Confirmed Type aspirin [Aspirin Low Dose] 81 mg PO QAM 02/19/18 09/06/18 History calcium carbonate-vitamin D3 1 tab PO BID 02/19/18 09/06/18 History [Caltrate 600 + D] cyanocobalamin (vitamin B-12) 1 dose SUBCUT MONTHLY 02/19/18 09/06/18 History duloxetine 60 mg PO BID 02/19/18 09/06/18 History esomeprazole magnesium [Nexium] 40 mg PO QAM 02/19/18 09/06/18 History glucagon (human recombinant) 0.1 mg/kg IM Q3H PRN 02/19/18 09/06/18 History [Glucagon Emergency Kit (human)] hydrochlorothiazide 1 tab PO QAM 02/19/18 09/06/18 History losartan 50 mg PO QAM 02/19/18 09/06/18 History nitroglycerin [Nitrostat] 1 tab SUBLINGUAL UD PRN 02/19/18 09/06/18 History pramipexole 2 tab PO 1200 02/19/18 09/06/18 History pramipexole 2 tab PO HS 02/19/18 09/06/18 History pregabalin [Lyrica] 1 tab PO TID 02/19/18 09/06/18 History rosuvastatin 1 tab PO HS 02/19/18 09/06/18 History colestipol 2 tab PO BID 09/06/18 09/06/18 History denosumab [Prolia] 1 dose SUBCUT UD PRN 09/06/18 09/06/18 History ferrous gluconate 256 mg PO DAILY 09/06/18 09/06/18 History metoprolol succinate 0.5 tab PO QAM 09/06/18 09/06/18 History peg 400-propylene glycol (PF) 1 drp OPHTHALMIC (EYE) BID PRN 09/06/18 09/06/18 History [Systane (PF)] vit C,S-Om-epwzu-lutein-zeaxan 1 tab PO BID 09/06/18 09/06/18 History [PreserVision AREDS-2] Past Med/Surg History Medical History DVT (deep venous thrombosis) (Chronic) 1st DVT occurred s/p gastric bypass in 1988; 2nd DVT occurred in right arm s/p PICC LINE inserted for IV ABX for treatment of MRSA (s/p LUCIUS) GERD (gastroesophageal reflux disease) (Chronic) Hypertension (Chronic) Osteoarthritis (Chronic) Osteoporosis (Chronic) RLS (restless legs syndrome) (Chronic) Ambulatory dysfunction DUE TO CURRENT ANKLE ISSUE CAD (coronary artery disease) [place] 2015, s/p cardiac stent x 1 History of MRSA infection S/P L HIP SURGERY History of endometrial cancer s/p hysterectomy History of heart attack 06/19/16 STEMI...CATH ([facility]) 06/22/16 rec'd single CAPRICE to RCA. History of kidney stones History of neck injury 03/2018 slipped in shower, was evaluated in [facility] ED, consult with Dr Brown, sent home in [facility]. Had OP f/u with Stephanie's office, per pt no further f/u needed. Low blood sugar DIETARY CONTROLLED Surgical History History of gastric bypass (Chronic) Status post total knee replacement, bilateral (Chronic) History of appendectomy History of back surgery "CAGE" - LOWER BACK History of cholecystectomy History of colonoscopy History of hip surgery LEFT , CALCIUM DEPOSITS REMOVED History of hysterectomy "COMPLETE" Social History Preferred Language: Azeri Communication Ability: Effective Visual Impairment: No Limitations Hearing Ability: Normal Lithographic Platemaker Required: No Beliefs That Will Affect Care: None Current Living Situation: Other Current Living Situation Comment: LIVES WITH DAUGHTER AND HER Other Information That Helps Us Care for You: Yes (LIVES IN [place]I-LEVEL HOME, POSSIBLE [place] [facility]?) Feels Safe at Home: Yes Smoking Status: Never smoker Do You Dip or Chew Tobacco: No Hx Alcohol Use: No Hx Substance Use: No Physical Exam Constitutional: well developed and well nourished; no acute distress ENMT: external ear and nose normal, oropharynx normal Neck: trachea midline, no thyromegaly Respiratory: normal respiratory effort, lungs clear to auscultation Cardiovascular: Rate/Rhythm: regular rate and regular rhythm Gastrointestinal (Abdomen): normal bowel sounds, soft, nontender, no hepatosplenomegaly Musculoskeletal: Right ankle: pes planus. Tender at the talonavicular joint and sinus tarsi. Decreased ROM, particularly with dorsiflexion. Antalgic right gait. Skin: no rashes, warm and dry Neurologic: normal touch/pain/proprioception Psychiatric: A+Ox3, euthymic affect Lymphatic: no cervical or axillary lymphadenopathy
[~2018-10-07 08:20] MED LIST changes: -ASPEC81 PO; +BUPIVACAINE/EPINEPHRINE 0.5% MPF 1:200,000 30 ML VIAL ONE; -CALC600T9 PO; -CYAN3INJ; -CYM60 PO; -CZR50 PO; -FERROUS GLUCONATE PO; -LPT40 PO; +LR 15ML/HR IV SCH; -LYR/50 PO; -METO50TA17 PO; -NTRGSL4 SL; -NXM/40 PO; -OXYC-57 PO; -PLV75 PO; -PRAM0.1212 PO; -PRED-301 PO; -TRAM-10 PO; -[UNRECOGNIZED DRUG - CODE] PO
[2018-10-07] MEDS ORDERED: ONDANSETRON INJ 2 MG/ML 2 ML VIAL IV PRN ×2 (09:27→14:41)
[2018-10-07] MEDS ORDERED: ePHEDrine sulfate 50 MG/ML AMP IV PRN (09:27)
[2018-10-07] MEDS ORDERED: LABETALOL HCL IV 5 MG/ML 20ML IV PRN (09:27)
[2018-10-07] MEDS ORDERED: PROMETHAZINE HCL 12.5 MG in SODIUM CHLORIDE 0.9% 50 ML IV PRN (09:27)
[2018-10-07] MEDS ORDERED: HYDROmorphone INJ 1 MG/ML SYRINGE IV PRN (09:27)
[2018-10-07] MEDS ORDERED: ATROPINE SULFATE 0.1 MG/ML 10ML SYR IV PRN (09:27)
[2018-10-07] MEDS ORDERED: FLUMAZENIL 0.1 MG/1 ML 10 ML VIAL IV PRN (09:27)
[2018-10-07] MEDS ORDERED: NALOXONE HCL 0.4 MG/1 ML VIAL/CARP IV PRN ×2 (09:27→14:41)
[2018-10-07 09:56] LABS: Appearance Urine Clear (Clear); Bacteria Urine Automated Negative (Negative); Bilirubin Urine Negative (Negative); Blood Urine Negative (Negative); Cast Urine Automated 0 /lpf (0-5); Color Urine Yellow; Glucose Urine UA Negative (Negative); Ketones Urine Negative (Negative); Leukocyte Esterase Urine Trace (Negative); Nitrite Urine Negative (Negative); Protein Urine Negative (Negative); RBC Urine Automated 0-4 /hpf (0-4); Specific Gravity Urine 1.009 (1.000-1.030); Urobilinogen Urine Negative (Negative); pH Urine 6.5 (4.5-7.5)
--- NOTE | 2018-10-07 10:52 | History & Physical Bridge Note ---
Date of Service October 07, 2018 History & Physical Bridge Note I have examined the patient, reviewed the History & Physical and in the interval since the performance of the History & Physical I have noted the following changes of clinical significance: no changes noted
[2018-10-07] MEDS ORDERED: PROPOFOL IV EMULSION 10 MG/ML 20 ML VIAL IV ONE (11:15)
[2018-10-07] MEDS ORDERED: LIDOCAINE HCL 2% 2 ML VIAL/AMP(20MG/ML) INFIL ONE (11:15)
[2018-10-07] MEDS ORDERED: MIDAZOLAM HCL 1 MG/ML 2ML VIAL ONE (11:15)
[2018-10-07] MEDS ORDERED: fentaNYL citrate 100 MCG/2 ML VIAL ONE ×2 (11:15→14:16)
[2018-10-07] MEDS ORDERED: BACITRACIN INJ 50,000 UNIT VIAL ONE (11:19)
[2018-10-07] MEDS ORDERED: CEFAZOLIN 2,000 MG/15 ML IV PUSH IV ONE (11:31)
[2018-10-07] MEDS ORDERED: NITROGLYCERIN 5 MG/ML 10 ML VIAL ONE (14:16)
--- NOTE | 2018-10-07 14:33 | Post Operative Brief Note ---
Immediate Post Op Note v1 Date of Surgery October 07, 2018 Pre & Post Diagnosis Operation Date: 10/07/18 10:20 Pre-Op Diagnosis: Right HindFoot Degenerative Joint Disease, Achilles contracture, Painful Pes Planus Post-Op Diagnosis: Right HindFoot Degenerative Joint Disease, Achilles contracture, Painful Pes Planus Procedure Operation Date: 10/07/18 10:20 Actual Procedures p Right Foot Triple Arthrodesis,(Right) - Anton Graves DO p Percutaneous Tendon Achilles Lengthening(Right) - Anton Graves DO Surgeon Anton Graves DO Car Painter Gregg Galo PA-C Estimated Blood Loss 5 Findings Consistent with Post-Op Diagnosis Specimens None Drains Hemovac Drain Anesthesia Type General Regional Complications none Disposition Accompanied Patient To Recovery: No Disposition: Recovery Room
--- NOTE | 2018-10-07 14:36 | Fluoroscopy Report ---
FL foot RT 2V CLINICAL HISTORY: RIGHT FOOT TRIPLE ARTHRODESIS COMPARISON STUDY: None. FLUOROSCOPY TIME: 8 seconds. FLUOROSCOPIC IMAGES: 2. FINDINGS: These images demonstrate cannulated screws which extend across the subtalar, calcaneocuboid and talonavicular articulations. Hardware is intact. Skin sid project over the Achilles. There a re no unexpected radiopaque foreign bodies. IMPRESSION: Expected findings following right triple arthrodesis. Electronically signed by: Jonatan Hernandez M.D. 10/07/2018 2:35 PM
[2018-10-07] MEDS ORDERED: HYDROmorphone INJ 0.5 MG/0.5 ML SYR IV PRN (14:41)
[2018-10-07] MEDS ORDERED: BISACODYL 10 MG SUPP PR PRN (14:41)
[2018-10-07] MEDS ORDERED: MAGNESIUM HYDROXIDE SUSP 30 ML UDC PO PRN (14:41)
[2018-10-07] MEDS ORDERED: ALUMINUM/MAGNESIUM SUSP 30 ML UDC PO PRN (14:41)
[2018-10-07] MEDS ORDERED: METOCLOPRAMIDE HCL INJ 5 MG/ML 2 ML VIAL IV PRN (14:41)
[2018-10-07] MEDS ORDERED: NO NSAIDS SCH (14:45)
[2018-10-07] MEDS ORDERED: ONDANSETRON INJ 2 MG/ML 2 ML VIAL ONE (14:46)
[2018-10-07] MEDS ORDERED: DEXAMETHASONE SOD INJ 4 MG/ML VIAL ONE (14:46)
--- NOTE | 2018-10-07 15:52 | Anesthesiology Progress Note ---
Date of Service October 07, 2018 Anesthesia Post Procedure Vital Signs Vital Signs: Temp Pulse Pulse Resp BP Pulse Ox 10/07/18 15:45 75 16 132/78 100 10/07/18 15:35 75 14 131/72 100 10/07/18 15:25 79 14 141/63 H 98 10/07/18 15:15 36.2 C L 82 14 133/84 98 10/07/18 15:05 79 14 128/64 100 10/07/18 14:55 74 14 137/61 100 10/07/18 14:45 80 15 139/60 100 10/07/18 14:38 36.4 C L 79 16 130/80 98 10/07/18 09:28 36.9 C 72 18 118/51 L 96 Notes Mental Status: alert / awake / arousable and participated in evaluation Nausea / Vomiting: adequately controlled Pain: adequately controlled Airway Patency, RR, SpO2: stable & adequate BP & HR: stable & adequate Hydration State: stable & adequate Anesthetic Complications: no major complications apparent and Pt Satisfied with anesthetic care
[2018-10-07] MEDS ORDERED: ARTIFICIAL TEARS OP PRN (16:50)
[2018-10-07] MEDS ORDERED: NITROGLYCERIN SL 0.4 MG/TAB TAB SL PRN (16:50)
[2018-10-07] MEDS ORDERED: MECLIZINE 12.5 MG TAB PO PRN (16:50)
[2018-10-07] MEDS ORDERED: DENOSUMAB SQ PRN (16:50)
[2018-10-07] MEDS ORDERED: GLUCAGON FOR INJ 1 MG VIAL IM PRN (16:50)
--- NOTE | 2018-10-07 17:36 | Consultation ---
Date of Consultation October 07, 2018 Assessment & Plan (1) Post-operative state: s/p right foot triple arthrodesis and percutaneous tendon lengthening of the achilles tendon 10/07 Bowel regimen, pain control, dvt prophylaxis per surgery Monitor for acute blood loss - CBC am (2) Dyslipidemia: Continue rosuvastatin (3) Hypertension: continue losartan, hctz, metoprolol prp am (4) CAD (coronary artery disease): Continue ASA when ok with surgery, statin, metoprolol (5) Eye irritation: Flushed with saline and applied warm compress. Could look for corneal abrasion tomorrow if not improved. No sign of foreign body. Can give saline eye drops for tonight. Supervising Physician Co-Signing Physician Notes [employer] Physician Supervision Note: I discussed with Malia Cee NP and agree with findings and plan as documented in the note. Any exceptions or clarifications are listed here: None Patient is doing well postoperatively, surgeons chosen ox apparent for DVT prevention, losartan and metoprolol for hypertension control Documented By: Gutierrez Orozco History of Present Illness Attending Physician: Anton Graves DO History of Present Illness Ms. Ibarra is post op today. She is feeling well however she has tearing and irritation in her right eye. She has no other complaints Pmhx: gastric bypass, htn, dyslip, CAD, STEMI with RCA CAPRICE 2016 Social hx: lives with her daughter, , never smoker, no alcohol Family hx: non contributory Allergies Allergy/AdvReac Type Severity Reaction Status Date / Time Bactrim Allergy Unknown INCREASED Unverified 11/23/17 10:16 POTASSIUM LEVELS cyclobenzaprine Allergy Unknown PASSED OUT Verified 10/07/18 08:54 hydrocodone Allergy Unknown SHORTNESS Verified 10/07/18 08:54 OF BREATH oxaprozin Allergy Unknown RASH Verified 10/07/18 08:54 sulfamethoxazole Allergy Unknown INCREASED Verified 10/07/18 08:54 POTASSIUM LEVELS trimethoprim Allergy Unknown INCREASED Verified 10/07/18 08:54 POTASSIUM LEVELS erythromycin base AdvReac Mild N/V Verified 10/07/18 10:27 lisinopril AdvReac Mild cough Verified 10/07/18 10:27 sertraline AdvReac Mild MOOD SWING Verified 10/07/18 10:27 Home Medications Home Medications Medication Instructions Recorded Confirmed Type aspirin [Aspirin Low Dose] 81 mg PO QAM 02/19/18 10/07/18 History calcium carbonate-vitamin D3 1 tab PO BID 02/19/18 10/07/18 History [Caltrate 600 + D] cyanocobalamin (vitamin B-12) 1 dose SUBCUT MONTHLY 02/19/18 10/07/18 History duloxetine 60 mg PO BID 02/19/18 10/07/18 History esomeprazole magnesium [Nexium] 40 mg PO QAM 02/19/18 10/07/18 History glucagon (human recombinant) 0.1 mg/kg IM Q3H PRN 02/19/18 10/07/18 History [Glucagon Emergency Kit (human)] hydrochlorothiazide 1 tab PO QAM 02/19/18 10/07/18 History losartan 50 mg PO QAM 02/19/18 10/07/18 History nitroglycerin [Nitrostat] 1 tab SUBLINGUAL UD PRN 02/19/18 10/07/18 History pramipexole 2 tab PO 1200 02/19/18 10/07/18 History pramipexole 2 tab PO HS 02/19/18 10/07/18 History pregabalin [Lyrica] 1 tab PO TID 02/19/18 10/07/18 History rosuvastatin 1 tab PO HS 02/19/18 10/07/18 History colestipol 2 tab PO BID 09/06/18 10/07/18 History denosumab [Prolia] 1 dose SUBCUT UD PRN 09/06/18 10/07/18 History ferrous gluconate 256 mg PO DAILY 09/06/18 10/07/18 History metoprolol succinate 0.5 tab PO QAM 09/06/18 10/07/18 History peg 400-propylene glycol (PF) 1 drp OPHTHALMIC (EYE) BID PRN 09/06/18 10/07/18 History [Systane (PF)] vit C,G-Nl-jubpw-lutein-zeaxan 1 tab PO BID 09/06/18 10/07/18 History [PreserVision AREDS-2] meclizine 12.5 mg PO TID PRN 10/07/18 10/07/18 History Patient History Medical History DVT (deep venous thrombosis) (Chronic) 1st DVT occurred s/p gastric bypass in 1988; 2nd DVT occurred in right arm s/p PICC LINE inserted for IV ABX for treatment of MRSA (s/p LUCIUS) GERD (gastroesophageal reflux disease) (Chronic) Hypertension (Chronic) Osteoarthritis (Chronic) Osteoporosis (Chronic) RLS (restless legs syndrome) (Chronic) Ambulatory dysfunction DUE TO CURRENT ANKLE ISSUE CAD (coronary artery disease) [facility] 2016, s/p cardiac stent x 1 History of MRSA infection S/P L HIP SURGERY History of endometrial cancer s/p hysterectomy History of heart attack 06/19/16 STEMI...CATH ([facility]) 06/22/16 rec'd single CAPRICE to RCA. History of kidney stones History of neck injury 03/2018 slipped in shower, was evaluated in [facility] ED, consult with Dr Brown, sent home in [facility]. Had OP f/u with Stephanie's office, per pt no further f/u needed. Low blood sugar DIETARY CONTROLLED Surgical History History of gastric bypass (Chronic) Status post total knee replacement, bilateral (Chronic) History of appendectomy History of back surgery "CAGE" - LOWER BACK History of cholecystectomy History of colonoscopy History of hip surgery LEFT , CALCIUM DEPOSITS REMOVED History of hysterectomy "COMPLETE" Social History Preferred Language: Togolese Communication Ability: Effective Visual Impairment: No Limitations Hearing Ability: Normal Applications Analyst Required: No Beliefs That Will Affect Care: None Current Living Situation: Other Current Living Situation Comment: LIVES WITH DAUGHTER AND HER Other Information That Helps Us Care for You: Yes (LIVES IN MULTI-LEVEL HOME, POSSIBLE [facility] POST OP?) Feels Safe at Home: Yes Smoking Status: Never smoker Do You Dip or Chew Tobacco: No Hx Alcohol Use: No Hx Substance Use: No Review of Systems Review of Systems: All systems reviewed & are unremarkable except as noted in HPI & below Physical Exam Physical Exam: General: no distress Eyes: no obvious foreign body in right eye, sclera reddened an irritating appearing, Respiratory: chest non tender, clear to auscultation, normal breath sounds, no respiratory distress, no accessory muscle use Cardiac: regular rate and rhythm, no rub or gallop, sytolic murmur 2/6, no edema, no jvd GI/: active bowel sounds, no abd pain or tenderness, soft, non distended Extremities: normal range of motion, normal strength, non tender Neuro/Psych: alert and oriented x 3, normal mood and affect Skin: normal color, dry Results & Data Vital Signs (Past 12 Hours) Vital Signs Temp Pulse Pulse Resp BP Pulse Ox 10/07/18 17:04 36.5 C 66 16 137/77 99 10/07/18 16:40 36.6 C 67 16 134/77 100 10/07/18 15:45 75 16 132/78 100 10/07/18 15:35 75 14 131/72 100 10/07/18 15:25 79 14 141/63 H 98 10/07/18 15:15 36.2 C L 82 14 133/84 98 10/07/18 15:05 79 14 128/64 100 10/07/18 14:55 74 14 137/61 100 10/07/18 14:45 80 15 139/60 100 10/07/18 14:38 36.4 C L 79 16 130/80 98 10/07/18 09:28 36.9 C 72 18 118/51 L 96
[2018-10-07 19:53] LABS: Prothrombin Time 10.3 Seconds (9.0-12.0)
[2018-10-07] MEDS: SODIUM CHLORIDE 0.9% 1000ML 1,000 ML IV SCH (20:53)
[2018-10-07] MEDS: COLESTIPOL HCL 1 GM TAB PO SCH (20:55)
[2018-10-07] MEDS: PRAMIPEXOLE DIHYDROCHLO 0.25 MG TAB PO SCH (20:55)
[2018-10-07] MEDS: DULOXETINE HCL 60 MG CAP PO SCH (20:56)
[2018-10-07] MEDS: DOCUSATE SODIUM 100 MG CAP PO SCH (20:56)
[2018-10-07] MEDS: ROSUVASTATIN CALCIUM 20 MG TAB PO SCH (20:57)
[2018-10-07] MEDS: CALCIUM 600MG + VIT D 400 IU TAB PO SCH (20:57)
[2018-10-07] MEDS: SENNA 8.6 MG TAB PO SCH (20:58)
[2018-10-07] MEDS ORDERED: NON-FORMULARY MEDICATION (Vit C,E-Zn-Coppr-Lutein-Zeaxan [Preservision Areds-2] 1 TAB) PO SCH (21:00)
[2018-10-07] MEDS: CEFAZOLIN 2000MG 2,000 MG/15 ML SYR IV SCH (21:04)
[2018-10-07] MEDS: PREGABALIN 75 MG CAP PO SCH (21:04)
[2018-10-07] MEDS: ACETAMINOPHEN 500 MG TAB PO SCH (21:05)
[2018-10-07] MEDS: OXYCODONE HCL IR 5 MG TAB (IMMEDIATE RELEASE) PO PRN (22:03)
--- NOTE | 2018-10-07 22:28 | Operative Report ---
DATE OF OPERATION: 10/07/2018 PREOPERATIVE DIAGNOSES: 1. Right hindfoot degenerative joint disease. 2. Achilles tendon contracture. POSTOPERATIVE DIAGNOSES: 1. Right hindfoot degenerative joint disease. 2. Achilles tendon contracture. PROCEDURES: 1. Right triple arthrodesis. 2. Percutaneous tendo Achilles lengthening. SURGEON: Anton Graves DO IT RISK ADVISOR: Gregg Galo PA-C, who was present for patient positioning, sterile prep and drape, management of retractors and instruments. He was present through the critical portions of the case including wound closure, application of sterile dressing and transport of the patient to recovery. ANESTHESIA: General regional with popliteal block. SPECIMENS: None. DRAINS: Hemovac x1. COMPLICATIONS: None. BLOOD LOSS: 5 mL. PERTINENT HISTORY: This is a 78-year-old female with chronic progressive and worsening right hindfoot degenerative joint disease and Achilles contracture. She attempted and failed conservative management including shoe wear modification, activity modification, anti-inflammatories, rest, steroid injection, use of a brace, and use of an assistive device. Radiographs and CT scan demonstrate degenerative arthritis of the hindfoot with marginal osteophytes, subchondral sclerosis, and subchondral cysts. The patient is scheduled for surgery as indicated. DESCRIPTION OF PROCEDURE: The patient was taken to the Operating Suite, placed supine on the Operating Room table, after consent and identification of the proper operative site, the patient was anesthetized. LMA was placed. Tourniquet was placed high on the left lower extremity. Right lower extremity was then sterilely prepped and draped in the usual fashion. Exsanguinated with an Esmarch bandage and tourniquet inflated to 350 mmHg. Next, the foot was held in dorsiflexion and a three-part percutaneous incision was made with an 11-blade scalpel to lengthen the Achilles tendon using standard technique. Next, the stab incisions were then closed using interrupted skin sid. Next, the 15-blade scalpel was used to make an incision from the distal aspect of the fibula to the base of the fourth metatarsal. The incision was deepened through subcutaneous tissue and meticulous hemostasis was obtained with electrocautery. Subcutaneous nerves were identified, retracted and protected. The extensor digitorum brevis was identified and was sharply elevated from the anterior process of the calcaneus revealing the sinus tarsi. Next, the sinus tarsi was debrided carefully with a rongeur and 15-blade scalpel. A cervical lamina lace tearing supervisor was placed in the sinus tarsi opening the subtalar joint. Subtalar joint was then prepared with the use of a curette and rongeur to resect the articular surfaces down to subchondral bleeding bone. Irrigation was performed with sterile normal saline and then 2-mm drill bit was used to further prepare the joint surface with multiple drill holes in both surfaces of the subtalar joint and a small osteotome and mallet were used to fish scale the joint surfaces to increase surface area and bleeding. Next, the calcaneocuboid joint was then entered with the 15-blade scalpel, debrided of soft tissue and then a lamina lace tearing supervisor was placed in the joint opening it for preparation with a curette and rongeur to remove any articular surface down to subchondral bleeding bone. Next, the 2-mm drill bit was used to further prepare the joint with multiple drill holes into the joint and then a small osteotome and mallet were used to fish scale the joint. Next, the 15-blade was used to make an incision from the distal aspect of the tibia to the base of the naviculocuneiform joint. The incision was deepened through subcutaneous tissue. Meticulous hemostasis obtained with electrocautery. A Weitlaner retractor was placed in the wound. The greater saphenous vein was identified, retracted and protected. The capsule of the talonavicular joint was then entered sharply with a 15-blade scalpel and elevated both superior and inferiorly. A small Bobbi was placed on the neck of the talus and further soft tissue elevation was performed with the 15-blade scalpel until the talonavicular joint was clearly visualized. The articular surface was then debrided with curette and rongeur and a cervical lamina lace tearing supervisor was placed in the joint. Next, it was irrigated with sterile normal saline and a 2-mm drill bit was used to make multiple holes in the joint surfaces and fish scaling was performed with a small osteotome and mallet. Next, the medial and lateral incisions were irrigated with sterile normal saline and the joint surfaces were then aligned appropriately based on alignment of the lower extremity and the kneecap. Subtalar joint was aligned and then a 7.3-mm cannulated guidepin was driven from the superior aspect of the talus across the subtalar joint into the calcaneus under fluoroscopic control. Next, an appropriate length 7.3-mm short-thread screw was placed under fluoroscopic control and countersunk slightly. Next, the guidepin was removed. Next, 1.25-mm guide pins x 2 were used to stabilize the talonavicular joint in appropriate alignment and then the calcaneocuboid joint was then stabilized with appropriate alignment under fluoroscopic control. Next, appropriate length of 4-mm short-thread cannulated screws were placed across the talonavicular and calcaneocuboid joints respectively under fluoroscopic control. All guide pins were removed. Wounds were irrigated with sterile normal saline and bone graft was then packed in and around the subtalar, talonavicular and calcaneocuboid joints which was comprised of 30 mL of cancellous bone chips. A 10-Kinyarwanda single lumen Hemovac drain was then placed in the lateral aspect of the wound exiting dorsolaterally and the extensor digitorum brevis then closed back to its origin with interrupted 2-0 Vicryl sutures. The talonavicular joint capsule was closed using 2-0 Vicryl sutures. The dermis was closed using buried interrupted 3-0 Vicryl sutures medially and laterally and then skin incisions were closed using 4-0 Nylon sutures. A sterile compressive dressing and bulky Ac-Nielsen plaster splint was applied, overwrapped with an Jamarcus wrap. The tourniquet was released. DISPOSITION: Patient awakened and taken to Recovery in stable condition. I attest to the content of the Intraoperative Record and any orders documented therein. Any exception s are noted below.
[2018-10-08] MEDS: SODIUM CHLORIDE 0.9% 1000ML 1,000 ML IV SCH (00:38)
[2018-10-08] MEDS: CEFAZOLIN 2000MG 2,000 MG/15 ML SYR IV SCH (04:49)
[2018-10-08] MEDS: ACETAMINOPHEN 500 MG TAB PO SCH ×3 (04:49→20:35)
[2018-10-08 07:10] LABS: Hematocrit (blood only) 28.5 % (37-47); Hemoglobin 9.1 g/dL (12.0-16.0); Mean Corpuscular Hgb Conc 31.9 g/dL (32-36); Mean Platelet Volume 9.4 fL (7.4-10.4); Platelet Count 198 K/uL (130-400); RDW Coefficient of Variation 14.4 % (11.5-14.5); RDW Standard Deviation 46.7 fL (36.4-46.3); Red Blood Count 3.24 M/uL (4.2-5.4); White Blood Count 12.02 K/uL (4.8-10.8)
[2018-10-08] MEDS: OXYCODONE HCL IR 5 MG TAB (IMMEDIATE RELEASE) PO PRN ×2 (07:16→20:38)
[2018-10-08 07:46] LABS: BUN Creatinine Ratio 21.9 (10-20); Calcium 8.1 mg/dl (8.5-10.1); Creatinine Clr Calc Pharmacy 41.3 ml/min; Est GFR (African American) 48.1; Est GFR (Non-African American) 41.5; Potassium 4.4 mmol/L (3.5-5.1)
[2018-10-08] MEDS: DOCUSATE SODIUM 100 MG CAP PO SCH ×2 (08:56→20:35)
[2018-10-08] MEDS: CALCIUM 600MG + VIT D 400 IU TAB PO SCH ×2 (08:57→20:35)
[2018-10-08] MEDS: DULOXETINE HCL 60 MG CAP PO SCH ×2 (08:58→20:35)
[2018-10-08] MEDS: MULTIVITAMIN TAB PO SCH (08:58)
[2018-10-08] MEDS: PANTOprazole 40 MG TAB PO SCH (08:58)
[2018-10-08] MEDS ORDERED: FERROUS GLUCONATE 324 MG TAB PO SCH (09:00)
[2018-10-08] MEDS: ENOXAPARIN INJ 40 MG/0.4 ML SYR SQ SCH (09:01)
[2018-10-08] MEDS: METOPROLOL SUCC 25MG EXT REL TAB PO SCH (09:04)
[2018-10-08] MEDS: PREGABALIN 75 MG CAP PO SCH ×3 (09:08→20:35)
--- NOTE | 2018-10-08 10:04 | Orthopedic Progress Note ---
Date of Service October 08, 2018 Assessment & Plan (1) Osteoarthritis of right hindfoot: Patient is POD#1 PROCEDURES: 1. Right triple arthrodesis. 2. Percutaneous tendo Achilles lengthening. -Pain management -DVT prophylaxis -NWB right LE -D/C planning-awaiting SNF placement. (2) Acquired pes planus of right foot: Subjective Patient is resting in bed eating breakfast. Pain is at a tolerable level. No current complaints. Planning on SNF. Physical Exam Physical Exam: Dressing c/d/i, hemovac in place. Toes are mobile. N/v status and sensation intact. Results & Data Vital Signs (Past 12 Hours) Vital Signs Temp Pulse Pulse Resp BP Pulse Ox 10/08/18 09:03 80 98/58 L 10/08/18 03:17 36.7 C 82 14 104/55 L 94 10/07/18 23:55 36.7 C 78 14 104/63 93
--- NOTE | 2018-10-08 10:13 | Anesthesiology Progress Note ---
Date of Service October 08, 2018 Anesthesia Post Procedure Vital Signs Vital Signs: Temp Pulse Pulse Pulse Pulse Resp BP 10/08/18 09:03 80 10/08/18 03:17 36.7 C 82 14 10/07/18 23:55 36.7 C 78 14 10/07/18 19:12 36.7 C 68 16 131/60 10/07/18 18:05 37.2 C 73 16 119/66 10/07/18 17:04 36.5 C 66 16 137/77 10/07/18 16:40 36.6 C 67 16 134/77 10/07/18 16:05 36.7 C 75 16 145/74 H 10/07/18 15:45 75 16 132/78 10/07/18 15:35 75 14 131/72 10/07/18 15:25 79 14 141/63 H 10/07/18 15:15 36.2 C L 82 14 133/84 10/07/18 15:05 79 14 128/64 10/07/18 14:55 74 14 137/61 10/07/18 14:45 80 15 139/60 10/07/18 14:38 36.4 C L 79 16 130/80 BP Pulse Ox 10/08/18 09:03 98/58 L 10/08/18 03:17 104/55 L 94 10/07/18 23:55 104/63 93 10/07/18 19:12 99 10/07/18 18:05 96 10/07/18 17:04 99 10/07/18 16:40 100 10/07/18 16:05 100 10/07/18 15:45 100 10/07/18 15:35 100 10/07/18 15:25 98 10/07/18 15:15 98 10/07/18 15:05 100 10/07/18 14:55 100 10/07/18 14:45 100 10/07/18 14:38 98 Pain Intensity Right Ankle: Pain Intensity: 8 Notes Mental Status: alert / awake / arousable and participated in evaluation Nausea / Vomiting: adequately controlled Pain: adequately controlled Airway Patency, RR, SpO2: stable & adequate BP & HR: stable & adequate Hydration State: stable & adequate
[2018-10-08] MEDS: COLESTIPOL HCL 1 GM TAB PO SCH ×2 (10:55→18:15)
[2018-10-08] MEDS: FERROUS GLUCONATE 324 MG TAB PO SCH (10:55)
--- NOTE | 2018-10-08 10:55 | Hospitalist Progress Note ---
Date of Service October 08, 2018 Assessment & Plan (1) Post-operative state: s/p right foot triple arthrodesis and percutaneous tendon lengthening of the achilles tendon 10/07 Bowel regimen, pain control, dvt prophylaxis per surgery Monitor for acute blood loss - hgb down 1 g from yesterday at 9.1 (2) Elevated serum creatinine: increased from 1.07 to 1.25 - will give 1 L LR and hold losartan and hctz. Repeat prp tomorrow morning (3) Dyslipidemia: Continue rosuvastatin (4) Hypertension: hold losartan, hctz, continue metoprolol prp am (5) CAD (coronary artery disease): Continue ASA when ok with surgery, statin, metoprolol (6) Eye irritation: 10/07 - Flushed with saline and applied warm compress. No sign of foreign body. Resolved Subjective Ms. Ibarra feels well, she has no complaints this morning Review of Systems Review of Systems: All systems reviewed & are unremarkable except as noted in HPI & below Physical Exam Physical Exam: General: no distress Eyes: normal inspection, PERLL Respiratory: chest non tender, clear to auscultation, normal breath sounds, no respiratory distress, no accessory muscle use Cardiac: regular rate and rhythm, no rub or gallop, no murmur, no edema, no jvd GI/: active bowel sounds, no abd pain or tenderness, soft, non distended Extremities: normal range of motion, normal strength, non tender Neuro/Psych: alert and oriented x 3, normal mood and affect Skin: normal color, dry, mucous membranes dry Results & Data Vital Signs (Past 12 Hours) Vital Signs Temp Pulse Pulse Resp BP Pulse Ox 10/08/18 09:03 80 98/58 L 10/08/18 03:17 36.7 C 82 14 104/55 L 94 10/07/18 23:55 36.7 C 78 14 104/63 93
[2018-10-08] MEDS ORDERED: LACTATED RINGER'S 1,000 ML IV SCH (11:00)
[2018-10-08] MEDS ORDERED: NURSING DECISION MEDICATION ONE (11:10)
[2018-10-08] MEDS ORDERED: COUGH DROP (SUGAR FREE) LOZ 24 LOZ/1 BOX BUCCAL PRN (11:22)
[2018-10-08] MEDS: PRAMIPEXOLE DIHYDROCHLO 0.25 MG TAB PO SCH ×2 (11:48→20:35)
[2018-10-08] MEDS: ROSUVASTATIN CALCIUM 20 MG TAB PO SCH (20:35)
[2018-10-08] MEDS: SENNA 8.6 MG TAB PO SCH (20:35)
[2018-10-09] MEDS: ACETAMINOPHEN 500 MG TAB PO SCH ×3 (05:31→21:18)
[2018-10-09 07:30] LABS: BUN Creatinine Ratio 27.6 (10-20); Calcium 8.2 mg/dl (8.5-10.1); Creatinine Clr Calc Pharmacy 47.4 ml/min; Est GFR (African American) 56.7; Est GFR (Non-African American) 48.9; Potassium 4.3 mmol/L (3.5-5.1)
--- NOTE | 2018-10-09 07:59 | Orthopedic Progress Note ---
Date of Service October 09, 2018 Assessment & Plan (1) Osteoarthritis of right hindfoot: Patient is POD#1 PROCEDURES: 1. Right triple arthrodesis. 2. Percutaneous tendo Achilles lengthening. -Pain management -DVT prophylaxis -NWB right LE -D/C planning-awaiting SNF placement. -discontinue drain today (2) Acquired pes planus of right foot: Subjective Ms. Ibarra feels well, she has no complaints this morning. No chest pain, sob, dizziness, headache. No calf tenderness Physical Exam Physical Exam: Dressing c/d/i, hemovac in place. Toes are mobile. N/v status and sensation intact. Results & Data Vital Signs (Past 12 Hours) Vital Signs Temp Pulse Pulse Resp BP Pulse Ox 10/09/18 07:15 36.6 C 76 15 108/70 100 10/08/18 23:05 36.4 C L 73 14 101/65 96
[2018-10-09] MEDS: DOCUSATE SODIUM 100 MG CAP PO SCH ×2 (08:39→21:18)
[2018-10-09] MEDS: PREGABALIN 75 MG CAP PO SCH ×3 (08:39→21:17)
[2018-10-09] MEDS: DULOXETINE HCL 60 MG CAP PO SCH ×2 (08:39→21:18)
[2018-10-09] MEDS: FERROUS GLUCONATE 324 MG TAB PO SCH (08:40)
[2018-10-09] MEDS: MULTIVITAMIN TAB PO SCH (08:40)
[2018-10-09] MEDS: PANTOprazole 40 MG TAB PO SCH (08:40)
[2018-10-09] MEDS: CALCIUM 600MG + VIT D 400 IU TAB PO SCH ×2 (08:40→21:18)
[2018-10-09] MEDS: METOPROLOL SUCC 25MG EXT REL TAB PO SCH (08:42)
[2018-10-09] MEDS: ENOXAPARIN INJ 40 MG/0.4 ML SYR SQ SCH (08:43)
[2018-10-09] MEDS: COLESTIPOL HCL 1 GM TAB PO SCH ×2 (10:15→17:46)
--- NOTE | 2018-10-09 11:17 | Hospitalist Progress Note ---
Date of Service October 09, 2018 Assessment & Plan (1) Post-operative state: s/p right foot triple arthrodesis and percutaneous tendon lengthening of the achilles tendon 10/07 Bowel regimen, pain control, dvt prophylaxis per surgery Monitor for acute blood loss - hgb down 1 g following surgery at 9.1 (2) Elevated serum creatinine: increased from 1.07 to 1.25 and is wnl today after 1 L LR and holding losartan and hctz. Will hold antihypertensives again today for low normal blood pressure and restart tomorrow. prp am (3) Dyslipidemia: Continue rosuvastatin (4) Hypertension: hold losartan, hctz, continue metoprolol prp am (5) CAD (coronary artery disease): Continue ASA when ok with surgery, statin, metoprolol (6) Eye irritation: 10/07 - Flushed with saline and applied warm compress. No sign of foreign body. Resolved Subjective Ms. Ibarra feels well today. Her pain is well controlled. She has no other complaints Review of Systems Review of Systems: All systems reviewed & are unremarkable except as noted in HPI & below Physical Exam Physical Exam: General: no distress Eyes: normal inspection, PERLL Respiratory: chest non tender, clear to auscultation, normal breath sounds, no respiratory distress, no accessory muscle use Cardiac: regular rate and rhythm, no rub or gallop, no murmur, no edema, no jvd GI/: active bowel sounds, no abd pain or tenderness, soft, non distended Extremities: normal range of motion, normal strength, non tender Neuro/Psych: alert and oriented x 3, normal mood and affect Skin: normal color, dry Results & Data Vital Signs (Past 12 Hours) Vital Signs Temp Pulse Pulse Resp BP Pulse Ox 10/09/18 08:42 80 114/68 10/09/18 07:15 36.6 C 76 15 108/70 100
[2018-10-09] MEDS: PRAMIPEXOLE DIHYDROCHLO 0.25 MG TAB PO SCH ×2 (11:25→21:19)
[2018-10-09 12:15] LABS: BUN Creatinine Ratio 26.1 (10-20); Calcium 8.4 mg/dl (8.5-10.1); Creatinine Clr Calc Pharmacy 47.4 ml/min; Est GFR (African American) 56.7; Est GFR (Non-African American) 48.9; Potassium 4.1 mmol/L (3.5-5.1)
[2018-10-09] MEDS: OXYCODONE HCL IR 5 MG TAB (IMMEDIATE RELEASE) PO PRN (21:17)
[2018-10-09] MEDS: ROSUVASTATIN CALCIUM 20 MG TAB PO SCH (21:18)
[2018-10-09] MEDS: SENNA 8.6 MG TAB PO SCH (21:18)
[2018-10-10] MEDS: ACETAMINOPHEN 500 MG TAB PO SCH ×3 (06:09→21:26)
--- NOTE | 2018-10-10 07:31 | Orthopedic Progress Note ---
Date of Service October 10, 2018 Assessment & Plan (1) Osteoarthritis of right hindfoot: Patient is POD#3 PROCEDURES: 1. Right triple arthrodesis. 2. Percutaneous tendo Achilles lengthening. -Pain management -DVT prophylaxis -NWB right LE -D/C planning-awaiting SNF placement. If approved and accepted, will d/c today. (2) Acquired pes planus of right foot: Subjective Ms. Ibarra feels well today. Her pain is well controlled. She has no other complaints. Denies CP, SOB. Hoping to go to [facility] today. Physical Exam Constitutional: well developed and well nourished; no acute distress ENMT: external ear and nose normal, oropharynx normal Neck: trachea midline, no thyromegaly Respiratory: normal respiratory effort, lungs clear to auscultation Cardiovascular: Rate/Rhythm: regular rate and regular rhythm Gastrointestinal (Abdomen): normal bowel sounds, soft, nontender, no hepatosplenomegaly Musculoskeletal: Right ankle: splint C/D/I. Toes are mobile. Cap refill is <2 seconds. Sensation intact in toes. Skin: no rashes, warm and dry Neurologic: normal touch/pain/proprioception Psychiatric: A+Ox3, euthymic affect Lymphatic: no cervical or axillary lymphadenopathy Results & Data Vital Signs (Past 12 Hours) Vital Signs Temp Pulse Resp BP Pulse Ox 10/09/18 23:35 36.8 C 77 18 108/52 L 96
[2018-10-10 08:14] LABS: Hemoglobin 8.5 g/dL (12.0-16.0); Mean Corpuscular Hgb Conc 31.5 g/dL (32-36); Mean Corpuscular Volume 90.3 fL (80-100); Mean Platelet Volume 9.4 fL (7.4-10.4); Platelet Count 183 K/uL (130-400); RDW Coefficient of Variation 14.6 % (11.5-14.5); RDW Standard Deviation 48.5 fL (36.4-46.3); Red Blood Count 2.99 M/uL (4.2-5.4); White Blood Count 7.61 K/uL (4.8-10.8)
[2018-10-10 08:49] LABS: BUN Creatinine Ratio 22.6 (10-20); Calcium 8.3 mg/dl (8.5-10.1); Creatinine Clr Calc Pharmacy 50.6 ml/min; Est GFR (African American) 61.4; Potassium 4.5 mmol/L (3.5-5.1)
[2018-10-10] MEDS: ENOXAPARIN INJ 40 MG/0.4 ML SYR SQ SCH (08:59)
[2018-10-10] MEDS: FERROUS GLUCONATE 324 MG TAB PO SCH (09:00)
[2018-10-10] MEDS: MULTIVITAMIN TAB PO SCH (09:00)
[2018-10-10] MEDS: DULOXETINE HCL 60 MG CAP PO SCH ×2 (09:00→20:51)
[2018-10-10] MEDS: CALCIUM 600MG + VIT D 400 IU TAB PO SCH ×2 (09:01→20:51)
[2018-10-10] MEDS: PANTOprazole 40 MG TAB PO SCH (09:01)
[2018-10-10] MEDS: METOPROLOL SUCC 25MG EXT REL TAB PO SCH (09:01)
[2018-10-10] MEDS: hydroCHLOROthiazide 25 MG TAB PO SCH (09:03)
[2018-10-10] MEDS: LOSARTAN POTASSIUM 50 MG TAB PO SCH (09:03)
[2018-10-10] MEDS: PREGABALIN 75 MG CAP PO SCH ×3 (09:06→20:51)
[2018-10-10] MEDS: DOCUSATE SODIUM 100 MG CAP PO SCH ×2 (09:06→20:51)
[2018-10-10] MEDS: COLESTIPOL HCL 1 GM TAB PO SCH (09:50)
[2018-10-10] MEDS: PRAMIPEXOLE DIHYDROCHLO 0.25 MG TAB PO SCH ×2 (12:23→20:51)
--- NOTE | 2018-10-10 13:01 | Hospitalist Progress Note ---
Date of Service October 10, 2018 Assessment & Plan (1) Post-operative state: - S/p right foot triple arthrodesis and percutaneous tendon lengthening of the Achilles tendon on 10/07, POD#3. - Pain control and DVT ppx per primary team. - PT/OT -- discharge to rehab pending placement. (2) Constipation: - In post op period, in setting of narcotics. - Continue Colace 100 mg BID, increase Senokot to BID and add Miralax daily scheduled. - Hold home Colestipol in setting of constipation. - Consider KUB to rule out obstruction if no improvement. (3) Acute kidney injury: - Creatinine peaked at 1.25 on 10/08/18, now within normal limits. - Likely pre-renal related to dehydration in post op period. - Held home HCTZ/Losartan due to JUAN; resumed today following improvement. - Monitor renal function daily. (4) Anemia: - Hemoglobin trending down in post op period, likely related to acute blood loss. - Continue trending CBC. - Continue ferrous gluconate daily. (5) Chronic hyponatremia: - Na level is chronically low; now improved this morning. - Monitor Na levels intermittently. (6) Dyslipidemia: - Continue rosuvastatin as prescribed. (7) Hypertension: - Continue Metoprolol as prescribed; resumed home ARB and Thiazide diuretic following improvement in JUAN. (8) CAD (coronary artery disease): - Continue statin and beta gera as prescribed. - Can resume aspirin once approved by ortho. (9) Restless leg syndrome, controlled: - Continue Mirapex as prescribed. (10) Chronic pain: - Continue Cymbalta and Lyrica as prescribed. - Acute pain control per ortho team. (11) Eye irritation: - 10/07 - Flushed with saline and applied warm compress. - Irritation now resolved. (12) DVT prophylaxis: - Lovenox q24hr. Dispo: Pt. is medically stable; will sign off. Please call with any questions. Supervising Physician Co-Signing Physician Notes Attending Attestation - Chart reviewed, care plan d/w KALIA Forbes. I agree w/ the churchill components of her documentation. Pt with acute/chronic anemia. Acute component likely due to acute blood loss anemia. Due to chronicity of the anemia consider B12, folate, Fe studies, etc. Consider repeat CBC am. Hyponatremia improved today. Vitals acceptable. Jaycob Cook MD Subjective Pt. is doing well overall. Last BM was on -- usually has diarrhea at home, takes Colestipol. Is passing gas, denies abd pain, nausea/vomiting. Denies significant pain in right foot/ankle, chest pain, SOB, LE edema. Plan for rehab placement pending insurance auth/bed availability. Review of Systems Review of Systems: All systems reviewed & are unremarkable except as noted in HPI & below Constitutional: no fever, no chills, no fatigue and no weakness Respiratory: no cough and no dyspnea Cardiovascular: no chest pain, no palpitations and no edema Gastrointestinal: + constipation; no abdominal pain, no nausea, no vomiting and no diarrhea/loose stools Genitourinary: no dysuria and no difficulty urinating Musculoskeletal: no back pain and no joint pain Integumentary: no non-healing lesions Allergy / Immunological: no rash Physical Exam Physical Exam: General: Resting comfortably in no apparent distress HEENT: NC/AT; PERRLA with EOMI; [place] conjunctiva, MMM. Neck: Supple and nontender Cardiac: RRR Lungs: CTA bilaterally Abdomen: Bowel normoactive X 4; Nontender to palpation Extremities: Warm. No edema present. Dressing in place over right ankle. Neuro: No focal weakness Skin: No rash Results & Data Vital Signs (Past 12 Hours) Vital Signs Temp Pulse Pulse Resp BP Pulse Ox 10/10/18 11:34 36.9 C 71 19 115/72 100 10/10/18 07:52 36.4 C L 71 71 20 114/69 98 Laboratory Results 10/10/18 10/10/18 Range/Units 08:05 08:05 WBC 7.61 (4.8-10.8) K/uL RBC 2.99 L (4.2-5.4) M/uL Hgb 8.5 L (12.0-16.0) g/dL Hct 27.0 L (37-47) % MCV 90.3 (80-100) fL MCH 28.4 (25-34) pg MCHC 31.5 L (32-36) g/dL RDW Std Deviation 48.5 H (36.4-46.3) fL RDW Coeff of Alvin 14.6 H (11.5-14.5) % Plt Count 183 (130-400) K/uL MPV 9.4 (7.4-10.4) fL Sodium 136 (136-145) mmol/L Potassium 4.5 (3.5-5.1) mmol/L Chloride 103 (98-107) mmol/L Carbon Dioxide 28 (21-32) mmol/L Anion Gap 5.0 (3-11) BUN 23 H (7-18) mg/dl Creatinine 1.02 (0.6-1.2) mg/dl Est Cr Clr Drug Dosing 50.6 ml/min Est GFR ( Amer) 61.4 Est GFR (Non-Af Amer) 53.0 BUN/Creatinine Ratio 22.6 H (10-20) Glucose 93 (70-99) mg/dl Calcium 8.3 L (8.5-10.1) mg/dl
[2018-10-10] MEDS: SENNA 8.6 MG TAB PO SCH ×2 (13:50→20:51)
[2018-10-10] MEDS: POLYETHYLENE (MIRALAX) 17 GM PACK PO SCH (13:50)
[2018-10-10] MEDS: OXYCODONE HCL IR 5 MG TAB (IMMEDIATE RELEASE) PO PRN (16:28)
--- NOTE | 2018-10-10 19:52 | XRay Report ---
XR KUB/Abdomen 1 view CLINICAL HISTORY: 78 years-old Female presenting with Rule out obstruction. TECHNIQUE: Single supine view of the abdomen was obtained. COMPARISON: None. 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 Nonobstructive bowel gas pattern. Mild stool burden throughout the colon. Scattered surgical clips in the pelvis. No calcifications project over the renal shadows to suggest n ephrolithiasis. Extensive degenerative changes of the thoracolumbar spine with posterior lumbar fusion hardware at L4 -S1. Degenerative changes of the hips are also suspected. Calcification in the region of the right is chial tuberosity may relate to prior hamstring muscle complex injury or degenerative change. Lung bas es clear. IMPRESSION: 1. No radiographic evidence of bowel obstruction. 2. 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 Correlate with the patient's surgical history. Electronically signed by: Ghassan Mehta M.D. 10/10/2018 7:51 PM
[2018-10-10] MEDS: ROSUVASTATIN CALCIUM 20 MG TAB PO SCH (20:51)
[2018-10-11] MEDS: ACETAMINOPHEN 500 MG TAB PO SCH ×2 (05:32→13:33)
[2018-10-11] MEDS: ENOXAPARIN INJ 40 MG/0.4 ML SYR SQ SCH (08:47)
[2018-10-11] MEDS: DULOXETINE HCL 60 MG CAP PO SCH (08:47)
[2018-10-11] MEDS: hydroCHLOROthiazide 25 MG TAB PO SCH (08:47)
[2018-10-11] MEDS: PREGABALIN 75 MG CAP PO SCH ×2 (08:47→13:33)
[2018-10-11] MEDS: LOSARTAN POTASSIUM 50 MG TAB PO SCH (08:47)
[2018-10-11] MEDS: DOCUSATE SODIUM 100 MG CAP PO SCH (08:47)
[2018-10-11] MEDS: PANTOprazole 40 MG TAB PO SCH (08:47)
[2018-10-11] MEDS: METOPROLOL SUCC 25MG EXT REL TAB PO SCH (08:48)
[2018-10-11] MEDS: MULTIVITAMIN TAB PO SCH (08:48)
[2018-10-11] MEDS: FERROUS GLUCONATE 324 MG TAB PO SCH (08:48)
[2018-10-11] MEDS: CALCIUM 600MG + VIT D 400 IU TAB PO SCH (08:49)
[2018-10-11] MEDS: SENNA 8.6 MG TAB PO SCH (08:49)
[2018-10-11 08:55] LABS: Basophils # (auto) 0.03 K/uL (0-0.2); Basophils % (auto) 0.4 %; Eosinophils # (auto) 0.64 K/uL (0-0.5); Eosinophils % (auto) 8.6 %; Hematocrit (blood only) 27.9 % (37-47); Hemoglobin 8.9 g/dL (12.0-16.0); Immature Granulocytes # (auto) 0.01 K/uL (0.00-0.02); Immature Granulocytes % (auto) 0.1 %; Lymphocytes # (auto) 1.36 K/uL (1.2-3.4); Lymphocytes % (auto) 18.4 %; Mean Corpuscular Hgb Conc 31.9 g/dL (32-36); Mean Corpuscular Volume 91.5 fL (80-100); Mean Platelet Volume 9.8 fL (7.4-10.4); Monocytes # (auto) 1.03 K/uL (0.11-0.59); Monocytes % (auto) 13.9 %; Neutrophils # (auto) 4.33 K/uL (1.4-6.5); Neutrophils % (auto) 58.6 %; Platelet Count 209 K/uL (130-400); RDW Coefficient of Variation 14.6 % (11.5-14.5); RDW Standard Deviation 49.4 fL (36.4-46.3); Red Blood Count 3.05 M/uL (4.2-5.4)
[2018-10-11 09:01] LABS: BUN Creatinine Ratio 22.8 (10-20); Calcium 8.4 mg/dl (8.5-10.1); Creatinine Clr Calc Pharmacy 56.1 ml/min; Est GFR (African American) 69.6; Est GFR (Non-African American) 60.1; Potassium 4.7 mmol/L (3.5-5.1)
[2018-10-11] MEDS: POLYETHYLENE (MIRALAX) 17 GM PACK PO SCH (09:50)
[2018-10-11] MEDS: PRAMIPEXOLE DIHYDROCHLO 0.25 MG TAB PO SCH (12:45)
[2018-10-16] MEDS ORDERED: CYANOCOBALAMIN 1000 MCG/ML VIAL IM SCH (09:00)
--- NOTE | 2018-10-21 12:42 | Discharge Summary ---
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 She failed all conservative management. She is now being set up for surgical treatment. Principal Diagnosis right hindfoot osteoarthritis Discharge Exam Constitutional well developed and well nourished; no acute distress ENMT external ear and nose normal, oropharynx normal Neck trachea midline, no thyromegaly Respiratory normal respiratory effort, lungs clear to auscultation Cardiovascular Rate/Rhythm: regular rate and regular rhythm Gastrointestinal (Abdomen) normal bowel sounds, soft, nontender, no hepatosplenomegaly Musculoskeletal right ankle: splint in place. Clean, dry, intact. Toes are mobile. NV intact. Skin no rashes, warm and dry Neurologic normal touch/pain/proprioception Psychiatric A+Ox3, euthymic affect Lymphatic no cervical or axillary lymphadenopathy Discharge Data Allergies Allergy/AdvReac Type Severity Reaction Status Date / Time Bactrim Allergy Unknown INCREASED Unverified 11/23/17 10:16 POTASSIUM LEVELS cyclobenzaprine Allergy Unknown PASSED OUT Verified 10/07/18 08:54 hydrocodone Allergy Unknown SHORTNESS Verified 10/07/18 08:54 OF BREATH oxaprozin Allergy Unknown RASH Verified 10/07/18 08:54 sulfamethoxazole Allergy Unknown INCREASED Verified 10/07/18 08:54 POTASSIUM LEVELS trimethoprim Allergy Unknown INCREASED Verified 10/07/18 08:54 POTASSIUM LEVELS erythromycin base AdvReac Mild N/V Verified 10/07/18 10:27 lisinopril AdvReac Mild cough Verified 10/07/18 10:27 sertraline AdvReac Mild MOOD SWING Verified 10/07/18 10:27 Consultations 10/07/18 14:41 Consult Case Management - Discharge Planning Routine Consult Hospitalist Routine Procedures Performed Operation Date: 10/07/18 10:20 Actual Procedures p Right Foot Triple Arthrodesis,(Right) - Anton Graves DO p Percutaneous Tendon Achilles Lengthening(Right) - Anton Graves DO Ordered Studies 10/07/18 05:00 US - OR guided needle placemen Routine 10/07/18 07:00 FL fluoroscopy <1hr Routine FL foot RT 2V Routine 10/07/18 09:27 US - OR guided needle placemen Stat Hospital Course (1) Osteoarthritis of right hindfoot: The patient underwent the noted procedure. She was admitted for pain control and for PT/OT for gait training to be NWB on the RLE. She progressed well with NWB status and with pain control. She required a 3 night stay for approval for a SNF. On POD #3, she was doing well and was d/c'd later that day when accepted to the desired nursing facility. Patient is POD#3 PROCEDURES: 1. Right triple arthrodesis. 2. Percutaneous tendo Achilles lengthening. -Pain management -DVT prophylaxis -NWB right LE -D/C planning-awaiting SNF placement. If approved and accepted, will d/c today. (2) Acquired pes planus of right foot: Total Time Total Time Spent Total Time Spent (In Minutes): 30 Total Time Includes: Examination of the Patient, Discharge Planning and Medication Reconciliation Discharge Plan Discharge Items Patient Disposition: Transfer Senior Living Fac Reason For Visit: Right Foot Degenerative Joint Disease, Res Planus Discharge Diagnosis: Right Foot Djd, Res Planus Discharge Goals: Decrease discomfort and Improve function Activity: Per 'Additional Instructions' section Weightbearing: Right non-weightbearing Non-emergency contact: Surgeon Call non-emergency contact if: your pain is not controlled, your temperature is above 101.5, your wound has increased redness and your wound has increased drainage Follow-up/Referrals: Chuy Magdaleno [Primary Care Provider] - Diet: Regular Addtl Provider Instructions: 1. Constipation * Last BM was on 10/06/2018 (pre-operatively) * Please continue Senna twice daily, Colace twice daily scheduled with Miralax as needed. * Please hold home Colestipol in the setting of constipation; this medication can be resumed if patient develops diarrhea. 2. Acute Kidney Injury * Creatinine was elevated during this admission post operatively. Renal function improved with IV fluids. * Please continue home HCTZ and Losartan as prescribed. * Please monitor BMP in 1 week to evaluate renal function. ACTIVITY RECOMMENDATIONS: Limitations: No weight bearing to affected limb at all times. SPECIAL CARE INSTRUCTIONS: * Some drainage onto the dressing is normal and is no cause for alarm. * Some swelling is natural especially after walking. * When resting, keep your foot elevated above the level of your heart. * Call [facility] if you notice: -Increased drainage -Fever over 101 degrees F -Severe constant pain BANDAGE: * Leave bandage/cast in place unless otherwise directed. * Keep bandage/cast dry at all times. FOLLOW UP VISIT WITH DR. GRAVES If appointment is not already scheduled: Please call [facility] after you get home today to schedule a follow-up appointment for [address] Graves at . Prescriptions: New enoxaparin 40 mg/0.4 mL Syringe 40 mg subcut Q24H Qty: 14 RF: 0 oxycodone-acetaminophen [Percocet] 5-325 mg tablet 1 tab PO Q4H PRN (Reason: pain) Qty: 30 RF: 0 docusate sodium 100 mg Capsule 100 mg PO BID Qty: 1 RF: 0 polyethylene glycol 3350 [Miralax] 17 gram powder in packet 17 gm PO DAILY PRN (Reason: constipation) Qty: 1 RF: 0 Continued Systane (PF) 0.4-0.3 % Dropperette 1 drp OPHTHALMIC (EYE) BID PRN (Reason: Dry Eyes) RF: 0 Prolia 60 mg/mL Syringe 1 dose SUBCUT UD PRN (Reason: OSTEOPEROSIS) RF: 0 ferrous gluconate 256 mg (28 mg iron) Tablet 256 mg PO DAILY RF: 0 PreserVision AREDS-2 [id number] [id number] Capsule 1 tab PO BID RF: 0 metoprolol succinate 25 mg Tablet Extended Release 24 Hr 0.5 tab PO QAM RF: 0 meclizine 12.5 mg Tablet 12.5 mg PO TID PRN (Reason: Dizziness) RF: 0 losartan 50 mg tablet 50 mg PO QAM RF: 0 Glucagon Emergency Kit (human) 1 mg Kit 0.1 mg/kg IM Q3H PRN (Reason: LOW BLOOD SUGAR ) RF: 0 aspirin [Aspirin Low Dose] 81 mg Tablet,Delayed Release (Dr/Ec) 81 mg PO QAM RF: 0 cyanocobalamin (vitamin B-12) 1,000 mcg/mL solution 1 dose subcut MONTHLY RF: 0 esomeprazole magnesium 40 mg capsule,delayed release(DR/EC) 40 mg PO QAM RF: 0 pramipexole 0.125 mg tablet 2 tab PO HS RF: 0 pramipexole 0.125 mg tablet 2 tab PO 1200 RF: 0 nitroglycerin [Nitrostat] 0.4 mg Tablet, Sublingual 1 tab Sublingual UD PRN (Reason: Chest Pain) RF: 0 hydrochlorothiazide 25 mg tablet 1 tab PO QAM RF: 0 rosuvastatin 20 mg tablet 1 tab PO HS RF: 0 duloxetine 60 mg capsule,delayed release(DR/EC) 60 mg PO BID RF: 0 pregabalin 75 mg capsule 1 tab PO TID RF: 0 Caltrate 600 + D 600 mg (1,500 mg)-800 unit Tablet,Chewable 1 tab PO BID RF: 0 Discontinued colestipol 1 gram Tablet 2 tab PO BID RF: 0 Stand-Alone Forms: [facility], Op[facility]id Pain Management Discharge Orders: Discharge Order (Routine); Ordered 10/10/18 Ordered By: Gregg Galo Skilled Items Patient informed of condition?: Yes DNR: No Discharge Level of Care: Acute rehab Communicable Disease: No Discharge Prognosis: Stable Admission Data Admit Date/Time: 10/07/18 14:41 Attending Provider: Anton Graves Admit Provider: Anton Graves Primary Care Provider: Chuy Magdaleno Other Providers: Vasile Pleitez ; Asim Izquierdo ; Sydney Lau ; Abhilash Mendoza ; Gregg Galo ; Mary Dumont ; Malia Cee ; Gutierrez Orozco ; Fredy Hernandez ; Ghassan Hardy ; Jaycob Cuevas ; Liam Silveira ; Amy Pisano ; Jaycob Cook Service: Surgical Services Other Interventions: Discharge Summary Assessment (RN) Last Done: 10/11/18 12:36 DC Date/Time DO NOT enter until pt leaves facility: 10/11/18 14:35
== END 2018-10-11 14:35 | DRG 501 ==
LOC: ASU 08:20 → 3E 14:41
DX: G25.81 Restless legs syndrome; K21.9 Gastro-esophageal reflux disease without esophagitis; Z88.8 Allergy status to other drugs, medicaments and biological substances; Z79.82 Long term (current) use of aspirin; Z79.899 Other long term (current) drug therapy; K59.03 Drug induced constipation; Z88.2 Allergy status to sulfonamides; N17.9 Acute kidney failure, unspecified; Z88.6 Allergy status to analgesic agent; M21.41 Flat foot [pes planus] (acquired), right foot; E78.5 Hyperlipidemia, unspecified; Z86.718 Personal history of other venous thrombosis and embolism; D62 Acute posthemorrhagic anemia; H57.11 Ocular pain, right eye; Z86.14 Personal history of Methicillin resistant Staphylococcus aureus infection; I10 Essential (primary) hypertension; M24.574 Contracture, right foot; D64.9 Anemia, unspecified; I25.10 Atherosclerotic heart disease of native coronary artery without angina pectoris; Z88.5 Allergy status to narcotic agent; G89.29 Other chronic pain; T40.605A Adverse effect of unspecified narcotics, initial encounter; I25.2 Old myocardial infarction; Z98.1 Arthrodesis status; E87.1 Hypo-osmolality and hyponatremia; Z95.5 Presence of coronary angioplasty implant and graft; M19.071 Primary osteoarthritis, right ankle and foot; Z96.653 Presence of artificial knee joint, bilateral; Z98.84 Bariatric surgery status; M81.0 Age-related osteoporosis without current pathological fracture; Z88.1 Allergy status to other antibiotic agents

== ENCOUNTER 2022-05-22 14:24 | Inpatient (IN) ==
[2022-05-22] MEDS ORDERED: SODIUM CHLORIDE 0.9% 1000ML 1,000 ML IV SCH ×2 (15:00→17:00)
--- NOTE | 2022-05-22 15:41 | XRay Report ---
XR chest 1V portable CLINICAL HISTORY: Dyspnea TECHNIQUE: Single frontal radiograph of the chest was obtained. Comparison: Comparison is made to chest radiograph 08/01/2020 FINDINGS: No lines and tubes are seen. Cardiomegaly is noted. Prominence and cephalization of the vasculature i s seen. No evidence of pleural effusion or pneumothorax. Anterior dislocation of the right shoulder i s noted. Degenerative changes are seen. IMPRESSION: 1. Cardiomegaly is noted. 2. Anterior dislocation of the right shoulder is seen. ACT 112: Negative or not required by law. Electronically signed by: Nakul Darnell M.D. 05/22/2022 3:39 PM
--- NOTE | 2022-05-22 16:12 | Emergency Department Note ---
Impression & Plan SOB (shortness of breath), Leukocytosis, Acute dehydration, Acute UTI (urinary tract infection), Chronic dislocation of right shoulder ED Provider Note INFORMANT: Patient ED PROVIDER(S): Fredy Haq MD CHIEF COMPLAINT: Shortness of breath PLAN: Disposition: Admitted Condition: Good Outpatient prescription management: none Referral: None MEDICAL DECISION MAKING: Patient presented to the emergency department because of shortness of breath. She was hypotensive on first check and was hypothermic. On recheck her blood pressure did improve. Fluids were initially ordered but then held as she did have some edema and there was some concerns for possible CHF given her heart history and her symptoms. The patient had blood work performed. There was some delay getting her blood work as she was a difficult IV stick. Patient was found to have dehydration on chemistry panel. Her CBC revealed a significant leukocytosis. Urinalysis was concerning for infection. Chest x-ray revealed the patient to have no significant pneumonia but she did have what appeared to be a dislocation of her right shoulder. She had fallen over 3 weeks ago and noted some pain on that side. She likely has a chronic dislocation at that point. Emergent reduction not indicated. She will need orthopedic consultation. Patient was treated with IV vancomycin and IV cefepime. She did receive a 30 mL/kg total of fluids ordered. She had a bear hugger applied and hypotension did not return. Her hypothermia improved. Consultation was made with Dr. Orozco of the [facility] service. Patient was evaluated in the ER for further management. Triage Nursing notes reviewed and agree them. Vital Signs: reviewed and remarkable for hypothermia and hypotension Differential diagnosis: Reactive airway disease, pneumonia, pneumothorax, COPD, CHF, infections, cardiac ischemia, pulmonary embolism, musculoskeletal, gastrointestinal, sepsis as well as other pathologies. Diagnostics interpreted by me: ECG: Twelve-lead ECG reveals a normal sinus rhythm at [address] and T wave abnormality. No ST elevation. No PVCs or PACs. Cardiac Monitoring: Cardiac monitoring ordered by me: The patient was placed on continuous cardiac monitoring and observed. It revealed a normal sinus rhythm at 71 beats per minute without ectopy or evidence of dysrhythmia. Imaging studies: Chest x-ray as noted below HPI: The patient is a 82 year old female who presents to the Emergency Room with complaints of SOB. This started a few days ago and is worse with exertion. The patient also notes the following associated symptoms, generalized weakness. She notes chronic RLE swelling which has not changed. She did have a minor fall 3 weeks ago on to her right side. She has chronic right shoulder pain and notes the need for a replacement. The patient has taken no medication for relieving factors. Current pain is rated as 1/10. Pt denies LOC, headache, fevers, chills, diaphoresis, visual changes, neck pain, chest pain,, nausea, vomiting, abdominal pain, back pain, melena, hematochezia, urinary symptoms, numbness, lymphadenopathy, rash, or other complaints. ROS: See above HPI for pertinent positives & negatives. A total of 10 systems reviewed and were otherwise negative. PAST MEDICAL HISTORY:See Below , CAD PAST SURGICAL HISTORY:See Below, FAMILY HISTORY:See Below SOCIAL HISTORY:See Below, retired HOME MEDICATIONS:See Below ALLERGIES:See Below VITALS:See Below PHYSICAL EXAMINATION: GENERAL: Awake, alert, well-appearing, in no distress HENT: Normocephalic, atraumatic. Oropharynx unremarkable. EYES: pale conjunctiva. Sclera non-icteric. NECK: Inspection normal. Non-tender. Supple. No nuchal rigidity. FROM. No masses. RESPIRATORY: Clear to auscultation. No wheezes. No rales. Normal respiratory effort. CARDIAC: Normal rate. Normal rhythm. No murmurs. No rubs. Extremities warm and well perfused. Pulses equal. No JVD. GI: Soft, non-distended. No tenderness to palpation. No rebound or guarding. No masses. RECTAL: Deferred. MUSCULOSKELETAL: ROM of right shoulder limited secondary to pain. RUE NVI. Chest examination reveals no tenderness. The back is symmetrical on inspection without obvious abnormality. There is no CVA tenderness to palpation. No joint edema. LOWER EXTREMITIES: RLE >LLE with regards to edema. No discoloration. NEURO: Normal sensorium. Generally weak but no focal sensory or motor deficits noted. SKIN: No rash or jaundice noted. Fredy Haq MD Past Med/Surg History Medical History (Updated 05/22/22 @ 22:47 by Fredy Haq MD) Acute kidney injury Ambulatory dysfunction DUE TO CURRENT ANKLE ISSUE CAD (coronary artery disease) MS 2015, s/p cardiac stent x 1 DVT (deep venous thrombosis) 1st DVT occurred s/p gastric bypass in 1988; 2nd DVT occurred in right arm s/p PICC LINE inserted for IV ABX for treatment of MRSA (s/p LUCIUS) GERD (gastroesophageal reflux disease) History of endometrial cancer s/p hysterectomy History of heart attack 06/19/16 STEMI...CATH ([facility]) 06/22/16 rec'd single CAPRICE to RCA. History of kidney stones History of MRSA infection S/P L HIP SURGERY History of neck injury 03/2018 slipped in shower, was evaluated in [facility] ED, consult with Dr Brown, sent home in [facility]. Had OP f/u with Stephanie's office, per pt no further f/u needed. Hypertension Low blood sugar DIETARY CONTROLLED Osteoarthritis Osteoporosis RLS (restless legs syndrome) Surgical History History of appendectomy History of back surgery "CAGE" - LOWER BACK History of cholecystectomy History of colonoscopy History of gastric bypass History of hip surgery LEFT , CALCIUM DEPOSITS REMOVED History of hysterectomy "COMPLETE" Status post total knee replacement, bilateral Social History Smoking Status: Never smoker Hx Alcohol Use: No Hx Substance Use: No Preferred Language: Azeri Communication Ability: Effective Visual Impairment: No Limitations Hearing Ability: Normal Contract Administration Specialist Required: No Beliefs That Will Affect Care: None Current Living Situation: Other Current Living Situation Comment: LIVES WITH DAUGHTER AND HER Feels Safe at Home: Yes Assistive Devices: Walker Allergies Allergies Allergy/AdvReac Type Severity Reaction Status Date / Time cyclobenzaprine Allergy Unknown PASSED OUT Verified 03/23/22 15:20 hydrocodone Allergy Unknown SHORTNESS Verified 03/23/22 15:20 OF BREATH ketorolac Allergy Unknown Unknown Verified 03/23/22 15:20 oxaprozin Allergy Unknown RASH Verified 03/23/22 15:20 sulfamethoxazole Allergy Unknown INCREASED Verified 03/23/22 15:20 POTASSIUM LEVELS trimethoprim Allergy Unknown INCREASED Verified 03/23/22 15:20 POTASSIUM LEVELS azithromycin AdvReac Intermediate UPSET Verified 03/23/22 15:20 STOMACH erythromycin base AdvReac Mild N/V Verified 03/23/22 15:20 lisinopril AdvReac Mild cough Verified 03/23/22 15:20 sertraline AdvReac Mild MOOD SWING Verified 03/23/22 15:20 Home Meds Home Medications Medication Instructions Recorded Confirmed calcium carbonate 600 mg-vitamin 1 tab PO BID 02/19/18 05/22/22 D3 20 mcg (800 unit) chewable tablet (Caltrate 600 plus D) cyanocobalamin (vitamin B-12) 1 dose subcut MONTHLY 02/19/18 05/22/22 1,000 mcg/mL injection solution duloxetine 60 mg capsule,delayed 60 mg PO BID 02/19/18 05/22/22 release vit C 250 mg-vit E 90 mg-zinc 40 1 tab PO BID 09/06/18 05/22/22 mg-copper 1 [id number] capsule (PreserVision AREDS-2) denosumab 60 mg/mL subcutaneous 60 mg subcut Q6MO OSTEOPEROSIS 02/08/19 05/22/22 syringe (Prolia) pregabalin 50 mg capsule (Lyrica) 50 mg PO DAILY 09/24/20 05/22/22 meloxicam 15 mg tablet 15 mg PO DAILY 04/04/21 05/22/22 pramipexole 0.125 mg tablet 0.125 mg PO BID 04/04/21 05/22/22 tamsulosin 0.4 mg capsule 0.4 mg PO DAILY 04/04/21 05/22/22 famotidine 20 mg tablet 20 mg PO Q12 PRN Heartburn 05/13/21 05/22/22 colestipol 1 gram tablet 2 g PO BID 12/03/21 05/22/22 ferrous gluconate 256 mg (28 mg 256 mg PO DAILY 12/03/21 05/22/22 iron) tablet fluticasone propionate 50 1 spray intranasal DAILY 12/03/21 05/22/22 mcg/actuation nasal spray,suspension (Flonase Allergy Relief) telmisartan 40 mg tablet 40 mg PO DAILY 05/22/22 05/22/22 Previous Rx's Medication Instructions Recorded meclizine 25 mg tablet 25 mg PO TID PRN dizziness #90 tabs 03/24/21 aspirin 81 mg tablet,delayed 81 mg PO DAILY #90 tabs 01/05/22 release hydrochlorothiazide 25 mg tablet 25 mg PO QAM #90 tabs 02/09/22 rosuvastatin 20 mg tablet 20 mg PO HS #90 tabs 02/09/22 metoprolol succinate 25 mg 12.5 mg PO QAM #45 tabs 04/08/22 tablet,extended release 24 hr nitroglycerin 0.4 mg sublingual 0.4 mg sublingual Q5M PRN Chest 05/11/22 tablet (Nitrostat) Pain #25 tabs Results & Data (ED) Vital Signs Vital Signs - 24 hr 05/22/22 14:37 05/22/22 14:37 05/22/22 14:37 Temperature 34.8 C L Temperature Source Rectal Pulse Rate 71 Respiratory Rate 20 Respiratory Effort / Characteristics Non-Labored Non-Labored Spontaneous Respiratory Depth Normal Normal Respiratory Pattern Regular Agonal Regular Blood Pressure 98/48 L Blood Pressure Mean 64 Blood Pressure Position Lying Pulse Oximetry 100 Oxygen Delivery Method Room Air Room Air Room Air Sepsis Recent Fever Within 48 Hours No Sepsis New/Unexplained Change in Mental Status N/A Sepsis Action Taken by Nursing No Action Required 05/22/22 14:55 05/22/22 15:20 05/22/22 14:49 Temperature 34.8 C L Temperature Source Rectal Pulse Rate 68 69 Respiratory Rate 18 Respiratory Effort / Characteristics Respiratory Depth Respiratory Pattern Blood Pressure 104/50 L Blood Pressure Mean 68 Blood Pressure Position Pulse Oximetry 100 100 Oxygen Delivery Method Room Air Room Air Sepsis Recent Fever Within 48 Hours Sepsis New/Unexplained Change in Mental Status Sepsis Action Taken by Nursing 05/22/22 15:25 05/22/22 15:30 05/22/22 16:00 Temperature Temperature Source Pulse Rate 68 69 71 Respiratory Rate 19 18 19 Respiratory Effort / Characteristics Respiratory Depth Respiratory Pattern Blood Pressure 110/44 L 111/63 140/62 Blood Pressure Mean 66 79 88 Blood Pressure Position Pulse Oximetry 100 100 100 Oxygen Delivery Method Room Air Room Air Sepsis Recent Fever Within 48 Hours Sepsis New/Unexplained Change in Mental Status Sepsis Action Taken by Nursing 05/22/22 16:36 05/22/22 16:30 05/22/22 17:00 Temperature 35.0 C L Temperature Source Rectal Pulse Rate 72 Respiratory Rate 18 Respiratory Effort / Characteristics Respiratory Depth Respiratory Pattern Blood Pressure 122/73 117/50 L Blood Pressure Mean 89 72 Blood Pressure Position Pulse Oximetry 99 97 Oxygen Delivery Method Room Air Room Air Sepsis Recent Fever Within 48 Hours Sepsis New/Unexplained Change in Mental Status Sepsis Action Taken by Nursing Laboratory Data Result diagrams: 05/22/22 15:54 05/22/22 15:54 Lab Results 05/22/22 05/22/22 05/22/22 Range/Units 15:31 15:54 15:54 WBC 20.22 H (4.8-10.8) K/ul RBC 3.10 L (3.93-5.22) M/uL Hgb 8.6 L (12.0-16.0) g/dl Hct 27.4 L (34.1-44.9) % MCV 88.4 (80.0-100.0) fL MCH 27.7 (25.0-34.0) pg MCHC 31.4 L (32.0-36.0) g/dL RDW Std Deviation 52.2 H (36.4-46.3) fL RDW Coeff of Alvin 16.0 H (11.5-14.5) % Plt Count 317 (130-400) K/uL MPV 10.2 (9.4-12.3) fL Immature Gran % (Auto) 1.9 % Neut % (Auto) 79.1 % Lymph % (Auto) 7.4 % [place] % (Auto) 9.0 % Eos % (Auto) 2.3 % Baso % (Auto) 0.3 % Neut # (Auto) 16.00 H (1.4-6.5) K/uL Lymph # (Auto) 1.50 (1.2-3.4) K/uL [place] # (Auto) 1.81 H (0.24-0.82) K/uL Eos # (Auto) 0.47 (0-0.50) K/uL Baso # (Auto) 0.06 (0-0.2) K/uL Immature Gran # (Auto) 0.38 H (0.00-0.02) K/uL PT 10.9 (9.0-12.0) Seconds INR 1.0 (0.9-1.1) Sodium (136-145) mmol/L Potassium (3.5-5.1) mmol/L Chloride (98-107) mmol/L Carbon Dioxide (21-32) mmol/L Anion Gap (3-11) BUN (6-23) mg/dl Creatinine (0.6-1.2) mg/dl Est Cr Clr Drug Dosing ml/min Est GFR ( Amer) ml/min Est GFR (Non-Af Amer) ml/min BUN/Creatinine Ratio (10-20) Glucose (70-99(Fasting)) mg/dl Calcium (8.5-10.1) mg/dl Magnesium (1.7-2.4) mg/dl Total Bilirubin (0.2-1.0) mg/dl AST (13-39) U/L ALT (7-52) U/L Alkaline Phosphatase (34-104) U/L Troponin I High Sens (0-14) pg/ml Total Protein (6.0-8.3) gm/dl Albumin (3.4-5.0) gm/dl Globulin (2.5-4.0) gm/dl Albumin/Globulin Ratio (0.9-2) Adenovirus (PCR) Not Detected (NotDetected) B. pertussis DNA (PCR) Not Detected (NotDetected) B.parapertussis DNA PCR Not Detected (NotDetected) C. pneumoniae DNA (PCR) Not Detected (NotDetected) Coronavirus OC43 (PCR) Not Detected (NotDetected) Coronavirus HKU1 (PCR) Not Detected (NotDetected) Coronavirus 229E (PCR) Not Detected (NotDetected) SARS-CoV-2 (PCR) Not Detected (NotDetected) Coronavirus NL63 (PCR) Not Detected (NotDetected) Human Metapneumovir PCR Not Detected (NotDetected) Influenza Type A (PCR) Not Detected (NotDetected) Influenza Type B (PCR) Not Detected (NotDetected) M. pneumoniae (PCR) Not Detected (NotDetected) Parainfluenza 1 (PCR) Not Detected (NotDetected) Parainfluenza 2 (PCR) Not Detected (NotDetected) Parainfluenza 3 (PCR) Not Detected (NotDetected) Parainfluenza 4 (PCR) Not Detected (NotDetected) RSV (PCR) Not Detected (NotDetected) Entero/Rhino (PCR) Not Detected (NotDetected) Blood Type Antibody Screen 05/22/22 05/22/22 Range/Units 15:54 15:54 WBC (4.8-10.8) K/ul RBC (3.93-5.22) M/uL Hgb (12.0-16.0) g/dl Hct (34.1-44.9) % MCV (80.0-100.0) fL MCH (25.0-34.0) pg MCHC (32.0-36.0) g/dL RDW Std Deviation (36.4-46.3) fL RDW Coeff of Alvin (11.5-14.5) % Plt Count (130-400) K/uL MPV (9.4-12.3) fL Immature Gran % (Auto) % Neut % (Auto) % Lymph % (Auto) % [place] % (Auto) % Eos % (Auto) % Baso % (Auto) % Neut # (Auto) (1.4-6.5) K/uL Lymph # (Auto) (1.2-3.4) K/uL [place] # (Auto) (0.24-0.82) K/uL Eos # (Auto) (0-0.50) K/uL Baso # (Auto) (0-0.2) K/uL Immature Gran # (Auto) (0.00-0.02) K/uL PT (9.0-12.0) Seconds INR (0.9-1.1) Sodium 133 L (136-145) mmol/L Potassium 5.5 H (3.5-5.1) mmol/L Chloride 107 (98-107) mmol/L Carbon Dioxide 19 L (21-32) mmol/L Anion Gap 7 (3-11) BUN 49 H (6-23) mg/dl Creatinine 0.99 (0.6-1.2) mg/dl Est Cr Clr Drug Dosing 50.3 ml/min Est GFR ( Amer) 61.9 ml/min Est GFR (Non-Af Amer) 53.4 ml/min BUN/Creatinine Ratio 49.5 H (10-20) Glucose 103 H (70-99(Fasting)) mg/dl Calcium 8.4 L (8.5-10.1) mg/dl Magnesium 2.6 H (1.7-2.4) mg/dl Total Bilirubin 0.3 (0.2-1.0) mg/dl AST 12 L (13-39) U/L ALT 9 (7-52) U/L Alkaline Phosphatase 112 H (34-104) U/L Troponin I High Sens 4.6 (0-14) pg/ml Total Protein 5.8 L (6.0-8.3) gm/dl Albumin 3.0 L (3.4-5.0) gm/dl Globulin 2.8 (2.5-4.0) gm/dl Albumin/Globulin Ratio 1.1 (0.9-2) Adenovirus (PCR) (NotDetected) B. pertussis DNA (PCR) (NotDetected) B.parapertussis DNA PCR (NotDetected) C. pneumoniae DNA (PCR) (NotDetected) Coronavirus OC43 (PCR) (NotDetected) Coronavirus HKU1 (PCR) (NotDetected) Coronavirus 229E (PCR) (NotDetected) SARS-CoV-2 (PCR) (NotDetected) Coronavirus NL63 (PCR) (NotDetected) Human Metapneumovir PCR (NotDetected) Influenza Type A (PCR) (NotDetected) Influenza Type B (PCR) (NotDetected) M. pneumoniae (PCR) (NotDetected) Parainfluenza 1 (PCR) (NotDetected) Parainfluenza 2 (PCR) (NotDetected) Parainfluenza 3 (PCR) (NotDetected) Parainfluenza 4 (PCR) (NotDetected) RSV (PCR) (NotDetected) Entero/Rhino (PCR) (NotDetected) Blood Type A Positive Antibody Screen NEGATIVE Administered Medications Duloxetine HCl (Duloxetine Hcl 60 Mg Cap) 60 mg PO BID [facility] Stop: 06/21/22 20:59 Last Admin: 05/22/22 21:56 Dose: 60 mg Documented By: [facility] Heparin Sodium (Porcine) (Heparin Sod 5,000 Unit/0.5 Ml Vial) 7,500 units SQ Q8 DAWIT Stop: 06/21/22 21:59 Last Admin: 05/22/22 21:55 Dose: 7,500 units Documented By: [facility] Multivitamins/Minerals (Cerovite Adv Formula Tab) 1 tab PO BID DAWIT Stop: 06/21/22 20:59 Last Admin: 05/22/22 21:56 Dose: 1 tab Documented By: [facility] Pramipexole Dihydrochloride (Pramipexole Dihydrochlo 0.25 Mg Tab) 0.125 mg PO BID DAWIT Stop: 06/21/22 20:59 Last Admin: 05/22/22 21:56 Dose: 0.125 mg Documented By: AMANDA Rosuvastatin Calcium (Rosuvastatin Calcium 20 Mg Tab) 20 mg PO HS DAWIT Stop: 06/21/22 20:59 Last Admin: 05/22/22 21:56 Dose: 20 mg Documented By: KENNETH Discontinued Medications Sodium Chloride (Nss 1000ml) 1,000 mls @ 999 mls/hr IV .Q1H1M DAWIT Stop: 05/22/22 16:00 Last Infusion: 05/22/22 17:44 Dose: 0 mls/hr Documented By: Admin: 05/22/22 16:38 Dose: 999 mls/hr Documented By: SAMARIA Cefepime HCl (Maxipime) 20 mls @ 5 mls/min IV NOW STA Stop: 05/22/22 16:56 Last Admin: 05/22/22 18:38 Dose: Not Given Documented By: SAMARIA Vancomycin HCl 2,000 mg/ (Sodium Chloride) 540 mls @ 200 mls/hr IV NOW STA; Protocol Stop: 05/22/22 19:35 Last Admin: 05/22/22 18:38 Dose: Not Given Documented By: SAMARIA Sodium Chloride (Nss 1000ml) 500 mls @ 999 mls/hr IV .Q31M DAWIT Stop: 05/22/22 17:30 Last Infusion: 05/22/22 22:17 Dose: 0 mls/hr Documented By: Admin: 05/22/22 20:34 Dose: 999 mls/hr Documented By: KENNETH Ioversol (Optiray 320 500ml) 102 ml IV ONCE ONE Stop: 05/22/22 19:57 Last Admin: 05/22/22 19:57 Dose: 102 ml Documented By: JORDON Imaging Data Radiologist's Impression: Chest X-Ray 05/22/22 14:58 XR chest 1V portable CLINICAL HISTORY: Dyspnea TECHNIQUE: Single frontal radiograph of the chest was obtained. Comparison: Comparison is made to chest radiograph 08/01/2020 FINDINGS: No lines and tubes are seen. Cardiomegaly is noted. Prominence and cephalization of the vasculature is seen. No evidence of pleural effusion or pneumothorax. Anterior dislocation of the right shoulder is noted. Degenerative changes are seen. IMPRESSION: 1. Cardiomegaly is noted. 2. Anterior dislocation of the right shoulder is seen. ACT 112: Negative or not required by law. Electronically signed by: Nakul Darnell M.D. 05/22/2022 3:39 PM Discharge Plan Visit Data Chief Complaint: Shortness of Breath/Dyspnea ED Provider: Fredy Haq Discharge Problem: SOB (shortness of breath), Leukocytosis, Acute dehydration, Acute UTI (urinary tract infection), Chronic dislocation of right shoulder Patient Disposition: Admitted As Inpatient Discharge Instructions Interventions: ED Discharge Assessment Last Done: 05/22/22 19:40
[2022-05-22 16:20] LABS: Basophils # (auto) 0.06 K/uL (0-0.2); Basophils % (auto) 0.3 %; Eosinophils # (auto) 0.47 K/uL (0-0.50); Eosinophils % (auto) 2.3 %; Hematocrit (blood only) 27.4 % (34.1-44.9); Hemoglobin 8.6 g/dl (12.0-16.0); Immature Granulocytes # (auto) 0.38 K/uL (0.00-0.02); Immature Granulocytes % (auto) 1.9 %; Lymphocytes % (auto) 7.4 %; Mean Corpuscular Hemoglobin 27.7 pg (25.0-34.0); Mean Corpuscular Hgb Conc 31.4 g/dL (32.0-36.0); Mean Corpuscular Volume 88.4 fL (80.0-100.0); Mean Platelet Volume 10.2 fL (9.4-12.3); Monocytes # (auto) 1.81 K/uL (0.24-0.82); Neutrophils % (auto) 79.1 %; Platelet Count 317 K/uL (130-400); RDW Standard Deviation 52.2 fL (36.4-46.3); White Blood Count 20.22 K/ul (4.8-10.8)
[2022-05-22 16:32] LABS: Troponin I High Sensitivity 4.6 pg/ml (0-14)
[2022-05-22 16:33] LABS: Prothrombin Time 10.9 Seconds (9.0-12.0)
[2022-05-22 16:34] LABS: Albumin Globulin Ratio 1.1 (0.9-2); BUN Creatinine Ratio 49.5 (10-20); Bilirubin,Total 0.3 mg/dl (0.2-1.0); Calcium 8.4 mg/dl (8.5-10.1); Creatinine Clr Calc Pharmacy 50.3 ml/min; Est GFR (African American) 61.9 ml/min; Est GFR (Non-African American) 53.4 ml/min; Globulin 2.8 gm/dl (2.5-4.0); Magnesium 2.6 mg/dl (1.7-2.4); Potassium 5.5 mmol/L (3.5-5.1); Total Protein 5.8 gm/dl (6.0-8.3)
[2022-05-22 16:48] LABS: Adenovirus PCR Not Detected (NotDetected); Bordetella parapertussis PCR Not Detected (NotDetected); Bordetella pertussis PCR Not Detected (NotDetected); Chlamydia pneumoniae PCR Not Detected (NotDetected); Coronavirus 229E PCR Not Detected (NotDetected); Coronavirus CoV-2 (COVID19)PCR Not Detected (NotDetected); Coronavirus HKU1 PCR Not Detected (NotDetected); Coronavirus NL63 PCR Not Detected (NotDetected); Coronavirus OC43PCR Not Detected (NotDetected); Human Metapneumovirus PCR Not Detected (NotDetected); Influenza A PCR Not Detected (NotDetected); Influenza B PCR Not Detected (NotDetected); Mycoplasma pneumoniae PCR Not Detected (NotDetected); Parainfluenza Virus 1 PCR Not Detected (NotDetected); Parainfluenza Virus 2 PCR Not Detected (NotDetected); Parainfluenza Virus 3 PCR Not Detected (NotDetected); Parainfluenza Virus 4 PCR Not Detected (NotDetected); Respiratory Syncytial VirusPCR Not Detected (NotDetected); Rhinovirus/Enterovirus PCR Not Detected (NotDetected)
[2022-05-22] MEDS ORDERED: CEFEPIME 20 ML IV STA (16:53)
[2022-05-22] MEDS ORDERED: VANCOMYCIN HCL 2,000 MG in SODIUM CHLORIDE 0.9% 500 ML IV STA (16:54)
[2022-05-22] MEDS ORDERED: SODIUM CHLORIDE 0.9% 1000ML 500 ML IV SCH (17:00)
--- NOTE | 2022-05-22 17:07 | History & Physical Report ---
Date of Service May 22, 2022 Assessment & Plan (1) Leukocytosis: Plan: Patient presented with hypothermia and hypotension with concern for infectious etiologies from significant leukocytosis however infectious etiologies have not been determined at this time. Patient will have blood cultures followed urine culture sent and lactic acid also sent. Procalcitonin will be added At this time no antibiotics will be given her biggest c/o on presentation was SOB with her h/o DVT will have a CT for PE (2) Anemia: Plan: Patient follows with [facility] oncology for anemia in the past its been i nadeem and B12 deficiency anemia Her hemoglobin is 8.6 we will check iron and B12 levels in the morning though she is not micro macrocytic, also the TSH is last TSH checked in our system was 2018 Transfuse if she becomes symptomatic or hemoglobin drops further Remains on iron supplementation p.o., B12 injections monthly (3) CAD (coronary artery disease): Plan: Patient has no history of drug-eluting stent 2016 and mid RCA typically follows with Dr. Bruno She continues on aspirin 81, metoprolol 12.5 telmisartan/hydrochlorothiazide rosuvastatin 20 High-sensitivity troponin and EKG were normal on presentation (4) Hypertension: Plan: Hypertension medications are also similar medications for her Patient is also on tamsulosin this may be an adjunct to help with her blood pressure control (5) [place] cell cancer: Plan: Patient with surgery on her right hand removal of this [place] cell cancer in [facility] (6) Restless leg syndrome, controlled: Plan: Patient continues on pregabalin and pramipexole with good resolution of her symptoms (7) Depression: Plan: On duloxetine (8) Shoulder dislocation: Plan: pt has right shoulder dislocation, did have injury in january 2022, will have [facility] follow has seen Dr Graves in the past Plan Patient will be on DVT prevention of heparin with concerns for anemia but history of DVT x2 in the past which is a risk of having an issue History of Present Illness Primary Care Provider: Hattie Chatterjee PA-C 82 F presents with shortness of breath for one day, was hypothermic and hypotensive in the ER improved BP after bear hugger blood pressure improved, and initial survey did not show pneumonia on CXR and biofire is negative, she is not hypoxic, she does have history of [place] cell cancer in her right hand and DVT x2 in the past. She is chronically anemic followed by [facility] hematology [place] Patient says she has no other symptoms she just felt she was short of breath she is not have any coryza symptoms nausea vomiting diarrhea urinary symptoms or focal problems of joints or skin she does have some peripheral edema which is chronic for her pending studies are urine eval blood cultures lactic acid, she has an incidentally noted anterior shoulder dislocation on CXR this maybe from a fall February 09 , she has seen [facility] in the past Allergies Allergy/AdvReac Type Severity Reaction Status Date / Time cyclobenzaprine Allergy Unknown PASSED OUT Verified 03/23/22 15:20 hydrocodone Allergy Unknown SHORTNESS Verified 03/23/22 15:20 OF BREATH ketorolac Allergy Unknown Unknown Verified 03/23/22 15:20 oxaprozin Allergy Unknown RASH Verified 03/23/22 15:20 sulfamethoxazole Allergy Unknown INCREASED Verified 03/23/22 15:20 POTASSIUM LEVELS trimethoprim Allergy Unknown INCREASED Verified 03/23/22 15:20 POTASSIUM LEVELS azithromycin AdvReac Intermediate UPSET Verified 03/23/22 15:20 STOMACH erythromycin base AdvReac Mild N/V Verified 03/23/22 15:20 lisinopril AdvReac Mild cough Verified 03/23/22 15:20 sertraline AdvReac Mild MOOD SWING Verified 03/23/22 15:20 Home Medications Medication Instructions Recorded Confirmed Type calcium carbonate 600 mg-vitamin 1 tab PO BID 02/19/18 05/22/22 History D3 20 mcg (800 unit) chewable tablet (Caltrate 600 plus D) cyanocobalamin (vitamin B-12) 1 dose subcut MONTHLY 02/19/18 05/22/22 History 1,000 mcg/mL injection solution duloxetine 60 mg capsule,delayed 60 mg PO BID 02/19/18 05/22/22 History release vit C 250 mg-vit E 90 mg-zinc 40 1 tab PO BID 09/06/18 05/22/22 History mg-copper 1 pc-[id number] capsule (PreserVision AREDS-2) denosumab 60 mg/mL subcutaneous 60 mg subcut Q6MO OSTEOPEROSIS 02/08/19 05/22/22 History syringe (Prolia) pregabalin 50 mg capsule (Lyrica) 50 mg PO DAILY 09/24/20 05/22/22 History meclizine 25 mg tablet 25 mg PO TID PRN dizziness #90 tabs 03/24/21 05/22/22 Rx meloxicam 15 mg tablet 15 mg PO DAILY 04/04/21 05/22/22 History pramipexole 0.125 mg tablet 0.125 mg PO BID 04/04/21 05/22/22 History tamsulosin 0.4 mg capsule 0.4 mg PO DAILY 04/04/21 05/22/22 History famotidine 20 mg tablet 20 mg PO Q12 PRN Heartburn 05/13/21 05/22/22 History colestipol 1 gram tablet 2 g PO BID 12/03/21 05/22/22 History ferrous gluconate 256 mg (28 mg 256 mg PO DAILY 12/03/21 05/22/22 History iron) tablet fluticasone propionate 50 1 spray intranasal DAILY 12/03/21 05/22/22 History mcg/actuation nasal spray,suspension (Flonase Allergy Relief) aspirin 81 mg tablet,delayed 81 mg PO DAILY #90 tabs 01/05/22 05/22/22 Rx release hydrochlorothiazide 25 mg tablet 25 mg PO QAM #90 tabs 02/09/22 05/22/22 Rx rosuvastatin 20 mg tablet 20 mg PO HS #90 tabs 02/09/22 05/22/22 Rx metoprolol succinate 25 mg 12.5 mg PO QAM #45 tabs 04/08/22 05/22/22 Rx tablet,extended release 24 hr nitroglycerin 0.4 mg sublingual 0.4 mg sublingual Q5M PRN Chest 05/11/22 05/22/22 Rx tablet (Nitrostat) Pain #25 tabs telmisartan 40 mg tablet 40 mg PO DAILY 05/22/22 05/22/22 History Past Med/Surg History Medical History (Updated 05/22/22 @ 17:38 by Gutierrez Orozco MD) Acute kidney injury Ambulatory dysfunction DUE TO CURRENT ANKLE ISSUE CAD (coronary artery disease) [place] 2015, s/p cardiac stent x 1 DVT (deep venous thrombosis) 1st DVT occurred s/p gastric bypass in 1988; 2nd DVT occurred in right arm s/p PICC LINE inserted for IV ABX for treatment of MRSA (s/p LUCIUS) GERD (gastroesophageal reflux disease) History of endometrial cancer s/p hysterectomy History of heart attack 06/19/16 STEMI...CATH ([facility]) 06/22/16 rec'd single CAPRICE to RCA. History of kidney stones History of MRSA infection S/P L HIP SURGERY History of neck injury 03/2018 slipped in shower, was evaluated in [facility] ED, consult with Dr Brown, sent home in [facility]. Had OP f/u with Stephanie's office, per pt no further f/u needed. Hypertension Low blood sugar DIETARY CONTROLLED Osteoarthritis Osteoporosis RLS (restless legs syndrome) Surgical History History of appendectomy History of back surgery "CAGE" - LOWER BACK History of cholecystectomy History of colonoscopy History of gastric bypass History of hip surgery LEFT , CALCIUM DEPOSITS REMOVED History of hysterectomy "COMPLETE" Status post total knee replacement, bilateral Social History Smoking Status: Never smoker Hx Alcohol Use: No Hx Substance Use: No Preferred Language: Scottish Communication Ability: Effective Visual Impairment: No Limitations Hearing Ability: Normal Store Team Member Required: No Beliefs That Will Affect Care: None Current Living Situation: Other Current Living Situation Comment: LIVES WITH DAUGHTER AND HER Feels Safe at Home: Yes Assistive Devices: Walker Review of Systems Review of Systems: Mild distress and fatigue no headache, no visual changes She denies sore throat no speech or swallowing issues no chest pain, pressure or palpitations Initially presented with shortness of breath now resolved, no cough or wheezes no abdominal pain, nausea or vomiting, diarrhea or constipation no dysuria, hematuria or frequency Chronic right shoulder pain swelling of right hand and arm swelling of bilateral lower legs no back pain, CVA tenderness or radicular pain no bruising, bleeding or rashes no focal signs of weakness or numbness or altered sensation no complaints of anxiety or depression.. Physical Exam Physical Exam: The patient appeared well nourished and normally developed. She appears chronically ill Vital signs as documented. Head exam is normocephalic atraumatic Neck is without JVD, thyromegaly, or carotid bruits. Lungs are clear to auscultation, no focal loss of breath sounds Cardiac exam, Rhythm is regular.. Systolic ejection murmur Abdominal exam reveals normal bowel sounds, soft non tender, no masses Extremities are extremities are bilaterally edematous but left is greater than right 1+ upper extremities are plethoric but without significant edema there is some decreased range of motion of her right arm consistent with her dislocation however there is no diminished strength or sensation distally Neurologic exam is alert and oriented, no focal loss of strength or sensation Skin is without bruises or rashes Psychologically is without concerns for anxiety or depression.. Results & Data Results & Data ([facility]) Vital Signs (Past 12 Hours) Vital Signs Temp Pulse Resp BP Pulse Ox O2 Del Method 05/22/22 16:30 72 18 122/73 99 Room Air 05/22/22 16:36 95.0 F L 05/22/22 16:00 71 19 140/62 100 Room Air 05/22/22 15:30 69 18 111/63 100 05/22/22 15:25 68 19 110/44 L 100 Room Air 05/22/22 14:49 69 18 104/50 L 100 Room Air 05/22/22 15:20 68 100 Room Air 05/22/22 14:55 94.6 F L 05/22/22 14:37 Room Air 05/22/22 14:37 94.6 F L 71 20 98/48 L 100 Room Air 05/22/22 14:37 Room Air Diagnostic Findings Chest X-Ray 05/22/22 14:58 XR chest 1V portable CLINICAL HISTORY: Dyspnea TECHNIQUE: Single frontal radiograph of the chest was obtained. Comparison: Comparison is made to chest radiograph 08/01/2020 FINDINGS: No lines and tubes are seen. Cardiomegaly is noted. Prominence and cephalization of the vasculature is seen. No evidence of pleural effusion or pneumothorax. Anterior dislocation of the right shoulder is noted. Degenerative changes are seen. IMPRESSION: 1. Cardiomegaly is noted. 2. Anterior dislocation of the right shoulder is seen. ACT 112: Negative or not required by law. Electronically signed by: Nakul Darnell M.D. 05/22/2022 3:39 PM ECG Additional Comments: Normal sinus rhythm no acute ST or T wave changes some low voltages in the lead III PG Care Time/CCT Total # of Minutes Spent Total Time Spent with Patient: Total time spent is greater than 50% in coordination of care (as documented) at patient's floor/unit and/or counseling patient: Coding Level of Care Code 06964 Initial Inpt Care Lvl 3 Diagnoses Leukocytosis D72.829 Anemia D64.9 CAD (coronary artery disease) I25.10 Hypertension I10 [place] cell cancer C4A.9 Restless leg syndrome, controlled G25.81 Depression F32.A Shoulder dislocation S43.006A
[2022-05-22 18:41] LABS: Appearance Urine Clear (Clear); Bacteria Urine Automated 4+ (Negative); Bilirubin Urine Negative (Negative); Blood Urine Negative (Negative); Color Urine Yellow; Epithelial Cell Urine Auto 20-30 /lpf (0-5); Glucose Urine UA Negative (Negative); Ketones Urine Negative (Negative); Leukocyte Esterase Urine 1+ (Negative); Nitrite Urine Positive (Negative); Protein Urine Negative (Negative); RBC Urine Automated 0-4 /hpf (0-4); Specific Gravity Urine 1.011 (1.000-1.030); Urobilinogen Urine Negative (Negative); pH Urine 6.5 (4.5-7.5)
[2022-05-22] MEDS ORDERED: OPTIRAY 320 500ml IV ONE (19:56)
--- NOTE | 2022-05-22 20:14 | Electrocardiogram Report ---
Test Reason : Blood Pressure : / mmHG Vent. Rate : 071 BPM Atrial Rate : 071 BPM P-R Int : 194 ms QRS Dur : 084 ms QT Int : 396 ms P-R-T Axes : -01 025 038 degrees QTc Int : 430 ms Normal sinus rhythm When compared with ECG of 19-FEB-2018 20:33, No significant change was found Confirmed by Karan Pgeuero ([id number]) on 05/22/2022 8:13:59 PM Referred By: Confirmed By:Volodymyr Peguero
--- NOTE | 2022-05-22 20:19 | CT Scan Report ---
CT angio chest PE protocol CLINICAL HISTORY: PE TECHNIQUE: Multidetector row helical CT of the chest was performed with angiographic protocol. Rueda l and sagittal reformations were obtained. Coronal and sagittal MIPS were obtained from the axial jelena a set and were submitted for review. Automated dose lowering techniques and/or adjustment according to patient size were utilized for this exam. CT DOSE: 647.28 mGycm Comparison: Comparison is made to chest radiograph 05/22/[address] chest 03/28/2018 FINDINGS: Lungs and pleura: Atelectasis is seen. There is a 5 mm nodule in the left lower lobe (series 4 image 115) and a 4 mm nodule in the right middle lobe (image 112). Heart and pericardium: Cardiomegaly is seen with biatrial enlargement. Vessels: Mild atherosclerotic changes in the aorta and coronary arteries. Mediastinum and collette: Subcentimeter lymph nodes are seen. Chest wall and lower neck: Subcentimeter thyroid nodules are noted which do not require follow-up by ACR criteria. New cystic densities are seen about the right shoulder joint. Abdomen: Unremarkable. Bones: There is chronic appearing anterior dislocation of the right shoulder joint with complex appea ring surrounding fluid collections and calcifications. Some have the appearance of old fracture fragm ents. Severe degenerative changes of the left shoulder joint also seen. IMPRESSION: 1. No evidence of pulmonary embolism. 2. Severe degenerative changes of the bilateral shoulder joints with chronic appearing anterior disl ocation of the right shoulder joint with surrounding, likely reactive fluid collections and calcifica tions. 3. Stable pulmonary nodules as above. ACT 112: Negative or not required by law. Electronically signed by: Nakul Darnell M.D. 05/22/2022 8:18 PM
[2022-05-22] MEDS ORDERED: ALUMINUM/MAGNESIUM SUSP 30 ML UDC PO PRN (20:26)
[2022-05-22] MEDS ORDERED: ONDANSETRON INJ 2 MG/ML 2 ML VIAL IV PRN (20:26)
[2022-05-22] MEDS: HEPARIN SOD 5,000 UNIT/0.5 ML VIAL SQ SCH (21:55)
[2022-05-22] MEDS: ROSUVASTATIN CALCIUM 20 MG TAB PO SCH (21:56)
[2022-05-22] MEDS: PRAMIPEXOLE DIHYDROCHLO 0.25 MG TAB PO SCH (21:56)
[2022-05-22] MEDS: DULoxetine HCL 60 MG CAP PO SCH (21:56)
[2022-05-22] MEDS: CEROVITE ADV FORMULA TAB PO SCH (21:56)
[2022-05-23] MEDS: HEPARIN SOD 5,000 UNIT/0.5 ML VIAL SQ SCH ×2 (05:43→20:20)
[2022-05-23 07:30] LABS: Basophils # (auto) 0.05 K/uL (0-0.2); Basophils % (auto) 0.4 %; Eosinophils # (auto) 0.41 K/uL (0-0.50); Hematocrit (blood only) 25.3 % (34.1-44.9); Immature Granulocytes # (auto) 0.19 K/uL (0.00-0.02); Immature Granulocytes % (auto) 1.4 %; Lymphocytes # (auto) 1.82 K/uL (1.2-3.4); Lymphocytes % (auto) 13.2 %; Mean Corpuscular Hgb Conc 31.6 g/dL (32.0-36.0); Mean Corpuscular Volume 88.5 fL (80.0-100.0); Mean Platelet Volume 10.2 fL (9.4-12.3); Monocytes # (auto) 1.26 K/uL (0.24-0.82); Monocytes % (auto) 9.1 %; Neutrophils # (auto) 10.07 K/uL (1.4-6.5); Neutrophils % (auto) 72.9 %; Platelet Count 301 K/uL (130-400); RDW Coefficient of Variation 16.1 % (11.5-14.5); RDW Standard Deviation 52.4 fL (36.4-46.3); Red Blood Count 2.86 M/uL (3.93-5.22)
[2022-05-23 07:54] LABS: BUN Creatinine Ratio 43.9 (10-20); Calcium 7.9 mg/dl (8.5-10.1); Creatinine Clr Calc Pharmacy 50.8 ml/min; Est GFR (African American) 62.7 ml/min; Est GFR (Non-African American) 54.1 ml/min; Magnesium 2.6 mg/dl (1.7-2.4); Potassium 5.5 mmol/L (3.5-5.1)
--- NOTE | 2022-05-23 07:56 | XRay Report ---
XR shoulder RT min 2V routine CLINICAL HISTORY: dislocation noted on chest xrays. COMPARISON STUDY: Right shoulder 08/01/2020. FINDINGS: There is a right anterior shoulder dislocation. No acute fractures. Advanced degenerative c hanges again noted at the glenohumeral joint or the right clavicle is intact. There is a moderate gle nohumeral joint effusion with punctate intra-articular loose bodies. This could be due to the suspect ed chronic trauma. Irregularity at the inferior glenoid consistent with a Bankart lesion. There is al so flattening of the lateral humeral head consistent with Hill-Sachs deformity. IMPRESSION: 1. Right anterior shoulder dislocation. 2. 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 3. Moderate joint effusion with punctate intra-articular loose bodies which may be due to the suspect ed chronic trauma ACT 112: Negative or not required by law. Electronically signed by: Lewis Dick M.D. 05/23/2022 7:55 AM
[2022-05-23] MEDS: DULoxetine HCL 60 MG CAP PO SCH ×2 (08:38→21:51)
[2022-05-23] MEDS: FERROUS GLUCONATE 324 MG TAB PO SCH (08:38)
[2022-05-23] MEDS: ASPIRIN 81 MG ECTAB PO SCH (08:38)
[2022-05-23] MEDS: FLUTICASONE PROPIONATE NA SPR 16 GM BTL SCH (08:38)
[2022-05-23] MEDS: PRAMIPEXOLE DIHYDROCHLO 0.25 MG TAB PO SCH ×2 (08:39→21:50)
[2022-05-23] MEDS: hydroCHLOROthiazide 25 MG TAB PO SCH (08:39)
[2022-05-23] MEDS: METOPROLOL SUCC 25MG EXT REL TAB PO SCH (08:39)
[2022-05-23] MEDS: CEROVITE ADV FORMULA TAB PO SCH ×2 (08:39→21:51)
[2022-05-23] MEDS: TAMSULOSIN HCL 0.4 MG CAP PO SCH (08:40)
[2022-05-23] MEDS: TELMISARTAN 40 MG TAB PO SCH (08:42)
[2022-05-23] MEDS: PREGABALIN 50 MG CAP PO SCH (08:44)
[2022-05-23] MEDS: cefTRIAXone SODIUM 2,000 MG in DEXTROSE 5% 50 ML IV SCH (10:46)
[2022-05-23] MEDS: SODIUM CHLORIDE 0.9% 1000ML 1,000 ML IV SCH ×2 (10:46→21:55)
[2022-05-23] MEDS: PATIROMER CALCIUM SORBITEX 8.4 GM PACK PO SCH (12:03)
--- NOTE | 2022-05-23 12:13 | Consultation Report ---
PHYSICIAN CONTINUITY READER ORTHOPEDIC CONSULTATION HISTORY OF PRESENT ILLNESS: The patient is an 82-year-old female admitted to the hospital for infect ious workup secondary to leukocytosis. On admission chest x-ray, the patient was noted to have a rig ht shoulder dislocation. An orthopedic consult was asked for. Per the patient, she has had increase d right shoulder pain and disability since mid April. The patient believes she had a fall somewhe re around 05/03/2022 or 05/04/2022. She states since that time, she has had pain and swelling in her right upper extremity. She is left hand dominant. She lives with her daughter and , who bot h work and are not available throughout the day. PHYSICAL EXAMINATION: The patient has pain and crepitus when trying to flex the shoulder. Passively , she has pain and limitation of motion as well. Visually, it appears that her right shoulder is ful ler in the anterior aspect related to her left, but it is somewhat difficult to assess due to her bod y habitus and positioning in the bed. Her fingers are neurovascularly intact. X-RAYS: X-rays were reviewed and shows an anterior shoulder dislocation. ASSESSMENT: Subacute right shoulder dislocation. PLAN: I discussed with Dr. Sky. He is recommending taking her to the operating room tomorrow for a closed reduction. I discussed this with the patient and she is in agreement. I also discussed the possibility of chronic, recurrent dislocation and the need for further surgery if indicated. Tyler belkys understands this and will desire to proceed. We will make her n.p.o. after midnight and tentativel y plan for closed reduction of her right shoulder tomorrow. Job ID: [id number]
--- NOTE | 2022-05-23 14:53 | Hospitalist Progress Note ---
Date of Service May 23, 2022 Assessment & Plan (1) Leukocytosis: Plan: Due to underlying infectious process. Should resolve with current treatment. Serial labs ordered. (2) Anemia: Plan: Chronic. No overt GI bleeding. Transfuse as necessary. Serial lab studies. Hemoglobin today, May 23, is 8.0. Known iron and B12 deficiency (3) CAD (coronary artery disease): Plan: Patient has a history of drug-eluting stent 2017 in mid RCA . Follows with Dr. Bruno. Currently on aspirin 81, metoprolol 12.5 telmisartan/hydrochlorothiazide rosuvastatin 20. No evidence of acute PR on presentation. (4) Hypertension: Plan: Controlled with current medical management. 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 (6) Restless leg syndrome, controlled: Plan: Treated with pregabalin and pramipexole. Controlled and stable (7) Depression: Plan: Stable on duloxetine (8) Shoulder dislocation: Plan: pt has chronic right shoulder dislocation. X-ray results noted. Continue outpatient follow-up and management (9) Acute UTI (urinary tract infection): Plan: Gram-negative rods isolated. Currently on Rocephin, day 1. Blood culture results are negative to date but final results are pending. Plan Occupational Therapy and physical therapy evaluations pending. She may need SNF placement at discharge. Admission and Anticipated Discharge Date Admission Date: May 22, 2022 Subjective Alert and oriented. No acute distress. Family is at the bedside. Gram- negative rods isolated in the urine. She is now on Rocephin, day 1. Blood cultures are negative to date. We will continue IV fluids for now. OT and PT assessments recommended. Apparently she is failing to thrive at home and family members are seeking SNF placement for now. Review of Systems Review of Systems: Constitutional-no fever or chills ENT-no blurred vision, no double vision, no epistaxis, no sore throat Respiratory-no cough, no wheezing, no shortness of breath Cardiac-no palpitations, no chest pain, no syncope GI-no nausea, vomiting, diarrhea, melena, hematochezia -no urinary retention, no urinary incontinence, no dysuria, no hematuria Musculoskeletal-no joint pain, no muscle tenderness. Generalized weakness and poor ambulatory capacity Skin-no bruising, no rashes, no pruritus Neuro-no isolated weakness, no paresthesia, no weakness Psych-no depression, no anxiety Physical Exam Physical Exam: General-alert and oriented x3, no fevers, no chills HEENT-head atraumatic and normocephalic, pupils equal and reactive to light, extraocular muscles intact Neck-no lymphadenopathy or thyromegaly, trachea midline Chest-clear to auscultation percussion. No rales wheezing or rhonchi Cardiac-regular rate and rhythm, normal S1 and S2, no murmurs Abdomen-normal bowel sounds, nontender, no hepatosplenomegaly Extremities-no cyanosis, clubbing, or edema. Generalized weakness noted Neuro-cranial nerves II through XII intact, motor and sensory function within normal limits, strength symmetrical , no focal deficits Psych-normal affect, normal mood Results & Data Results & Data ([facility]) Vital Signs (Past 12 Hours) Vital Signs Temp Pulse Resp BP Pulse Ox O2 Del Method 05/23/22 08:26 36.9 C 86 16 111/65 95 Room Air 05/23/22 07:22 36.9 C 87 16 93/55 L 94 Room Air Laboratory Results 05/23/22 06:56 05/23/22 06:56 PG Care Time/CCT Total # of Minutes Spent Total Time Spent with Patient: Total time spent is greater than 50% in coordination of care (as documented) at patient's floor/unit and/or counseling patient: Coding Level of Care Code 04425 Subseq Hosp Care Lvl 3 Diagnoses Leukocytosis D72.829 Anemia D64.9 CAD (coronary artery disease) I25.10 Hypertension I10 [place] cell cancer C4A.9 Restless leg syndrome, controlled G25.81 Depression F32.A Shoulder dislocation S43.006A Acute UTI (urinary tract infection) N39.0
[2022-05-23] MEDS: ROSUVASTATIN CALCIUM 20 MG TAB PO SCH (21:50)
[2022-05-23] MEDS: ACETAMINOPHEN 500 MG TAB PO PRN (22:00)
[2022-05-23] MEDS ORDERED: IBUPROFEN 200 MG TAB PO STA (23:43)
[2022-05-24] MEDS ORDERED: diphenhydrAMINE Capsule 25 MG CAP PO ONE (01:06)
[2022-05-24] MEDS ORDERED: diphenhydrAMINE HCL 25 MG/10 ML UDC PO ONE (01:15)
[2022-05-24 08:51] LABS: Basophils # (auto) 0.05 K/uL (0-0.2); Basophils % (auto) 0.5 %; Eosinophils # (auto) 0.54 K/uL (0-0.50); Eosinophils % (auto) 4.9 %; Hematocrit (blood only) 26.2 % (34.1-44.9); Immature Granulocytes # (auto) 0.19 K/uL (0.00-0.02); Immature Granulocytes % (auto) 1.7 %; Lymphocytes # (auto) 1.36 K/uL (1.2-3.4); Lymphocytes % (auto) 12.3 %; Mean Corpuscular Hemoglobin 27.3 pg (25.0-34.0); Mean Corpuscular Hgb Conc 30.5 g/dL (32.0-36.0); Mean Corpuscular Volume 89.4 fL (80.0-100.0); Mean Platelet Volume 10.3 fL (9.4-12.3); Monocytes # (auto) 1.38 K/uL (0.24-0.82); Monocytes % (auto) 12.5 %; Neutrophils # (auto) 7.56 K/uL (1.4-6.5); Neutrophils % (auto) 68.1 %; Platelet Count 307 K/uL (130-400); RDW Coefficient of Variation 16.1 % (11.5-14.5); RDW Standard Deviation 53.1 fL (36.4-46.3); Red Blood Count 2.93 M/uL (3.93-5.22); White Blood Count 11.08 K/ul (4.8-10.8)
[2022-05-24] MEDS ORDERED: ATROPINE SULFATE 0.1 MG/ML 10ML SYR IV PRN (08:58)
[2022-05-24] MEDS ORDERED: ePHEDrine sulfate 50 MG/ML AMP IV PRN (08:58)
[2022-05-24] MEDS ORDERED: FLUMAZENIL 0.1 MG/1 ML 10 ML VIAL IV PRN (08:58)
[2022-05-24] MEDS ORDERED: LABETALOL HCL IV 5 MG/ML 20ML IV PRN (08:58)
[2022-05-24] MEDS ORDERED: fentaNYL citrate 100 MCG/2 ML VIAL IV PRN (08:58)
[2022-05-24] MEDS ORDERED: NALOXONE HCL 0.4 MG/1 ML VIAL/CARP IV PRN (08:58)
[2022-05-24] MEDS ORDERED: PROMETHAZINE HCL 12.5 MG in SODIUM CHLORIDE 0.9% 50 ML IV PRN (08:58)
[2022-05-24] MEDS ORDERED: ONDANSETRON INJ 2 MG/ML 2 ML VIAL IV PRN (08:58)
--- NOTE | 2022-05-24 08:58 | Anesthesiology Consultation ---
Date of Service May 24, 2022 Assessment & Plan Chart Review Chart Review: Acceptable Risk for Surgery and Patient NOT seen in Pre Admission Testing Consults Requested none ASA ASA4 Proposed Anesthesia Anesthesia Type: General Risk / Benefits Reviewed With: PT / POA / Parent / Guardian, Accepts Plan and Informed Consent Obtained History Surgery Operation Date: 05/24/22 12:00 Proposed Procedures p Closed Reduction Extremity(Right) - Alex Sky, Height/Weight Height: 5 ft 2 in Weight: 103.6 kg Allergies Allergy/AdvReac Type Severity Reaction Status Date / Time cyclobenzaprine Allergy Unknown PASSED OUT Verified 03/23/22 15:20 hydrocodone Allergy Unknown SHORTNESS Verified 03/23/22 15:20 OF BREATH ketorolac Allergy Unknown Unknown Verified 03/23/22 15:20 oxaprozin Allergy Unknown RASH Verified 03/23/22 15:20 sulfamethoxazole Allergy Unknown INCREASED Verified 03/23/22 15:20 POTASSIUM LEVELS trimethoprim Allergy Unknown INCREASED Verified 03/23/22 15:20 POTASSIUM LEVELS azithromycin AdvReac Intermediate UPSET Verified 03/23/22 15:20 STOMACH erythromycin base AdvReac Mild N/V Verified 03/23/22 15:20 lisinopril AdvReac Mild cough Verified 03/23/22 15:20 sertraline AdvReac Mild MOOD SWING Verified 03/23/22 15:20 Medications Home Medications Medication Instructions Recorded Confirmed Last Taken calcium carbonate 600 mg-vitamin 1 tab PO BID 02/19/18 05/22/22 08/01/20 D3 20 mcg (800 unit) chewable tablet (Caltrate 600 plus D) cyanocobalamin (vitamin B-12) 1 dose subcut MONTHLY 02/19/18 05/22/22 07/22/20 1,000 mcg/mL injection solution duloxetine 60 mg capsule,delayed 60 mg PO BID 02/19/18 05/22/22 08/01/20 release vit C 250 mg-vit E 90 mg-zinc 40 1 tab PO BID 09/06/18 05/22/22 08/01/20 mg-copper 1 [id number] capsule (PreserVision AREDS-2) denosumab 60 mg/mL subcutaneous 60 mg subcut Q6MO OSTEOPEROSIS 02/08/19 05/22/22 03/06/20 syringe (Prolia) pregabalin 50 mg capsule (Lyrica) 50 mg PO DAILY 09/24/20 05/22/22 Unknown meclizine 25 mg tablet 25 mg PO TID PRN dizziness #90 tabs 03/24/21 05/22/22 Unknown meloxicam 15 mg tablet 15 mg PO DAILY 04/04/21 05/22/22 Unknown pramipexole 0.125 mg tablet 0.125 mg PO BID 04/04/21 05/22/22 Unknown tamsulosin 0.4 mg capsule 0.4 mg PO DAILY 04/04/21 05/22/22 Unknown famotidine 20 mg tablet 20 mg PO Q12 PRN Heartburn 05/13/21 05/22/22 Unknown colestipol 1 gram tablet 2 g PO BID 12/03/21 05/22/22 Unknown ferrous gluconate 256 mg (28 mg 256 mg PO DAILY 12/03/21 05/22/22 Unknown iron) tablet fluticasone propionate 50 1 spray intranasal DAILY 12/03/21 05/22/22 Unknown mcg/actuation nasal spray,suspension (Flonase Allergy Relief) aspirin 81 mg tablet,delayed 81 mg PO DAILY #90 tabs 01/05/22 05/22/22 Unknown release hydrochlorothiazide 25 mg tablet 25 mg PO QAM #90 tabs 02/09/22 05/22/22 Unknown rosuvastatin 20 mg tablet 20 mg PO HS #90 tabs 02/09/22 05/22/22 Unknown metoprolol succinate 25 mg 12.5 mg PO QAM #45 tabs 04/08/22 05/22/22 Unknown tablet,extended release 24 hr nitroglycerin 0.4 mg sublingual 0.4 mg sublingual Q5M PRN Chest 05/11/22 05/22/22 Unknown tablet (Nitrostat) Pain #25 tabs telmisartan 40 mg tablet 40 mg PO DAILY 05/22/22 05/22/22 Unknown Active Medications Generic Name Dose Route Start Last Admin Trade Name Freq PRN Reason Stop Dose Admin Acetaminophen 1,000 mg 05/22/22 20:26 05/23/22 22:00 Acetaminophen 500 Mg Tab PO 06/21/22 20:25 1,000 mg TID PRN Administration pain/fever Aspirin 81 mg 05/23/22 09:00 05/23/22 08:38 Aspirin 81 Mg Ectab PO 06/22/22 08:59 81 mg DAILY DAWIT Administration Duloxetine HCl 60 mg 05/22/22 21:00 05/23/22 21:51 Duloxetine Hcl 60 Mg Cap PO 06/21/22 20:59 60 mg BID DAWIT Administration Ferrous Gluconate 324 mg 05/23/22 09:00 05/23/22 08:38 Ferrous Gluconate 324 Mg Tab PO 06/22/22 08:59 324 mg DAILY DAWIT Administration Fluticasone Propionate 1 sprays 05/23/22 09:00 05/23/22 08:38 Fluticasone Propionate Na Spr 16 Gm Btl NA 06/22/22 08:59 1 sprays DAILY DAWIT Administration Heparin Sodium (Porcine) 5,000 units 05/23/22 21:00 05/23/22 20:20 Heparin Sod 5,000 Unit/0.5 Ml Vial SQ 06/22/22 20:59 5,000 units Q12 DAWIT Administration Hydrochlorothiazide 25 mg 05/23/22 09:00 05/23/22 08:39 Hydrochlorothiazide 25 Mg Tab PO 06/22/22 08:59 Not Given QAM DAWIT Ceftriaxone Sodium 2,000 mg/ 70 mls @ 140 mls/hr 05/23/22 09:15 05/23/22 11:16 Dextrose IV 05/28/22 09:14 Infused Q24H DAWIT Infusion Protocol Sodium Chloride 1,000 mls @ 80 mls/hr 05/23/22 09:15 05/23/22 21:55 Nss 1000ml IV 06/22/22 09:14 80 mls/hr .[id number] DAWIT Administration Metoprolol Succinate 12.5 mg 05/23/22 09:00 05/23/22 08:39 Metoprolol Succ 25mg Ext Rel Tab PO 06/22/22 08:59 Not Given QAM DAWIT Multivitamins/Minerals 1 tab 05/22/22 21:00 05/23/22 21:51 Cerovite Adv Formula Tab PO 06/21/22 20:59 1 tab BID DAWIT Administration Patiromer 8.4 gm 05/23/22 10:30 05/23/22 12:03 Patiromer Calcium Sorbitex 8.4 Gm Pack PO 06/22/22 10:29 8.4 gm DAILY DAWIT Administration Pramipexole Dihydrochloride 0.125 mg 05/22/22 21:00 12/03/22 21:50 Pramipexole Dihydrochlo 0.25 Mg Tab PO 06/21/22 20:59 0.125 mg BID DAWIT Administration Pregabalin 50 mg 05/23/22 09:00 05/23/22 08:44 Pregabalin 50 Mg Cap PO 06/22/22 08:59 50 mg DAILY DAWIT Administration Rosuvastatin Calcium 20 mg 05/22/22 21:00 05/23/22 21:50 Rosuvastatin Calcium 20 Mg Tab PO 06/21/22 20:59 20 mg HS DAWIT Administration Tamsulosin HCl 0.4 mg 05/23/22 09:00 05/23/22 08:40 Tamsulosin Hcl 0.4 Mg Cap PO 06/22/22 08:59 0.4 mg DAILY DAWIT Administration Telmisartan 40 mg 05/23/22 09:00 05/23/22 08:42 Telmisartan 40 Mg Tab PO 06/22/22 08:59 Not Given DAILY DAWIT NPO Date Last Intake of Fluids: 05/23/22 Time Last Intake of Fluids: 23:00 Date Last Intake of Solids: 05/23/22 Time Last Intake of Solids: 18:00 Past Medical History Medical History Acute kidney injury Ambulatory dysfunction DUE TO CURRENT ANKLE ISSUE CAD (coronary artery disease) MD 2015, s/p cardiac stent x 1 DVT (deep venous thrombosis) 1st DVT occurred s/p gastric bypass in 1988; 2nd DVT occurred in right arm s/p PICC LINE inserted for IV ABX for treatment of MRSA (s/p LUCIUS) GERD (gastroesophageal reflux disease) History of endometrial cancer s/p hysterectomy History of heart attack 06/19/16 STEMI...CATH ([facility]) 06/22/16 rec'd single CAPRICE to RCA. History of kidney stones History of MRSA infection S/P L HIP SURGERY History of neck injury 03/2018 slipped in shower, was evaluated in [facility] ED, consult with Dr Brown, sent home in [facility]. Had OP f/u with Stephanie's office, per pt no further f/u needed. Hypertension Low blood sugar DIETARY CONTROLLED Osteoarthritis Osteoporosis RLS (restless legs syndrome) Exercise / Class Metabolic Activity III < 4 Walking/Shop/Light housework Past Surgical History Surgical History History of appendectomy History of back surgery "CAGE" - LOWER BACK History of cholecystectomy History of colonoscopy History of gastric bypass History of hip surgery LEFT , CALCIUM DEPOSITS REMOVED History of hysterectomy "COMPLETE" Status post total knee replacement, bilateral Past Anesthesia History No Hx of Anesthesia Complications and No Family Hx of Anesthesia Complications History of PONV No Hx of PONV and No Hx of Motion Sickness Social History Smoking Status: Never smoker Hx Alcohol Use: No Hx Substance Use: No substance use type: does not use Physical Exam Vital Signs Last Vital Signs Temp 37 C 05/24/22 07:33 Pulse 87 05/24/22 07:33 Resp 16 05/24/22 07:33 BP 119/68 05/24/22 07:33 Pulse Ox 97 05/24/22 07:33 O2 Del Method 05/24/22 07:33 Constitutional + obese; no acute distress ENMT Mouth: + dentition abnormality and + edentulous Thyromental Distance: < 3.5 Finger Breadths Mallampati Class: II Neck normal visual inspection and trachea midline; neck extension not limited Respiratory normal respiratory effort Auscultation: + diminished lung sounds Cardiovascular Rate/Rhythm: regular rate and regular rhythm Heart Sounds: + murmur (2/6 @ apex MR) Vessels: no carotid bruit Musculoskeletal Spine: normal cervical ROM Extremities: full ROM of extremities Neurologic moves all extremities Motor/Sensory: no sensory deficit Psychiatric Orientation: alert and oriented x 3 Testing Laboratory Results PT 10.9 Seconds (9.0-12.0) 05/22/22 15:54 INR 1.0 (0.9-1.1) 05/22/22 15:54 Urine Color Yellow 05/22/22 18:18 Urine Appearance Clear (Clear) 05/22/22 18:18 Urine pH 6.5 (4.5-7.5) 05/22/22 18:18 Ur Specific [place] 1.011 (1.000-1.030) 05/22/22 18:18 Urine Protein Negative (Negative) 05/22/22 18:18 Urine Glucose (UA) Negative (Negative) 05/22/22 18:18 Urine Ketones Negative (Negative) 05/22/22 18:18 Urine Nitrite Positive (Negative) A 05/22/22 18:18 Ur Leukocyte Esterase 1+ (Negative) H 05/22/22 18:18 Urine WBC (Auto) 1-5 /hpf (0-5) 05/22/22 18:18 Urine RBC (Auto) 0-4 /hpf (0-4) 05/22/22 18:18 U Hyaline Cast (Auto) 1-5 /lpf (0-5) 05/22/22 18:18 U Epithel Cells (Auto) 20-30 /lpf (0-5) H 05/22/22 18:18 Urine Bacteria (Auto) 4+ (Negative) H 05/22/22 18:18 Blood Type A Positive 05/22/22 15:54 Antibody Screen NEGATIVE 05/22/22 15:54 05/22/22 18:18 Urine Culture - Preliminary Urine,Clean Catch Escherichia coli 05/22/22 15:54 Aerobic Blood Culture - Preliminary Blood No growth in Aerobic bottle after 24 hours. Anaerobic Blood Culture - Final 05/22/22 15:53 Aerobic Blood Culture - Preliminary Blood No growth in Aerobic bottle after 24 hours. Anaerobic Blood Culture - Final Electrocardiogram Date: 05/22/22 Findings: + NSR @ (@ 71) Chest X-Ray Date: 05/22/22 Findings: + NAD and + cardiomegaly Echocardiogram Date: 04/20/22 EF: 65% LV Function: normal RWMA: + none Other Findings: + atrial enlargement (Mild LA dilation) and + diastolic dysfunction (Grade 1) Valvular Disease: + AI (mild) and + MR (moderate) TR-mild
[2022-05-24] MEDS ORDERED: PROPOFOL IV EMULSION 10 MG/ML 20 ML VIAL IV ONE (09:20)
[2022-05-24] MEDS ORDERED: LIDOCAINE 2% 2 ML VIAL/AMP(20MG/ML) INFIL ONE (09:20)
--- NOTE | 2022-05-24 09:21 | History & Physical Bridge Note ---
Date of Service May 24, 2022 History & Physical Bridge Note I have examined the patient, reviewed the History & Physical and in the interval since the performance of the History & Physical I have noted the following changes of clinical significance: no changes noted. Had a discussion with the patient regarding her shoulder dislocation. She does not recall any injuries besides a fall about a month ago. She also has severe osteoarthritis in her shoulder and has previously discussed shoulder arthroplasty. Our plan would be to attempt closed reduction under anesthesia for her shoulder. Risk and benefits were discussed. She has elected to proceed with the procedure. Written consent has been obtained.
[2022-05-24 09:33] LABS: BUN Creatinine Ratio 35.6 (10-20); Calcium 8.1 mg/dl (8.5-10.1); Creatinine Clr Calc Pharmacy 57.2 ml/min; Est GFR (African American) 72.4 ml/min; Est GFR (Non-African American) 62.5 ml/min; Magnesium 2.3 mg/dl (1.7-2.4); Potassium 5.1 mmol/L (3.5-5.1)
--- NOTE | 2022-05-24 10:29 | Post Operative Brief Note ---
Immediate Post Op Note v1 Date of Surgery May 24, 2022 Pre & Post Diagnosis Operation Date: 05/24/22 12:00 Pre-Op Diagnosis: Subacute right shoulder dislocation Post-Op Diagnosis: Subacute right shoulder dislocation I identified the patient and participated in the time-out.: Yes Procedure Operation Date: 05/24/22 12:00 Actual Procedures p Closed Reduction Extremity(Right) - Alex Sky DO Surgeon Alex Sky DO Database Design Analyst none Estimated Blood Loss 0 Findings Consistent with Post-Op Diagnosis See dictation Complications None
--- NOTE | 2022-05-24 10:32 | Operative Report ---
Post Operative Report Pre & Post Diagnosis Operation Date: 05/24/22 12:00 Pre-Op Diagnosis: Subacute right shoulder dislocation Post-Op Diagnosis: Subacute right shoulder dislocation I identified the patient and participated in the time-out.: Yes Procedure Operation Date: 05/24/22 12:00 Actual Procedures p Closed Reduction Extremity(Right) - Alex Sky DO Surgeon Alex Sky, Professional Athletes Coach none Estimated Blood Loss 0 Findings Consistent with Post-Op Diagnosis See dictation Specimens None Complications None Indications 82-year-old female [id number] who presented to [facility] with concern for possible pulmonary embolus. When obtaining chest x-ray and CT scan of her chest it was noted that she had a right anterior shoulder dislocation. She did not recall any recent injury besides a fall over a month ago. She does report that she was previously seen by our group months ago for her right shoulder and did discuss shoulder arthroplasty however does not want to proceed with any surgical intervention at the time. Given these findings I did discuss with her attempting a closed reduction under anesthesia for her right shoulder dislocation. I did also explain that she does have severe osteoarthritis involving the right shoulder and may require future surgical intervention for definitive care. Risk and benefits of closed reduction were discussed and she elected proceed with the procedure intervention and written consent was obtained. Description of Procedure Patient was appropriate identified in the preoperative holding area and the right upper extremity was marked. She was then taken to the operative suite. Timeout was then performed. After patient was sedated bed sheath was placed to provide countertraction as well as a combination of traction and internal rotation with a posterior directed force were used to reduce the shoulder. Range of motion was then assessed once the shoulder was reduced there was noted to be severe crepitation as well as subluxation of the shoulder. We did obtain scapular Y radiograph confirming relocation of the shoulder. Patient was then placed in a simple sling and taken the recovery room in hemodynamically stable condition. I attest to the content of the Intraoperative Record and any orders documented therein. Any exceptions are noted below.
--- NOTE | 2022-05-24 10:43 | Anesthesiology Progress Note ---
Date of Service May 24, 2022 Anesthesia Post Procedure Vital Signs Vital Signs: Temp Pulse Pulse Pulse Resp BP Pulse Ox 05/24/22 10:35 36.6 C 96 H 17 123/53 L 97 05/24/22 10:25 104 H 20 128/85 97 05/24/22 10:17 36.7 C 100 H 23 113/49 L 100 05/24/22 07:33 37 C 87 16 119/68 97 05/23/22 23:30 36.8 C 86 18 145/64 H 95 05/23/22 14:57 36.4 C L 82 18 125/63 98 O2 Del Method 05/24/22 10:35 Room Air 05/24/22 10:25 Room Air 05/24/22 10:17 Room Air 05/24/22 07:33 Room Air 05/23/22 23:30 Room Air 05/23/22 14:57 Room Air Transfer of Care Handoff Completed per policy Notes Mental Status: alert / awake / arousable Patient Amnestic to Procedure: Yes Nausea / Vomiting: adequately controlled Pain: adequately controlled Airway Patency, RR, SpO2: stable & adequate BP & HR: stable & adequate Hydration State: stable & adequate Anesthetic Complications: no major complications apparent
--- NOTE | 2022-05-24 10:50 | XRay Report ---
XR shoulder RT min 2V routine CLINICAL HISTORY: POST REDUCTION RIGHT SHOULDER COMPARISON STUDY: Right shoulder 05/23/2022. FINDINGS: Status post reduction of the right anterior shoulder dislocation. Degenerative changes agai n noted. IMPRESSION: Status post reduction of the right anterior shoulder dislocation. ACT 112: Negative or not required by law. Electronically signed by: Lewis Dick M.D. 05/24/2022 10:49 AM
--- NOTE | 2022-05-24 10:50 | Fluoroscopy Report ---
FL shoulder RT min 2V CLINICAL HISTORY: CLOSED REDUCTION RT SHOULDER COMPARISON STUDY: Right shoulder 05/23/2022. FLUOROSCOPY TIME: 12 seconds. FINDINGS: 4 fluoroscopic spot images of the right shoulder demonstrate closed reduction of the should er dislocation. No acute fractures. IMPRESSION: Fluoroscopic assistance provided for interval reduction of the right shoulder dislocation . ACT 112: Negative or not required by law. Electronically signed by: Lewis Dick M.D. 05/24/2022 10:48 AM
[2022-05-24] MEDS: TELMISARTAN 40 MG TAB PO SCH (10:58)
[2022-05-24] MEDS: hydroCHLOROthiazide 25 MG TAB PO SCH (10:58)
[2022-05-24] MEDS: PRAMIPEXOLE DIHYDROCHLO 0.25 MG TAB PO SCH ×2 (10:59→20:21)
[2022-05-24] MEDS: CEROVITE ADV FORMULA TAB PO SCH ×2 (10:59→20:22)
[2022-05-24] MEDS: DULoxetine HCL 60 MG CAP PO SCH ×2 (10:59→20:22)
[2022-05-24] MEDS: ASPIRIN 81 MG ECTAB PO SCH (11:00)
[2022-05-24] MEDS: FLUTICASONE PROPIONATE NA SPR 16 GM BTL SCH (11:01)
[2022-05-24] MEDS: FERROUS GLUCONATE 324 MG TAB PO SCH (11:01)
[2022-05-24] MEDS: METOPROLOL SUCC 25MG EXT REL TAB PO SCH (11:02)
[2022-05-24] MEDS: HEPARIN SOD 5,000 UNIT/0.5 ML VIAL SQ SCH ×2 (11:02→20:22)
[2022-05-24] MEDS: cefTRIAXone SODIUM 2,000 MG in DEXTROSE 5% 50 ML IV SCH (11:10)
[2022-05-24] MEDS: PREGABALIN 50 MG CAP PO SCH (11:10)
[2022-05-24] MEDS: TAMSULOSIN HCL 0.4 MG CAP PO SCH (11:25)
[2022-05-24] MEDS: SODIUM CHLORIDE 0.9% 1000ML 1,000 ML IV SCH (11:26)
--- NOTE | 2022-05-24 12:58 | Hospitalist Progress Note ---
Date of Service May 24, 2022 Assessment & Plan (1) Leukocytosis: Plan: Due to underlying infectious process. Should resolve with current treatment. Serial labs ordered. (2) Anemia: Plan: Chronic. No overt GI bleeding. Transfuse as necessary. Serial lab studies. Known iron and B12 deficiency (3) CAD (coronary artery disease): Plan: Patient has a history of drug-eluting stent 2017 in mid RCA . Follows with Dr. Bruno. Currently on aspirin 81, metoprolol 12.5 telmisartan/hydrochlorothiazide rosuvastatin 20. No evidence of acute AL on presentation. (4) Hypertension: Plan: Controlled with current medical management. 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 Controlled and stable (7) Depression: Plan: Stable on duloxetine (8) Shoulder dislocation: Plan: pt has chronic right shoulder dislocation. X-ray results noted. She had closed reduction of the dislocation today, May 24. Her right arm is now in a sling. Appreciate orthopedic assistance (9) Acute UTI (urinary tract infection): Plan: Gram-negative rods are E. coli which is pansensitive. Currently on Rocephin, day 2. Blood culture results are negative to date but final results are pending. Plan Occupational Therapy and physical therapy evaluations requested. Possible SNF placement at discharge. Admission and Anticipated Discharge Date Admission Date: May 22, 2022 Subjective Alert and oriented. No distress. She had closed reduction of the right shoulder dislocation earlier today, May 24. Oral intake is good. IV fluids discontinued. Urine cultures growing E. coli. Blood cultures are negative. She is on day 2 of Rocephin. Blood pressure is now stable. Anticipate probable SNF placement at discharge this week. Review of Systems Review of Systems: Constitutional-no fever or chills ENT-no blurred vision, no double vision, no epistaxis, no sore throat Respiratory-no cough, no wheezing, no shortness of breath Cardiac-no palpitations, no chest pain, no syncope GI-no nausea, vomiting, diarrhea, melena, hematochezia -no urinary retention, no urinary incontinence, no dysuria, no hematuria Musculoskeletal-no joint pain, no muscle tenderness. Generalized weakness and poor ambulatory capacity has improved since admission Skin-no bruising, no rashes, no pruritus Neuro-no isolated weakness, no paresthesia, no weakness Psych-no depression, no anxiety Physical Exam Physical Exam: General-alert and oriented x3, no fevers, no chills HEENT-head atraumatic and normocephalic, pupils equal and reactive to light, extraocular muscles intact Neck-no lymphadenopathy or thyromegaly, trachea midline Chest-clear to auscultation percussion. No rales wheezing or rhonchi Cardiac-regular rate and rhythm, normal S1 and S2, no murmurs Abdomen-normal bowel sounds, nontender, no hepatosplenomegaly Extremities-no cyanosis, clubbing, or edema. Generalized weakness noted but improved since admission. Right arm is in a sling post closed reduction of right shoulder dislocation Neuro-cranial nerves II through XII intact, motor and sensory function within normal limits, strength symmetrical , no focal deficits Psych-normal affect, normal mood Results & Data Results & [facility] ([facility]) Vital Signs (Past 12 Hours) Vital Signs Temp Pulse Pulse Resp BP Pulse Ox O2 Del Method 05/24/22 12:52 36.3 C L 82 16 142/75 H 98 Room Air 05/24/22 11:50 36.7 C 83 16 136/70 95 Room Air 05/24/22 11:20 36.4 C L 85 16 131/75 93 Room Air 05/24/22 10:50 37 C 89 16 114/47 L 98 Room Air 05/24/22 10:35 36.6 C 96 H 17 123/53 L 97 Room Air 05/24/22 10:25 104 H 20 128/85 97 Room Air 05/24/22 10:17 36.7 C 100 H 23 113/49 L 100 Room Air 05/24/22 07:33 37 C 87 16 119/68 97 Room Air Laboratory Results 05/24/22 08:08 05/24/22 08:08 PG Care Time/CCT Total # of Minutes Spent Total Time Spent with Patient: Total time spent is greater than 50% in coordination of care (as documented) at patient's floor/unit and/or counseling patient: Coding Level of Care Code 73206 Subseq Hosp Care Lvl 3 Diagnoses Leukocytosis D72.829 Anemia D64.9 CAD (coronary artery disease) I25.10 Hypertension I10 Nodaway cell cancer C4A.9 Restless leg syndrome, controlled G25.81 Depression F32.A Shoulder dislocation S43.006A Acute UTI (urinary tract infection) N39.0
[2022-05-24] MEDS: PATIROMER CALCIUM SORBITEX 8.4 GM PACK PO SCH (15:00)
[2022-05-24] MEDS: ROSUVASTATIN CALCIUM 20 MG TAB PO SCH (20:22)
[2022-05-24] MEDS: ACETAMINOPHEN 500 MG TAB PO PRN (20:24)
[2022-05-25 06:37] LABS: Basophils # (auto) 0.04 K/uL (0-0.2); Basophils % (auto) 0.4 %; Eosinophils # (auto) 0.59 K/uL (0-0.50); Eosinophils % (auto) 6.2 %; Hematocrit (blood only) 26.9 % (34.1-44.9); Hemoglobin 8.3 g/dl (12.0-16.0); Immature Granulocytes # (auto) 0.19 K/uL (0.00-0.02); Lymphocytes # (auto) 0.98 K/uL (1.2-3.4); Lymphocytes % (auto) 10.3 %; Mean Corpuscular Hemoglobin 27.8 pg (25.0-34.0); Mean Corpuscular Hgb Conc 30.9 g/dL (32.0-36.0); Monocytes # (auto) 1.23 K/uL (0.24-0.82); Monocytes % (auto) 12.9 %; Neutrophils % (auto) 68.2 %; Platelet Count 288 K/uL (130-400); RDW Coefficient of Variation 15.9 % (11.5-14.5); RDW Standard Deviation 52.8 fL (36.4-46.3); Red Blood Count 2.99 M/uL (3.93-5.22); White Blood Count 9.53 K/ul (4.8-10.8)
[2022-05-25 07:09] LABS: BUN Creatinine Ratio 30.1 (10-20); Calcium 8.3 mg/dl (8.5-10.1); Creatinine Clr Calc Pharmacy 68.2 ml/min; Est GFR (African American) 89.5 ml/min; Est GFR (Non-African American) 77.2 ml/min; Magnesium 2.1 mg/dl (1.7-2.4); Potassium 4.9 mmol/L (3.5-5.1)
--- NOTE | 2022-05-25 08:36 | Orthopedic Progress Note ---
Date of Service May 25, 2022 Assessment & Plan (1) Chronic dislocation of right shoulder: Plan: 82 yo female stable POD #1 s/p right shoulder dislocation/reduction 1. Med management 2. DVT prophylaxis- SCDs 3. PT/OT 4. D/C planning- per medicine, ortho to sign off Admission and Anticipated Discharge Date Admission Date: May 22, 2022 Subjective Pt resting in chair, states shoulder more comfortable Physical Exam Physical Exam: Sling in place right UE, fingers mobile NVI Results & Data ([facility]) Vital Signs (Past 12 Hours) Vital Signs Temp Pulse Pulse Resp BP Pulse Ox O2 Del Method 05/25/22 08:20 36.9 C 88 18 109/65 96 Room Air 05/25/22 04:17 36.8 C 85 18 130/63 96 Room Air 05/24/22 23:33 37.1 C 89 18 124/65 94 Room Air
[2022-05-25] MEDS: PRAMIPEXOLE DIHYDROCHLO 0.25 MG TAB PO SCH ×2 (08:48→21:17)
[2022-05-25] MEDS: PREGABALIN 50 MG CAP PO SCH (08:48)
[2022-05-25] MEDS: hydroCHLOROthiazide 25 MG TAB PO SCH (08:48)
[2022-05-25] MEDS: TELMISARTAN 40 MG TAB PO SCH (08:48)
[2022-05-25] MEDS: DULoxetine HCL 60 MG CAP PO SCH ×2 (08:48→21:17)
[2022-05-25] MEDS: CEROVITE ADV FORMULA TAB PO SCH ×2 (08:49→21:17)
[2022-05-25] MEDS: METOPROLOL SUCC 25MG EXT REL TAB PO SCH (08:49)
[2022-05-25] MEDS: FLUTICASONE PROPIONATE NA SPR 16 GM BTL SCH (08:50)
[2022-05-25] MEDS: cefTRIAXone SODIUM 2,000 MG in DEXTROSE 5% 50 ML IV SCH (08:50)
[2022-05-25] MEDS: PATIROMER CALCIUM SORBITEX 8.4 GM PACK PO SCH (08:50)
[2022-05-25] MEDS: HEPARIN SOD 5,000 UNIT/0.5 ML VIAL SQ SCH ×2 (08:51→21:16)
[2022-05-25] MEDS: ASPIRIN 81 MG ECTAB PO SCH (10:00)
[2022-05-25] MEDS: FERROUS GLUCONATE 324 MG TAB PO SCH (10:00)
[2022-05-25] MEDS: TAMSULOSIN HCL 0.4 MG CAP PO SCH (10:00)
--- NOTE | 2022-05-25 16:19 | Hospitalist Progress Note ---
Date of Service May 25, 2022 Assessment & Plan (1) Shoulder dislocation: Plan: pt has chronic right shoulder dislocation. X-ray results noted. She had closed reduction of the dislocation May 24. Her right arm is now in a sling. Appreciate orthopedic assistance (2) Leukocytosis: Plan: Due to UTI Now resolved (3) Acute UTI (urinary tract infection): Plan: Gram-negative rods are E. coli which is pansensitive. Currently on Rocephin, day 3. Blood culture results are negative to date but final results are pending. Will transition to PO antibiotics upon discharge (4) Anemia: Plan: Chronic. No overt GI bleeding. Transfuse as necessary. Serial lab studies. Known iron and B12 deficiency (5) CAD (coronary artery disease): Plan: Patient has a history of drug-eluting stent 2017 in mid RCA . Follows with Dr. Bruno. Currently on aspirin 81, metoprolol 12.5 telmisartan/hydrochlorothiazide rosuvastatin 20. No evidence of acute CO on presentation. (6) Hypertension: Plan: Controlled with current medical management. (7) Ashley cell cancer: Plan: History of surgery on her right hand with removal of [place] cell cancer in 2020 at (8) Restless leg syndrome, controlled: Plan: Treated with pregabalin and pramipexole. Controlled and stable (9) Depression: Plan: Stable on duloxetine Plan Occupational Therapy and physical therapy evaluations requested. Possible SNF placement at discharge. Admission and Anticipated Discharge Date Admission Date: May 22, 2022 Subjective patient seen and examined, was earlier seen ambulating the hallway Review of Systems Review of Systems: All systems reviewed are negative, apart from the ones contained in the history. Physical Exam Physical Exam: The patient is awake, alert and oriented 3, well developed and well nourished, normocephalic and atraumatic, lying in bed and in no acute distress. HEENT--PERRL, EOMI, mucous membranes and oropharynx mildly dry Neck--supple. No JVD. No bruits. Thyroid normal, trachea midline, no adenopathy. Heart--normal S1 and S2. No murmurs, rubs or gallops. Lungs--clear bilaterally, no respiratory distress, no accessory muscle use. Abdomen--normal bowel sounds and soft. Mild epigastric and left sided abdominal pain Extremities--right shoulder in sling Dermatologic--normal skin turgor, normal color, no abnormal lymph nodes, no rash. Neurologic--cranial nerves II through XII grossly intact. Rheumatologic--normal range of motion. Psychiatric--normal affect. Results & Data Results & Data ([facility]) Vital Signs (Past 12 Hours) Vital Signs Temp Pulse Resp BP Pulse Ox O2 Del Method 05/25/22 14:32 97.9 F 76 16 113/72 98 Room Air 05/25/22 11:42 97.5 F L 88 17 102/58 L 97 Room Air 05/25/22 08:20 98.4 F 88 18 109/65 96 Room Air 05/25/22 04:17 98.2 F 85 18 130/63 96 Room Air PG Care Time/CCT Total # of Minutes Spent Total Time Spent with Patient: Total time spent is greater than 50% in coordination of care (as documented) at patient's floor/unit and/or counseling patient: Coding Level of Care Code 77513 Subseq Hosp Care Lvl 2 Diagnoses Shoulder dislocation S43.006A Leukocytosis D72.829 Acute UTI (urinary tract infection) N39.0 Anemia D64.9 CAD (coronary artery disease) I25.10 Hypertension I10 [place] cell cancer C4A.9 Restless leg syndrome, controlled G25.81 Depression F32.A Time Spent (min) 35
[2022-05-25] MEDS: ROSUVASTATIN CALCIUM 20 MG TAB PO SCH (21:16)
[2022-05-25] MEDS: ACETAMINOPHEN 500 MG TAB PO PRN (22:49)
[2022-05-26] MEDS: PREGABALIN 50 MG CAP PO SCH (08:17)
[2022-05-26] MEDS: FERROUS GLUCONATE 324 MG TAB PO SCH (08:18)
[2022-05-26] MEDS: PRAMIPEXOLE DIHYDROCHLO 0.25 MG TAB PO SCH ×2 (08:18→20:06)
[2022-05-26] MEDS: METOPROLOL SUCC 25MG EXT REL TAB PO SCH (08:19)
[2022-05-26] MEDS: TAMSULOSIN HCL 0.4 MG CAP PO SCH (08:19)
[2022-05-26] MEDS: DULoxetine HCL 60 MG CAP PO SCH ×2 (08:19→20:05)
[2022-05-26] MEDS: hydroCHLOROthiazide 25 MG TAB PO SCH (08:19)
[2022-05-26] MEDS: TELMISARTAN 40 MG TAB PO SCH (08:20)
[2022-05-26] MEDS: ASPIRIN 81 MG ECTAB PO SCH (08:20)
[2022-05-26] MEDS: CEROVITE ADV FORMULA TAB PO SCH ×2 (08:20→20:07)
[2022-05-26] MEDS: cefTRIAXone SODIUM 2,000 MG in DEXTROSE 5% 50 ML IV SCH (08:21)
[2022-05-26] MEDS: HEPARIN SOD 5,000 UNIT/0.5 ML VIAL SQ SCH ×2 (08:21→20:05)
[2022-05-26] MEDS: FLUTICASONE PROPIONATE NA SPR 16 GM BTL SCH (08:21)
[2022-05-26] MEDS ORDERED: HYDROCORTISONE 1% CRM 30 GM TUBE EXT PRN (10:54)
[2022-05-26 11:11] LABS: BUN Creatinine Ratio 20.9 (10-20); Calcium 8.4 mg/dl (8.5-10.1); Creatinine Clr Calc Pharmacy 57.9 ml/min; Est GFR (African American) 73.4 ml/min; Est GFR (Non-African American) 63.4 ml/min; Potassium 4.3 mmol/L (3.5-5.1)
[2022-05-26] MEDS: PATIROMER CALCIUM SORBITEX 8.4 GM PACK PO SCH (13:51)
--- NOTE | 2022-05-26 13:53 | Hospitalist Progress Note ---
Date of Service May 26, 2022 Assessment & Plan (1) Shoulder dislocation: Plan: pt has chronic right shoulder dislocation. X-ray results noted. She had closed reduction of the dislocation May 24. Her right arm is now in a sling. Appreciate orthopedic assistance (2) Leukocytosis: Plan: Due to UTI Now resolved (3) Acute UTI (urinary tract infection): Plan: Possible sepsis due to UTI evidenced by 2/4 SIRS criteria Gram-negative rods are E. coli which is pansensitive. Currently on Rocephin, day 3. Blood culture results are negative to date but final results are pending. Will transition to PO antibiotics upon discharge (4) Anemia: Plan: Chronic. No overt GI bleeding. Transfuse as necessary. Serial lab studies. Known iron and B12 deficiency (5) CAD (coronary artery disease): Plan: Patient has a history of drug-eluting stent 2017 in mid RCA . Follows with Dr. Bruno. Currently on aspirin 81, metoprolol 12.5 telmisartan/hydrochlorothiazide rosuvastatin 20. No evidence of acute VT on presentation. (6) Hypertension: Plan: Controlled with current medical management. 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 Controlled and stable (9) Depression: Plan: Stable on duloxetine Plan Occupational Therapy and physical therapy evaluations requested. Possible SNF placement at discharge. Admission and Anticipated Discharge Date Admission Date: May 22, 2022 Subjective patient seen and examined, sitting up in the chair Review of Systems Review of Systems: All systems reviewed are negative, apart from the ones contained in the history. Physical Exam Physical Exam: The patient is awake, alert and oriented 3, well developed and well nourished, normocephalic and atraumatic, lying in bed and in no acute distress. HEENT--PERRL, EOMI, mucous membranes and oropharynx mildly dry Neck--supple. No JVD. No bruits. Thyroid normal, trachea midline, no adenopathy. Heart--normal S1 and S2. No murmurs, rubs or gallops. Lungs--clear bilaterally, no respiratory distress, no accessory muscle use. Abdomen--normal bowel sounds and soft. Mild epigastric and left sided abdominal pain Extremities--right shoulder in sling Dermatologic--normal skin turgor, normal color, no abnormal lymph nodes, no rash. Neurologic--cranial nerves II through XII grossly intact. Rheumatologic--normal range of motion. Psychiatric--normal affect. Results & Data Results & Data ([facility]) Vital Signs (Past 12 Hours) Vital Signs Temp Pulse Resp BP Pulse Ox O2 Del Method 05/26/22 08:00 Room Air 05/26/22 07:11 98.1 F 84 18 114/58 L 97 Room Air PG Care Time/CCT Total # of Minutes Spent Total Time Spent with Patient: Total time spent is greater than 50% in coordination of care (as documented) at patient's floor/unit and/or counseling patient: Coding Level of Care Code 52708 Subseq Hosp Care Lvl 2 Diagnoses Shoulder dislocation S43.006A Leukocytosis D72.829 Acute UTI (urinary tract infection) N39.0 Anemia D64.9 CAD (coronary artery disease) I25.10 Hypertension I10 [place] cell cancer C4A.9 Restless leg syndrome, controlled G25.81 Depression F32.A Time Spent (min) 35
[2022-05-26] MEDS ORDERED: FLUARIX QUADRIVALENT 0.5 ML SYR IM ONE (14:08)
[2022-05-26] MEDS: ACETAMINOPHEN 500 MG TAB PO PRN (20:04)
[2022-05-26] MEDS: ROSUVASTATIN CALCIUM 20 MG TAB PO SCH (20:07)
[2022-05-27] MEDS: DULoxetine HCL 60 MG CAP PO SCH (07:54)
[2022-05-27] MEDS: CEROVITE ADV FORMULA TAB PO SCH (07:54)
[2022-05-27] MEDS: TELMISARTAN 40 MG TAB PO SCH (07:54)
[2022-05-27] MEDS: hydroCHLOROthiazide 25 MG TAB PO SCH (07:54)
[2022-05-27] MEDS: PRAMIPEXOLE DIHYDROCHLO 0.25 MG TAB PO SCH (07:54)
[2022-05-27] MEDS: ASPIRIN 81 MG ECTAB PO SCH (07:54)
[2022-05-27] MEDS: FERROUS GLUCONATE 324 MG TAB PO SCH (07:55)
[2022-05-27] MEDS: FLUTICASONE PROPIONATE NA SPR 16 GM BTL SCH (07:55)
[2022-05-27] MEDS: TAMSULOSIN HCL 0.4 MG CAP PO SCH (07:55)
[2022-05-27] MEDS: METOPROLOL SUCC 25MG EXT REL TAB PO SCH (07:55)
[2022-05-27] MEDS: HEPARIN SOD 5,000 UNIT/0.5 ML VIAL SQ SCH (07:56)
[2022-05-27] MEDS: PREGABALIN 50 MG CAP PO SCH (08:01)
[2022-05-27] MEDS: PATIROMER CALCIUM SORBITEX 8.4 GM PACK PO SCH (08:01)
[2022-05-27] MEDS: cefTRIAXone SODIUM 2,000 MG in DEXTROSE 5% 50 ML IV SCH (08:05)
[2022-05-27 08:57] LABS: Hematocrit (blood only) 28.1 % (34.1-44.9); Hemoglobin 8.8 g/dl (12.0-16.0); Mean Corpuscular Hemoglobin 28.1 pg (25.0-34.0); Mean Corpuscular Hgb Conc 31.3 g/dL (32.0-36.0); Mean Corpuscular Volume 89.8 fL (80.0-100.0); Mean Platelet Volume 10.4 fL (9.4-12.3); Platelet Count 291 K/uL (130-400); RDW Coefficient of Variation 15.9 % (11.5-14.5); Red Blood Count 3.13 M/uL (3.93-5.22); White Blood Count 10.59 K/ul (4.8-10.8)
[2022-05-27 09:16] LABS: BUN Creatinine Ratio 25.6 (10-20); Calcium 8.3 mg/dl (8.5-10.1); Creatinine Clr Calc Pharmacy 57.9 ml/min; Est GFR (African American) 73.4 ml/min; Est GFR (Non-African American) 63.4 ml/min; Potassium 4.6 mmol/L (3.5-5.1)
--- NOTE | 2022-05-27 15:44 | Discharge Summary ---
Date of Service May 27, 2022 Admission HPI Per Admitting Provider 82 F presents with shortness of breath for one day, was hypothermic and hypotensive in the ER improved BP after bear hugger blood pressure improved, and initial survey did not show pneumonia on CXR and biofire is negative, she is not hypoxic, she does have history of [place] cell cancer in her right hand and DVT x2 in the past. She is chronically anemic followed by [facility] hematology willis Patient says she has no other symptoms she just felt she was short of breath she is not have any coryza symptoms nausea vomiting diarrhea urinary symptoms or focal problems of joints or skin she does have some peripheral edema which is chronic for her pending studies are urine eval blood cultures lactic acid, she has an incidentally noted anterior shoulder dislocation on CXR this maybe from a fall February 09 , she has seen [facility] in the past Principal Diagnosis acute on chronic shoulder dislocation, UTI Discharge Exam The patient is awake, alert and oriented 3, well developed and well nourished, normocephalic and atraumatic, lying in bed and in no acute distress. HEENT--PERRL, EOMI, mucous membranes and oropharynx mildly dry Neck--supple. No JVD. No bruits. Thyroid normal, trachea midline, no adenopathy. Heart--normal S1 and S2. No murmurs, rubs or gallops. Lungs--clear bilaterally, no respiratory distress, no accessory muscle use. Abdomen--normal bowel sounds and soft. Mild epigastric and left sided abdominal pain Extremities--right shoulder in sling Dermatologic--normal skin turgor, normal color, no abnormal lymph nodes, no rash. Neurologic--cranial nerves II through XII grossly intact. Rheumatologic--normal range of motion. Psychiatric--normal affect. Discharge Data Allergies Allergy/AdvReac Type Severity Reaction Status Date / Time cyclobenzaprine Allergy Unknown PASSED OUT Verified 03/23/22 15:20 hydrocodone Allergy Unknown SHORTNESS Verified 03/23/22 15:20 OF BREATH ketorolac Allergy Unknown Unknown Verified 03/23/22 15:20 oxaprozin Allergy Unknown RASH Verified 03/23/22 15:20 sulfamethoxazole Allergy Unknown INCREASED Verified 03/23/22 15:20 POTASSIUM LEVELS trimethoprim Allergy Unknown INCREASED Verified 03/23/22 15:20 POTASSIUM LEVELS azithromycin AdvReac Intermediate UPSET Verified 03/23/22 15:20 STOMACH erythromycin base AdvReac Mild N/V Verified 03/23/22 15:20 lisinopril AdvReac Mild cough Verified 03/23/22 15:20 sertraline AdvReac Mild MOOD SWING Verified 03/23/22 15:20 Consultations 05/22/22 17:25 ED Decision to Admit Stat 05/22/22 21:30 Consult Orthopedic Surgery Routine Procedures Performed Operation Date: 05/24/22 12:00 Actual Procedures p Closed Reduction Extremity(Right) - Alex Sky, Ordered Studies 05/22/22 17:40 CT angio chest PE protocol Stat 05/24/22 FL shoulder RT min 2V Routine Hospital Course (1) Shoulder dislocation: pt has chronic right shoulder dislocation. X-ray results noted. She had closed reduction of the dislocation May 24. Her right arm is now in a sling. Appreciate orthopedic assistance (2) Leukocytosis: Due to UTI Now resolved (3) Acute UTI (urinary tract infection): Possible sepsis due to UTI evidenced by 2/4 SIRS criteria Gram-negative rods are E. coli which is pansensitive. Completed 4 days of rocephin, discharge on PO cephalexin for 3 more days Blood culture results are negative to date but final results are pending. (4) Anemia: Chronic. No overt GI bleeding. Transfuse as necessary. Serial lab studies. Known iron and B12 deficiency (5) CAD (coronary artery disease): Patient has a history of drug-eluting stent 2017 in mid RCA . Follows with Dr. Bruno. Currently on aspirin 81, metoprolol 12.5 telmisartan/hydrochlorothiazide rosuvastatin 20. No evidence of acute TN on presentation. (6) Hypertension: Controlled with current medical management. 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 Controlled and stable (9) Depression: Stable on duloxetine Plan Occupational Therapy and physical therapy evaluations requested. Possible SNF placement at discharge. Total Time Total Time Spent Total Time Spent (In Minutes): 35 Discharge Plan Discharge Items Patient Disposition: Transfer Snf Fac Reason For Visit: LEUKOCYTOSIS, ANEMIA, ANT SHOULDER DISLOC Discharge Diagnosis: right shoulder dislocation, UTI Activity: Resume your previous activity Non-emergency contact: Primary Care Provider Call non-emergency contact if: you have any medication questions Follow-up/Referrals: Hattie Chatterjee PA-C [Primary Care Provider] - Diet: Regular Addtl Attending Provider Instructions: please make appointment to follow up with your orthopedics Addtl [employer] Provider Instructions: Maintain sling at all times right upper extremity. May remove to shower but keep arm at the side at all times. May do elbow, wrist, hand range of motion with elbow at the side. Ice to shoulder as needed. Follow-up with Dr Sky ~ [address] [facility], call [phone] for appt or questions/concerns Pending Studies at Discharge: No Stand-Alone Forms: [facility] Skilled Items Patient informed of condition?: Yes DNR: No Discharge Level of Care: Skilled Communicable Disease: No Discharge Prognosis: Stable Lines: None Urinary Catheter: No Medications and DC Order Prescriptions: New cephalexin 500 mg capsule 500 mg PO BID 3 Days Qty: 6 0RF Continued meclizine 25 mg tablet 25 mg PO TID PRN (Reason: dizziness) Qty: 90 0RF aspirin 81 mg tablet,delayed release (DR/EC) 81 mg PO DAILY Qty: 90 3RF hydrochlorothiazide 25 mg tablet 25 mg PO QAM Qty: 90 3RF rosuvastatin 20 mg tablet 20 mg PO HS Qty: 90 3RF metoprolol succinate 25 mg tablet extended release 24 hr 12.5 mg PO QAM Qty: 45 3RF nitroglycerin [Nitrostat] 0.4 mg tablet, sublingual 0.4 mg Sublingual Q5M PRN (Reason: Chest Pain) Qty: 25 4RF pregabalin [Lyrica] 50 mg capsule 50 mg PO DAILY meloxicam 15 mg tablet 15 mg PO DAILY tamsulosin 0.4 mg capsule 0.4 mg PO DAILY Rx Instructions: take 30 min after same meal each day pramipexole 0.125 mg tablet 0.125 mg PO BID colestipol 1 gram tablet 2 g PO BID fluticasone propionate [Flonase Allergy Relief] 50 mcg/actuation sp ray,suspension 1 spray intranasal DAILY Rx Instructions: administer into each nostril PreserVision AREDS-2 [id number] Capsule 1 tab PO BID Prolia 60 mg/mL syringe 60 mg SUBCUT Q6MO ferrous gluconate 256 mg (28 mg iron) tablet 256 mg PO DAILY cyanocobalamin (vitamin B-12) 1,000 mcg/mL solution 1 dose subcut MONTHLY duloxetine 60 mg capsule,delayed release(DR/EC) 60 mg PO BID Caltrate 600 plus D 600 mg (1,500 mg)-800 unit Tablet,Chewable 1 tab PO BID famotidine 20 mg tablet 20 mg PO Q12 PRN (Reason: Heartburn) telmisartan 40 mg tablet 40 mg PO DAILY Rx Instructions: TAKE 1 TABLET BY MOUTH EVERY DAY Discharge Orders: Discharge Order (Routine); Ordered 05/27/22 Ordered By: Mary aGrrett Admission Data Admit Date/Time: 05/22/22 17:27 Attending Provider: Mary Garrett Admit Provider: Gutierrez Orozco Primary Care Provider: Hattie Chatterjee Other Providers: Gutierrez Orozco ; Gutierrez Davenport Other Interventions: Discharge Summary Assessment (RN) Last Done: 05/27/22 12:18 Coding Level of Care Code D/C DAY MANAGEMENT >30 MINS Diagnoses Shoulder dislocation S43.006A Leukocytosis D72.829 Acute UTI (urinary tract infection) N39.0 Anemia D64.9 CAD (coronary artery disease) I25.10 Hypertension I10 [place] cell cancer C4A.9 Restless leg syndrome, controlled G25.81 Depression F32.A Time Spent (min) 35
--- NOTE | 2022-06-08 14:06 | Coding Query ---
PRESENT ON ADMISSION QUERY To promote full compliance with coding requirements relating to pateint care, physician participation is requested in all cases of intelligence officer basic uncertainty. Please assist us with the question(s) below: Please place an X within the parenthesis (x). The following diagnosis(es) listed in this patient's medical record require physician assistance to determine if they were present on admission (POA) or not. Please advise for each diagnosis whether it was present on admission, not present on admission, or if it was clinically undetermined. 1.Sepsis --- documented in the 05/26 progress note as "Possible sepsis due to UTI evidenced by 2/4 SIRS criteria" ( ) Present On Admission ( xx) Not Present On Admission ( ) Clinically Undetermined Thank you Malia Lozano *Definition of the present on admission (POA)-Present on admission is defined as present at the time the order for inpatient admission occurs. Conditions that develop during an outpatient encounter prior to a written order for inpatient admission (including emergency department, observation, or outpatient surgery) are considered present on admission. RICCI
== END 2022-05-27 15:50 | DRG 563 ==
LOC: ED 14:24 → 3W 17:27 → SUATTDRO 17:27 → 3W 19:40

== ENCOUNTER 2022-08-03 08:49 | Observation (INO) ==
--- NOTE | 2022-07-17 14:02 | PAT Medication Instructions ---
Medication Instructions Date of Service July 17, 2022 Home Medications Medication Instructions Recorded aspirin 81 mg tablet,delayed 81 mg PO DAILY #90 tabs 01/05/22 release hydrochlorothiazide 25 mg tablet 25 mg PO QAM #90 tabs 02/09/22 metoprolol succinate 25 mg 12.5 mg PO QAM #45 tabs 04/08/22 tablet,extended release 24 hr nitroglycerin 0.4 mg sublingual 0.4 mg sublingual Q5M PRN Chest 05/11/22 tablet (Nitrostat) Pain #25 tabs calcium carbonate 600 mg-vitamin D3 20 mcg (800 unit) chewable tablet (Caltrate 600 plus D) 1 tab PO BID duloxetine 60 mg capsule,delayed release 60 mg PO BID denosumab 60 mg/mL subcutaneous syringe (Prolia) 60 mg subcut Q6MO OSTEOPEROSIS pregabalin 50 mg capsule (Lyrica) 50 mg PO DAILY meloxicam 15 mg tablet 15 mg PO DAILY tamsulosin 0.4 mg capsule 0.4 mg PO DAILY famotidine 20 mg tablet 20 mg PO Q12 PRN Heartburn colestipol 1 gram tablet 2 g PO BID ferrous gluconate 256 mg (28 mg iron) tablet 256 mg PO DAILY fluticasone propionate 50 mcg/actuation nasal spray,suspension (Flonase Allergy Relief) 1 spray intranasal DAILY aspirin 81 mg tablet,delayed release 81 mg PO DAILY hydrochlorothiazide 25 mg tablet 25 mg PO QAM metoprolol succinate 25 mg tablet,extended release 24 hr 12.5 mg PO QAM nitroglycerin 0.4 mg sublingual tablet (Nitrostat) 0.4 mg sublingual Q5M PRN Chest Pain telmisartan 40 mg tablet 20 mg PO DAILY cyanocobalamin (vitamin B-12) 1,000 mcg/mL oral drops (Vitamin B-12) 1 ml PO DAILY ergocalciferol (vitamin D2) 50,000 unit tablet 50,000 unit PO MONTHLY Continue as directed nitroglycerin 0.4 mg sublingual tablet (Nitrostat) 0.4 mg sublingual Q5M PRN Chest Pain (if needed) ASK your surgeon for instructions meloxicam 15 mg tablet 15 mg PO DAILY ASK your prescriber and surgeon denosumab 60 mg/mL subcutaneous syringe (Prolia) 60 mg subcut Q6MO OSTEOPEROSIS aspirin 81 mg tablet,delayed release 81 mg PO DAILY STOP taking 48 hours before surgery colestipol 1 gram tablet 2 g PO BID DO NOT take the morning of surgery calcium carbonate 600 mg-vitamin D3 20 mcg (800 unit) chewable tablet (Caltrate 600 plus D) 1 tab PO BID ferrous gluconate 256 mg (28 mg iron) tablet 256 mg PO DAILY hydrochlorothiazide 25 mg tablet 25 mg PO QAM telmisartan 40 mg tablet 20 mg PO DAILY cyanocobalamin (vitamin B-12) 1,000 mcg/mL oral drops (Vitamin B-12) 1 ml PO DAILY ergocalciferol (vitamin D2) 50,000 unit tablet 50,000 unit PO MONTHLY Take morning of surgery With a small sip of water, OTHERWISE NOTHING TO EAT OR DRINK AFTER MIDNIGHT: duloxetine 60 mg capsule,delayed release 60 mg PO BID pregabalin 50 mg capsule (Lyrica) 50 mg PO DAILY tamsulosin 0.4 mg capsule 0.4 mg PO DAILY famotidine 20 mg tablet 20 mg PO Q12 PRN Heartburn (if needed) fluticasone propionate 50 mcg/actuation nasal spray,suspension (Flonase Allergy Relief) 1 spray intranasal DAILY metoprolol succinate 25 mg tablet,extended release 24 hr 12.5 mg PO QAM Take evening before surgery calcium carbonate 600 mg-vitamin D3 20 mcg (800 unit) chewable tablet (Caltrate 600 plus D) 1 tab PO BID duloxetine 60 mg capsule,delayed release 60 mg PO BID famotidine 20 mg tablet 20 mg PO Q12 PRN Heartburn (if needed) Other Notes If you have any questions please call us at [phone] or [phone] or [phone] or [phone]
--- NOTE | 2022-07-22 15:01 | Anesthesiology Consultation ---
Date of Service July 22, 2022 Assessment & Plan (1) Encounter for pre-operative examination: Chart Review Chart Review: Acceptable Risk for Surgery (pending signed cardio note from 07/01/22 and preop Covid testing) and Patient seen in Pre Admission Testing -Awaiting signed cardio note from 07/01/22 - Check BSG AM DOS(hx of hypoglycemia) Hx of having issues with kidney function post op with past several surgeries Pt is NOT a good Same Day Joint candidate due to age and comorbidities Weight noted in documentation is patient estimated- did not get in scale due to being in wheelchair Per PAT appt on 07/22/22, patient resides at [facility]- getting preop Covid test 07/30/22. Pt denies any recent travel. Pt is vaccinated for Covid. Educated on importance of using Covid precautions one week prior to surgery Right triple arthrodesis, percutaneous tendo Achilles lengthening 03/09/19= Done under [facility] with LMA #4. Atraumatic insertion Teaching & Discussion Pre-Anesthesia Teaching/Discussion Notes: Instructed NPO after midnight before surgery,except medications with 15 cc of water. Medication instructions provided according to the PAT guidelines. History Surgery Operation Date: 08/03/22 09:20 Proposed Procedures p Right Reverse Total Shoulder Arthroplasty - Arnoldo Schulz MD Height/Weight Height: 5 ft Weight: 94.801 kg Allergies Allergy/AdvReac Type Severity Reaction Status Date / Time cyclobenzaprine Allergy Unknown PASSED OUT Verified 07/17/22 11:49 hydrocodone Allergy Unknown SHORTNESS Verified 07/17/22 11:49 OF BREATH ketorolac Allergy Unknown Unknown Verified 07/17/22 11:49 oxaprozin Allergy Unknown RASH Verified 07/17/22 11:49 sulfamethoxazole Allergy Unknown INCREASED Verified 07/17/22 11:49 POTASSIUM LEVELS trimethoprim Allergy Unknown INCREASED Verified 07/17/22 11:49 POTASSIUM LEVELS azithromycin AdvReac Intermediate UPSET Verified 07/17/22 11:49 STOMACH erythromycin base AdvReac Mild N/V Verified 07/17/22 11:49 lisinopril AdvReac Mild cough Verified 07/17/22 11:49 sertraline AdvReac Mild MOOD SWING Verified 07/17/22 11:49 Medications Home Medications Medication Instructions Recorded Confirmed Last Taken calcium carbonate 600 mg-vitamin 1 tab PO BID 02/19/18 07/17/22 08/01/20 D3 20 mcg (800 unit) chewable tablet (Caltrate 600 plus D) duloxetine 60 mg capsule,delayed 60 mg PO BID 02/19/18 07/17/22 08/01/20 release denosumab 60 mg/mL subcutaneous 60 mg subcut Q6MO OSTEOPEROSIS 02/08/19 07/17/22 03/06/20 syringe (Prolia) pregabalin 50 mg capsule (Lyrica) 50 mg PO DAILY 09/24/20 07/17/22 Unknown meloxicam 15 mg tablet 15 mg PO DAILY 04/04/21 07/17/22 Unknown tamsulosin 0.4 mg capsule 0.4 mg PO DAILY 04/04/21 07/17/22 Unknown famotidine 20 mg tablet 20 mg PO Q12 PRN Heartburn 05/13/21 07/17/22 Unknown colestipol 1 gram tablet 2 g PO BID 12/03/21 07/17/22 Unknown ferrous gluconate 256 mg (28 mg 256 mg PO DAILY 12/03/21 07/17/22 Unknown iron) tablet fluticasone propionate 50 1 spray intranasal DAILY 12/03/21 07/17/22 Unknown mcg/actuation nasal spray,suspension (Flonase Allergy Relief) aspirin 81 mg tablet,delayed 81 mg PO DAILY #90 tabs 01/05/22 07/17/22 Unknown release hydrochlorothiazide 25 mg tablet 25 mg PO QAM #90 tabs 02/09/22 07/17/22 Unknown metoprolol succinate 25 mg 12.5 mg PO QAM #45 tabs 04/08/22 07/17/22 Unknown tablet,extended release 24 hr nitroglycerin 0.4 mg sublingual 0.4 mg sublingual Q5M PRN Chest 05/11/22 07/17/22 Unknown tablet (Nitrostat) Pain #25 tabs telmisartan 40 mg tablet 20 mg PO DAILY 05/22/22 07/17/22 Unknown cyanocobalamin (vitamin B-12) 1 ml PO DAILY 07/17/22 07/17/22 Unknown 1,000 mcg/mL oral drops (Vitamin B-12) ergocalciferol (vitamin D2) 50,000 50,000 unit PO MONTHLY 07/17/22 07/17/22 Unknown unit tablet Past Medical History Medical History (Updated 07/22/22 @ 16:04 by Temitope Fuchs PA-C) Ambulatory dysfunction Needs assist x2 to ambulate per [facility] record Uses walker to ambulate per patient- can transfer herself out of wheelchair Anemia Gets iron infusions PRN Last blood transfusion 3-4 months ago CAD (coronary artery disease) MD 2015, s/p cardiac stent x 1 (CAPRICE to RCA) Chronic dislocation of right shoulder CKD (chronic kidney disease) Has had issues with past several surgeries with kidney function post op DVT (deep venous thrombosis) 1st DVT occurred s/p gastric bypass in 1988; 2nd DVT occurred in right arm s/ p PICC LINE inserted for IV ABX for treatment of MRSA (s/p LUCIUS) GERD (gastroesophageal reflux disease) Well controlled and stable History of endometrial cancer s/p hysterectomy- no chemo or XRT History of heart attack 06/19/16 STEMI...CATH ([facility]) 06/22/16 rec'd single CAPRICE to RCA. History of kidney stones No recent issues History of MRSA infection S/P L HIP SURGERY History of neck injury 03/2018 slipped in shower, was evaluated in [facility] ED, consult with Dr Brown, sent home in [facility]. Had OP f/u with Stephanie's office, per pt no further f/u needed. 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- denies limb restriction Morbid obesity with BMI of 40.0-44.9, adult Osteoporosis RLS (restless legs syndrome) Exercise / Class Metabolic Activity IV < 2 Limit ADL/Bedbound (uses walker for short distances ambulation otherwise in wheelchair ) Past Surgical History Surgical History History of appendectomy History of back surgery "CAGE" - LOWER BACK History of cholecystectomy History of colonoscopy History of gastric bypass History of hip surgery LEFT , CALCIUM DEPOSITS REMOVED History of hysterectomy "COMPLETE" History of reduction of closed dislocation right shoulder 05/24/22 @ [facility] Status post total knee replacement, bilateral Past Anesthesia History No Hx of Anesthesia Complications and No Family Hx of Anesthesia Complications History of PONV No Hx of PONV and No Hx of Motion Sickness Social History Smoking Status: Never smoker Do You Dip or Chew Tobacco: No Hx Alcohol Use: No Hx Substance Use: No substance use type: does not use Review of Systems Patient denies chest pain, shortness of breath, dyspnea on exertion, cough, wheezing, palpitations. No hx of seizures, stroke, apnea/snoring. Physical Exam Vital Signs VITALS BP 109/68 P 72 TEMP 98.1 SP02 97% RESP 16 Constitutional no acute distress ENMT Mouth: no TMJ clicking Thyromental Distance: > or= 3.5 Finger Breadths (3.5) Mallampati Class: III Full dentures top and bottom Neck + limited neck extension (mild) Respiratory normal respiratory effort; no respiratory distress Auscultation: lungs clear to auscultation bilaterally; no wheezes Cardiovascular Rate/Rhythm: regular rate and regular rhythm Heart Sounds: no murmur Vessels: no carotid bruit Musculoskeletal Spine: + pain with cervical ROM (mild) Extremities: extremities normal to inspection Psychiatric Orientation: alert Lab Results Anesthesia Preop Results Results Anesthesia Widget: WBC 8.49 K/ul (4.8-10.8) 07/22/22 Hgb 9.2 g/dl (12.0-16.0) L 07/22/22 Hct 30.1 % (37.0-47.0) L 07/22/22 Plt 215 K/uL (130-400) 07/22/22 Na 137 mmol/L (136-145) 07/22/22 K 4.9 mmol/L (3.5-5.1) 07/22/22 Cl 108 mmol/L (98-107) H 07/22/22 CO2 24 mmol/L (21-32) 07/22/22 BUN 28 mg/dl (6-23) H 07/22/22 Creat 1.18 mg/dl (0.6-1.2) 07/22/22 Glucose Level 91 mg/dl (70-99(Fasting)) 07/22/22 PT 10.8 Seconds (9.0-12.0) 07/22/22 PTT 26.1 Seconds (21.0-31.0) 07/22/22 INR 1.0 (0.9-1.1) 07/22/22 HA1c 5.7 % (4.5-5.6) H 07/22/22 Blood Type A Positive 07/22/22 Antibody Screen NEGATIVE 07/22/22 Testing Laboratory Results Anemia chronic and stable since at least 2018- surgeon's office informed- will leave to surgeon's discretion on how to proceed Electrocardiogram Date: 05/22/22 Findings: + NSR @ (71bpm ) and + no change from (Feb per cardio) Chest X-Ray Date: 07/22/22 FINDINGS: There is a right anterior shoulder dislocation. Degenerative changes noted within the bilateral shoulders. No pneumothorax. No pleural effusions. Surgical clips within the epigastric region. The heart remains mildly enlarged. No focal lung consolidations to suggest a pneumonia. No evidence for pulmonary edema. IMPRESSION: 1. No acute cardiopulmonary process. 2. Stable mild cardiomegaly. 3. Right anterior shoulder dislocation again noted. Echocardiogram Date: 04/20/22 EF: 65-70% LV Function: normal RWMA: + none Other Findings: + diastolic dysfunction (Grade I ); no LVH Mild left atrial dilation Mild AR. Moderate MR. Mild TR. Minimal elevated RVSP. Normal estimated central venous pressure Compared to ECHO from Jun 06, 2018- no significant change in aortic regurgitation or LV systolic function. Increase in the mitral and tricuspid regurgitation Other Testing Chest CTA 05/22/22= No evidence of pulmonary embolism. Severe degenerative changes of the bilateral shoulder joints with chronic appearing anterior dislocation of the right shoulder joint with surrounding, likely reactive fluid collections and calcifications. Stable pulmonary nodules.
[~2022-08-03 08:49] MED LIST changes: +ACETAMINOPHEN 500 MG TAB PO SCH; +BUPIVACAINE 0.5 % 5 MG/1 ML MPF 30ML VIAL ONE; -BUPIVACAINE/EPINEPHRINE 0.5% MPF 1:200,000 30 ML VIAL ONE; +CeleBREX 200 MG CAP PO SCH; +ceFAZolin 2000MG 2,000 MG/15 ML SYR IV SCH
[2022-08-03] MEDS: ALLERGY Noted to ORDERED Medication SCH ×5 (11:43→18:41)
--- NOTE | 2022-08-03 12:50 | History & Physical Report ---
Date of Service August 03, 2022 Assessment & Plan (1) Fracture of proximal humerus with nonunion: Plan: I have recommended proceeding with a reverse total shoulder replacement. I explained the risk benefits and alternatives to her and she has consented to proceed. History of Present Illness Chief Complaint: Nonunion right proximal humerus fracture Primary Care Provider: Hattie Chatterjee PA-C Brandi is an 82-year-old woman who fell at home last April. She suffered a proximal right humerus fracture initially treated nonoperatively. Subsequent follow-up showed failure to heal and a nonunion. Due to persistent pain and dysfunction I have recommended proceeding with a reverse total shoulder replacement Allergies Allergy/AdvReac Type Severity Reaction Status Date / Time cyclobenzaprine Allergy Unknown PASSED OUT Verified 08/03/22 11:14 hydrocodone Allergy Unknown SHORTNESS Verified 08/03/22 11:14 OF BREATH ketorolac Allergy Unknown Unknown Verified 08/03/22 11:14 oxaprozin Allergy Unknown RASH Verified 08/03/22 11:14 sulfamethoxazole Allergy Unknown INCREASED Verified 08/03/22 11:14 POTASSIUM LEVELS trimethoprim Allergy Unknown INCREASED Verified 08/03/22 11:14 POTASSIUM LEVELS azithromycin AdvReac Intermediate UPSET Verified 08/03/22 11:14 STOMACH erythromycin base AdvReac Mild N/V Verified 07/17/22 11:49 lisinopril AdvReac Mild cough Verified 08/03/22 11:14 sertraline AdvReac Mild MOOD SWING Verified 08/03/22 11:14 Home Medications Medication Instructions Recorded Confirmed Type calcium carbonate 600 mg-vitamin 1 tab PO BID 02/19/18 08/03/22 History D3 20 mcg (800 unit) chewable tablet (Caltrate 600 plus D) duloxetine 60 mg capsule,delayed 60 mg PO BID 02/19/18 08/03/22 History release denosumab 60 mg/mL subcutaneous 60 mg subcut Q6MO OSTEOPEROSIS 02/08/19 08/03/22 History syringe (Prolia) pregabalin 50 mg capsule (Lyrica) 50 mg PO DAILY 09/24/20 08/03/22 History meloxicam 15 mg tablet 15 mg PO DAILY 04/04/21 08/03/22 History tamsulosin 0.4 mg capsule 0.4 mg PO DAILY 04/04/21 08/03/22 History famotidine 20 mg tablet 20 mg PO Q12 PRN Heartburn 05/13/21 08/03/22 History colestipol 1 gram tablet 2 g PO BID 12/03/21 08/03/22 History ferrous gluconate 256 mg (28 mg 256 mg PO DAILY 12/03/21 08/03/22 History iron) tablet fluticasone propionate 50 1 spray intranasal DAILY 12/03/21 08/03/22 History mcg/actuation nasal spray,suspension (Flonase Allergy Relief) aspirin 81 mg tablet,delayed 81 mg PO DAILY #90 tabs 01/05/22 08/03/22 Rx release hydrochlorothiazide 25 mg tablet 25 mg PO QAM #90 tabs 02/09/22 08/03/22 Rx metoprolol succinate 25 mg 12.5 mg PO QAM #45 tabs 04/08/22 08/03/22 Rx tablet,extended release 24 hr nitroglycerin 0.4 mg sublingual 0.4 mg sublingual Q5M PRN Chest 05/11/22 08/03/22 Rx tablet (Nitrostat) Pain #25 tabs telmisartan 40 mg tablet 20 mg PO DAILY 05/22/22 08/03/22 History cyanocobalamin (vitamin B-12) 1 ml PO DAILY 07/17/22 08/03/22 History 1,000 mcg/mL oral drops (Vitamin B-12) ergocalciferol (vitamin D2) 50,000 50,000 unit PO MONTHLY 07/17/22 08/03/22 His tory unit tablet acetaminophen 325 mg tablet 650 mg PO QID PRN Pain 08/03/22 08/03/22 History meclizine 25 mg tablet 25 mg PO TID PRN Dizziness 08/03/22 08/03/22 History rosuvastatin 20 mg tablet 20 mg PO DAILY 08/03/22 08/03/22 History Past Med/Surg History Medical History Ambulatory dysfunction Needs assist x2 to ambulate per [facility] record Uses walker to ambulate per patient- can transfer herself out of wheelchair Anemia Gets iron infusions PRN Last blood transfusion 3-4 months ago CAD (coronary artery disease) OR 2016, s/p cardiac stent x 1 (CAPRICE to RCA) Chronic dislocation of right shoulder CKD (chronic kidney disease) Has had issues with past several surgeries with kidney function post op DVT (deep venous thrombosis) 1st DVT occurred s/p gastric bypass in 1988; 2nd DVT occurred in right arm s/p PICC LINE inserted for IV ABX for treatment of MRSA (s/p LUCIUS) GERD (gastroesophageal reflux disease) Well controlled and stable History of endometrial cancer s/p hysterectomy- no chemo or XRT History of heart attack 06/19/16 STEMI...CATH ([facility]) 06/22/16 rec'd single CAPRICE to RCA. History of kidney stones No recent issues History of MRSA infection S/P L HIP SURGERY History of neck injury 03/2018 slipped in shower, was evaluated in [facility] ED, consult with Dr Brown, sent home in [facility]. Had OP f/u with Stephanie's office, per pt no further f/u needed. 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- denies limb restriction Morbid obesity with BMI of 40.0-44.9, adult Osteoporosis RLS (restless legs syndrome) Surgical History History of appendectomy History of back surgery "CAGE" - LOWER BACK History of cholecystectomy History of colonoscopy History of gastric bypass History of hip surgery LEFT , CALCIUM DEPOSITS REMOVED History of hysterectomy "COMPLETE" History of reduction of closed dislocation right shoulder 05/24/22 @ [facility] Status post total knee replacement, bilateral Social History Smoking Status: Never smoker Second Hand Exposure: No; Do You Dip or Chew Tobacco: No; Tobacco Cessation Education Requested by Patient: No Hx Alcohol Use: No Hx Substance Use: No Preferred Language: Thai Communication Ability: Effective Communication Ability Comment: pt can sign own consents Visual Impairment: No Limitations Hearing Ability: Normal Clin Asst Required: No Beliefs That Will Affect Care: None marital status: / Current Living Situation: Personal Care Facility Current Living Situation Comment: inpatient at [facility] How many Children do You have: 2 Other Information That Helps Us Care for You: No Assistive Devices: Walker and Wheelchair Assistive Devices Comment: 2 assist to ambulate Physical Exam Constitutional: Well developed, well nourished, no acute distress Eyes: PERRL, conjunctivae normal, anicteric sclerae Neck: Supple Respiratory: Clear to auscultation Cardiovascular: Regular rate and rhythm Gastrointestinal (Abdomen): Soft nontender Musculoskeletal: Right shoulder crepitus and pain. Limited abduction and forward flexion due to pain. Radial median and ulnar nerves are intact. Skin: Clean dry and intact Results & Data Results & Data ([facility]) Vital Signs (Past 12 Hours) Vital Signs Temp Pulse Resp BP Pulse Ox O2 Del Method 08/03/22 11:30 36.5 C 73 18 146/53 H 100 Room Air Laboratory Results Preop hemoglobin was 7.7. She received 1 unit of packed red blood cells 2 days ago. Hemoglobin yesterday was 10.0. Diagnostic Findings -Right shoulder x-rays -nonunion proximal humerus fracture r Code Status & VTE Plan VTE Prophylaxis Plan VTE Prophylaxis will be ordered: Yes
[2022-08-03] MEDS ORDERED: fentaNYL citrate 100 MCG/2 ML VIAL IV PRN (13:07)
[2022-08-03] MEDS ORDERED: ePHEDrine sulfate 50 MG/ML AMP IV PRN (13:07)
[2022-08-03] MEDS ORDERED: ONDANSETRON INJ 2 MG/ML 2 ML VIAL IV PRN ×2 (13:07→15:56)
[2022-08-03] MEDS ORDERED: ATROPINE SULFATE 0.1 MG/ML 10ML SYR IV PRN (13:07)
[2022-08-03] MEDS ORDERED: fentaNYL citrate 100 MCG/2 ML VIAL ONE (13:42)
[2022-08-03] MEDS ORDERED: VANCOMYCIN HCL 1000MG/20ML VIAL ONE (14:36)
[2022-08-03] MEDS ORDERED: ePHEDrine sulfate 50 MG/ML AMP ONE (14:57)
[2022-08-03] MEDS ORDERED: WATER, STERILE FOR INJ 10 ML VIAL ONE (14:57)
[2022-08-03] MEDS ORDERED: PHENYLEPHRINE HCL 10 MG/ML VIAL ONE (14:57)
[2022-08-03] MEDS ORDERED: LARYING-O-JET KIT (LTA) ONE (15:34)
[2022-08-03] MEDS ORDERED: DEXAMETHASONE SOD INJ 4 MG/ML VIAL ONE (15:34)
[2022-08-03] MEDS ORDERED: ONDANSETRON INJ 2 MG/ML 2 ML VIAL ONE ×2 (15:34→16:02)
[2022-08-03] MEDS ORDERED: PROPOFOL IV EMULSION 10 MG/ML 20 ML VIAL IV ONE (15:34)
--- NOTE | 2022-08-03 15:53 | Post Operative Brief Note ---
Immediate Post Op Note v1 Date of Surgery August 03, 2022 Pre & Post Diagnosis Operation Date: 08/03/22 13:10 Pre-Op Diagnosis: Right Shoulder Osteoarthritis Post-Op Diagnosis: Right Shoulder Osteoarthritis I identified the patient and participated in the time-out.: Yes Procedure Operation Date: 08/03/22 13:10 Actual Procedures p Right Reverse Total Shoulder Arthroplasty(Right) - Arnoldo Schulz MD Surgeon Arnoldo Schulz MD [employer] Fitness And Wellness Director Amy Paulino PA-C Estimated Blood Loss 30 Findings Consistent with Post-Op Diagnosis Chronic anterior shoulder dislocation Anesthesia Type General Regional Complications No complications
[2022-08-03] MEDS ORDERED: VANCOMYCIN CONSULT ACTIVE PRN (15:56)
[2022-08-03] MEDS ORDERED: bisacodyL 10 MG SUPP PR PRN (15:56)
[2022-08-03] MEDS ORDERED: MAGNESIUM HYDROXIDE SUSP 30 ML UDC PO PRN (15:56)
[2022-08-03] MEDS ORDERED: NALOXONE HCL 0.4 MG/1 ML VIAL/CARP IV PRN (15:56)
[2022-08-03] MEDS ORDERED: oxyCODONE HCL IR 5 MG TAB (IMMEDIATE RELEASE) PO PRN (15:56)
[2022-08-03] MEDS ORDERED: METOCLOPRAMIDE HCL INJ 5 MG/ML 2 ML VIAL IV PRN (15:56)
--- NOTE | 2022-08-03 15:56 | Operative Report ---
Post Operative Report Pre & Post Diagnosis Operation Date: 08/03/22 13:10 Pre-Op Diagnosis: Right Shoulder Osteoarthritis Post-Op Diagnosis: Right Shoulder Osteoarthritis I identified the patient and participated in the time-out.: Yes Procedure Operation Date: 08/03/22 13:10 Actual Procedures p Right Reverse Total Shoulder Arthroplasty(Right) - Arnoldo Schulz MD Surgeon Arnoldo Schulz MD Sewer And Inspector Amy Paulino PA-C Estimated Blood Loss 30 Findings Consistent with Post-Op Diagnosis Chronic anterior right shoulder dislocation Specimens Proximal humerus bone and cartilage Drains No drains Anesthesia Type General Regional Complications No complications Indications Brandi is an 82-year-old woman who fell suffering a dislocation to her right shoulder last April. Several attempts at closed reduction were unsuccessful and it remained anteriorly dislocated. Due to pain and dysfunction I recommended a reverse total shoulder replacement. I explained the risk benefits alternatives to her and she consented to proceed Description of Procedure Implants: Arthrex reverse total shoulder replacement. Humeral stem size 6 short. 36 mm +2 mm offset cup. 36 mm x +6 mm constrained polyethylene. 24 mm baseplate with 10 mm anterior augment. 30 mm post. 28, 28, and 24 mm locking screws. 36 mm +4 mm glenosphere Procedure: The patient was taken to the operating room. After verifying their identity and the surgical site they were placed in the beachchair position. All extremities were well-padded. The operative shoulder was sterilely prepped and draped in the usual fashion. A 4 inch incision was made anteriorly just lateral to the coracoid process and carried towards the axillary folds. The deltopectoral interval was identified and the cephalic vein and deltoid muscle were retracted laterally. A deep self-retaining retractor was placed. The capsule was exposed. The subscapularis was elevated off of the proximal humerus and tagged for later repair. The humeral head was exposed and recut at the anatomic neck. The humerus was reamed sequentially until appropriate cortical contact was identified. The trial component was placed in 30 degrees of retroversion. Retractors were placed to expose the glenoid. The remaining labral tissue including the biceps anchor was removed. The central pin was placed and the glenoid was reamed with the augmentation reamer. The augmented baseplate was impacted into place with 1 central 30 mm post and 3 peripheral locking screws. The glenosphere was impacted into place into the correct orientation and securely tested with a large clamp. Polyethylene components were trialed until an appropriately sized trial was identified that had full range of motion, good stability, good deltoid tension, and no signs of impingement. The trial humerus components were removed and the final components assembled and impacted into place. 30 degrees of retroversion was utilized. After reduction once again there was good range of motion, good stability, appropriate deltoid tension, and no signs of impingement. The joint was thoroughly irrigated. The subscapularis was repaired to the proximal humerus. The rotator interval was closed distally if there was any supraspinatus tendon left. The remaining incision was closed with 0 Vicryl 2-0 Vicryl and sid. A sterile Silverlon dressing was applied. The patient was placed in a shoulder immobilizer. The patient tolerated the procedure well and there were no intraoperative complications. Amy Paulino PA-C assisted in all aspects of the procedure including patient positioning, prepping and draping, manipulation of surgical instruments and retractors, wound closure, dressing placement, and compression wrap placement. I attest to the content of the Intraoperative Record and any orders documented therein. Any exceptions are noted below.
[2022-08-03] MEDS ORDERED: NITROGLYCERIN SL 0.4 MG/TAB TAB SL PRN (16:12)
[2022-08-03] MEDS ORDERED: MECLIZINE HCL 25 MG TAB PO PRN (16:12)
--- NOTE | 2022-08-03 16:59 | Anesthesiology Progress Note ---
Date of Service August 03, 2022 Anesthesia Post Procedure Vital Signs Vital Signs: Temp Pulse Pulse Resp BP Pulse Ox O2 Del Method 08/03/22 16:45 74 20 151/83 H 96 Room Air 08/03/22 16:35 76 14 137/51 L 100 Oxymask 08/03/22 16:25 78 17 133/49 L 97 Oxymask 08/03/22 16:19 36.0 C L 79 20 137/49 L 99 Oxymask 08/03/22 11:30 36.5 C 73 18 146/53 H 100 Room Air O2 Flow Rate 08/03/22 16:45 08/03/22 16:35 4 08/03/22 16:25 6 08/03/22 16:19 8 08/03/22 11:30 Transfer of Care Handoff Completed per policy Notes Mental Status: alert / awake / arousable and participated in evaluation Patient Amnestic to Procedure: Yes Nausea / Vomiting: adequately controlled Pain: adequately controlled Airway Patency, RR, SpO2: stable & adequate BP & HR: stable & adequate Hydration State: stable & adequate Anesthetic Complications: no major complications apparent and Pt Satisfied with anesthetic care
--- NOTE | 2022-08-03 17:08 | XRay Report ---
XR shoulder RT min 2V routine CLINICAL HISTORY: Post shoulder surgery COMPARISON: Right shoulder radiographs May 24, 2022. FINDINGS: Alignment of the reverse total right shoulder arthroplasty is anatomic. There is no peripr osthetic fracture or unexpected radiopaque foreign body. There are skin sid. IMPRESSION: Expected findings following reverse total right shoulder arthroplasty. ACT 112: Negative or not required by law. Electronically signed by: Jonatan Hernandez M.D. 08/03/2022 5:07 PM
[2022-08-03] MEDS: SODIUM CHLORIDE 0.9% 1000ML 1,000 ML IV SCH (18:07)
[2022-08-03] MEDS: FAMOTIDINE 20 MG TAB PO PRN (19:50)
--- NOTE | 2022-08-03 19:53 | Hospitalist Consultation ---
Date of Consultation August 03, 2022 Assessment & Plan (1) Fracture of proximal humerus with nonunion: 82yo Female with PMH HTN HLD CAD Depression Osteoarthritis here for right shoulder replacement surgery, s/p op day 1. -s/p op day 1 Right Reverse Total Shoulder Arthroplasty performed 08/03 -patient following with orthopedics received IVF, vancomysin 1 bag pain control with oxycodone -vitals stable peripheral pulses and sensation intact -CBC BMP ordered for am Rash -located in skin fold on left hip, likely candidiasis -ordered nystatin powder Osteoarthritis -patient may continue home medication pregabalin, duloxetine, tylenol Hypertension -patient may continue home medication telmisartan, HCTZ, metoprolol CAD -continue ASA 81mg Depression -continue duloxetine Hyperlipidemia -continue rosuvastatin Ambulatory dysfunction -patient to return to inpt rehab Constipation -continue docusate senna Urinary Difficulty -continue flomax FENa: regular Code Status: full DVT PPX: SCDs PT/OT: ordered Case Management: pending Dispo: med surg Lesly Desai D.O. PGY 2, FCM (2) Hypertension: (3) Ambulatory dysfunction: (4) CAD (coronary artery disease): (5) Depression: Supervising Physician Co-Signing Physician Notes Attending addendum: I have physically seen this patient, have supervised the medical residents activities, and agree with the H&P unless as otherwise noted. Assessment and Plan: Status post right reverse total shoulder arthroplasty on 08/03- Seen postoperatively is medically stable Pain control per primary orthopedic service CAD/hypertension- Continue telmisartan, HCTZ and metoprolol with hold parameters Resume aspirin when okay with primary service Check a basic metabolic panel in the a.m. Depression- Continue duloxetine Hyperlipidemia- Continue rosuvastatin Rash- Nystatin powder as ordered Remaining orders and notations as noted We will follow along during hospital stay History of Present Illness Reason for Consultation: Post op Attending Physician: Arnoldo Schulz MD History of Present Illness 82yo Female with PMH HTN HLD CAD Depression Osteoarthritis here for right shoulder replacement surgery, s/p op day 1. Patient had a fall back in April which caused dislocation of her right shoulder, was reduced in ED however would spontaneously dislocate again. Per discussion with her surgeon it would not heal without surgery, given her right shoulder arthritis they decided on a Right Reverse Total Shoulder Arthroplasty. Patient admitted to hospital today, surgery performed by Dr. Schulz. At this time patient states her pain is well controlled, states she feels better than she did prior to surgery. Patient denies any nausea vomitting fever loss of sensation or weakness, states she has urinated but has yet to pass gas, would like to eat her jello. Patient denies any confusion or brain fog. Patient states due to her fall in April she has had difficulty walking and was in physical therapy, was transferred from her inpatient physical therapy center for surgery today and states she will be transferred back tomorrow, looks forward to walking again. She states there is additional erythema in the skin fold on her left hip noticed by nursing today during her surgery, denies any pain in her hip or pain on palpation, is worried about infection, states she had MRSA and a bone biopsy done in that location before. Allergies Allergy/AdvReac Type Severity Reaction Status Date / Time cyclobenzaprine Allergy Unknown PASSED OUT Verified 08/03/22 11:14 hydrocodone Allergy Unknown SHORTNESS Verified 08/03/22 11:14 OF BREATH ketorolac Allergy Unknown Unknown Verified 08/03/22 11:14 oxaprozin Allergy Unknown RASH Verified 08/03/22 11:14 sulfamethoxazole Allergy Unknown INCREASED Verified 08/03/22 11:14 POTASSIUM LEVELS trimethoprim Allergy Unknown INCREASED Verified 08/03/22 11:14 POTASSIUM LEVELS azithromycin AdvReac Intermediate UPSET Verified 08/03/22 11:14 STOMACH erythromycin base AdvReac Mild N/V Verified 07/17/22 11:49 lisinopril AdvReac Mild cough Verified 08/03/22 11:14 sertraline AdvReac Mild MOOD SWING Verified 08/03/22 11:14 Home Medications Medication Instructions Recorded Confirmed Type calcium carbonate 600 mg-vitamin 1 tab PO BID 02/19/18 08/03/22 History D3 20 mcg (800 unit) chewable tablet (Caltrate 600 plus D) duloxetine 60 mg capsule,delayed 60 mg PO BID 02/19/18 08/03/22 History release denosumab 60 mg/mL subcutaneous 60 mg subcut Q6MO OSTEOPEROSIS 02/08/19 08/03/22 History syringe (Prolia) pregabalin 50 mg capsule (Lyrica) 50 mg PO DAILY 09/24/20 08/03/22 History tamsulosin 0.4 mg capsule 0.4 mg PO DAILY 04/04/21 08/03/22 History famotidine 20 mg tablet 20 mg PO Q12 PRN Heartburn 05/13/21 08/03/22 History colestipol 1 gram tablet 2 g PO BID 12/03/21 08/03/22 History ferrous gluconate 256 mg (28 mg 256 mg PO DAILY 12/03/21 08/03/22 History iron) tablet fluticasone propionate 50 1 spray intranasal DAILY 12/03/21 08/03/22 History mcg/actuation nasal spray,suspension (Flonase Allergy Relief) hydrochlorothiazide 25 mg tablet 25 mg PO QAM #90 tabs 02/09/22 08/03/22 Rx metoprolol succinate 25 mg 12.5 mg PO QAM #45 tabs 04/08/22 08/03/22 Rx tablet,extended release 24 hr nitroglycerin 0.4 mg sublingual 0.4 mg sublingual Q5M PRN Chest 05/11/22 08/03/22 Rx tablet (Nitrostat) Pain #25 tabs telmisartan 40 mg tablet 20 mg PO DAILY 05/22/22 08/03/22 History cyanocobalamin (vitamin B-12) 1 ml PO DAILY 07/17/22 08/03/22 History 1,000 mcg/mL oral drops (Vitamin B-12) ergocalciferol (vitamin D2) 50,000 50,000 unit PO MONTHLY 07/17/22 08/03/22 History unit tablet meclizine 25 mg tablet 25 mg PO TID PRN Dizziness 08/03/22 08/03/22 History rosuvastatin 20 mg tablet 20 mg PO DAILY 08/03/22 08/03/22 History acetaminophen 500 mg tablet 1,000 mg PO Q8 28 days #168 tabs 08/04/22 Rx (Tylenol Extra Strength) aspirin 81 mg tablet,delayed 81 mg PO BID 30 days #60 tabs 08/04/22 Rx release oxycodone 5 mg tablet 5 - 10 mg PO Q6H PRN pain #30 tabs 08/04/22 Rx Patient History Medical History Ambulatory dysfunction Needs assist x2 to ambulate per [facility] record Uses walker to ambulate per patient- can transfer herself out of wheelchair Anemia Gets iron infusions PRN Last blood transfusion 3-4 months ago CAD (coronary artery disease) MA 2016, s/p cardiac stent x 1 (CAPRICE to RCA) Chronic dislocation of right shoulder CKD (chronic kidney disease) Has had issues with past several surgeries with kidney function post op DVT (deep venous thrombosis) 1st DVT occurred s/p gastric bypass in 1988; 2nd DVT occurred in right arm s/p PICC LINE inserted for IV ABX for treatment of MRSA (s/p LUCIUS) GERD (gastroesophageal reflux disease) Well controlled and stable History of endometrial cancer s/p hysterectomy- no chemo or XRT History of heart attack 06/19/16 STEMI...CATH ([facility]) 06/22/16 rec'd single CAPRICE to RCA. History of kidney stones No recent issues History of MRSA infection S/P L HIP SURGERY History of neck injury 03/2018 slipped in shower, was evaluated in [facility] ED, consult with Dr Brown, sent home in [facility]. Had OP f/u with Stephanie's office, per pt no further f/u needed. 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- denies limb restriction Morbid obesity with BMI of 40.0-44.9, adult Osteoporosis RLS (restless legs syndrome) Surgical History History of appendectomy History of back surgery "CAGE" - LOWER BACK History of cholecystectomy History of colonoscopy History of gastric bypass History of hip surgery LEFT , CALCIUM DEPOSITS REMOVED History of hysterectomy "COMPLETE" History of reduction of closed dislocation right shoulder 05/24/22 @ [facility] Status post total knee replacement, bilateral Social History Smoking Status: Never smoker Second Hand Exposure: No; Do You Dip or Chew Tobacco: No; Tobacco Cessation Education Requested by Patient: No Hx Alcohol Use: No Hx Substance Use: No Preferred Language: Telugu Communication Ability: Effective Communication Ability Comment: pt can sign own consents Visual Impairment: No Limitations Hearing Ability: Normal Manufacturing Technician Required: No Beliefs That Will Affect Care: None marital status: / Current Living Situation: Personal Care Facility Current Living Situation Comment: inpatient at [facility] How many Children do You have: 2 Other Information That Helps Us Care for You: No Assistive Devices: Walker Assistive Devices Comment: 2 assist to ambulate Review of Systems Review of Systems: see hpi Physical Exam Constitutional: WD/WN, vitals as above + morbidly obese, cooperative and comfortable Eyes: PERRL, conjunctivae normal, anicteric sclerae ENMT: external ear and nose normal, oropharynx normal Neck: trachea midline, no thyromegaly Respiratory: normal respiratory effort, lungs clear to auscultation Cardiovascular: RRR, no murmur, no edema capillary refill normal in both upper extremities, b/l hands cool Chest (Breasts): Additional Comments: bandage located on right chest with some dried blood noted around periphery, no pain on light touch Gastrointestinal (Abdomen): Inspection/Auscultation: abdomen normal to inspection Percussion/Palpation: abdomen soft; abdomen nontender Musculoskeletal: RUE in sling Skin: Clean dry intact. erythema without exudate or lesions located in skin fold on left hip, no pain on palpation, no additional warmth noted. Neurologic: normal touch/pain/proprioception and moves all extremities Results & Data Results & Data ([facility]) Vital Signs (Past 12 Hours) Vital Signs Temp Pulse Pulse Resp BP Pulse Ox O2 Del Method 08/03/22 18:35 36.4 C L 71 18 153/78 H 100 Room Air 08/03/22 17:57 36.3 C L 70 16 132/69 100 Room Air 08/03/22 17:25 36.4 C L 72 16 147/79 H 100 Room Air 08/03/22 17:15 71 17 144/62 H 100 Room Air 08/03/22 17:05 72 19 137/49 L 99 Room Air 08/03/22 16:55 36.4 C L 73 17 139/58 L 100 Room Air 08/03/22 16:45 74 20 151/83 H 96 Room Air 08/03/22 16:35 76 14 137/51 L 100 Oxymask 08/03/22 16:25 78 17 133/49 L 97 Oxymask 08/03/22 16:19 36.0 C L 79 20 137/49 L 99 Oxymask 08/03/22 11:30 36.5 C 73 18 146/53 H 100 Room Air O2 Flow Rate 08/03/22 18:35 08/03/22 17:57 08/03/22 17:25 08/03/22 17:15 08/03/22 17:05 08/03/22 16:55 08/03/22 16:45 08/03/22 16:35 4 08/03/22 16:25 6 08/03/22 16:19 8 08/03/22 11:30 Resident Activity Tracking Resident Involvement: Resident Care Provided Care Provided: Adult Hospital Medicine
[2022-08-03] MEDS ORDERED: SENNA 8.6 MG TAB PO SCH (21:00)
[2022-08-03] MEDS: NYSTATIN POWDER 15GM BTL EXT SCH (21:45)
[2022-08-03] MEDS: ASPIRIN 81 MG ECTAB PO SCH (21:49)
[2022-08-03] MEDS: DULoxetine HCL 60 MG CAP PO SCH (21:49)
[2022-08-03] MEDS: DOCUSATE SODIUM 100 MG CAP PO SCH (21:50)
[2022-08-03] MEDS: ACETAMINOPHEN 500 MG TAB PO SCH (21:50)
[2022-08-04] MEDS ORDERED: VANCOMYCIN HCL 1,500 MG in SODIUM CHLORIDE 0.9% 500 ML IV SCH (02:00)
[2022-08-04] MEDS: SODIUM CHLORIDE 0.9% 1000ML 1,000 ML IV SCH (04:50)
[2022-08-04] MEDS: ACETAMINOPHEN 500 MG TAB PO SCH ×2 (05:18→13:12)
[2022-08-04 06:39] LABS: Basophils # (auto) 0.02 K/uL (0-0.2); Basophils % (auto) 0.2 %; Hematocrit (blood only) 25.5 % (37.0-47.0); Hemoglobin 8.2 g/dl (12.0-16.0); Immature Granulocytes # (auto) 0.06 K/uL (0.01-0.20); Immature Granulocytes % (auto) 0.7 %; Lymphocytes # (auto) 1.02 K/uL (1.2-3.4); Lymphocytes % (auto) 11.2 %; Mean Corpuscular Hemoglobin 28.7 pg (25.0-34.0); Mean Corpuscular Hgb Conc 32.2 g/dL (32.0-36.0); Mean Corpuscular Volume 89.2 fL (80.0-100.0); Mean Platelet Volume 10.4 fL (9.4-12.4); Monocytes # (auto) 1.06 K/uL (0.11-0.59); Monocytes % (auto) 11.6 %; Neutrophils # (auto) 6.94 K/uL (1.40-6.50); Neutrophils % (auto) 76.3 %; Platelet Count 230 K/uL (130-400); RDW Coefficient of Variation 17.8 % (11.5-14.5); RDW Standard Deviation 57.9 fL (36.4-46.3); Red Blood Count 2.86 M/uL (4.20-5.40)
[2022-08-04 06:44] LABS: BUN Creatinine Ratio 20.8 (10-20); Calcium 7.4 mg/dl (8.5-10.1); Creatinine Clr Calc Pharmacy 35.3 ml/min; Est GFR (African American) 44.6 ml/min; Est GFR (Non-African American) 38.4 ml/min; Potassium 5.7 mmol/L (3.5-5.1)
[2022-08-04] MEDS: DULoxetine HCL 60 MG CAP PO SCH (08:47)
[2022-08-04] MEDS: NYSTATIN POWDER 15GM BTL EXT SCH ×2 (08:49→13:12)
[2022-08-04] MEDS: ASPIRIN 81 MG ECTAB PO SCH (08:50)
[2022-08-04] MEDS: FAMOTIDINE 20 MG TAB PO PRN (08:52)
[2022-08-04] MEDS: DOCUSATE SODIUM 100 MG CAP PO SCH (08:56)
[2022-08-04] MEDS ORDERED: FERROUS GLUCONATE 324 MG TAB PO SCH (09:00)
[2022-08-04] MEDS ORDERED: TAMSULOSIN HCL 0.4 MG CAP PO SCH (09:00)
[2022-08-04] MEDS ORDERED: METOPROLOL SUCC 25MG EXT REL TAB PO SCH (09:00)
[2022-08-04] MEDS ORDERED: MULTIVITAMIN TAB PO SCH (09:00)
[2022-08-04] MEDS ORDERED: hydroCHLOROthiazide 25 MG TAB PO SCH (09:00)
[2022-08-04] MEDS ORDERED: FLUTICASONE PROPIONATE NA SPR 16 GM BTL SCH (09:00)
[2022-08-04] MEDS ORDERED: TELMISARTAN 20 MG TAB PO SCH (09:00)
[2022-08-04] MEDS ORDERED: ROSUVASTATIN CALCIUM 20 MG TAB PO SCH (09:00)
[2022-08-04] MEDS ORDERED: PREGABALIN 50 MG CAP PO SCH (09:00)
--- NOTE | 2022-08-04 11:26 | Orthopedic Progress Note ---
Date of Service August 04, 2022 Assessment & Plan (1) Fracture of proximal humerus with nonunion: Plan: POD #1 s/p Right Reverse Total Shoulder Arthroplasty sling/ice silverlon dressing x 7 days ASA 81mg po bid patient can return to [facility] today, f/u with Dr Schulz in 12-14 days Admission and Anticipated Discharge Date Admission Date: August 03, 2022 Subjective POD #1 s/p Right Reverse Total Shoulder Arthroplasty Review of Systems Constitutional: no fever and no chills Respiratory: no cough and no dyspnea Cardiovascular: no chest pain, no dyspnea and no orthopnea Gastrointestinal: no abdominal pain, no nausea and no vomiting Physical Exam Physical Exam: Vital Signs Temp 36.7 C 08/04/22 07:49 Pulse 92 H 08/04/22 08:40 Resp 18 08/04/22 07:49 BP 116/70 08/04/22 08:40 Pulse Ox 96 08/04/22 08:40 O2 Del Method Room Air 08/04/22 08:45 O2 Flow Rate 4 08/03/22 16:35 Intake & Output 08/03/22 08/04/22 08/04/22 18:59 06:59 18:59 Intake Total 1000 / 2530 1530 / 2530 300 / 300 Output Total 30 / 630 600 / 630 Balance 970 / 1900 930 / 1900 300 / 300 Weight 96.3 kg Intake: IV 0 / 1530 1530 / 1530 Lactated Ringe r's 1,000 ml @ 15 0 / 0 mls/hr IV .Q24 H DAWIT Rx#: [id number] Sodium Chlorid e 0.9% 1000ML 1, 1000 / 1000 000 ml @ 100 m ls/hr IV .Q10H DAWIT Rx#:[id number] Vancomycin HCl 1,500 mg In 530 / 530 Sodium Chlorid e 0.9% 500 ml @ 200 mls/hr IV Q12H DAWIT Rx#: [id number] IV Perioperative 1000 / 1000 Oral 300 / 300 Output: Urine 600 / 600 Estimated Blood Loss 30 / 30 Other: # Unmeasured Voi ds 1 1 Weight Measureme nt Method Standing Scale Musculoskeletal: Right upper extremity: resting comfortably in sling, dressing is clean and dry, no drainage, no erythema noted. weakness noted at the hand and wrist compared to contralateral side Results & Data ([facility]) Vital Signs (Past 12 Hours) Vital Signs Temp Pulse Resp BP Pulse Ox O2 Del Method 08/04/22 08:45 Room Air 08/04/22 08:40 92 H 116/70 96 Room Air 08/04/22 07:49 36.7 C 97 H 18 108/57 L 97 Room Air 08/04/22 02:00 36.6 C 90 18 99/60 L 94 Room Air Laboratory Results Laboratory Results WBC 9.10 K/ul (4.8-10.8) 08/04/22 05:54 RBC 2.86 M/uL (4.20-5.40) L 08/04/22 05:54 Hgb 8.2 g/dl (12.0-16.0) L 08/04/22 05:54 Hct 25.5 % (37.0-47.0) L 08/04/22 05:54 MCV 89.2 fL (80.0-100.0) 08/04/22 05:54 MCH 28.7 pg (25.0-34.0) 08/04/22 05:54 MCHC 32.2 g/dL (32.0-36.0) 08/04/22 05:54 RDW Std Deviation 57.9 fL (36.4-46.3) H 08/04/22 05:54 RDW Coeff of Alvin 17.8 % (11.5-14.5) H 08/04/22 05:54 Plt Count 230 K/uL (130-400) 08/04/22 05:54 MPV 10.4 fL (9.4-12.4) 08/04/22 05:54 Immature Gran % (Auto) 0.7 % 08/04/22 05:54 Neut % (Auto) 76.3 % 08/04/22 05:54 Lymph % (Auto) 11.2 % 08/04/22 05:54 [place] % (Auto) 11.6 % 08/04/22 05:54 Eos % (Auto) 0.0 % 08/04/22 05:54 Baso % (Auto) 0.2 % 08/04/22 05:54 Neut # (Auto) 6.94 K/uL (1.40-6.50) H 08/04/22 05:54 Lymph # (Auto) 1.02 K/uL (1.2-3.4) L 08/04/22 05:54 [place] # (Auto) 1.06 K/uL (0.11-0.59) H 08/04/22 05:54 Eos # (Auto) 0.00 K/uL (0-0.50) 08/04/22 05:54 Baso # (Auto) 0.02 K/uL (0-0.2) 08/04/22 05:54 Immature Gran # (Auto) 0.06 K/uL (0.01-0.20) 08/04/22 05:54 Sodium 135 mmol/L (136-145) L 08/04/22 05:54 Potassium 5.7 mmol/L (3.5-5.1) H 08/04/22 05:54 Chloride 109 mmol/L (98-107) H 08/04/22 05:54 Carbon Dioxide 22 mmol/L (21-32) 08/04/22 05:54 Anion Gap 4 (3-11) 08/04/22 05:54 BUN 27 mg/dl (6-23) H 08/04/22 05:54 Creatinine 1.30 mg/dl (0.6-1.2) H 08/04/22 05:54 Est Cr Clr Drug Dosing 35.3 ml/min 08/04/22 05:54 Est GFR ( Amer) 44.6 ml/min 08/04/22 05:54 Est GFR (Non-Af Amer) 38.4 ml/min 08/04/22 05:54 BUN/Creatinine Ratio 20.8 (10-20) H 08/04/22 05:54 Glucose 118 mg/dl (70-99(Fasting)) H 08/04/22 05:54 POC Glucose 99 mg/dl (70-99) 08/03/22 16:21 Calcium 7.4 mg/dl (8.5-10.1) L 08/04/22 05:54 SARS-CoV-2, RNA, NAAT NEGATIVE (NEGATIVE) 08/03/22 Unknown Impressions Shoulder X-Ray 08/03/22 15:56 XR shoulder RT min 2V routine CLINICAL HISTORY: Post shoulder surgery COMPARISON: Right shoulder radiographs May 24, 2022. FINDINGS: Alignment of the reverse total right shoulder arthroplasty is anatomic. There is no periprosthetic fracture or unexpected radiopaque foreign body. There are skin sid. IMPRESSION: Expected findings following reverse total right shoulder arthroplasty. ACT 112: Negative or not required by law. Electronically signed by: Jonatan Hernandez M.D. 08/03/2022 5:07 PM
--- NOTE | 2022-08-04 13:51 | Hospitalist Progress Note ---
Date of Service August 04, 2022 Assessment & Plan (1) Fracture of proximal humerus with nonunion: Plan: 82yo Female with an extensive history of HTN, HLD, CAD, Depression, Osteoarthritis, and Helton cell cancer admitted here for right shoulder replacement surgery, s/p op day #1. -s/p op day 1 Right Reverse Total Shoulder Arthroplasty performed 08/03 -patient following with orthopedics received IVF, vancomycin 1 bag pain control with oxycodone -vitals stable peripheral pulses and sensation intact - Per nursing patient is being discharged today (2) Ashley cell cancer: Plan: History of surgery on her right hand with removal of Helton cell cancer in [address] [facility] (3) Anemia: Plan: - stable - no evidence of any active bleeding - on oral iron (4) Hypertension: Plan: -patient may continue home medication telmisartan, HCTZ, metoprolol (5) Dyslipidemia: Plan: -continue rosuvastatin (6) Hyperkalemia: Plan: - Labs drawn before diuretic given this AM - Had hyperkalemia in the past - patient is asymptomatic - patient being discharged today, advised to have repeat labs in a few days with primary care physician Admission and Anticipated Discharge Date Admission Date: August 03, 2022 Subjective Patient is awake sitting up in the chair. She states she is feeling better, just sore from the surgery. She is being discharged later today. She is tolerating a diet and has no nausea, vomiting. She has not had a BM but is passing flatus Review of Systems Review of Systems: Patient denies any chest pain, SOB, nausea, vomiting or abdominal pain All other ROS negative unless stated + above. Physical Exam Constitutional: WD/WN, vitals as above Neck: trachea midline, no thyromegaly Respiratory: normal respiratory effort, lungs clear to auscultation Cardiovascular: RRR, no murmur, no edema Gastrointestinal (Abdomen): normal bowel sounds, soft, nontender, no hepatosplenomegaly Psychiatric: A+Ox3, euthymic affect Results & Data Results & Data ([facility]) Vital Signs (Past 12 Hours) Vital Signs Temp Pulse Resp BP Pulse Ox Pulse Ox Pulse Ox 08/04/22 11:45 91 97 08/04/22 08:45 08/04/22 08:40 92 H 116/70 96 08/04/22 07:49 36.7 C 97 H 18 108/57 L 97 08/04/22 02:00 36.6 C 90 18 99/60 L 94 O2 Del Method 08/04/22 11:45 08/04/22 08:45 Room Air 08/04/22 08:40 Room Air 08/04/22 07:49 Room Air 08/04/22 02:00 Room Air Laboratory Results Abnormal lab results 08/04/22 08/04/22 Range/Units 05:54 05:54 RBC 2.86 L (4.20-5.40) M/uL Hgb 8.2 L (12.0-16.0) g/dl Hct 25.5 L (37.0-47.0) % RDW Std Deviation 57.9 H (36.4-46.3) fL RDW Coeff of Alvin 17.8 H (11.5-14.5) % Neut # (Auto) 6.94 H (1.40-6.50) K/uL Lymph # (Auto) 1.02 L (1.2-3.4) K/uL [place] # (Auto) 1.06 H (0.11-0.59) K/uL Sodium 135 L (136-145) mmol/L Potassium 5.7 H (3.5-5.1) mmol/L Chloride 109 H (98-107) mmol/L BUN 27 H (6-23) mg/dl Creatinine 1.30 H (0.6-1.2) mg/dl BUN/Creatinine Ratio 20.8 H (10-20) Glucose 118 H (70-99(Fasting)) mg/dl Calcium 7.4 L (8.5-10.1) mg/dl PG Care Time/CCT Total # of Minutes Spent Total Time Spent with Patient: Total time spent is greater than 50% in coordination of care (as documented) at patient's floor/unit and/or counseling patient: Coding Level of Care Code 58527 SUB INP/OBS CARE 07/15MIN Diagnoses Fracture of proximal humerus with nonunion S42.209K Helton cell cancer C4A.9 Anemia D64.9 Hypertension I10 Dyslipidemia E78.5 Hyperkalemia E87.5
--- NOTE | 2022-08-04 21:31 | Billing Data ---
Date of Service August 04, 2022 Coding Level of Care Code INP/OBS CONSULT LVL 3, 45 MIN
== END 2022-08-04 15:16 ==
LOC: ASU 08:49 → 3E 15:56 → INTOOBSV 15:56

== ENCOUNTER 2024-08-04 15:33 | Inpatient (IN) ==
--- NOTE | 2024-08-04 15:50 | Emergency Department Note ---
Impression & Plan Acute dyspnea, Cough, CHF (congestive heart failure), Non-ST elevation [place] (NSTEMI), Elevated brain natriuretic peptide (BNP) level, Hypomagnesemia, Acute kidney injury superimposed on chronic kidney disease, RSV infection ED Provider Note HISTORY OF PRESENT ILLNESS: Patient is an 84-year-old female presenting with shortness of breath and cough. Patient reports that she woke up today feeling very short of breath and coughing up a yellow sputum. She does not wear any supplemental oxygen at baseline. Denies any chest pain. Reports nausea and an episode of vomiting but denies any diarrhea. Denies any abdominal pain. Denies any known fevers. Denies any known sick contact exposures. Reports just feeling very unwell. Denies any significant lower extremity edema. ROS: as above PHYSICAL EXAM: Constitutional: Patient appears in no acute distress. HENT: Head: Normocephalic and atraumatic. Eyes: EOMI, PERRL Mouth/Throat: Mucous membranes moist. Neck: Trachea midline. Neck supple. Cardiovascular: RRR, No murmurs, rubs or gallops. Intact distal pulses. Pulmonary/Chest: No respiratory distress. Breath sounds clear and equal bilaterally. Bilateral wheezes. Abdominal: Abdomen soft, no tenderness, rebound or guarding. Musculoskeletal: No edema, tenderness or deformity noted. Skin: Warm and dry. No rash, erythema, pallor or cyanosis Psychiatric: Appropriate mood and affect for situation. Neurological: Alert and keenly responsive. CN II-XII grossly intact, moving all extremities equally and fully. MDM: - Vitals signs showed borderline hypoxia, with saturations of 92% on room air. - History obtained via patient. History as above. - Chronic conditions affecting care: HTN; HLD; CAD (s/p PCI); moderate aortic regurgitation - Differential diagnoses include, but are not limited to: Congestive heart failure; acute coronary syndrome; COPD/asthma exacerbation; pulmonary edema; pulmonary embolism; pneumonia; pneumothorax; viral syndrome - Order placed for continuous cardiac monitoring. At this time, monitor showed rate of 86 bpm with normal sinus rhythm, per my interpretation. - External medical records reviewed. Cardiology office visit note dated 06/29/2024 was reviewed. Patient was seen for a follow-up visit for her 6-month routine cardiology follow-up. She has a history of CAD with a drug-eluting stent to her RCA. - EKG image interpreted by myself showed normal sinus rhythm. Rate 86 bpm. QT 364. No acute ischemic changes. - Laboratory workup interpreted by myself showed leukocytosis (WBC 11.27); normal PT/INR; slight hyponatremia (Na 135); JUAN on CKD (Cr 1.24); hypoglycemia (glucose 64); hypomagnesemia (Mg 1.6); elevated troponin (38.6); elevated BNP (370); normal procalcitonin; normal lactate - Viral respiratory panel positive for RSV - VBG grossly normal. - CXR image interpreted by myself showed pulmonary vascular congestion, per my interpretation. Radiology notes cardiomegaly with pulmonary vascular congestion and small pleural effusions. - Blood cultures obtained - UA ordered - Sepsis fluid resuscitation was not administered, as patient appears fluid overloaded on chest x-ray and with an elevated BNP. Echocardiogram obtained on 11/08/2023 showed an EF of 65 to 70%. - Patient given 1g IV magnesium for electrolyte replacement. Given amp of D50 for hypoglycemia - 40 mg IV lasix ordered - Discussion was had with immigration case manager about patient's case and need for admission - Hospitalist consulted for admission - [facility] ASSESSMENT AND PLAN: Diagnosis: Acute dyspnea; cough; CHF exacerbation; JUAN on CKD; hypomagnesemia; NSTEMI; elevated BNP; RSV infection Plan: Admit Past Med/Surg History Problem List (Updated 08/04/24 @ 19:20 by Christine Gardner MD) RSV infection (Acute) Acute kidney injury superimposed on chronic kidney disease (Acute) Hypomagnesemia (Acute) Elevated brain natriuretic peptide (BNP) level (Acute) Non-ST elevation WA (NSTEMI) (Acute) CHF (congestive heart failure) (Acute) Cough (Acute) Acute dyspnea (Acute) Moderate aortic regurgitation Cervical spinal stenosis Idiopathic polyneuropathy Numbness Ataxia Preoperative cardiovascular examination Hyperkalemia Fracture of proximal humerus with nonunion Venous reflux Hypotension Normal left ventricular systolic function and wall motion Encounter for pre-operative examination 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- denies limb restriction Anemia Gets iron infusions PRN Last blood transfusion 3-4 months ago Ambulatory dysfunction (Acute 08/01/14) Hypertension (Chronic) Dyslipidemia (Chronic) S/P cholecystectomy (Chronic) S/P appendectomy (Chronic) S/P MINA-BSO (Chronic) Osteoarthritis of right hindfoot Acquired pes planus of right foot Achilles tendon contracture, right Post-operative state CAD (coronary artery disease) Eye irritation Chronic hyponatremia Constipation Restless leg syndrome, controlled Chronic pain Presence of drug-eluting stent in right coronary artery Mid RCA 06/22/2016 Swelling of right upper extremity Right leg swelling Cervical radiculopathy at C8 Carpal tunnel syndrome, right SOB (shortness of breath) (Acute) Leukocytosis Depression Shoulder dislocation Leukocytosis (Acute) Acute dehydration (Acute) Acute UTI (urinary tract infection) (Acute) Chronic dislocation of right shoulder (Acute) Medical History Arthritis Vitamin B12 deficiency CKD (chronic kidney disease) Morbid obesity with BMI of 40.0-44.9, adult CAD (coronary artery disease) History of neck injury History of MRSA infection History of endometrial cancer History of kidney stones Ambulatory dysfunction Low blood sugar History of heart attack DVT (deep venous thrombosis) GERD (gastroesophageal reflux disease) RLS (restless legs syndrome) Osteoporosis Hypertension Surgical History H/O shoulder replacement History of reduction of closed dislocation History of cholecystectomy History of appendectomy History of hip surgery History of hysterectomy History of back surgery History of colonoscopy Status post total knee replacement, bilateral History of gastric bypass Social History Smoking Status: Never smoker Second Hand Exposure: No; Do You Dip or Chew Tobacco: No; Hx Alcohol Use: No Hx Substance Use: No Preferred Language: Nauruan Communication Ability: Effective Communication Ability Comment: pt can sign own consents Visual Impairment: No Limitations Hearing Ability: Normal Extension Agent Required: No Beliefs That Will Affect Care: None marital status: / Current Living Situation: Personal Care Facility Current Living Situation Comment: inpatient at [facility] How many Children do You have: 2 Feels Safe at Home: Yes Assistive Devices: Walker Allergies Allergies Allergy/AdvReac Type Severity Reaction Status Date / Time cyclobenzaprine Allergy Unknown PASSED OUT Verified 06/29/24 10:14 hydrocodone Allergy Unknown SHORTNESS Verified 06/29/24 10:14 OF BREATH ketorolac Allergy Unknown Unknown Verified 06/29/24 10:14 oxaprozin Allergy Unknown RASH Verified 06/29/24 10:14 sulfamethoxazole Allergy Unknown INCREASED Verified 06/29/24 10:14 POTASSIUM LEVELS trimethoprim Allergy Unknown INCREASED Verified 06/29/24 10:14 POTASSIUM LEVELS azithromycin AdvReac Intermediate UPSET Verified 06/29/24 10:14 STOMACH erythromycin base AdvReac Mild N/V Verified 06/29/24 10:14 lisinopril AdvReac Mild cough Verified 06/29/24 10:14 sertraline AdvReac Mild MOOD SWING Verified 06/29/24 10:14 Home Meds Home Medications Medication Instructions Recorded Confirmed calcium 600 mg (as carbonate)-vit 1 tab PO BID 02/19/18 06/29/24 D3 20 mcg (800 unit) chewable tablet (Caltrate plus D) ferrous gluconate 256 mg (28 mg 256 mg PO DAILY 12/03/21 06/29/24 iron) tablet fluticasone propionate 50 1 spray intranasal DAILY 12/03/21 06/29/24 mcg/actuation nasal spray,suspension (Flonase Allergy Relief) rosuvastatin 20 mg tablet 20 mg PO DAILY 08/03/22 06/29/24 mv-mn-folic 200 mcg-vit K 15 cap PO BID 01/20/23 06/29/24 mcg-lutein 5 mg-zeaxanthin 1 mg capsule (PreserVision AREDS 2 Plus Multivit) pramipexole 0.125 mg tablet 0.125 mg PO BID 01/20/23 06/29/24 acetaminophen 325 mg capsule 325 mg PO QID PRN 07/28/23 06/29/24 bisacodyl 10 mg rectal suppository 10 mg MT DAILY PRN 07/28/23 06/29/24 (Dulcolax (bisacodyl)) oxycodone 5 mg tablet 5 mg PO BID PRN 07/28/23 06/29/24 oxybutynin chloride 5 mg tablet 5 mg PO BID 08/30/23 06/29/24 esomeprazole magnesium 40 mg 40 mg PO DAILY 10/06/23 06/29/24 capsule,delayed release famotidine 20 mg tablet 20 mg PO BID 10/06/23 06/29/24 pantoprazole 20 mg tablet,delayed 20 mg PO DAILY 10/06/23 06/29/24 release aspirin 81 mg tablet,delayed 81 mg PO DAILY 11/01/23 06/29/24 release (Adult Low Dose Aspirin) Previous Rx's Medication Instructions Recorded hydrochlorothiazide 25 mg tablet 25 mg PO QAM #90 tabs 02/09/22 nitroglycerin 0.4 mg sublingual 0.4 mg sublingual Q5M PRN Chest 05/11/22 tablet (Nitrostat) Pain #25 tabs cyanocobalamin (vitamin B-12) 1,000 mcg IM MONTHLY 30 days #30 mL 07/27/23 1,000 mcg/mL injection solution duloxetine 30 mg capsule,delayed 30 mg PO HS #30 caps 07/27/23 release duloxetine 60 mg capsule,delayed 60 mg PO QAM #1 cap 07/27/23 release metoprolol succinate 25 mg 12.5 mg (1/2 x 25 mg) PO DAILY #1 07/27/23 tablet,extended release 24 hr tab pregabalin 50 mg capsule (Lyrica) 50 mg PO BID #1 cap 07/27/23 Results & Data (ED) Vital Signs Vital Signs - 24 hr 08/04/24 15:23 08/04/24 15:23 08/04/24 15:23 Temperature 36.7 C 36 C L Temperature Source Axillary Axillary Pulse Rate 83 Pulse Rate [Right Brachial] 83 Pulse Rhythm Regular Pulse Rhythm [Right Brachial] Regular Pulse Strength Normal Pulse Strength [Right Brachial] Normal Respiratory Rate 20 20 Respiratory Effort / Characteristics Non-Labored Non-Labored Respiratory Depth Normal Normal Respiratory Pattern Regular Regular Blood Pressure 100/49 L Blood Pressure [Right Arm] 100/49 L Blood Pressure Mean 66 Blood Pressure Mean [Right Arm] 66 Blood Pressure Position Lying Blood Pressure Position [Right Arm] Lying Pulse Oximetry 92 92 92 Oxygen Delivery Method Room Air Room Air Room Air Sepsis Recent Fever Within 48 Hours No Sepsis New/Unexplained Change in Mental Status N/A Sepsis Action Taken by Nursing No Action Required 08/04/24 15:42 08/04/24 15:51 Temperature Temperature Source Pulse Rate 86 Pulse Rate [Right Brachial] Pulse Rhythm Pulse Rhythm [Right Brachial] Pulse Strength Pulse Strength [Right Brachial] Respiratory Rate Respiratory Effort / Characteristics Respiratory Depth Respiratory Pattern Blood Pressure Blood Pressure [Right Arm] Blood Pressure Mean Blood Pressure Mean [Right Arm] Blood Pressure Position Blood Pressure Position [Right Arm] Pulse Oximetry 92 Oxygen Delivery Method Room Air Sepsis Recent Fever Within 48 Hours Sepsis New/Unexplained Change in Mental Status Sepsis Action Taken by Nursing Laboratory Data 08/04/24 16:23 08/04/24 16:23 Lab Results 08/04/24 08/04/24 Range/Units 16:10 16:23 WBC 11.27 H (4.8-10.8) K/ul RBC 3.05 L (4.20-5.40) M/uL Hgb 9.3 L (12.0-16.0) g/dl Hct 28.7 L (37.0-47.0) % MCV 94.1 (80.0-100.0) fL MCH 30.5 (25.0-34.0) pg MCHC 32.4 (32.0-36.0) g/dL RDW Std Deviation 54.8 H (36.4-46.3) fL RDW Coeff of Alvin 15.9 H (11.5-14.5) % Plt Count 206 (130-400) K/uL MPV 10.9 (9.4-12.4) fL Immature Gran % (Auto) 1.1 % Neut % (Auto) 72.8 % Lymph % (Auto) 10.5 % [place] % (Auto) 15.0 % Eos % (Auto) 0.4 % Baso % (Auto) 0.2 % Neut # (Auto) 8.22 H (1.40-6.50) K/uL Lymph # (Auto) 1.18 L (1.20-3.40) K/uL [place] # (Auto) 1.69 H (0.11-0.59) K/uL Eos # (Auto) 0.04 (0.00-0.50) K/uL Baso # (Auto) 0.02 (0.00-0.20) K/uL Immature Gran # (Auto) 0.12 (0.01-0.20) K/uL PT 10.9 (9.0-12.0) Seconds INR 1.0 (0.9-1.1) VBG pH 7.43 H (7.36-7.41) VBG pCO2 42 (38-50) mmHg VBG pO2 139 mmHg VBG HCO3 28 mmol/L VBG O2 Saturation 98.9 % VBG Base Excess 3.2 mEq/L Sodium 135 L (136-145) mmol/L Potassium 4.1 (3.5-5.1) mmol/L Chloride 99 (98-107) mmol/L Carbon Dioxide 27 (21-32) mmol/L Anion Gap 9 (3-11) BUN 24 H (6-23) mg/dl Creatinine 1.24 H (0.6-1.2) mg/dl Est Cr Clr Drug Dosing 32.5 ml/min eGFR 43.18 BUN/Creatinine Ratio 19.4 (10-20) Glucose 64 L (70-99(Fasting)) mg/dl Lactate 1.0 (0.4-2.0) mmol/L Calcium 8.5 L (8.6-10.3) mg/dl Magnesium 1.6 L (1.7-2.4) mg/dl Total Bilirubin 0.5 (0.2-1.0) mg/dl Direct Bilirubin 0.1 (0-0.2) mg/dl AST 16 (13-39) U/L ALT 10 (7-52) U/L Alkaline Phosphatase 58 (34-104) U/L Troponin I High Sens 38.6 H (0-14) pg/ml B-Natriuretic Peptide 370 H (0-100) pg/ml Total Protein 5.2 L (6.0-8.3) gm/dl Albumin 2.6 L (3.4-5.0) gm/dl Procalcitonin 0.14 (0-0.5) ng/ml Adenovirus (PCR) Not Detected (NotDetected) B. pertussis DNA (PCR) Not Detected (NotDetected) B.parapertussis DNA PCR Not Detected (NotDetected) C. pneumoniae DNA (PCR) Not Detected (NotDetected) Coronavirus OC43 (PCR) Not Detected (NotDetected) Coronavirus HKU1 (PCR) Not Detected (NotDetected) Coronavirus 229E (PCR) Not Detected (NotDetected) SARS-CoV-2 (PCR) Not Detected (NotDetected) Coronavirus NL63 (PCR) Not Detected (NotDetected) Human Metapneumovir PCR Not Detected (NotDetected) Influenza Type A (PCR) Not Detected (NotDetected) Influenza Type B (PCR) Not Detected (NotDetected) M. pneumoniae (PCR) Not Detected (NotDetected) Parainfluenza 1 (PCR) Not Detected (NotDetected) Parainfluenza 2 (PCR) Not Detected (NotDetected) Parainfluenza 3 (PCR) Not Detected (NotDetected) Parainfluenza 4 (PCR) Not Detected (NotDetected) RSV (PCR) DETECTED A (NotDetected) Entero/Rhino (PCR) Not Detected (NotDetected) Administered Medications Discontinued Medications Dextrose (Dextrose 50% 50 Ml Syringe) 50 ml IV NOW ONE Stop: 08/04/24 17:58 Last Admin: 08/04/24 19:10 Dose: 50 ml Documented By: PRAKASH Magnesium Sulfate/Dextrose (Magnesium Sulfate / D5w) 1 gm in 100 mls @ 100 mls/hr IV NOW STA Stop: 08/04/24 18:05 Last Infusion: 08/04/24 18:50 Dose: Infused Documented By: Admin: 08/04/24 17:40 Dose: 100 mls/hr Documented By: PRAKASH Imaging Data Radiologist's Impression: Chest X-Ray 08/04/24 15:42 XR chest 1V portable HISTORY: 84 years-old Female Sepsis acute sepsis COMPARISON: 07/22/2022 TECHNIQUE: AP view of the chest FINDINGS: Cardiac silhouette is enlarged. Pulmonary vascular congestion. Small pleural effusions with mild bibasilar densities. Bilateral shoulder arthroplasties. Spondylitic spurring of the spine. IMPRESSION: 1. Cardiomegaly with pulmonary vascular congestion. 2. Small pleural effusions with mild bibasilar atelectasis. ACT 112: Negative or not required by law. The above report was generated using voice recognition software. It may contain grammatical, syntax or spelling errors. Electronically signed by: Aelx Duran M.D. 08/04/2024 3:56 PM Discharge Plan Visit Data Chief Complaint: Illness ED Provider: Christine Gardner Discharge Problem: Acute dyspnea, Cough, CHF (congestive heart failure), Non-ST elevation WA (NSTEMI), Elevated brain natriuretic peptide (BNP) level, Hypomagnesemia, Acute kidney injury superimposed on chronic kidney disease, RSV infection Forms Stand Alone Forms: [facility] Relatient Prescriptions Prescriptions: No Action hydrochlorothiazide 25 mg tablet 25 mg PO QAM Qty: 90 3RF nitroglycerin [Nitrostat] 0.4 mg tablet, sublingual 0.4 mg Sublingual Q5M PRN (Reason: Chest Pain) Qty: 25 4RF duloxetine 60 mg capsule,delayed release(DR/EC) 60 mg PO QAM Qty: 1 0RF pregabalin [Lyrica] 50 mg capsule 50 mg PO BID Qty: 1 0RF metoprolol succinate 25 mg tablet extended release 24 hr 12.5 mg PO DAILY Qty: 1 0RF cyanocobalamin (vitamin B-12) 1,000 mcg/mL solution 1,000 mcg IM MONTHLY 30 Days Qty: 30 5RF pramipexole 0.125 mg tablet 0.125 mg PO BID PreserVision AREDS 2 Plus MV 200 mcg-15 mcg- 5 mg-1 mg capsule PO BID oxybutynin chloride 5 mg tablet 5 mg PO BID acetaminophen 325 mg capsule 325 mg PO QID PRN bisacodyl [Dulcolax (bisacodyl)] 10 mg suppository 10 mg MT DAILY PRN oxycodone 5 mg tablet 5 mg PO BID PRN fluticasone propionate [Flonase Allergy Relief] 50 mcg/actuation spray,suspension 1 spray intranasal DAILY Rx Instructions: administer into each nostril esomeprazole magnesium 40 mg capsule,delayed release(DR/EC) 40 mg PO DAILY famotidine 20 mg tablet 20 mg PO BID pantoprazole 20 mg tablet,delayed release (DR/EC) 20 mg PO DAILY aspirin [Adult Low Dose Aspirin] 81 mg tablet,delayed release (DR/EC) 81 mg PO DAILY ferrous gluconate 256 mg (28 mg iron) tablet 256 mg PO DAILY Caltrate 600 plus D 600 mg (1,500 mg)-800 unit Tablet,Chewable 1 tab PO BID rosuvastatin 20 mg Tablet 20 mg PO DAILY duloxetine 40 mg Capsule, Delayed Rel Sprinkle 40 mg PO HS Referrals Referrals: PCP,NO [Physician] -
--- NOTE | 2024-08-04 15:58 | XRay Report ---
XR chest 1V portable HISTORY: 84 years-old Female Sepsis acute sepsis COMPARISON: 07/22/2022 TECHNIQUE: AP view of the chest FINDINGS: Cardiac silhouette is enlarged. Pulmonary vascular congestion. Small pleural effusions with mild biba silar densities. Bilateral shoulder arthroplasties. Spondylitic spurring of the spine. IMPRESSION: 1. Cardiomegaly with pulmonary vascular congestion. 2. Small pleural effusions with mild bibasilar atelectasis. ACT 112: Negative or not required by law. The above report was generated using voice recognition software. It may contain grammatical, syntax o r spelling errors. Electronically signed by: Alex Duran M.D. 08/04/2024 3:56 PM
--- NOTE | 2024-08-04 16:29 | Electrocardiogram Report ---
Test Reason : Blood Pressure : */* mmHG Vent. Rate : 86 BPM Atrial Rate : 86 BPM P-R Int : 188 ms QRS Dur : 78 ms QT Int : 364 ms P-R-T Axes : 33 22 49 degrees QTcB Int : 435 ms Normal sinus rhythm Nonspecific ST and T wave abnormality Abnormal ECG When compared with ECG of 01-Nov-2023 08:38, (unconfirmed) Nonspecific T wave abnormality now evident in Lateral leads Confirmed by Blaze Resendiz ([id number]) on 08/04/2024 4:28:55 PM Referred By: Confirmed By: Blaze Resendiz
[2024-08-04 16:38] LABS: Base Excess VBG 3.2 mEq/L; HCO3 VBG 28 mmol/L; Oxygen Saturation VBG 98.9 %; PCO2 VBG 42 mmHg (38-50); PO2 VBG 139 mmHg; pH VBG 7.43 (7.36-7.41)
[2024-08-04 16:40] LABS: Basophils # (auto) 0.02 K/uL (0.00-0.20); Basophils % (auto) 0.2 %; Eosinophils # (auto) 0.04 K/uL (0.00-0.50); Eosinophils % (auto) 0.4 %; Hematocrit (blood only) 28.7 % (37.0-47.0); Hemoglobin 9.3 g/dl (12.0-16.0); Immature Granulocytes # (auto) 0.12 K/uL (0.01-0.20); Immature Granulocytes % (auto) 1.1 %; Lymphocytes # (auto) 1.18 K/uL (1.20-3.40); Lymphocytes % (auto) 10.5 %; Mean Corpuscular Hemoglobin 30.5 pg (25.0-34.0); Mean Corpuscular Hgb Conc 32.4 g/dL (32.0-36.0); Mean Corpuscular Volume 94.1 fL (80.0-100.0); Mean Platelet Volume 10.9 fL (9.4-12.4); Monocytes # (auto) 1.69 K/uL (0.11-0.59); Neutrophils # (auto) 8.22 K/uL (1.40-6.50); Neutrophils % (auto) 72.8 %; Platelet Count 206 K/uL (130-400); RDW Coefficient of Variation 15.9 % (11.5-14.5); RDW Standard Deviation 54.8 fL (36.4-46.3); Red Blood Count 3.05 M/uL (4.20-5.40); White Blood Count 11.27 K/ul (4.8-10.8)
[2024-08-04 16:57] LABS: Prothrombin Time 10.9 Seconds (9.0-12.0)
[2024-08-04 16:58] LABS: Albumin Level 2.6 gm/dl (3.4-5.0); BUN Creatinine Ratio 19.4 (10-20); Bilirubin Direct 0.1 mg/dl (0-0.2); Bilirubin,Total 0.5 mg/dl (0.2-1.0); Calcium 8.5 mg/dl (8.6-10.3); Creatinine Clr Calc Pharmacy 32.5 ml/min; Magnesium 1.6 mg/dl (1.7-2.4); Potassium 4.1 mmol/L (3.5-5.1); Total Protein 5.2 gm/dl (6.0-8.3)
[2024-08-04 17:05] LABS: Troponin I High Sensitivity 38.6 pg/ml (0-14)
[2024-08-04 17:33] LABS: Adenovirus PCR Not Detected (NotDetected); Bordetella parapertussis PCR Not Detected (NotDetected); Bordetella pertussis PCR Not Detected (NotDetected); Chlamydia pneumoniae PCR Not Detected (NotDetected); Coronavirus 229E PCR Not Detected (NotDetected); Coronavirus CoV-2 (COVID19)PCR Not Detected (NotDetected); Coronavirus HKU1 PCR Not Detected (NotDetected); Coronavirus NL63 PCR Not Detected (NotDetected); Coronavirus OC43PCR Not Detected (NotDetected); Human Metapneumovirus PCR Not Detected (NotDetected); Influenza A PCR Not Detected (NotDetected); Influenza B PCR Not Detected (NotDetected); Mycoplasma pneumoniae PCR Not Detected (NotDetected); Parainfluenza Virus 1 PCR Not Detected (NotDetected); Parainfluenza Virus 2 PCR Not Detected (NotDetected); Parainfluenza Virus 3 PCR Not Detected (NotDetected); Parainfluenza Virus 4 PCR Not Detected (NotDetected); Respiratory Syncytial VirusPCR DETECTED (NotDetected); Rhinovirus/Enterovirus PCR Not Detected (NotDetected)
[2024-08-04] MEDS: MAGNESIUM SULFATE / D5W 1 GM/100 ML BAG IV STA (17:40)
[2024-08-04] MEDS: DEXTROSE 50% 50 ML SYRINGE IV ONE (19:10)
--- NOTE | 2024-08-04 21:38 | History & Physical Report ---
Date of Service August 04, 2024 Assessment & Plan (1) RSV infection: (2) Acute kidney injury superimposed on chronic kidney disease: (3) Hypomagnesemia: (4) Elevated brain natriuretic peptide (BNP) level: (5) CHF (congestive heart failure): (6) Moderate aortic regurgitation: (7) Hypotension: (8) Anemia: Plan 1) RSV infection/mild respiratory distress - BioFire panel pos for RSV, normal procalcitonin, normal lactate - O2Sats, 92% on RA; 97% on 1 L O2 NC 2) Hypotension-low normotensive - BP as low as 95/41 upon admission - pt's BP meds: HCTZ and metoprolol succinate held 3) CHF/CHF Exacerbation/Aortic regurgitation - pt's BNP, 370, upon admission - last Echo (Oct, 2023): 1) showed EF 65-70%, 2) moderate aortic regurgitation 3) Normal r. ventricular sys pressure 4) S/p Cauterization of gastric ulcers - patient had EGD cauterization of 3 gastric ulcers on 07/14/24 - has lost ~ 15 lbs since beginning of year due to decreased oral intake d/t gastric ulcers, wgt loss continuing even after procedure 5) JUAN (borderline) - Cr, 1.25 (baseline Cr ~ 0.95) 6) Electrolyte deficiencies (Hypomagnesemia, borderline hyponatremia) Mg, 1.6 -->1 g MgSO4, IV given in ED Na, 135 7) Elevated troponin HSTrop, 32.7 <-- 38.6 8) Hypoglycemic BSG, 64 on admission --> 50 mL dextrose given in ED 9) Anemia Hgb, 9.3 - probably secondary to previous gastric ulcers; pt denied any hematemesis s/p EGD cauterization Chronic conditions GERD -continue Nexium RLS - continue gabapentin and ropinirole Constipation - continue Miralax Chronic pain/cervical radiculopathy (C8) - continue duloxetine, pregabalin Code status: Full code Disposition: U FENGI: regular diet VTE Prophylaxis: SCD's History of Present Illness Chief Complaint: shortness of breath, w/ reported O2Sats of the 70s at [facility] Primary Care Provider: [facility] Patient is a 84 yo F w/ a PMHx of arthritis, CAD, CKD, obesity, HTN, Hx of endometrial cancer, Hx of kidney stones, Hx of KS, Hx of DVT, GERD, RLS, and osteoporosis. Patient presents due to shortness of breath and increased lethargy over the past 7-10 days. She started to lose weight since the beginning of the year. Patient had a procedure on Jul 14 at [facility] to cauterize several gastric ulcers (3 actively bleeding) and since that time has continued to lose weight. Because of this she has been feeling much weaker than normal and is unable to use her walker as normal. Instead she's been using a wheelchair and a lift has been needed to transfer her from the wheelchair to the bed. Patient's daughter feels like it's only been in the past week that the patient has been feeling increased shortness of breath. The staff at [facility] were concerned enough due to the dyspnea and because they were getting readings for her O2Sats in the 70s. These were found to be in the low 90s once the patient arrived at the hospital. Patient's daughter also feels her mother has been increasingly lethargic since the GI procedure but today felt like it got a lot worse. Allergies Allergy/AdvReac Type Severity Reaction Status Date / Time cyclobenzaprine Allergy Unknown PASSED OUT Verified 06/29/24 10:14 hydrocodone Allergy Unknown SHORTNESS Verified 06/29/24 10:14 OF BREATH ketorolac Allergy Unknown Unknown Verified 06/29/24 10:14 oxaprozin Allergy Unknown RASH Verified 06/29/24 10:14 sulfamethoxazole Allergy Unknown INCREASED Verified 06/29/24 10:14 POTASSIUM LEVELS trimethoprim Allergy Unknown INCREASED Verified 06/29/24 10:14 POTASSIUM LEVELS azithromycin AdvReac Intermediate UPSET Verified 06/29/24 10:14 STOMACH erythromycin base AdvReac Mild N/V Verified 06/29/24 10:14 lisinopril AdvReac Mild cough Verified 06/29/24 10:14 sertraline AdvReac Mild MOOD SWING Verified 06/29/24 10:14 Home Medications Medication Instructions Recorded Confirmed Type nitroglycerin 0.4 mg sublingual 0.4 mg sublingual Q5M PRN Chest 05/11/22 08/04/24 Rx tablet (Nitrostat) Pain #25 tabs duloxetine 60 mg capsule,delayed 60 mg PO QAM #1 cap 07/27/23 08/04/24 Rx release metoprolol succinate 25 mg 12.5 mg (1/2 x 25 mg) PO DAILY #1 07/27/23 08/04/24 Rx tablet,extended release 24 hr tab pregabalin 50 mg capsule (Lyrica) 50 mg PO BID #1 cap 07/27/23 08/04/24 Rx acetaminophen 325 mg capsule 650 mg PO Q6 PRN Pain 07/28/23 08/04/24 History oxycodone 5 mg tablet 5 mg PO HS 07/28/23 08/04/24 History Zinc Oxide External Paste 40% 1 applic topical QPM 08/04/24 08/04/24 History acetaminophen 325 mg tablet 650 mg PO Q4 PRN temp >100.4 08/04/24 08/04/24 History calcium 600 mg (as 1 tab PO BID 08/04/24 08/04/24 History carbonate)-vitamin D3 5 mcg (200 unit) tablet (Calcium 600 + D(3)) cyanocobalamin (vitamin B-12) 1,000 mcg IM MONTHLY 08/04/24 08/04/24 History 1,000 mcg/mL injection solution duloxetine 40 mg capsule,delayed 40 mg PO HS 08/04/24 08/04/24 History release sprinkle esomeprazole magnesium 40 mg 40 mg PO BID 08/04/24 08/04/24 History capsule,delayed release (Nexium) guaifenesin 100 mg/5 mL oral 300 mg PO Q6 PRN Cough 08/04/24 08/04/24 History liquid (Cecily-Tussin) hydrochlorothiazide 12.5 mg tablet 12.5 mg PO QAM 08/04/24 08/04/24 History ipratropium 0.5 mg-albuterol 3 mg 3 ml inhalation Q4H PRN Shortness 08/04/24 08/04/24 History (2.5 mg base)/3 mL nebulization Of Breath Or Wheezing soln ketoconazole 2 % topical cream 1 applic topical Q12 PRN groin 08/04/24 08/04/24 History rash flare ups ketoconazole 2 % topical cream 1 applic topical UD 08/04/24 08/04/24 History lactase 9,000 unit tablet 9,000 unit PO AC PRN Lactose 08/04/24 08/04/24 History Intolerance metoclopramide HCl 5 mg tablet 5 mg PO AC 08/04/24 08/04/24 History (Reglan) multivitamin 1 tab PO DAILY 08/04/24 08/04/24 History polyethylene glycol 3350 17 17 g PO DAILY 08/04/24 08/04/24 History gram/dose oral powder (Miralax) potassium chloride 20 mEq oral 20 meq PO DAILY 08/04/24 08/04/24 History packet prednisone 10 mg tablet 10 mg PO DIRECTED 08/04/24 08/04/24 History ropinirole 0.5 mg tablet 0.5 mg PO HS 08/04/24 08/04/24 History solifenacin 5 mg tablet (Vesicare) 5 mg PO DAILY 08/04/24 08/04/24 History vit C 250 mg-vit E 90 mg-zinc 40 1 tab PO BID 08/04/24 08/04/24 History mg-copper 1 [id number] capsule (PreserVision AREDS-2) Past Med/Surg History Problem List (Updated 08/05/24 @ 18:30 by Omega Mack MD) RSV (acute bronchiolitis due to respiratory syncytial virus) Aortic insufficiency RSV infection (Acute) Acute kidney injury superimposed on chronic kidney disease (Acute) Hypomagnesemia (Acute) Elevated brain natriuretic peptide (BNP) level (Acute) Non-ST elevation KS (NSTEMI) (Acute) CHF (congestive heart failure) (Acute) Cough (Acute) Acute dyspnea (Acute) Moderate aortic regurgitation Cervical spinal stenosis Idiopathic polyneuropathy Numbness Ataxia Preoperative cardiovascular examination Hyperkalemia Fracture of proximal humerus with nonunion Venous reflux Hypotension Normal left ventricular systolic function and wall motion Encounter for pre-operative examination [place] cell cancer Right hand- s/p surgical excision and SLNB 2019- denies limb restriction Anemia Gets iron infusions PRN Last blood transfusion 3-4 months ago Ambulatory dysfunction (Acute 08/01/14) Hypertension (Chronic) Dyslipidemia (Chronic) S/P cholecystectomy (Chronic) S/P appendectomy (Chronic) S/P MINA-BSO (Chronic) Osteoarthritis of right hindfoot Acquired pes planus of right foot Achilles tendon contracture, right Post-operative state CAD (coronary artery disease) Eye irritation Chronic hyponatremia Constipation Restless leg syndrome, controlled Chronic pain Presence of drug-eluting stent in right coronary artery Mid RCA 06/22/2016 Swelling of right upper extremity Right leg swelling Cervical radiculopathy at C8 Carpal tunnel syndrome, right SOB (shortness of breath) (Acute) Leukocytosis Depression Shoulder dislocation Leukocytosis (Acute) Acute dehydration (Acute) Acute UTI (urinary tract infection) (Acute) Chronic dislocation of right shoulder (Acute) Medical History Arthritis Vitamin B12 deficiency CKD (chronic kidney disease) Morbid obesity with BMI of 40.0-44.9, adult CAD (coronary artery disease) History of neck injury History of MRSA infection History of endometrial cancer History of kidney stones Ambulatory dysfunction Low blood sugar History of heart attack DVT (deep venous thrombosis) GERD (gastroesophageal reflux disease) RLS (restless legs syndrome) Osteoporosis Hypertension Surgical History H/O shoulder replacement History of reduction of closed dislocation History of cholecystectomy History of appendectomy History of hip surgery History of hysterectomy History of back surgery History of colonoscopy Status post total knee replacement, bilateral History of gastric bypass Social History Smoking Status: Former smoker Second Hand Exposure: No; Do You Dip or Chew Tobacco: No; Hx Alcohol Use: No Hx Substance Use: No Preferred Language: Italian Communication Ability: Effective Communication Ability Comment: pt can sign own consents Visual Impairment: No Limitations Hearing Ability: Normal Supervisor Compressed Yeast Required: No Beliefs That Will Affect Care: None marital status: / Current Living Situation: Spouse Current Living Situation Comment: inpatient at [facility] How many Children do You have: 2 Feels Safe at Home: Yes Assistive Devices: Walker Review of Systems Constitutional: + fatigue and + weakness; no fever Respiratory: + cough, + chest congestion, + dyspnea a nd + wheezing Gastrointestinal: + nausea, + vomiting and + cramping; no constipation and no diarrhea/loose stools Genitourinary: no dysuria, no urinary frequency and no urinary urgency Physical Exam Constitutional: WD/WN, vitals as above Respiratory: + labored breathing, + cough and able to speak in complete sentences Auscultation: + wheezes; breath sounds present and no crackles Cardiovascular: RRR, no murmur, no edema (no murmur appreciated on exam) Extremities: normal capillary refill; no calf tenderness, no pedal edema and no edema Gastrointestinal (Abdomen): normal bowel sounds, soft, nontender, no hepatosplenomegaly Psychiatric: A+Ox3, euthymic affect Results & Data Results & Data Vital Signs (Past 12 Hours) Vital Signs Temp Pulse Pulse Resp BP BP Pulse Ox 08/04/24 21:00 78 18 94/43 L 100 08/04/24 20:30 96 H 20 97/57 L 100 08/04/24 19:36 84 08/04/24 19:23 76 14 100/50 L 98 08/04/24 15:51 86 08/04/24 15:42 92 08/04/24 15:23 92 08/04/24 15:23 36 C L 83 20 100/49 L 92 08/04/24 15:23 36.7 C 83 20 100/49 L 92 O2 Del Method O2 Flow Rate 08/04/24 21:00 Room Air 08/04/24 20:30 Room Air 08/04/24 19:36 08/04/24 19:23 Nasal Cannula 1.5 08/04/24 15:51 08/04/24 15:42 Room Air 08/04/24 15:23 Room Air 08/04/24 15:23 Nasal Cannula 1.5 08/04/24 15:23 Room Air Supervising Physician Co-Signing Physician Notes Attending addendum: I have physically seen this patient, have supervised the medical residents activities, and agree with the H&P unless as otherwise noted. Assessment and Plan: The patient is a 84-year-old female with past medical history including arthritis, CAD, CKD, obesity, hypertension, endometrial cancer, kidney stones, history of KS, history of DVT, GERD, RLS, and osteoporosis. She presents to the emergency department with 7 to 10 days of worsening shortness of breath, dyspnea on exertion and increased lethargy. The patient was noted by staff at [facility] to have increased shortness of breath, hypoxia with oxygen saturations in the 70s, and she was brought to the ED via EMS for further assessment. In the emergency department [facility], she was noted to be hypoxic, had a glucose of 64, troponin was elevated at 38.6, and BioFire respiratory testing was positive for RSV. She was then referred for evaluation for admission. #Acute respiratory failure with hypoxia/RSV infection- Initial oxygen saturation 88 to 92% on room air, improving to 97% on 1 L oxygen and after DuoNeb treatment Relative hypotension/with history of hypertension- Blood pressure recorded initially 95/41 Holding hydrochlorothiazide and metoprolol succinate for admission Elevated troponin/CHF exacerbation/aortic regurgitation- Initial troponin 38.6, follow-up pending Most recent echocardiogram 11/11 with ejection fraction 65-70%, moderate aortic regurgitation Patient did receive furosemide 40 mg IV Monitor for lower blood pressure, albumin is 2.6, and may benefit from supplementation History of gastric ulcer status post cauterization- Patient noted to have 3 gastric ulcers and underwent EGD on 07/14/2024 She has had decreased oral intake, continues on PPI, and will follow serially Hypoglycemia-glucose 64 on admission Did receive D50, with adequate improvement May benefit from nutrition consult Remaining orders and notations as noted
[2024-08-04] MEDS: FUROSEMIDE 40 MG/4 ML VIAL IV ONE (22:57)
[2024-08-05] MEDS ORDERED: guaiFENesin SUGAR FREE 100 MG/5 ML UDC PO PRN (01:23)
[2024-08-05] MEDS ORDERED: NITROGLYCERIN SL 0.4 MG/TAB TAB SL PRN (01:23)
[2024-08-05] MEDS ORDERED: ACETAMINOPHEN 325 MG TAB PO PRN (02:23)
[2024-08-05] MEDS: CEROVITE ADV FORMULA TAB PO SCH (03:37)
[2024-08-05] MEDS: PREGABALIN 50 MG CAP PO SCH (03:38)
[2024-08-05] MEDS: LACTATED RINGER'S 500 ML IV ONE (04:04)
[2024-08-05 04:23] LABS: Appearance Urine Cloudy (Clear); Bacteria Urine Automated 4+ (None Seen); Bilirubin Urine Negative (Negative); Blood Urine 1+ (Negative); Color Urine Yellow; Epithelial Cell Urine Auto 0-2 /hpf (0-2); Glucose Urine UA Negative (Negative); Ketones Urine Negative (Negative); Leukocyte Esterase Urine 2+ (Negative); Nitrite Urine Negative (Negative); Protein Urine Trace (Negative); RBC Urine Automated >20 /hpf (0-2); Urobilinogen Urine Negative (Negative); WBC Urine Automated >50 /hpf (0-5); pH Urine 5.5 (4.5-7.5)
[2024-08-05 04:50] LABS: Hematocrit (blood only) 26.8 % (37.0-47.0); Hemoglobin 8.6 g/dl (12.0-16.0); Mean Corpuscular Hgb Conc 32.1 g/dL (32.0-36.0); Mean Corpuscular Volume 96.8 fL (80.0-100.0); Mean Platelet Volume 11.1 fL (9.4-12.4); Platelet Count 172 K/uL (130-400); RDW Coefficient of Variation 15.9 % (11.5-14.5); RDW Standard Deviation 55.5 fL (36.4-46.3); Red Blood Count 2.77 M/uL (4.20-5.40)
[2024-08-05 05:21] LABS: Calcium 8.3 mg/dl (8.6-10.3); Creatinine Clr Calc Pharmacy 34.5 ml/min; Magnesium 1.8 mg/dl (1.7-2.4); Potassium 3.9 mmol/L (3.5-5.1)
[2024-08-05] MEDS: METOCLOPRAMIDE HCL 5 MG TABLET PO SCH (08:30)
[2024-08-05] MEDS: PANTOprazole 40 MG TAB PO SCH (08:31)
[2024-08-05] MEDS: OXYBUTYNIN CHLORIDE XL 5 MG TABCR PO SCH (08:31)
[2024-08-05] MEDS: CALCIUM 600MG + VIT D 400 IU TAB PO SCH (08:32)
[2024-08-05] MEDS: MULTIVITAMIN TAB PO SCH (08:32)
[2024-08-05] MEDS: DULoxetine HCL 60 MG CAP PO SCH (08:32)
[2024-08-05] MEDS: POTASSIUM CHLORIDE PWD 20 MEQ PACK PO SCH (08:34)
[2024-08-05] MEDS: POLYETHYLENE (MIRALAX) 17 GM PACK PO SCH (08:44)
[2024-08-05] MEDS: ALBUT/IPRATROP 3MG/0.5MG NEB 3 ML VIAL INH PRN (08:48)
--- NOTE | 2024-08-05 11:06 | Hospitalist Progress Note ---
Date of Service August 05, 2024 Assessment & Plan (1) RSV infection: (2) Acute kidney injury superimposed on chronic kidney disease: (3) Hypomagnesemia: (4) Elevated brain natriuretic peptide (BNP) level: (5) CHF (congestive heart failure): (6) Moderate aortic regurgitation: (7) Hypotension: (8) Anemia: Plan 1) RSV infection/mild respiratory distress - BioFire panel pos for RSV, normal procalcitonin, normal lactate -continue symptomatic mgt - O2Sats, 92% on RA; 97% on 1 L O2 NC 2) Hypotension -low normotensive - pt's BP meds: HCTZ and metoprolol succinate held 3) CHF/CHF Exacerbation/Aortic regurgitation - pt's BNP, 370, upon admission - last Echo (Oct, 2023): 1) showed EF 65-70%, 2) moderate aortic regurgitation 3) Normal r. ventricular sys pressure 4) S/p Cauterization of gastric ulcers - patient had EGD cauterization of 3 gastric ulcers on 07/14/24 - has lost ~ 15 lbs since beginning of year due to decreased oral intake d/t gastric ulcers, wgt loss continuing even after procedure 5) JUAN (borderline) - Cr, 1.25 (baseline Cr ~ 0.95) 6) Electrolyte deficiencies (Hypomagnesemia, borderline hyponatremia) Mg, 1.6 -->1 g MgSO4, IV given in ED Na, 135 7) Elevated troponin HSTrop, 32.7 <-- 38.6 8) Hypoglycemic BSG, 64 on admission --> 50 mL dextrose given in ED 9) Anemia Hgb, 9.3 - probably secondary to previous gastric ulcers; pt denied any hematemesis s/p EGD cauterization 10) CAD s/p stent continue ASA, statin Chronic conditions GERD -continue Nexium RLS - continue gabapentin and ropinirole Constipation - continue Miralax Chronic pain/cervical radiculopathy (C8) - continue duloxetine, pregabalin Code status: Full code Disposition: U FENGI: regular diet VTE Prophylaxis: SCD's Admission and Anticipated Discharge Date Admission Date: August 04, 2024 Subjective patient seen and examined, feels about the same Review of Systems Review of Systems: All systems reviewed are negative, apart from the ones contained in the history. Physical Exam Physical Exam: The patient is awake, alert and oriented 3, well developed and well nourished, normocephalic and atraumatic, lying in bed and in no acute distress. HEENT--PERRL, EOMI, mucous membranes and oropharynx mildly dry Neck--supple. No JVD. No bruits. Thyroid normal, trachea midline, no adenopathy. Heart--normal S1 and S2. No murmurs, rubs or gallops. Lungs--clear bilaterally, no respiratory distress, no accessory muscle use. Abdomen--normal bowel sounds and soft. Extremities--no cyanosis or clubbing. No edema. Dermatologic--normal skin turgor, normal color, no abnormal lymph nodes, no rash. Neurologic--cranial nerves II through XII grossly intact. Rheumatologic--normal range of motion. Psychiatric--normal affect. Results & Data Results & Data Vital Signs (Past 12 Hours) Vital Signs Pulse Pulse Resp BP BP Pulse Ox O2 Del Method 08/05/24 08:15 83 18 97 08/05/24 08:15 109/58 L 08/05/24 08:12 75 22 97 08/05/24 07:30 81 16 96 08/05/24 07:04 83 08/05/24 07:00 112/56 L 08/05/24 07:00 82 17 98 08/05/24 04:32 74 20 102/72 96 Nasal Cannula 08/05/24 04:00 74 19 100 08/05/24 04:00 73/46 L 08/05/24 04:00 73/46 L 08/05/24 03:54 75 22 100 08/05/24 03:30 108/64 08/05/24 03:24 76 16 98 08/05/24 03:15 75 17 97 08/05/24 03:15 101/54 L 08/05/24 03:15 101/54 L 08/05/24 03:00 87 14 98 08/05/24 03:00 106/55 L 08/05/24 03:00 106/55 L 08/05/24 02:48 78 21 93 08/05/24 02:45 108/48 L 08/05/24 02:45 108/48 L 08/05/24 02:38 Nasal Cannula 08/05/24 02:33 75 17 94 08/05/24 02:30 91/60 L 08/05/24 02:30 91/60 L 08/05/24 02:24 77 16 93 08/05/24 02:15 81 22 97 08/05/24 02:15 97/74 L 08/05/24 02:15 97/74 L 08/05/24 02:15 97/74 L 08/05/24 02:15 97/74 L 08/05/24 02:03 90 17 96 08/05/24 02:00 109/55 L 08/05/24 02:00 109/55 L 08/05/24 02:00 109/55 L 08/05/24 02:00 109/55 L 08/05/24 01:45 106/49 L 08/05/24 01:42 78 15 96 08/05/24 01:30 96/45 L 08/05/24 01:30 96/45 L 08/05/24 01:30 96/45 L 08/05/24 01:30 78 17 94 08/05/24 01:28 101 H 24 103/62 97 Nasal Cannula 08/05/24 01:06 76 20 95 08/05/24 00:45 76 22 95 08/05/24 00:30 103/51 L 08/05/24 00:30 103/51 L 08/05/24 00:30 103/51 L 08/05/24 00:30 82 21 99 08/05/24 00:15 79 16 96 08/05/24 00:15 98/68 L 08/05/24 00:15 98/68 L 08/04/24 23:48 78 17 94 08/04/24 23:45 92/45 L 08/04/24 23:45 92/45 L 08/04/24 23:39 80 16 95 08/04/24 23:30 78 19 95 08/04/24 23:30 92/56 L 08/04/24 23:30 92/56 L 08/04/24 23:30 92/56 L 08/04/24 23:26 76 08/04/24 23:18 77 18 94 08/04/24 23:15 92/58 L 08/04/24 23:15 92/58 L 08/04/24 23:15 92/58 L O2 Flow Rate 08/05/24 08:15 08/05/24 08:15 08/05/24 08:12 08/05/24 07:30 08/05/24 07:04 08/05/24 07:00 08/05/24 07:00 08/05/24 04:32 2 08/05/24 04:00 08/05/24 04:00 08/05/24 04:00 08/05/24 03:54 08/05/24 03:30 08/05/24 03:24 08/05/24 03:15 08/05/24 03:15 08/05/24 03:15 08/05/24 03:00 08/05/24 03:00 08/05/24 03:00 08/05/24 02:48 08/05/24 02:45 08/05/24 02:45 08/05/24 02:38 2 08/05/24 02:33 08/05/24 02:30 08/05/24 02:30 08/05/24 02:24 08/05/24 02:15 08/05/24 02:15 08/05/24 02:15 08/05/24 02:15 08/05/24 02:15 08/05/24 02:03 08/05/24 02:00 08/05/24 02:00 08/05/24 02:00 08/05/24 02:00 08/05/24 01:45 08/05/24 01:42 08/05/24 01:30 08/05/24 01:30 08/05/24 01:30 08/05/24 01:30 08/05/24 01:28 2 08/05/24 01:06 08/05/24 00:45 08/05/24 00:30 08/05/24 00:30 08/05/24 00:30 08/05/24 00:30 08/05/24 00:15 08/05/24 00:15 08/05/24 00:15 08/04/24 23:48 08/04/24 23:45 08/04/24 23:45 08/04/24 23:39 08/04/24 23:30 08/04/24 23:30 08/04/24 23:30 08/04/24 23:30 08/04/24 23:26 08/04/24 23:18 08/04/24 23:15 08/04/24 23:15 08/04/24 23:15 PG Care Time/CCT Total # of Minutes Spent Total Time Spent with Patient: Total time spent is greater than 50% in coordination of care (as documented) at patient's floor/unit and/or counseling patient: Coding Level of Care Code 96415 SUB INP/OBS CARE 2/35MIN Diagnoses RSV infection B33.8 Acute kidney injury superimposed on chronic kidney disease N17.9; N18.9 Hypomagnesemia E83.42 Elevated brain natriuretic peptide (BNP) level R79.89 CHF (congestive heart failure) I50.9 Moderate aortic regurgitation I35.1 Hypotension I95.9 Anemia D64.9 Time Spent (min) 35
[2024-08-05] MEDS ORDERED: methylPREDNISolone 125 MG/2 ML VIAL IV STA (11:44)
[2024-08-05] MEDS ORDERED: methylPREDNISolone 125 MG/2 ML VIAL IV SCH (11:45)
[2024-08-05] MEDS: ROSUVASTATIN CALCIUM 20 MG TAB PO SCH (12:07)
[2024-08-05] MEDS: ASPIRIN 81 MG ECTAB PO SCH (12:07)
[2024-08-05] MEDS: methylPREDNISolone 40 MG in SYRINGE 0 ML IV STA (12:47)
[2024-08-05] MEDS: MIDODRINE HCL 2.5 MG TAB PO SCH (12:47)
--- NOTE | 2024-08-05 15:06 | Critical Care Consultation ---
Date of Consultation August 05, 2024 Assessment & Plan (1) Hypotension: (2) Morbid obesity with BMI of 40.0-44.9, adult: (3) Aortic insufficiency: (4) RSV (acute bronchiolitis due to respiratory syncytial virus): Plan Impression: 84-year-old female with multiple medical issues admitted with weakness. Found to have RSV. There was initial concern about hypotension which appears to have resolved. After discussion with the hospitalist there was concern about giving fluid given her history of heart failure. Her ejection fraction is preserved and she does not appear to be in heart failure currently and would favor additional crystalloid if needed. Recommendations: 1. Hypotension: Appears resolved. Would recommend additional crystalloid/volume expansion if needed. Albumin may be an additional consideration. Her random cortisol was low however in the setting of normotension, this is of unclear clinical significance and does not require additional intervention. I do not see an indication for pressor agents at this point in time. No indication for ICU admission. Patient has no evidence of endorgan hypoperfusion such as altered mental status, tachycardia, or elevated lactate. Of note lactate has been normal x 2 on 2 separate occasions. 2. RSV: Supportive care. 3. Weakness and functional decline. It is unclear how much of the above issues are related to this symptom which prompted the patient to be evaluated in the emergency room. Recommend continued evaluation by the primary admitting service. This point in time I do not see a critical care indication and certainly no indication for IV pressor agents. We would be happy to reevaluate this patient should her clinical condition decline. She will continue to be cared for by her primary admitting service. Feel free to contact us with questions or concerns History of Present Illness Attending Physician: Mary Garrett MD History of Present Illness Asked by hospitalist to evaluate patient around for hypotension and potential need for pressors. History is obtained from discussion with the patient as well as review the electronic medical record and discussion with the admitting hospitalist. The patient is an 84-year-old female with a history of aortic insufficiency and coronary artery disease. Last echocardiogram was performed in 2016 which showed normal systolic function with an EF of 55-60 and grade 1 diastolic dysfunction. She presented to the emergency room today with complaints of lethargy and shortness of breath over about 1 week. She has a prior history of peptic ulcer disease treated at [facility]. She is significantly debilitated. She is sent to the emergency room due to low oxygen saturations measured at her alf. Oxygen saturations are stable. She is found to be RSV positive. Chest x-ray was unrevealing. She was initially admitted to the hospitalist service. I was contacted by the hospitalist due to concerns about potential low blood pressure readings. I discussed potential interventions with the hospitalist. When I arrived to evaluate the patient in the emergency room, I found that she been transferred to the floor. I assessed her on the floor. She is currently awake alert and nontoxic. Stable to complete full sentences. Her blood pressure is normal. She has no specific respiratory complaints. No syncope or presyncope. She does have chronic lower extremity edema. Allergies Allergy/AdvReac Type Severity Reaction Status Date / Time cyclobenzaprine Allergy Unknown PASSED OUT Verified 06/29/24 10:14 hydrocodone Allergy Unknown SHORTNESS Verified 06/29/24 10:14 OF BREATH ketorolac Allergy Unknown Unknown Verified 06/29/24 10:14 oxaprozin Allergy Unknown RASH Verified 06/29/24 10:14 sulfamethoxazole Allergy Unknown INCREASED Verified 06/29/24 10:14 POTASSIUM LEVELS trimethoprim Allergy Unknown INCREASED Verified 06/29/24 10:14 POTASSIUM LEVELS azithromycin AdvReac Intermediate UPSET Verified 06/29/24 10:14 STOMACH erythromycin base AdvReac Mild N/V Verified 06/29/24 10:14 lisinopril AdvReac Mild cough Verified 06/29/24 10:14 sertraline AdvReac Mild MOOD SWING Verified 06/29/24 10:14 Home Medications Medication Instructions Recorded Confirmed Type nitroglycerin 0.4 mg sublingual 0.4 mg sublingual Q5M PRN Chest 05/11/22 08/04/24 Rx tablet (Nitrostat) Pain #25 tabs duloxetine 60 mg capsule,delayed 60 mg PO QAM #1 cap 07/27/23 08/04/24 Rx release metoprolol succinate 25 mg 12.5 mg (1/2 x 25 mg) PO DAILY #1 07/27/23 08/04/24 Rx tablet,extended release 24 hr tab pregabalin 50 mg capsule (Lyrica) 50 mg PO BID #1 cap 07/27/23 08/04/24 Rx acetaminophen 325 mg capsule 650 mg PO Q6 PRN Pain 07/28/23 08/04/24 History oxycodone 5 mg tablet 5 mg PO HS 07/28/23 08/04/24 History Zinc Oxide External Paste 40% 1 applic topical QPM 08/04/24 08/04/24 History acetaminophen 325 mg tablet 650 mg PO Q4 PRN temp >100.4 08/04/24 08/04/24 History calcium 600 mg (as 1 tab PO BID 08/04/24 08/04/24 History carbonate)-vitamin D3 5 mcg (200 unit) tablet (Calcium 600 + D(3)) cyanocobalamin (vitamin B-12) 1,000 mcg IM MONTHLY 08/04/24 08/04/24 History 1,000 mcg/mL injection solution duloxetine 40 mg capsule,delayed 40 mg PO HS 08/04/24 08/04/24 History release sprinkle esomeprazole magnesium 40 mg 40 mg PO BID 08/04/24 08/04/24 History capsule,delayed release (Nexium) guaifenesin 100 mg/5 mL oral 300 mg PO Q6 PRN Cough 08/04/24 08/04/24 History liquid (Cecily-Tussin) hydrochlorothiazide 12.5 mg tablet 12.5 mg PO QAM 08/04/24 08/04/24 History ipratropium 0.5 mg-albuterol 3 mg 3 ml inhalation Q4H PRN Shortness 08/04/24 08/04/24 History (2.5 mg base)/3 mL nebulization Of Breath Or Wheezing soln ketoconazole 2 % topical cream 1 applic topical Q12 PRN groin 08/04/24 08/04/24 History rash flare ups ketoconazole 2 % topical cream 1 applic topical UD 08/04/24 08/04/24 History lactase 9,000 unit tablet 9,000 unit PO AC PRN Lactose 08/04/24 08/04/24 History Intolerance metoclopramide HCl 5 mg tablet 5 mg PO AC 08/04/24 08/04/24 History (Reglan) multivitamin 1 tab PO DAILY 08/04/24 08/04/24 History polyethylene glycol 3350 17 17 g PO DAILY 08/04/24 08/04/24 History gram/dose oral powder (Miralax) potassium chloride 20 mEq oral 20 meq PO DAILY 08/04/24 08/04/24 History packet prednisone 10 mg tablet 10 mg PO DIRECTED 08/04/24 08/04/24 History ropinirole 0.5 mg tablet 0.5 mg PO HS 08/04/24 08/04/24 History solifenacin 5 mg tablet (Vesicare) 5 mg PO DAILY 08/04/24 08/04/24 History vit C 250 mg-vit E 90 mg-zinc 40 1 tab PO BID 08/04/24 08/04/24 History mg-copper 1 [id number] capsule (PreserVision AREDS-2) Patient History Medical History Arthritis Vitamin B12 deficiency CKD (chronic kidney disease) Morbid obesity with BMI of 40.0-44.9, adult CAD (coronary artery disease) History of neck injury History of MRSA infection History of endometrial cancer History of kidney stones Ambulatory dysfunction Low blood sugar History of heart attack DVT (deep venous thrombosis) GERD (gastroesophageal reflux disease) RLS (restless legs syndrome) Osteoporosis Hypertension Surgical History H/O shoulder replacement History of reduction of closed dislocation History of cholecystectomy History of appendectomy History of hip surgery History of hysterectomy History of back surgery History of colonoscopy Status post total knee replacement, bilateral History of gastric bypass Social History Smoking Status: Former smoker Second Hand Exposure: No; Do You Dip or Chew Tobacco: No; Hx Alcohol Use: No Hx Substance Use: No Preferred Language: Icelandic Communication Ability: Effective Communication Ability Comment: pt can sign own consents Visual Impairment: No Limitations Hearing Ability: Normal Customer Contact Sales Associate Required: No Beliefs That Will Affect Care: None marital status: / Current Living Situation: Spouse Current Living Situation Comment: inpatient at [facility] How many Children do You have: 2 Feels Safe at Home: Yes Assistive Devices: Walker Review of Systems Review of Systems: Please refer to admission H&P. No additions or deletions Physical Exam Constitutional: Elderly female in no acute distress Neck: trachea midline, no thyromegaly Respiratory: no respiratory distress, no labored breathing, no cough and not tachypneic Auscultation: no rhonchi and no wheezes Cardiovascular: Heart Sounds: normal S1 and normal S2; no murmur Extremities: + edema Gastrointestinal (Abdomen): normal bowel sounds, soft, nontender, no hepatosplenomegaly Musculoskeletal: Extremities: extremities normal to inspection Skin: no rashes, warm and dry Neurologic: Nonfocal exam Lymphatic: no cervical lymphadenopathy Results & Data Results & Data Vital Signs (Past 12 Hours) Vital Signs Temp Pulse Pulse Resp BP BP Pulse Ox 08/05/24 15:00 90 08/05/24 14:22 36.6 C 50 L 18 107/64 93 08/05/24 13:00 90 17 99/47 L 93 08/05/24 11:39 86/36 L 08/05/24 11:23 85 17 93/57 L 98 08/05/24 11:00 93/57 L 08/05/24 10:57 93 H 30 H 94 08/05/24 10:50 95/62 L 08/05/24 10:48 148 H 22 97 08/05/24 10:33 88 35 H 98 08/05/24 10:30 118/81 08/05/24 10:24 85 20 97 08/05/24 10:01 110/48 L 08/05/24 09:48 99 H 19 96 08/05/24 09:30 88 17 96 08/05/24 09:30 105/65 08/05/24 09:00 81 16 96 08/05/24 09:00 105/44 L 08/05/24 08:36 89 20 94 08/05/24 08:15 83 18 97 08/05/24 08:15 109/58 L 08/05/24 08:12 75 22 97 08/05/24 07:30 81 16 96 08/05/24 07:04 83 08/05/24 07:00 112/56 L 08/05/24 07:00 82 17 98 08/05/24 04:32 74 20 102/72 96 08/05/24 04:00 74 19 100 08/05/24 04:00 73/46 L 08/05/24 04:00 73/46 L 08/05/24 03:54 75 22 100 08/05/24 03:30 108/64 08/05/24 03:24 76 16 98 08/05/24 03:15 75 17 97 08/05/24 03:15 101/54 L 08/05/24 03:15 101/54 L O2 Del Method O2 Flow Rate 08/05/24 15:00 08/05/24 14:22 Room Air 3 08/05/24 13:00 Nasal Cannula 3 08/05/24 11:39 08/05/24 11:23 Nasal Cannula 2 08/05/24 11:00 08/05/24 10:57 08/05/24 10:50 08/05/24 10:48 08/05/24 10:33 08/05/24 10:30 08/05/24 10:24 08/05/24 10:01 08/05/24 09:48 08/05/24 09:30 08/05/24 09:30 08/05/24 09:00 08/05/24 09:00 08/05/24 08:36 08/05/24 08:15 08/05/24 08:15 08/05/24 08:12 08/05/24 07:30 08/05/24 07:04 08/05/24 07:00 08/05/24 07:00 08/05/24 04:32 Nasal Cannula 2 08/05/24 04:00 08/05/24 04:00 08/05/24 04:00 08/05/24 03:54 08/05/24 03:30 08/05/24 03:24 08/05/24 03:15 08/05/24 03:15 08/05/24 03:15 Critical Care Results & Data Vital Signs (Past 12 Hours) Vital Signs Temp Pulse Pulse Resp BP BP Pulse Ox 08/05/24 17:00 36.7 C 84 22 103/57 L 97 08/05/24 15:42 08/05/24 15:29 36.6 C 86 20 89/53 L 95 08/05/24 15:02 08/05/24 15:00 90 08/05/24 14:22 36.6 C 50 L 18 107/64 93 08/05/24 13:00 90 17 99/47 L 93 08/05/24 11:39 86/36 L 08/05/24 11:23 85 17 93/57 L 98 08/05/24 11:00 93/57 L 08/05/24 10:57 93 H 30 H 94 08/05/24 10:50 95/62 L 08/05/24 10:48 148 H 22 97 08/05/24 10:33 88 35 H 98 08/05/24 10:30 118/81 08/05/24 10:24 85 20 97 08/05/24 10:01 110/48 L 08/05/24 09:48 99 H 19 96 08/05/24 09:30 88 17 96 08/05/24 09:30 105/65 08/05/24 09:00 81 16 96 08/05/24 09:00 105/44 L 08/05/24 08:36 89 20 94 08/05/24 08:15 83 18 97 08/05/24 08:15 109/58 L 08/05/24 08:12 75 22 97 08/05/24 07:30 81 16 96 08/05/24 07:04 83 08/05/24 07:00 112/56 L 08/05/24 07:00 82 17 98 Pulse Ox O2 Del Method O2 Del Method O2 Flow Rate O2 Flow Rate 08/05/24 17:00 Nasal Cannula 2 08/05/24 15:42 95 Nasal Cannula 2 08/05/24 15:29 Nasal Cannula 2 08/05/24 15:02 Nasal Cannula 2 08/05/24 15:00 08/05/24 14:22 Room Air 3 08/05/24 13:00 Nasal Cannula 3 08/05/24 11:39 08/05/24 11:23 Nasal Cannula 2 08/05/24 11:00 08/05/24 10:57 08/05/24 10:50 08/05/24 10:48 08/05/24 10:33 08/05/24 10:30 08/05/24 10:24 08/05/24 10:01 08/05/24 09:48 08/05/24 09:30 08/05/24 09:30 08/05/24 09:00 08/05/24 09:00 08/05/24 08:36 08/05/24 08:15 08/05/24 08:15 08/05/24 08:12 08/05/24 07:30 08/05/24 07:04 08/05/24 07:00 08/05/24 07:00 Lab & Micro Results (Past 24 Hours) RBC 2.77 M/uL (4.20-5.40) L 08/05/24 WBC 8.50 K/ul (4.8-10.8) 08/05/24 Hgb 8.6 g/dl (12.0-16.0) L 08/05/24 Hct 26.8 % (37.0-47.0) L 08/05/24 MCV 96.8 fL (80.0-100.0) 08/05/24 MCH 31.0 pg (25.0-34.0) 08/05/24 MCHC 32.1 g/dL (32.0-36.0) 08/05/24 RDW Standard Deviation 55.5 fL (36.4-46.3) H 08/05/24 RDW Coefficient of Variation 15.9 % (11.5-14.5) H 08/05/24 Plt Count 172 K/uL (130-400) 08/05/24 MPV 11.1 fL (9.4-12.4) 08/05/24 Na 136 mmol/L (136-145) 08/05/24 K 3.9 mmol/L (3.5-5.1) 08/05/24 Cl 100 mmol/L (98-107) 08/05/24 CO2 31 mmol/L (21-32) 08/05/24 Anion Gap 5 (3-11) 08/05/24 BUN 22 mg/dl (6-23) 08/05/24 Creatinine 1.17 mg/dl (0.6-1.2) 08/05/24 Ca 8.3 mg/dl (8.6-10.3) L 08/05/24 Mg 1.8 mg/dl (1.7-2.4) 08/05/24 04:18 Calcium Level 8.3 mg/dl (8.6-10.3) L 08/05/24 04:18 Microbiology 08/04/24 16:23 Aerobic Blood Culture - Preliminary Blood No growth in Aerobic bottle after 24 hours. I & O Totals 24 Hours 08/04/24 08/05/24 08/06/24 06:59 06:59 06:59 Intake Total 600 / 600 600 / 600 Output Total 500 / 500 Balance 100 / 100 600 / 600 Cumulative 08/04/24 15:22 thru 02/15/25 17:53 Intake Total 1200 Output Total 500 Balance 700 RT Ventilator Mngmt (Last Documented) Ventilator Ordered Settings Respiratory Rate 22 08/05/24 17:00 Ventilator - PT Measurements Respiratory Rate 22 Coding Level of Care Code 18765 INT INP/OBS CARE 3/75MIN Diagnoses Hypotension I95.9 Morbid obesity with BMI of 40.0-44.9, adult E66.01; Z68.41 Aortic insufficiency I35.1 RSV (acute bronchiolitis due to respiratory syncytial virus) J21.0
[2024-08-05] MEDS: SODIUM CHLORIDE 0.9% 500 ML IV ONE (16:15)
[2024-08-05] MEDS: PIPERACILLIN/TAZOBACTAM 4.5 GM/100 ML BAG IV STA (16:35)
[2024-08-05] MEDS: methylPREDNISolone 40 MG in SYRINGE 0 ML IV SCH (18:30)
[2024-08-05] MEDS: DULoxetine HCL 30 MG CAP PO SCH (21:05)
[2024-08-05] MEDS: oxyCODONE HCL IR 5 MG TAB (IMMEDIATE RELEASE) PO SCH (21:05)
[2024-08-05] MEDS: rOPINIRole HCL 0.25 MG TABLET PO SCH (21:07)
[2024-08-05] MEDS: PIPERACILLIN/TAZOBACTAM 4.5 GM/100 ML BAG IV SCH (21:50)
[2024-08-05] MEDS: ONDANSETRON INJ 2 MG/ML 2 ML VIAL IV PRN (21:50)
[2024-08-05] MEDS: predniSONE 10 MG TABLET PO SCH (22:08)
--- NOTE | 2024-08-05 22:46 | Billing Data ---
Date of Service August 05, 2024 Coding Level of Care Code 84637 INT INP/OBS CARE
[2024-08-06 10:33] LABS: Hematocrit (blood only) 32.1 % (37.0-47.0); Hemoglobin 10.3 g/dl (12.0-16.0); Mean Corpuscular Hemoglobin 30.8 pg (25.0-34.0); Mean Corpuscular Hgb Conc 32.1 g/dL (32.0-36.0); Mean Corpuscular Volume 96.1 fL (80.0-100.0); Mean Platelet Volume 11.3 fL (9.4-12.4); Platelet Count 216 K/uL (130-400); RDW Coefficient of Variation 15.8 % (11.5-14.5); RDW Standard Deviation 54.3 fL (36.4-46.3); Red Blood Count 3.34 M/uL (4.20-5.40); White Blood Count 10.76 K/ul (4.8-10.8)
[2024-08-06 11:04] LABS: BUN Creatinine Ratio 18.3 (10-20); Calcium 9.1 mg/dl (8.6-10.3); Creatinine Clr Calc Pharmacy 33.3 ml/min
[2024-08-06] MEDS: METOCLOPRAMIDE HCL INJ 5 MG/ML 2 ML VIAL IV PRN (11:39)
--- NOTE | 2024-08-06 11:44 | Hospitalist Progress Note ---
Date of Service August 06, 2024 Assessment & Plan (1) RSV infection: (2) Acute kidney injury superimposed on chronic kidney disease: (3) Hypomagnesemia: (4) Elevated brain natriuretic peptide (BNP) level: (5) CHF (congestive heart failure): (6) Moderate aortic regurgitation: (7) Hypotension: (8) Anemia: Plan 1) RSV infection/mild respiratory distress - BioFire panel pos for RSV, normal procalcitonin, normal lactate - O2Sats, 92% on RA; 97% -Now on room air, appears much more comfortable today 2) Hypotension-low normotensive - BP as low as 95/41 upon admission, dropped to 67 systolic 2/15 - pt's BP meds: HCTZ and metoprolol succinate held -BP much improved now Will continue midodrine to help support pressure 3) CHF/CHF Exacerbation/Aortic regurgitation - pt's BNP, 370, upon admission - last Echo (Oct, 2023): 1) showed EF 65-70%, 2) moderate aortic regurgitation 3) Normal r. ventricular sys pressure 4) S/p Cauterization of gastric ulcers - patient had EGD cauterization of 3 gastric ulcers on 07/14/24 - has lost ~ 15 lbs since beginning of year due to decreased oral intake d/t gastric ulcers, wgt loss continuing even after procedure 5) JUAN (borderline) - Cr, 1.25 (baseline Cr ~ 0.95) 6) Electrolyte deficiencies (Hypomagnesemia, borderline hyponatremia) Mg, 1.6 -->1 g MgSO4, IV given in ED Na, 135 7) Elevated troponin HSTrop, 32.7 <-- 38.6 8) Hypoglycemic BSG, 64 on admission --> 50 mL dextrose given in ED 9) Anemia Hgb, 9.3 - probably secondary to previous gastric ulcers; pt denied any hematemesis s/p EGD cauterization 10 Steroid patient on PO prednisone at home I could not find the indication, will continue here in the hospital Chronic conditions GERD -continue Nexium RLS - continue gabapentin and ropinirole Constipation - continue Miralax Chronic pain/cervical radiculopathy (C8) - continue duloxetine, pregabalin Code status: Full code Disposition: U FENGI: regular diet VTE Prophylaxis: SCD's Continue to monitor in the hospital PT/OT eval Admission and Anticipated Discharge Date Admission Date: August 04, 2024 Subjective patient seen and examined, feels much better, appears more comfortable today Review of Systems Review of Systems: All systems reviewed are negative, apart from the ones contained in the history. Physical Exam Physical Exam: The patient is awake, alert and oriented 3, well developed and well nourished, normocephalic and atraumatic, lying in bed and in no acute distress. HEENT--PERRL, EOMI, mucous membranes and oropharynx mildly dry Neck--supple. No JVD. No bruits. Thyroid normal, trachea midline, no adenopathy. Heart--normal S1 and S2. No murmurs, rubs or gallops. Lungs--clear bilaterally, no respiratory distress, no accessory muscle use. Abdomen--normal bowel sounds and soft. Extremities--no cyanosis or clubbing. No edema. Dermatologic--normal skin turgor, normal color, no abnormal lymph nodes, no rash. Neurologic--cranial nerves II through XII grossly intact. Rheumatologic--normal range of motion. Psychiatric--normal affect. Results & Data Results & Data Vital Signs (Past 12 Hours) Vital Signs Temp Pulse Pulse Resp BP Pulse Ox O2 Del Method 08/06/24 07:49 97.5 F L 83 20 98/50 L 98 Room Air 08/06/24 07:45 Nasal Cannula 08/06/24 07:00 100 H 08/06/24 03:10 97.9 F 83 20 106/64 96 Nasal Cannula O2 Flow Rate 08/06/24 07:49 08/06/24 07:45 1 08/06/24 07:00 08/06/24 03:10 1 PG Care Time/CCT Total # of Minutes Spent Total Time Spent with Patient: Total time spent is greater than 50% in coordination of care (as documented) at patient's floor/unit and/or counseling patient: Coding Level of Care Code 19447 SUB INP/OBS CARE 2/35MIN Diagnoses RSV infection B33.8 Acute kidney injury superimposed on chronic kidney disease N17.9; N18.9 Hypomagnesemia E83.42 Elevated brain natriuretic peptide (BNP) level R79.89 CHF (congestive heart failure) I50.9 Moderate aortic regurgitation I35.1 Hypotension I95.9 Anemia D64.9 Time Spent (min) 35
[2024-08-06] MEDS: bisacodyL 10 MG SUPP PR STA (12:48)
--- NOTE | 2024-08-07 07:23 | Hospitalist Progress Note ---
Date of Service August 07, 2024 Assessment & Plan (1) RSV infection: (2) Acute kidney injury superimposed on chronic kidney disease: (3) Hypomagnesemia: (4) Elevated brain natriuretic peptide (BNP) level: (5) CHF (congestive heart failure): (6) Moderate aortic regurgitation: (7) Hypotension: (8) Anemia: Plan 1) RSV infection/mild respiratory distress - BioFire panel pos for RSV, normal procalcitonin, normal lactate - O2Sats, 95%, 2L O2 NC; 92% on RA on admission 2) Hypotension-low normotensive - BP as low as 95/41 upon admission - pt's BP meds: HCTZ and metoprolol succinate held - BP's have been intermittently low; pt on midodrine, 5 mg, PO, TID 3) UTI - Ur Cx pos for E. coli, sensitivities pending - WBC, 14.2 <-- 10.8 - pt was started on Zosyn, discontinued today - started on ceftriaxone, 2g, IV, q24 hrs 4) CHF/CHF Exacerbation/Aortic regurgitation - pt's BNP, 370, upon admission - last Echo (Oct, 2023): 1) showed EF 65-70%, 2) moderate aortic regurgitation 3) Normal r. ventricular sys pressure 5) S/p Cauterization of gastric ulcers - patient had EGD cauterization of 3 gastric ulcers on 07/14/24 - has lost ~ 15 lbs since beginning of year due to decreased oral intake d/t gastric ulcers, wgt loss continuing even after procedure 6) Anemia Hgb, 8.9 <-- 9.3 - probably secondary to previous gastric ulcers; pt denied any hematemesis s/p EGD cauterization 7) JUAN (borderline) - Cr, 1.22 <-- 1.25 (baseline Cr ~ 0.95) 8) Electrolyte deficiencies (Hypomagnesemia, borderline hyponatremia) Mg, 1.6 -->1 g MgSO4, IV given in ED Na, 135 9) Elevated troponin #resolved HSTrop, 32.7 <-- 38.6 10) Hypoglycemic #resolved BSG, 64 on admission --> 50 mL dextrose given in ED Chronic conditions GERD -continue Nexium RLS - continue gabapentin and ropinirole Constipation - continue Miralax Chronic pain/cervical radiculopathy (C8) - continue duloxetine, pregabalin Code status: Full code Disposition: PCU FENGI: regular diet VTE Prophylaxis: SCD's Admission and Anticipated Discharge Date Admission Date: August 04, 2024 Supervising Physician Co-Signing Physician Notes I personally examined the patient and verified churchill points of history and exam, discussed case, and agree with decision making and plan documented by Dr. Godoy. Patient appears to be improving clinically from RSV infection, she is saturating well on room air, denies any pulmonary symptoms. Patient reported not having a bowel movement for the past 5 days, suppository was provided yesterday, continue to monitor. Transitioned to ceftriaxone from Zosyn, noted positive urine culture with E. coli, susceptibility pending. At present, patient remains on midodrine with blood pressure medications being held, will attempt to wean with improvement of BP. Subjective Patient was seen and evaluated this morning. State that her appetite has still not returned and that she's not eating a lot. Last vomited yesterday but still feeling nauseous. Not feeling dyspneic at rest but uncertain how she would feel if she had to move around more. Review of Systems Constitutional: + fatigue and + weakness (still feeling weak w/ little improvement); no fever Respiratory: + cough, + chest congestion and + wheezi ng; no dyspnea (maybe dyspneic on exertion, pt has been bedridden) Gastrointestinal: + nausea and + cramping; no vomiting (pt vomited twice yesterday), no coffee ground emesis, no constipation and no diarrhea/loose stools Genitourinary: no dysuria, no urinary frequency and no urinary urgency Neurologic: no tingling, no numbness and no headache(s) Hematologic / Lymphatic: + easy bruising (chronic easy bruising); no easy bleeding Physical Exam Constitutional: WD/WN, vitals as above Respiratory: + cough and able to speak in complete se ntences; no labored breathing Auscultation: + wheezes (intermittent wheezing of r. side); breath sounds present and no crackles Cardiovascular: RRR, no murmur, no edema (no murmur appreciated on exam) Extremities: normal capillary refill and + edema (some edema of the arms around vascular access sites); no calf tenderness and no pedal edema Gastrointestinal (Abdomen): normal bowel sounds, soft, nontender, no hepatosplenomegaly Psychiatric: A+Ox3, euthymic affect Results & Data Results & Data Vital Signs (Past 12 Hours) Vital Signs Temp Pulse Resp BP Pulse Ox O2 Del Method O2 Flow Rate 08/07/24 03:30 36.7 C 68 18 114/75 95 Nasal Cannula 08/06/24 23:10 36.9 C 76 18 108/70 97 Nasal Cannula 2 08/06/24 20:10 Nasal Cannula 2 08/06/24 19:56 37.0 C 80 17 117/70 96 Nasal Cannula 2 Resident Activity Tracking Resident Involvement: Resident Care Provided Care Provided: Adult Hospital Medicine
[2024-08-07 08:19] LABS: Hemoglobin 8.9 g/dl (12.0-16.0); Mean Corpuscular Volume 94.1 fL (80.0-100.0); Mean Platelet Volume 11.6 fL (9.4-12.4); Platelet Count 167 K/uL (130-400); RDW Coefficient of Variation 15.9 % (11.5-14.5); RDW Standard Deviation 55.4 fL (36.4-46.3); Red Blood Count 2.87 M/uL (4.20-5.40); White Blood Count 14.22 K/ul (4.8-10.8)
[2024-08-07 08:28] LABS: BUN Creatinine Ratio 19.7 (10-20); Calcium 8.6 mg/dl (8.6-10.3); Potassium 4.3 mmol/L (3.5-5.1)
--- NOTE | 2024-08-07 12:53 | Electrocardiogram Report ---
Test Reason : Blood Pressure : */* mmHG Vent. Rate : 84 BPM Atrial Rate : 84 BPM P-R Int : 186 ms QRS Dur : 78 ms QT Int : 358 ms P-R-T Axes : 39 17 25 degrees QTcB Int : 423 ms Normal sinus rhythm When compared with ECG of 04-Aug-2024 15:52, Inverted T waves have replaced nonspecific T wave abnormality in Anterior leads Nonspecific T wave abnormality no longer evident in Lateral leads Confirmed by Karan Peguero ([id number]) on 08/07/2024 12:53:13 PM Referred By: Tammy Chaidez Confirmed By: Karan Peguero
[2024-08-07] MEDS: cefTRIAXone SODIUM 2,000 MG/50 ML BAG IV SCH (18:12)
--- NOTE | 2024-08-08 07:13 | Hospitalist Progress Note ---
Date of Service August 08, 2024 Assessment & Plan (1) UTI (urinary tract infection): (2) RSV infection: (3) Acute kidney injury superimposed on chronic kidney disease: (4) Hypomagnesemia: (5) Elevated brain natriuretic peptide (BNP) level: (6) CHF (congestive heart failure): (7) Moderate aortic regurgitation: (8) Hypotension: (9) Anemia: Plan 1) UTI - Ur Cx pos for E. coli, ESBL+, Sensitivities: Zosyn, Ertapenem, Meropenem, Tobramycin, Amikacin - WBC, 11.1 <-- 14.2 <-- 10.8 - discontinued Zosyn and later discontinued ceftriaxone -Blood Cx (08/04), negative after 48 hrs 2) RSV infection/mild respiratory distress - BioFire panel pos for RSV, normal procalcitonin, normal lactate - O2Sats, 95%, 2L O2 NC; 92% on RA on admission - CXR: 1) cardiomegaly w/ pulm vascular congestion, 2) small pleural effusions w/ mild bibasilar atelectasis 3) no signs of PNA 3) Hypotension-low normotensive - BP as low as 95/41 upon admission - pt's BP meds: HCTZ and metoprolol succinate held - BP's have been intermittently low, BP ; pt on midodrine, 5 mg, PO, TID - pt's BP has been low for ~ 6 months (parallels pt's wgt loss) 4) CHF/CHF Exacerbation/Aortic regurgitation - pt's BNP, 265 <-- 370, upon admission; ordered repeat BNP to assess for improvement and possible IV fluid administration - last Echo (Oct, 2023): 1) showed EF 65-70%, 2) moderate aortic regurgitation 3) Normal r. ventricular sys pressure - CXR: 1) cardiomegaly w/ pulm vascular congestion, 2) small pleural effusions w/ mild bibasilar atelectasis 5) Nausea, vomiting, S/p Cauterization of gastric ulcers - patient has been vomiting almost daily since EGD cauterization procedure - patient had EGD cauterization of 3 gastric ulcers on 07/14/24 - has lost ~ 15 lbs since beginning of year (maybe 25-30 lbs overall) due to decreased oral intake d/t gastric ulcers, wgt loss continuing even after procedure - on metoclopramide, 5 mg, PO, AC, DAWIT and 10 mg, IV, q6hr, PRN; zofran, 4 mg, IV, q4hr, PRN -consider GI consult while inpatient 6) Anemia Hgb, 9.3 <-- 8.9 <-- 10.3 - probably secondary to previous gastric ulcers; pt denied any hematemesis s/p EGD cauterization 7) JUAN (borderline) - Cr, 1.28 <-- 1.25 (baseline Cr ~ 0.95) 8) Electrolyte deficiencies (Hypomagnesemia, borderline hyponatremia) Mg, 1.6 -->1 g MgSO4, IV given in ED; repeat Mg ordered, 1.6 Na, 135 9) Elevated troponin #resolved HSTrop, 32.7 <-- 38.6 10) Hypoglycemic #resolved BSG, 64 on admission --> 50 mL dextrose given in ED Chronic conditions GERD -continue Nexium RLS - continue gabapentin and ropinirole Constipation - continue Miralax Chronic pain/cervical radiculopathy (C8) - continue duloxetine, pregabalin Code status: Full code Disposition: PCU FENGI: regular diet VTE Prophylaxis: SCD's Admission and Anticipated Discharge Date Admission Date: August 04, 2024 Supervising Physician Co-Signing Physician Notes I personally examined the patient and verified churchill points of history and exam, discussed case, and agree with decision making and plan documented by Dr. Godoy. Patient appears to be improving clinically from RSV infection, she is saturating well on room air, denies any pulmonary symptoms. Patient had decreased PO intake and has yet to have BM, suppository without benefit, sennosides ordered. Transitioned IV ertapenem for ESBL. At present, patient remains on midodrine with blood pressure medications being held, will attempt to wean with improvement of BP. Subjective Patient was seen and evaluated this morning. State that her appetite has still not returned and that she's not eating a lot. Last vomited yesterday but still feeling nauseous. Not feeling dyspneic at rest but uncertain how she would feel if she had to move around more. Review of Systems Constitutional: + fatigue and + weakness (still feeling weak w/ little improvement); no fever Respiratory: + cough, + chest congestion and + wheezi ng; no dyspnea (maybe dyspneic on exertion, pt has been bedridden) Gastrointestinal: + nausea and + cramping; no vomiting (pt vomited twice yesterday), no coffee ground emesis, no constipation and no diarrhea/loose stools Genitourinary: no dysuria, no urinary frequency and no urinary urgency Neurologic: no tingling, no numbness and no headache(s) Hematologic / Lymphatic: + easy bruising (chronic easy bruising); no easy bleeding Physical Exam Constitutional: WD/WN, vitals as above Respiratory: + cough and able to speak in complete se ntences; no labored breathing Auscultation: + wheezes (intermittent wheezing of r. side); breath sounds present and no crackles Cardiovascular: RRR, no murmur, no edema (no murmur appreciated on exam) Extremities: normal capillary refill and + edema (some edema of the arms around vascular access sites); no calf tenderness and no pedal edema Gastrointestinal (Abdomen): normal bowel sounds, soft, nontender, no hepatosplenomegaly Psychiatric: A+Ox3, euthymic affect Results & Data Results & Data Vital Signs (Past 12 Hours) Vital Signs Temp Pulse Pulse Resp BP Pulse Ox O2 Del Method 08/08/24 03:35 36.6 C 74 16 95/56 L 93 Room Air 08/07/24 23:05 68 08/07/24 22:20 36.4 C L 76 16 96/59 L 92 Room Air 08/07/24 19:58 Room Air 08/07/24 19:17 36.6 C 75 18 107/69 93 Room Air Resident Activity Tracking Resident Involvement: Resident Care Provided Care Provided: Adult Hospital Medicine
[2024-08-08 07:15] LABS: Basophils # (auto) 0.01 K/uL (0.00-0.20); Basophils % (auto) 0.1 %; Eosinophils # (auto) 0.17 K/uL (0.00-0.50); Eosinophils % (auto) 1.5 %; Hematocrit (blood only) 28.4 % (37.0-47.0); Hemoglobin 9.3 g/dl (12.0-16.0); Immature Granulocytes # (auto) 0.21 K/uL (0.01-0.20); Immature Granulocytes % (auto) 1.9 %; Lymphocytes # (auto) 1.47 K/uL (1.20-3.40); Lymphocytes % (auto) 13.2 %; Mean Corpuscular Hemoglobin 31.1 pg (25.0-34.0); Mean Corpuscular Hgb Conc 32.7 g/dL (32.0-36.0); Mean Platelet Volume 11.5 fL (9.4-12.4); Monocytes # (auto) 1.33 K/uL (0.11-0.59); Neutrophils # (auto) 7.92 K/uL (1.40-6.50); Neutrophils % (auto) 71.3 %; Platelet Count 147 K/uL (130-400); RDW Coefficient of Variation 15.9 % (11.5-14.5); RDW Standard Deviation 54.5 fL (36.4-46.3); Red Blood Count 2.99 M/uL (4.20-5.40); White Blood Count 11.11 K/ul (4.8-10.8)
[2024-08-08 07:34] LABS: Albumin Globulin Ratio 0.9 (0.9-2); Albumin Level 2.1 gm/dl (3.4-5.0); Bilirubin,Total 0.4 mg/dl (0.2-1.0); Calcium 9.1 mg/dl (8.6-10.3); Creatinine Clr Calc Pharmacy 31.4 ml/min; Globulin 2.4 gm/dl (2.5-4.0); Potassium 3.8 mmol/L (3.5-5.1); Total Protein 4.5 gm/dl (6.0-8.3)
[2024-08-08] MEDS: PIPERACILLIN/TAZOBACTAM 4.5 GM/100 ML BAG IV SCH (10:20)
[2024-08-08] MEDS: ERTAPENEM 1000MG 1,000 MG/10 ML SYR IV SCH (11:16)
[2024-08-08] MEDS: SENNA 8.6 MG TAB PO SCH (14:14)
[2024-08-08] MEDS: DULoxetine HCL 20 MG CAP PO SCH (20:58)
[2024-08-08] MEDS: BUTT PASTE (ZINC OXIDE 16%) 171 APPLN/57 GM JAR EXT SCH (21:40)
[2024-08-09 06:44] LABS: Basophils # (auto) 0.02 K/uL (0.00-0.20); Basophils % (auto) 0.2 %; Eosinophils # (auto) 0.46 K/uL (0.00-0.50); Eosinophils % (auto) 5.7 %; Hematocrit (blood only) 31.5 % (37.0-47.0); Immature Granulocytes # (auto) 0.17 K/uL (0.01-0.20); Immature Granulocytes % (auto) 2.1 %; Lymphocytes # (auto) 1.38 K/uL (1.20-3.40); Mean Corpuscular Hemoglobin 30.6 pg (25.0-34.0); Mean Corpuscular Hgb Conc 31.7 g/dL (32.0-36.0); Mean Corpuscular Volume 96.3 fL (80.0-100.0); Mean Platelet Volume 11.4 fL (9.4-12.4); Monocytes # (auto) 1.11 K/uL (0.11-0.59); Monocytes % (auto) 13.6 %; Neutrophils % (auto) 61.4 %; Platelet Count 142 K/uL (130-400); RDW Coefficient of Variation 15.6 % (11.5-14.5); RDW Standard Deviation 54.6 fL (36.4-46.3); Red Blood Count 3.27 M/uL (4.20-5.40); White Blood Count 8.14 K/ul (4.8-10.8)
[2024-08-09 06:48] LABS: Calcium 9.3 mg/dl (8.6-10.3); Creatinine Clr Calc Pharmacy 28.3 ml/min; Potassium 3.9 mmol/L (3.5-5.1)
[2024-08-09] MEDS ORDERED: GLUCAGON FOR INJ 1 MG VIAL SQ PRN (07:09)
--- NOTE | 2024-08-09 08:23 | Hospitalist Progress Note ---
Date of Service August 09, 2024 Assessment & Plan (1) UTI (urinary tract infection): (2) RSV infection: (3) Acute kidney injury superimposed on chronic kidney disease: (4) Hypomagnesemia: (5) Elevated brain natriuretic peptide (BNP) level: (6) CHF (congestive heart failure): (7) Moderate aortic regurgitation: (8) Hypotension: (9) Anemia: Plan 1) UTI - Ur Cx pos for E. coli, ESBL+, Sensitivities: Zosyn, Ertapenem, Meropenem, Tobramycin, Amikacin - WBC, 8.1 <-- 14.2 <-- 10.8 - discontinued Zosyn and later discontinued ceftriaxone - started on Ertapenem, 500 mg, IV, q24hrs -Blood Cx (08/04), negative after 48 hrs 2) RSV infection/mild respiratory distress - BioFire panel pos for RSV, normal procalcitonin, normal lactate - O2Sats, 95%, 2L O2 NC; 92% on RA on admission - CXR: 1) cardiomegaly w/ pulm vascular congestion, 2) small pleural effusions w/ mild bibasilar atelectasis 3) no signs of PNA 3) Hypotension-low normotensive - BP as low as 95/41 upon admission - pt's BP meds: HCTZ and metoprolol succinate held - BP's have been intermittently low, BP ; pt on midodrine, 5 mg, PO, TID - pt's BP has been low for ~ 6 months (parallels pt's wgt loss) 4) CHF/CHF Exacerbation/Aortic regurgitation - pt's BNP, 265 <-- 370, upon admission; ordered repeat BNP to assess for improvement and possible IV fluid administration - last Echo (Oct, 2023): 1) showed EF 65-70%, 2) moderate aortic regurgitation 3) Normal r. ventricular sys pressure - CXR: 1) cardiomegaly w/ pulm vascular congestion, 2) small pleural effusions w/ mild bibasilar atelectasis 5) Nausea, vomiting, S/p Cauterization of gastric ulcers - patient has been vomiting almost daily since EGD cauterization procedure - patient had EGD cauterization of 3 gastric ulcers on 07/14/24 - has lost ~ 15 lbs since beginning of year (maybe 25-30 lbs overall) due to decreased oral intake d/t gastric ulcers, wgt loss continuing even after procedure - on metoclopramide, 5 mg, PO, AC, DAWIT and 10 mg, IV, q6hr, PRN; zofran, 4 mg, IV, q4hr, PRN - Miralax, 17 g, PO, BID for now; Senokot, 17.2 mg, PO, qAM -consider GI consult while inpatient - KUB: no significant stool burden or bowel obstruction; evidence of previous bowel anastomoses, surgical clips in abd, pelvis 6) Anemia Hgb, 10.0 <-- 8.9 <-- 10.3 - probably secondary to previous gastric ulcers; pt denied any hematemesis s/p EGD cauterization - improvement could just be due to dehydration from vomiting 7) JUAN (borderline) - Cr, 1.41 <-- 1.25 (baseline Cr ~ 0.95) 8) Electrolyte deficiencies (Hypomagnesemia, borderline hyponatremia) Mg, 1.6 -->1 g MgSO4, IV given in ED; repeat Mg ordered, 1.6 --> 2 g MgSO4, IV, ordered Na, 136 <-- 134 9) Elevated troponin #resolved HSTrop, 32.7 <-- 38.6 10) Hypoglycemia BSG, 64 on admission --> 50 mL dextrose given in ED --> normal until yesterday BSG, 56 (fasting, 08/08) --> 51 (fasting, 08/09) Chronic conditions GERD -continue Nexium RLS - continue gabapentin and ropinirole Constipation - continue Miralax Chronic pain/cervical radiculopathy (C8) - continue duloxetine, pregabalin Code status: Full code Disposition: PCU FENGI: regular diet VTE Prophylaxis: SCD's Admission and Anticipated Discharge Date Admission Date: August 04, 2024 Supervising Physician Co-Signing Physician Notes I personally examined the patient and verified churchill points of history and exam, discussed case, and agree with decision making and plan documented by Dr. Godoy. Continue IV ertapenem for ESBL. Wean midodrine. Patient reports BM yesterday, no documentation, KUB stool burden wnl. Subjective Patient was seen and evaluated this morning. States that her appetite is still diminished and that she's not eating a lot. Did not vomit yesterday, feeling slightly nauseous this morning. Patient stated that she did have a BM yesterday that was soft in nature--her first BM during her hospital stay. Patient did vomit later this morning. Medications on her chart to help with nausea and constipation were reviewed with her, so that she didn't inadvertently refuse one. Patient states that she has been vomiting almost daily since her EGD in June where 3 bleeding ulcers were cauterized. Review of Systems Constitutional: + fatigue and + weakness (still feeling weak w/ little improvement); no fever Respiratory: + cough, + chest congestion and + wheezi ng; no dyspnea (maybe dyspneic on exertion, pt has been bedridden) Gastrointestinal: + nausea and + cramping; no vomiting (pt vomited twice yesterday), no coffee ground emesis, no constipation and no diarrhea/loose stools Genitourinary: no dysuria, no urinary frequency and no urinary urgency Neurologic: no tingling, no numbness and no headache(s) Hematologic / Lymphatic: + easy bruising (chronic easy bruising); no easy bleeding Physical Exam Constitutional: WD/WN, vitals as above Respiratory: + cough and able to speak in complete se ntences; no labored breathing Auscultation: + wheezes (intermittent wheezing of r. side); breath sounds present and no crackles Cardiovascular: RRR, no murmur, no edema (no murmur appreciated on exam) Extremities: normal capillary refill and + edema (some edema of the arms around vascular access sites); no calf tenderness and no pedal edema Gastrointestinal (Abdomen): normal bowel sounds, soft, nontender, no hepatosplenomegaly Psychiatric: A+Ox3, euthymic affect Results & Data Results & Data Vital Signs (Past 12 Hours) Vital Signs Temp Pulse Resp BP Pulse Ox O2 Del Method 08/09/24 07:58 36.3 C L 81 16 106/54 L 95 Room Air 08/09/24 02:52 36.5 C 74 18 100/60 94 Room Air 08/08/24 23:06 Room Air 08/08/24 22:25 36.5 C 76 18 113/55 L 95 Room Air
--- NOTE | 2024-08-09 15:49 | XRay Report ---
[facility] CLINICAL HISTORY: possible constipation COMPARISON STUDY: KUB October 10, 2018. Left hip radiographs December 01, 2016. MRI of the left hip December 202016. FINDINGS: Postoperative findings within the lumbosacral spine are noted. There are also bowel anastom oses and surgical clips within the abdomen and pelvis. Bowel gas pattern is normal. The amount of sto ol is within normal limits. A small left pleural effusion with left basilar opacity is again noted. T here is a left acetabular fracture with callus formation. IMPRESSION: 1. No evidence for a bowel obstruction. Amount of stool within normal limits. 2. Left acetabular fracture with callus formation, partially imaged on this exam. This fracture is ag e indeterminate but likely subacute to chronic. This could be further assessed with left hip radiogra phs to exclude the less likely possibility of a coexistent femoral fracture. ACT 112: Negative or not required by law. Electronically signed by: Jonatan Hernandez M.D. 08/09/2024 3:47 PM
[2024-08-09] MEDS: MAGNESIUM SULFATE / D5W 1 GM/100 ML BAG IV SCH (18:14)
[2024-08-09] MEDS: POLYETHYLENE (MIRALAX) 17 GM PACK PO SCH (23:00)
[2024-08-09] MEDS: CARBOHYDRATES FOR HYPOGLYCEMIA PO PRN (23:18)
[2024-08-10] MEDS: DEXTROSE 50% 50 ML SYRINGE IV PRN (00:05)
--- NOTE | 2024-08-10 07:04 | Hospitalist Progress Note ---
Date of Service August 10, 2024 Assessment & Plan (1) UTI (urinary tract infection): (2) RSV infection: (3) Acute kidney injury superimposed on chronic kidney disease: (4) Hypomagnesemia: (5) Elevated brain natriuretic peptide (BNP) level: (6) CHF (congestive heart failure): (7) Moderate aortic regurgitation: (8) Hypotension: (9) Anemia: Plan UTI - Ur Cx pos for E. coli, ESBL+, Sensitivities: Zosyn, Ertapenem, Meropenem, Tobramycin, Amikacin - Initial antibiotics included Zosyn and later Ceftriaxone, now transitioned to Ertapenem 500mg q24h RSV infection/mild respiratory distress - On admission, BioFire panel positive for RSV. Normal procalcitonin and lactate - CXR on 08/04 showed cardiomegaly w/ pulm vascular congestion, small pleural effusions w/ mild bibasilar atelectasis - Slightly more hypoxic this morning, requiring 3L NC, currently 92% - Will order new CXR this morning to rule out worsening of pleural effusions and/or developing pneumonia -XR shows progressive L lower lobe density likely representing pneumonia -Will order MRSA nares, adjust antibiotics if needed Hypotension-low normotensive - BP as low as 95/41 upon admission - pt's BP meds: HCTZ and metoprolol succinate held - BP's have been intermittently low, BP ; pt on midodrine, 5 mg, PO, TID - pt's BP has been low for ~ 6 months (parallels pt's wgt loss) HFpEF/Aortic regurgitation - BNP with mild elevation at 265 - Last Echo (Oct, 2023): EF 65-70%, moderate aortic regurgitation, Normal r. ventricular sys pressure - Cautious with additional IV fluids Nausea, vomiting, S/p Cauterization of gastric ulcers - patient has been vomiting almost daily since EGD cauterization procedure - patient had EGD cauterization of 3 gastric ulcers on 07/14/24 - has lost ~ 15 lbs since beginning of year (maybe 25-30 lbs overall) due to decreased oral intake d/t gastric ulcers, weight loss - Metoclopramide and Zofran PRN - Miralax and Senna for bowel regimen - KUB obtained on 08/09: no significant stool burden or bowel obstruction - Due to refractory nausea/vomiting, will order GI consult for further evaluation Anemia - Likely secondary to previous gastric ulcers; pt denied any hematemesis s/p EGD cauterization - improvement could just be due to dehydration from vomiting UJAN (borderline) - Baseline Cr ~ 0.95, currently Cr 1.25 - Likely secondary to poor PO intake with refractory vomiting Electrolyte deficiencies (Hypomagnesemia, borderline hyponatremia) - Na 132 today - Monitor daily BMP Elevated troponin #resolved - HSTrop, 32.7 <-- 38.6 Hypoglycemia - Multiple episodes of hypoglycemia throughout admission - More frequent in the last 12 hours, coinciding with frequent episodes of vomiting - Hypoglycemia protocol ordered, also ordered D5W w/ 1/2 NSS @ 80mL/h x1L Chronic conditions GERD: continue Nexium RLS: continue gabapentin and ropinirole Chronic pain/cervical radiculopathy (C8): continue duloxetine, pregabalin Code status: Full code Disposition: PCU FENGI: regular diet VTE Prophylaxis: SCD's Admission and Anticipated Discharge Date Admission Date: August 04, 2024 Supervising Physician Co-Signing Physician Notes I personally examined the patient and verified churchill points of history and exam, discussed case, and agree with decision making and plan documented by Dr. Saleh. Patient initially presenting with acute respiratory failure with hypoxia in setting of RSV infection. Patient developed hypotension requiring fluids, she was then placed on midodrine. Will reduce dose of midodrine to 2.5 mg TID. Urine culture was positive for E. coli, patient initiated on IV antibiotics, culture susceptibilities revealed ESBL, patient was placed on ertapenem. Appreciate ID recommendations.Patient with continued decreased PO intake, nausea, and vomiting, evaluated by GI today, will continue supportive measures with PPI and antiemetics. ID consultation appreciated. CM assisting dispo back to [place]. Subjective Patient was seen and examined at bedside. Overnight patient had multiple episodes of emesis, denies seeing any blood/dark colors in her emesis. Has continued to have episodes of hypoglycemia. Endorses feeling more short of breath this morning, but denies any chest pain. Review of Systems Review of Systems: As per above Physical Exam Constitutional: Alert and oriented, no acute distress. Appears tired. Eyes: + anicteric sclerae; no conjunctival abn ormality ENMT: Ears: no external ear abnormality Nose: no external nose abnormality Respiratory: Normal respiratory efforts. Bilateral lung bases with some crackles. Nasal cannula in place. Cardiovascular: Rate/Rhythm: regular rate and regular rhythm Extremities: no edema Gastrointestinal (Abdomen): Inspection/Auscultation: abdomen not distended Percussion/Palpation: abdomen soft; abdomen nontender and no guarding Musculoskeletal: Moves all limbs independently Skin: no rashes, warm and dry Psychiatric: A+Ox3, euthymic affect Results & Data Results & Data Vital Signs (Past 12 Hours) Vital Signs Temp Pulse Pulse Resp BP BP Pulse Ox 08/10/24 03:30 36.4 C L 79 18 102/61 94 08/09/24 22:30 08/09/24 22:22 121 H 08/09/24 22:19 36.8 C 89 18 113/70 95 08/09/24 20:00 36.9 C 92 H 13 120/75 O2 Del Method 08/10/24 03:30 Room Air 08/09/24 22:30 Room Air 08/09/24 22:22 08/09/24 22:19 Room Air 08/09/24 20:00 Diagnostic Findings KUB X-Ray 08/09/24 14:10 KUB CLINICAL HISTORY: possible constipation COMPARISON STUDY: KUB October 10, 2018. Left hip radiographs December 01, 2016. MRI of the left hip January 08, 2017. FINDINGS: Postoperative findings within the lumbosacral spine are noted. There are also bowel anastomoses and surgical clips within the abdomen and pelvis. [place] el gas pattern is normal. The amount of stool is within normal limits. A small left pleural effusion with left basilar opacity is again noted. There is a left acetabular fracture with callus formation. IMPRESSION: 1. No evidence for a bowel obstruction. Amount of stool within normal limits. 2. Left acetabular fracture with callus formation, partially imaged on this exam. This fracture is age indeterminate but likely subacute to chronic. This could be further assessed with left hip radiographs to exclude the less likely possibility of a coexistent femoral fracture. ACT 112: Negative or not required by law. Electronically signed by: Jonatan Hernandez M.D. 08/09/2024 3:47 PM Chest X-Ray 08/10/24 10:19 XR chest 1V portable CLINICAL HISTORY: hypoxia COMPARISON STUDY: 08/04/2024 FINDINGS: Small bilateral pleural effusions are persistent left greater than right. The airspace opacity in the right lung base is progressive suggesting a left lower lobe infiltrate or partial atelectasis. Mild cardiomegaly and pulmonary vascular congestion are persistent. IMPRESSION: Progressive density in the left lung base consistent with either pneumonia or worsening atelectasis. Small bilateral pleural effusions redemonstrated. ACT 112: Negative or not required by law. Electronically signed by: Quyen Pleitez M.D. 08/10/2024 11:08 AM Resident Activity Tracking Resident Involvement: Resident Care Provided Care Provided: Adult Hospital Medicine
[2024-08-10] MEDS: D5W AND 1/2NSS 1,000 ML IV SCH (07:21)
[2024-08-10] MEDS: ERTAPENEM 500MG 500 MG/5 ML SYR IV SCH (09:33)
[2024-08-10 10:04] LABS: Albumin Level 2.4 gm/dl (3.4-5.0); Bilirubin,Total 0.4 mg/dl (0.2-1.0); Calcium 9.5 mg/dl (8.6-10.3); Magnesium 1.9 mg/dl (1.7-2.4); Potassium 3.9 mmol/L (3.5-5.1)
[2024-08-10 10:10] LABS: Globulin 2.5 gm/dl (2.5-4.0); Total Protein 4.9 gm/dl (6.0-8.3)
[2024-08-10 10:43] LABS: Hematocrit (blood only) 29.5 % (37.0-47.0); Mean Corpuscular Hemoglobin 31.3 pg (25.0-34.0); Mean Corpuscular Hgb Conc 33.9 g/dL (32.0-36.0); Mean Corpuscular Volume 92.5 fL (80.0-100.0); Mean Platelet Volume 12.3 fL (9.4-12.4); Platelet Count 118 K/uL (130-400); RDW Coefficient of Variation 15.5 % (11.5-14.5); RDW Standard Deviation 53.2 fL (36.4-46.3); Red Blood Count 3.19 M/uL (4.20-5.40); White Blood Count 9.43 K/ul (4.8-10.8)
--- NOTE | 2024-08-10 10:55 | Gastrointestinal Consultation ---
Date of Consultation August 10, 2024 Assessment & Plan (1) Vomiting: Plan Patient admitted with UTI and RSV, reports episodes of emesis that have been ongoing prior to admission at [facility] in June. She had an EGD done there that reportedly shown gastric ulcers that were bleeding. symptoms are likely multifactorial. - continue with protonix 40mg BID - continue with reglan 10mg AC - will transition zofran from being a prn medication to a regular dose to see if this helps some of her symptoms. - Further recommendations to follow, see Dr. Olson's append. Supervising Physician Co-Signing Physician Notes I personally saw and examined the patient. I have reviewed the chart and agree with the documentation provided by the BOX OFFICE MANAGER including discussion about the assessment, treatment and plan. Briefly, 84 year old female with a past medical history of arthritis, CAD, CKD, obesity, HTN, endometrial cancer, kidney stones, AK, DVT, GERD, RLS, and osteoporosis who had presented to the ED on 08/04 with complaints of shortness of breath and lethargy. She was admitted with RSV/UTI. patient had reportedly been admitted last month at [facility] and had episodes of hematemesis. She underwent an EGD on 07/14 that reportedly shown gastric ulcers, three of which were bleeding, no reports available. We will ask to get them. Suspect her nausea and vomiting is secondary to possible mild gastroparesis and her recent ulcers. At this point best options are to treat her supportively as you are doing with Reglan and PPI will just make the Zofran standing. She has no further recommendations we will sign off History of Present Illness Reason for Consultation: frequent vomiting Requesting Physician: Domenica Saleh DO Attending Physician: Sandra Aguilar DO History of Present Illness Patient is an 84 year old female with a past medical history of arthritis, CAD, CKD, obesity, HTN, endometrial cancer, kidney stones, AK, DVT, GERD, RLS, and osteoporosis who had presented to the ED on 08/04 with complaints of shortness of breath and lethargy. She was admitted with RSV/UTI. patient had reportedly been admitted last month at [facility] and had episodes of hematemesis. She underwent an EGD on 07/14 that reportedly shown gastric ulcers, three of which were bleeding. I do not have records for this to review. Since she started with the hematemesis, she notes that she has had ongoing issues with vomiting. she denies any further hematemesis. she feels nauseated. no reflux. no abdominal pain. she denies any changes in bowels, blood in stools or melena. Allergies Allergy/AdvReac Type Severity Reaction Status Date / Time cyclobenzaprine Allergy Unknown PASSED OUT Verified 06/29/24 10:14 hydrocodone Allergy Unknown SHORTNESS Verified 06/29/24 10:14 OF BREATH ketorolac Allergy Unknown Unknown Verified 06/29/24 10:14 oxaprozin Allergy Unknown RASH Verified 06/29/24 10:14 sulfamethoxazole Allergy Unknown INCREASED Verified 06/29/24 10:14 POTASSIUM LEVELS trimethoprim Allergy Unknown INCREASED Verified 06/29/24 10:14 POTASSIUM LEVELS azithromycin AdvReac Intermediate UPSET Verified 06/29/24 10:14 STOMACH erythromycin base AdvReac Mild N/V Verified 06/29/24 10:14 lisinopril AdvReac Mild cough Verified 06/29/24 10:14 sertraline AdvReac Mild MOOD SWING Verified 06/29/24 10:14 Home Medications Medication Instructions Recorded Confirmed Type nitroglycerin 0.4 mg sublingual 0.4 mg sublingual Q5M PRN Chest 05/11/22 08/04/24 Rx tablet (Nitrostat) Pain #25 tabs duloxetine 60 mg capsule,delayed 60 mg PO QAM #1 cap 07/27/23 08/04/24 Rx release metoprolol succinate 25 mg 12.5 mg (1/2 x 25 mg) PO DAILY #1 07/27/23 08/04/24 Rx tablet,extended release 24 hr tab pregabalin 50 mg capsule (Lyrica) 50 mg PO BID #1 cap 07/27/23 08/04/24 Rx acetaminophen 325 mg capsule 650 mg PO Q6 PRN Pain 07/28/23 08/04/24 History oxycodone 5 mg tablet 5 mg PO HS 07/28/23 08/04/24 History Zinc Oxide External Paste 40% 1 applic topical QPM 08/04/24 08/04/24 History acetaminophen 325 mg tablet 650 mg PO Q4 PRN temp >100.4 08/04/24 08/04/24 History calcium 600 mg (as 1 tab PO BID 08/04/24 08/04/24 History carbonate)-vitamin D3 5 mcg (200 unit) tablet (Calcium 600 + D(3)) cyanocobalamin (vitamin B-12) 1,000 mcg IM MONTHLY 08/04/24 08/04/24 History 1,000 mcg/mL injection solution duloxetine 40 mg capsule,delayed 40 mg PO HS 08/04/24 08/04/24 History release sprinkle esomeprazole magnesium 40 mg 40 mg PO BID 08/04/24 08/04/24 History capsule,delayed release (Nexium) guaifenesin 100 mg/5 mL oral 300 mg PO Q6 PRN Cough 08/04/24 08/04/24 History liquid (Cecily-Tussin) hydrochlorothiazide 12.5 mg tablet 12.5 mg PO QAM 08/04/24 08/04/24 History ipratropium 0.5 mg-albuterol 3 mg 3 ml inhalation Q4H PRN Shortness 08/04/24 08/04/24 History (2.5 mg base)/3 mL nebulization Of Breath Or Wheezing soln ketoconazole 2 % topical cream 1 applic topical Q12 PRN groin 08/04/24 08/04/24 History rash flare ups ketoconazole 2 % topical cream 1 applic topical UD 08/04/24 08/04/24 History lactase 9,000 unit tablet 9,000 unit PO AC PRN Lactose 08/04/24 08/04/24 History Intolerance metoclopramide HCl 5 mg tablet 5 mg PO AC 08/04/24 08/04/24 History (Reglan) multivitamin 1 tab PO DAILY 08/04/24 08/04/24 History polyethylene glycol 3350 17 17 g PO DAILY 08/04/24 08/04/24 History gram/dose oral powder (Miralax) potassium chloride 20 mEq oral 20 meq PO DAILY 08/04/24 08/04/24 History packet prednisone 10 mg tablet 10 mg PO DIRECTED 08/04/24 08/04/24 History ropinirole 0.5 mg tablet 0.5 mg PO HS 08/04/24 08/04/24 History solifenacin 5 mg tablet (Vesicare) 5 mg PO DAILY 08/04/24 08/04/24 History vit C 250 mg-vit E 90 mg-zinc 40 1 tab PO BID 08/04/24 08/04/24 History mg-copper 1 [id number] capsule (PreserVision AREDS-2) Patient History Medical History Arthritis Vitamin B12 deficiency CKD (chronic kidney disease) Morbid obesity with BMI of 40.0-44.9, adult CAD (coronary artery disease) History of neck injury History of MRSA infection History of endometrial cancer History of kidney stones Ambulatory dysfunction Low blood sugar History of heart attack DVT (deep venous thrombosis) GERD (gastroesophageal reflux disease) RLS (restless legs syndrome) Osteoporosis Hypertension Surgical History H/O shoulder replacement History of reduction of closed dislocation History of cholecystectomy History of appendectomy History of hip surgery History of hysterectomy History of back surgery History of colonoscopy Status post total knee replacement, bilateral History of gastric bypass Social History Smoking Status: Former smoker Second Hand Exposure: No; Do You Dip or Chew Tobacco: No; Hx Alcohol Use: No Hx Substance Use: No Preferred Language: Sami Communication Ability: Effective Communication Ability Comment: pt can sign own consents Visual Impairment: No Limitations Hearing Ability: Normal Behavioral Health Worker Required: No Beliefs That Will Affect Care: None marital status: / Current Living Situation: Spouse Current Living Situation Comment: inpatient at [facility] How many Children do You have: 2 Feels Safe at Home: Yes Assistive Devices: Walker Review of Systems Review of Systems: All systems reviewed & are unremarkable except as noted in HPI & below Physical Exam Constitutional: WD/WN, vitals as above Respiratory: normal respiratory effort, lungs clear to auscultation Cardiovascular: Rate/Rhythm: regular rate and regular rhythm Gastrointestinal (Abdomen): normal bowel sounds, soft, nontender, no hepatosplenomegaly Psychiatric: Orientation: alert and oriented x 3 Results & Data Vital Signs (Past 12 Hours) Vital Signs Temp Pulse Pulse Resp BP BP Pulse Ox 08/10/24 10:42 98.2 F 81 19 103/60 95 08/10/24 09:59 08/10/24 09:58 80 08/10/24 09:00 08/10/24 07:55 92 08/10/24 07:47 98.1 F 86 20 96/59 L 08/10/24 03:30 97.5 F L 79 18 102/61 94 Pulse Ox O2 Del Method O2 Del Method O2 Flow Rate O2 Flow Rate 08/10/24 10:42 Nasal Cannula 3 08/10/24 09:59 Nasal Cannula 3 08/10/24 09:58 08/10/24 09:00 92 Nasal Cannula 3 08/10/24 07:55 Nasal Cannula 2 08/10/24 07:47 08/10/24 03:30 Room Air Coding Level of Care Code 03664 INT INP/OBS CARE MIN Diagnoses Vomiting R11.10
--- NOTE | 2024-08-10 11:10 | XRay Report ---
XR chest 1V portable CLINICAL HISTORY: hypoxia COMPARISON STUDY: 08/04/2024 FINDINGS: Small bilateral pleural effusions are persistent left greater than right. The airspace opac ity in the right lung base is progressive suggesting a left lower lobe infiltrate or partial atelecta sis. Mild cardiomegaly and pulmonary vascular congestion are persistent. IMPRESSION: Progressive density in the left lung base consistent with either pneumonia or worsening atelectasis. Small bilateral pleural effusions redemonstrated. ACT 112: Negative or not required by law. Electronically signed by: Quyen Pleitez M.D. 08/10/2024 11:08 AM
[2024-08-10] MEDS: ONDANSETRON INJ 2 MG/ML 2 ML VIAL IV SCH (12:33)
--- NOTE | 2024-08-10 13:47 | Infectious Disease Consult ---
Date of Consultation August 10, 2024 Assessment & Plan (1) RSV infection: (2) Acute kidney injury superimposed on chronic kidney disease: Plan 84yo F with h/o CAD/MD, CKD, endometrial cancer, renal stones, DVT, GERD, RLS, arthritis, gastric ulcers s/p cauterized on 07/14/24 at [facility], bl shoulder replacements, bl TKA, lumbar surgery who presented on 08/04 who presented with shortness of breath and increased lethargy x 7-10 days. Her rehab noted O2 sat to 70s and patient was sent to the ED. Here she was afebrile, documented O2 sat 90s and on 2L NC, initial BP in 90s. Initial labs with WBC 11.27, Cr 1.24, AST/ALT wnl. Lactate 1. Elevated troponin, BNP 300s. PCT 0.14. R PP positive for RSV. CXR with pulmonary vascular congestion, small pleural effusions with mild bibasilar atelectasis. She was admitted with RSV infection, JUAN, and CHF. Developed hypotension to 70-80s on 08/05 which subsequently resolved with IVFs. She was started on zosyn on 08/05 which was eventually changed to ertapenem based on UCX on 08/08. KUB 08/09 negative for bowel obstruction, left acetabular fracture with callus formation. On 08/10, she was noted to be more hypoxic and placed on 3L NC. CXR 08/10 with progressive density in left lung base c/w either PNA or worsening atelectasis, small bilateral pleural effusions. ID consulted 08/10. Unfortunately, I do not have a telepresenter for this afternoon. ID is being consulted for a PNA and UTI. Regarding the UTI, admission H+P notes that she did not have any dysuria or urinary urgency/frequency. No noted abdominal tenderness on documented exams. She has not had any fevers. WBC was up on 08/07 but she had received solumedrol and then prednisone on 08/05 and 08/06. This trended down since 08/07 though she had started ertapenem on 08/08. My suspicion is that she doesnt have a UTI and that the cultures likely represent colonization. Regarding the PNA, CXR doesnt appear to have a clear consolidation. WBC is wnl, no fever. I will add PCT and hold off on adding vancomycin for now. # Hypoxia # UCx with ESBL E coli # RSV infection # JUAN on CKD - if she doesnt have any urinary symptoms (dysuria, urgency/frequency, etc) would not treat UCx - Sabine ordered procalcitonin - shes already received ertapenem today, will keep it ordered for now until I see her tomorrow with the telepresenter Will continue to follow. If questions or concerns, contact via Tiger[employer] or Infectious Disease Call Center . Hodan Tineo MD [facility], Division of Infectious Diseases Consultation Information This patient recommendation is based on a telemedicine consult request which was completed asynchronously through chart review and information provided by the primary physician. The patient was not seen or examined today. The evaluation is consultative in nature and all patient care and treatment decisions can either be accepted or rejected by the patient's primary hospital-based treating physician using their own independent medical judgment for their patient. Financial Analysis Manager contact information: Please call ID Connect Call Center . (Phone Number For Physician Use Only) Time Spent Reviewing Chart: 31+ minutes History of Present Illness Reason for Consultation: ESBL UTI and new pneumonia Attending Physician: Sandra Aguilar, History of Present Illness 84yo F with h/o CAD/MD, CKD, endometrial cancer, renal stones, DVT, GERD, RLS, arthritis, gastric ulcers s/p cauterized on 07/14/24 at [facility], bl shoulder replacements, bl TKA, lumbar surgery who presented on 08/04 who presented with shortness of breath and increased lethargy x 7-10 days. Per chart, she has been losing weight since the treatment of her gastric ulcers and has been getting weaker. In the past week, she had become increasingly short of breath and rehab noted O2 sat to 70s and patient was sent to the ED. Here she was afebrile, documented O2 sat 90s and on 2L NC, initial BP in 90s. Initial labs with WBC 11.27, Cr 1.24, AST/ALT wnl. Lactate 1. Elevated troponin, BNP 300s. PCT 0.14. RPP positive for RSV. CXR with pulmonary vascular congestion, small pleural effusions with mild bibasilar atelectasis. She was admitted with RSV infection, JUAN, and CHF. Developed hypotension to 70-80s on 08/05 which subsequently resolved with IVFs. She was started on zosyn on 08/05 which was eventually changed to ertapenem based on UCX on 08/08. KUB 08/09 negative for bowel obstruction, left acetabular fracture with callus formation. On 08/10, she was noted to be more hypoxic and placed on 3L NC. CXR 08/10 with progressive density in left lung base c/w either PNA or worsening atelectasis, small bilateral pleural effusions. ID consulted 08/10. No telepresenter available for this afternoon. Allergies Allergy/AdvReac Type Severity Reaction Status Date / Time cyclobenzaprine Allergy Unknown PASSED OUT Verified 06/29/24 10:14 hydrocodone Allergy Unknown SHORTNESS Verified 06/29/24 10:14 OF BREATH ketorolac Allergy Unknown Unknown Verified 06/29/24 10:14 oxaprozin Allergy Unknown RASH Verified 06/29/24 10:14 sulfamethoxazole Allergy Unknown INCREASED Verified 06/29/24 10:14 POTASSIUM LEVELS trimethoprim Allergy Unknown INCREASED Verified 06/29/24 10:14 POTASSIUM LEVELS azithromycin AdvReac Intermediate UPSET Verified 06/29/24 10:14 STOMACH erythromycin base AdvReac Mild N/V Verified 06/29/24 10:14 lisinopril AdvReac Mild cough Verified 06/29/24 10:14 sertraline AdvReac Mild MOOD SWING Verified 06/29/24 10:14 Home Medications Medication Instructions Recorded Confirmed Type nitroglycerin 0.4 mg sublingual 0.4 mg sublingual Q5M PRN Chest 05/11/22 08/04/24 Rx tablet (Nitrostat) Pain #25 tabs duloxetine 60 mg capsule,delayed 60 mg PO QAM #1 cap 07/27/23 08/04/24 Rx release metoprolol succinate 25 mg 12.5 mg (1/2 x 25 mg) PO DAILY #1 07/27/23 08/04/24 Rx tablet,extended release 24 hr tab pregabalin 50 mg capsule (Lyrica) 50 mg PO BID #1 cap 07/27/23 08/04/24 Rx acetaminophen 325 mg capsule 650 mg PO Q6 PRN Pain 07/28/23 08/04/24 History oxycodone 5 mg tablet 5 mg PO HS 07/28/23 08/04/24 History Zinc Oxide External Paste 40% 1 applic topical QPM 08/04/24 08/04/24 History acetaminophen 325 mg tablet 650 mg PO Q4 PRN temp >100.4 08/04/24 08/04/24 History calcium 600 mg (as 1 tab PO BID 08/04/24 08/04/24 History carbonate)-vitamin D3 5 mcg (200 unit) tablet (Calcium 600 + D(3)) cyanocobalamin (vitamin B-12) 1,000 mcg IM MONTHLY 08/04/24 08/04/24 History 1,000 mcg/mL injection solution duloxetine 40 mg capsule,delayed 40 mg PO HS 08/04/24 08/04/24 History release sprinkle esomeprazole magnesium 40 mg 40 mg PO BID 08/04/24 08/04/24 History capsule,delayed release (Nexium) guaifenesin 100 mg/5 mL oral 300 mg PO Q6 PRN Cough 08/04/24 08/04/24 History liquid (Cecily-Tussin) hydrochlorothiazide 12.5 mg tablet 12.5 mg PO QAM 08/04/24 08/04/24 History ipratropium 0.5 mg-albuterol 3 mg 3 ml inhalation Q4H PRN Shortness 08/04/24 08/04/24 History (2.5 mg base)/3 mL nebulization Of Breath Or Wheezing soln ketoconazole 2 % topical cream 1 applic topical Q12 PRN groin 08/04/24 08/04/24 History rash flare ups ketoconazole 2 % topical cream 1 applic topical UD 08/04/24 08/04/24 History lactase 9,000 unit tablet 9,000 unit PO AC PRN Lactose 08/04/24 08/04/24 History Intolerance metoclopramide HCl 5 mg tablet 5 mg PO AC 08/04/24 08/04/24 History (Reglan) multivitamin 1 tab PO DAILY 08/04/24 08/04/24 History polyethylene glycol 3350 17 17 g PO DAILY 08/04/24 08/04/24 History gram/dose oral powder (Miralax) potassium chloride 20 mEq oral 20 meq PO DAILY 08/04/24 08/04/24 History packet prednisone 10 mg tablet 10 mg PO DIRECTED 08/04/24 08/04/24 History ropinirole 0.5 mg tablet 0.5 mg PO HS 08/04/24 08/04/24 History solifenacin 5 mg tablet (Vesicare) 5 mg PO DAILY 08/04/24 08/04/24 History vit C 250 mg-vit E 90 mg-zinc 40 1 tab PO BID 08/04/24 08/04/24 History mg-copper 1 [id number] capsule (PreserVision AREDS-2) Patient History Medical History Arthritis Vitamin B12 deficiency CKD (chronic kidney disease) Morbid obesity with BMI of 40.0-44.9, adult CAD (coronary artery disease) History of neck injury History of MRSA infection History of endometrial cancer History of kidney stones Ambulatory dysfunction Low blood sugar History of heart attack DVT (deep venous thrombosis) GERD (gastroesophageal reflux disease) RLS (restless legs syndrome) Osteoporosis Hypertension Surgical History H/O shoulder replacement History of reduction of closed dislocation History of cholecystectomy History of appendectomy History of hip surgery History of hysterectomy History of back surgery History of colonoscopy Status post total knee replacement, bilateral History of gastric bypass Social History Smoking Status: Former smoker Second Hand Exposure: No; Do You Dip or Chew Tobacco: No; Hx Alcohol Use: No Hx Substance Use: No Preferred Language: Sudanese Communication Ability: Effective Communication Ability Comment: pt can sign own consents Visual Impairment: No Limitations Hearing Ability: Normal Emergency Vehicle Driver Required: No Beliefs That Will Affect Care: None marital status: / Current Living Situation: Spouse Current Living Situation Comment: inpatient at [facility] How many Children do You have: 2 Feels Safe at Home: Yes Assistive Devices: Walker Results & Data Vital Signs (Past 12 Hours) Vital Signs Temp Pulse Pulse Resp BP BP Pulse Ox 08/10/24 10:42 36.8 C 81 19 103/60 95 08/10/24 09:59 08/10/24 09:58 80 08/10/24 09:00 08/10/24 07:55 92 08/10/24 07:47 36.7 C 86 20 96/59 L 08/10/24 03:30 36.4 C L 79 18 102/61 94 Pulse Ox O2 Del Method O2 Del Method O2 Flow Rate O2 Flow Rate 08/10/24 10:42 Nasal Cannula 3 08/10/24 09:59 Nasal Cannula 3 08/10/24 09:58 08/10/24 09:00 92 Nasal Cannula 3 08/10/24 07:55 Nasal Cannula 2 08/10/24 07:47 08/10/24 03:30 Room Air Laboratory Results Labs reviewed. Diagnostic Findings Imaging reviewed.
[2024-08-11] MEDS ORDERED: VANCOMYCIN CONSULT ACTIVE PRN (08:15)
--- NOTE | 2024-08-11 08:32 | Infectious Disease Progress Nt ---
Date of Service August 11, 2024 Assessment & Plan (1) Pneumonia: (2) RSV infection: (3) Acute kidney injury superimposed on chronic kidney disease: Plan 84yo F with h/o CAD/AR, CKD, endometrial cancer, renal stones, DVT, GERD, RLS, arthritis, gastric ulcers s/p cauterized on 07/14/24 at [facility], bl shoulder replacements, bl TKA, lumbar surgery who presented on 08/04 who presented with shortness of breath and increased lethargy x 7-10 days. Her rehab noted O2 sat to 70s and patient was sent to the ED. Here she was afebrile, documented O2 sat 90s and on 2L NC, initial BP in 90s. Initial labs with WBC 11.27, Cr 1.24, AST/ALT wnl. Lactate 1. Elevated troponin, BNP 300s. PCT 0.14. RPP positive for RSV. CXR with pulmonary vascular congestion, small pleural effusions with mild bibasilar atelectasis. She was admitted with RSV infection, JUAN, and CHF. Developed hypotension to 70-80s on 08/05 which subsequently resolved with IVFs. She was started on zosyn on 08/05 which was eventually changed to ertapenem based on UCX on 08/08. KUB 08/09 negative for bowel obstruction, left acetabular fracture with callus formation. On 08/10, she was noted to be more hypoxic and placed on 3L NC. CXR 08/10 with progressive density in left lung base c/w either PNA or worsening atelectasis, small bilateral pleural effusions. ID consulted 08/10. PCT 0.21, MRSA screen positive. She does report worsening cough associated with shortness of breath and now on 4L NC this am. PCT is 0.21 though and MRSA screen positive. Given increasing oxygen requirement and clinically patient is feeling worse, Ill add on vancomycin and treat for PNA that was noted on CXR. Sabine also ordered sputum cx. She doesnt have any urinary symptoms but does have some right CVA tenderness which she said she didnt know she had and is new. Ill keep on ertapenem as well, which will include coverage of possible PNA that developed while she was on zosyn. # Possible left sided PNA # UCx with ESBL E coli no dysuria/urin freq, +right CVA tenderness # RSV infection # JUAN on CKD - Sabine ordered sputum cultures - started vancomycin pharmacy dosed protocol - continue ertapenem 1g IV q24h ID will continue to follow. Please note that there will be no ID notes over the weekend. If questions or concerns arise, please contact the Infectious Disease Call Center and ask to speak with the covering ID physician. Dr. Mckeon will take over on Wednesday. Hodan Tineo MD [facility], Division of Infectious Diseases Admission and Anticipated Discharge Date Admission Date: August 04, 2024 Subjective Subsequent visit was provided via telemedicine using two-way real-time interactive telecommunication between the patient and the telemedicine provider. For the duration of the visit, the provider was performing the assessment from a different facility than the patient. This includesuse of bluetooth stethoscope forauscultationperformed by the telepresenter that the telemedicine provider can hear if described in the physical exam. Brand Director contact information: Please call ID Connect Call Center . (Phone Number For Physician Use Only) After establishing a telemedicine visit, patient was: Patient was verified with two unique identifiers, Patient/authorized rep acknowledged consent and understanding and Gave permission to continue telehealth session Time Spent with Patient: Subsequent => 55 min Patient reports having productive cough that makes her short of breath. She says that compared to before, the cough is worse. No chest pains. She denies having had or currently having any dysuria or urinary frequency. No abdominal or flank pain. No rashes. She does note having 2 loose stools in the past couple days. Physical Exam Physical Exam: General: Awake, alert, no acute distress HEENT: NC/AT, EOMI, mmm Neck: supple Lungs: coarse breath sounds Heart: nl S1/S2 Abdomen: soft, nontender throughout Back: +right CVA tenderness Ext: no LE edema Skin: no rash Neuro: moving all extremities Results & Data Vital Signs (Past 12 Hours) Vital Signs Temp Pulse Pulse Resp BP Pulse Ox O2 Del Method 08/11/24 08:16 36.5 C 72 20 97/60 L 90 Nasal Cannula 08/11/24 03:45 36.5 C 70 18 98/60 L 92 Nasal Cannula 08/10/24 23:25 36.4 C L 81 18 110/71 93 Nasal Cannula 08/10/24 22:01 74 O2 Flow Rate 08/11/24 08:16 4 08/11/24 03:45 2 08/10/24 23:25 2 08/10/24 22:01 Laboratory Results Labs reviewed. Diagnostic Findings Imaging reviewed.
[2024-08-11] MEDS: LACTASE 3000 UNIT TAB PO PRN (08:47)
[2024-08-11] MEDS: MIDODRINE HCL 2.5 MG TAB PO SCH (08:49)
[2024-08-11] MEDS: ERTAPENEM 1000MG 1,000 MG/10 ML SYR IV SCH (09:06)
[2024-08-11] MEDS: VANCOMYCIN HCL 1,500 MG in SODIUM CHLORIDE 0.9% 500 ML IV ONE (09:06)
--- NOTE | 2024-08-11 11:44 | Pharmacy Report ---
Pharmacy PK ABX Note - Date of Service August 11, 2024 - Assessment and Plan Assessment 84 year old F receiving vancomycin and ertapenem for treatment of pneumonia and a UTI. She was admitted to [facility] on 08/04 with shortness of breath and increased lethargy x 7-10 days. Respiratory Biofire was positive for RSV at that time. On 08/05, she developed hypotension which resolved with IVFs. She was then started on Zosyn which was changed to ertapenem on 08/08 based on urine culture which grew ESBL. On 08/10, patient was more hypoxic and reported worsening cough associated with shortness of breath. Chest XRay from 08/10 showed progressive density in left lung base consistent with either pneumonia or worsening atelectasis, small bilateral pleural effusions. ID was consulted and recommended adding vancomycin at this time. * Pertinent microbiologic data includes: Positive MRSA Nasal Swab, Sputum cultures were ordered Day # 1 of vancomycin therapy. Plan Vancomycin * Loading dose: 1500 mg IV x 1 * Maintenance dose: 1000 mg IV every 24 hours * Regimen is predicted to achieve target AUC/CASEY of 400-600 mg/L.hr * Random level ordered for: 08/13/24 with morning labs. Pharmacy will continue to follow and will adjust dose/frequency as necessary. Thank you. Pharmacy has transitioned to AUC monitoring for vancomycin. AUC/CASEY is the preferred PK/PD target and is associated with decreased risk of nephrotoxicity compared to traditional trough targets.
[2024-08-11 11:45] LABS: Blood Urea Nitrogen 18 mg/dl (6-23); Calcium 9.3 mg/dl (8.6-10.3); Carbon Dioxide 30 mmol/L (21-32); Chloride 97 mmol/L (98-107); Creatinine Clr Calc Pharmacy 33.8 ml/min; Glucose 76 mg/dl (70-99(Fasting))
[2024-08-11 12:38] LABS: Potassium 3.5 mmol/L (3.5-5.1)
[2024-08-11 13:12] LABS: Hematocrit (blood only) 32.8 % (37.0-47.0); Hemoglobin 10.5 g/dl (12.0-16.0); Mean Corpuscular Hemoglobin 31.1 pg (25.0-34.0); Mean Platelet Volume 6.7 fL (9.4-12.4); Platelet Count 3 K/uL (130-400); RDW Coefficient of Variation 15.6 % (11.5-14.5); RDW Standard Deviation 54.6 fL (36.4-46.3); Red Blood Count 3.38 M/uL (4.20-5.40); White Blood Count 11.77 K/ul (4.8-10.8)
--- NOTE | 2024-08-11 14:38 | Procedure Note ---
Procedure Note Date of Service August 11, 2024 Procedure date: Noted above Procedure: Non-routine veniputure/IV placement Indication: Failed attempts at vascular access/venipuncture by nursing staff. Venipuncture/vascular access requiring skill of physician. Post-procedure Diagnosis: same as above Performing provider: Eliane Paulino DO Skin Prep: Chlorhexidine Anesthesia: None Description of Procedure: Utilizing dynamic ultrasound a vein was visualized in the left antecubital fossa. An 20 gauge IV was inserted into the vein. Blood flash was noted and the catheter was advanced. The IV flushed and nixon adequately. The IV was then secured. Complications: None Estimated blood loss: Trace Patient tolerated the procedure well. Artery visualized: Not applicable Vein visualized: Yes Compressible Vein: Yes Vein patent: Yes Impression: Successful left venous access placement Images obtained are saved for permanent record [facility] Procedure Codes (Charges) Tubes, Drains, and Vasc Access Procedure 1: Tubes, Drains, and Vasc Access: [id number] Ultrasound Guidance For Vascular Procedure 2: Tubes, Drains, and Vasc Access: [id number] Venipuncture, Age 4/>Req phys skill, (sep proc), Dx/Tx (not rtn) Coding CPT Codes Tubes, Drains, and Vasc Access - Tubes, Drains, and Vasc Access: [id number] Ultrasound Guidance For Vascular ([id number]) Tubes, Drains, and Vasc Access - Tubes, Drains, and Vasc Access: [id number] Venipuncture, Age 4/>Req phys skill, (sep proc), Dx/Tx (not rtn) ([id number]) Additional Codes Date of Service ([facility].SURGERY)
[2024-08-11 15:03] LABS: Basophils # (auto) 0.03 K/uL (0.00-0.20); Basophils % (auto) 0.2 %; Eosinophils # (auto) 0.26 K/uL (0.00-0.50); Hematocrit (blood only) 30.3 % (37.0-47.0); Hemoglobin 9.7 g/dl (12.0-16.0); Immature Granulocytes # (auto) 0.11 K/uL (0.01-0.20); Immature Granulocytes % (auto) 0.9 %; Lymphocytes # (auto) 0.72 K/uL (1.20-3.40); Lymphocytes % (auto) 5.6 %; Mean Corpuscular Hemoglobin 30.4 pg (25.0-34.0); Monocytes # (auto) 1.05 K/uL (0.11-0.59); Monocytes % (auto) 8.2 %; Neutrophils # (auto) 10.71 K/uL (1.40-6.50); Neutrophils % (auto) 83.1 %; Platelet Count 117 K/uL (130-400); RDW Coefficient of Variation 15.4 % (11.5-14.5); Red Blood Count 3.19 M/uL (4.20-5.40); White Blood Count 12.88 K/ul (4.8-10.8)
[2024-08-11 15:45] LABS: Fibrinogen 227 mg/dl (184-400); Prothrombin Time 11.1 Seconds (9.0-12.0)
[2024-08-11 16:01] LABS: D Dimer 4820 ug/L FEU (0-500)
--- NOTE | 2024-08-11 17:37 | Hospitalist Progress Note ---
Date of Service August 11, 2024 Assessment & Plan (1) UTI (urinary tract infection): (2) RSV infection: (3) Acute kidney injury superimposed on chronic kidney disease: (4) Hypomagnesemia: (5) Elevated brain natriuretic peptide (BNP) level: (6) CHF (congestive heart failure): (7) Moderate aortic regurgitation: (8) Hypotension: (9) Anemia: (10) Elevated d-dimer: Plan Thrombocytopenia - Difficulty obtaining labs this a.m. due to poor venous access - Labs showed critical platelets of 3, no obvious signs of bleeding at present - IV team attempted PICC insertion without success - Oxygen Therapist came to bedside and successfully inserted ultrasound guided IV - Repeat CBC showed platelets of 117 (much closer to result of 118 from day prior), also ordered DIC panel, peripheral smear - Elevated D-dimer at 4280, CTA chest for PE protocol ordered -If evidence of PE, would initiate heparin drip -No VTE prophylaxis started on time of admission, pending results of CTA will initiate VTE prophylaxis UTI - Ur Cx pos for E. coli, ESBL+, Sensitivities: Zosyn, Ertapenem, Meropenem, Tobramycin, Amikacin - Initial antibiotics included Zosyn and later Ceftriaxone, now transitioned to Ertapenem 500mg q24h RSV infection/mild respiratory distress - On admission, BioFire panel positive for RSV. Normal procalcitonin and lactate - CXR on 08/04 showed cardiomegaly w/ pulm vascular congestion, small pleural effusions w/ mild bibasilar atelectasis - Slightly more hypoxic in the past day, requiring 4L NC at present -XR on 08/10 shows progressive L lower lobe density likely representing pneumonia -Positive MRSA nares, ID consulted-> vancomycin added Hypotension-low normotensive - BP as low as 95/41 upon admission - pt's BP meds: HCTZ and metoprolol succinate held - BP's have been intermittently low, BP ; pt on midodrine, 5 mg, PO, TID - pt's BP has been low for ~ 6 months (parallels pt's wgt loss) HFpEF/Aortic regurgitation - BNP with mild elevation at 265 - Last Echo (Oct, 2023): EF 65-70%, moderate aortic regurgitation, Normal r. ventricular sys pressure - Cautious with additional IV fluids Nausea, vomiting, S/p Cauterization of gastric ulcers - patient has been vomiting almost daily since EGD cauterization procedure - patient had EGD cauterization of 3 gastric ulcers on 07/14/24 - has lost ~ 15 lbs since beginning of year (maybe 25-30 lbs overall) due to decreased oral intake d/t gastric ulcers, weight loss - Metoclopramide and Zofran PRN - Miralax and Senna for bowel regimen - KUB obtained on 08/09: no significant stool burden or bowel obstruction - Due to refractory nausea/vomiting, GI consulted for further evaluation -Suspect she may require EGD for further evaluation Anemia - Likely secondary to previous gastric ulcers; pt denied any hematemesis s/p EGD cauterization - improvement could just be due to dehydration from vomiting JUAN (borderline) - Baseline Cr ~ 0.95, currently Cr 1.25 - Likely secondary to poor PO intake with refractory vomiting Electrolyte deficiencies (Hypomagnesemia, borderline hyponatremia) - Na 132 today - Monitor daily BMP Elevated troponin #resolved - HSTrop, 32.7 <-- 38.6 Hypoglycemia - Multiple episodes of hypoglycemia throughout admission - More frequent in the last 12 hours, coinciding with frequent episodes of vomiting - Hypoglycemia protocol ordered, also ordered D5W w/ 1/2 NSS @ 80mL/h x1L Chronic conditions GERD: continue Nexium RLS: continue gabapentin and ropinirole Chronic pain/cervical radiculopathy (C8): continue duloxetine, pregabalin Code status: Full code Disposition: PCU FENGI: regular diet VTE Prophylaxis: SCD's Admission and Anticipated Discharge Date Admission Date: August 04, 2024 Supervising Physician Co-Signing Physician Notes I also saw the patient confirmed churchill portions of the clinical history and physical examination. I agree with the impression and plan as noted in resident documentation above. Routine blood work today revealed a platelet count of 3; fortunately, repeat platelet count was 117 (consistent with yesterday's platelet count of 118) suggesting a factitious result. A DIC panel was drawn along with a repeat platelet count and this did reveal a significant elevated D-dimer. CTA of the chest to exclude pulmonary embolism is pending. Subjective Patient was seen and examined at bedside. Patient states she feels a bit worse than yesterday, still nauseated and having episodes of vomiting. Denies dizziness/lightheadedness/shortness of breath/chest pain. Review of Systems Review of Systems: As per HPI Physical Exam Constitutional: Frail appearing Eyes: + anicteric sclerae; no conjunctival abn ormality ENMT: Ears: no external ear abnormality Nose: no external nose abnormality Respiratory: normal respiratory effort, lungs clear to auscultation Cardiovascular: Rate/Rhythm: regular rate and regular rhythm Extremities: no edema Gastrointestinal (Abdomen): Inspection/Auscultation: abdomen not distended Percussion/Palpation: abdomen soft; abdomen nontender and no guarding Skin: no rashes, warm and dry Some ecchymosis at RUE Psychiatric: A+Ox3, euthymic affect Results & Data Results & Data Vital Signs (Past 12 Hours) Vital Signs Temp Pulse Resp BP Pulse Ox O2 Del Method O2 Del Method 08/11/24 15:26 36.6 C 83 18 108/71 97 Nasal Cannula 08/11/24 12:19 36.5 C 71 16 96/64 L 92 Nasal Cannula 08/11/24 09:09 Nasal Cannula 08/11/24 09:00 Nasal Cannula 08/11/24 08:16 36.5 C 72 20 97/60 L 90 Nasal Cannula O2 Flow Rate 08/11/24 15:26 4 08/11/24 12:19 4 08/11/24 09:09 2 08/11/24 09:00 08/11/24 08:16 4 Resident Activity Tracking Resident Involvement: Resident Care Provided Care Provided: Adult Hospital Medicine
[2024-08-11] MEDS: D5W AND 1/2NSS 1,000 ML IV SCH (18:09)
[2024-08-11] MEDS: OPTIRAY 320 125ml IV ONE (18:53)
--- NOTE | 2024-08-11 19:20 | CT Scan Report ---
EXAM: CT Angiography Chest With Intravenous Contrast INDICATION: Shortness of breath TECHNIQUE: Axial computed tomographic angiography images of the chest with intravenous contrast. Sagittal and coronal reformatted images were created and reviewed. This CT exam was performed using one or more of the following dose reduction techniques: automated exposure control, adjustment of the mA and/or kV according to patient size, and/or use of iterative reconstruction technique. MIP reconstructed images were created and reviewed. CONTRAST: 78 ml of Optiray 320 was administered intravenously. COMPARISON: 05/22/2022 FINDINGS: Limitations: Streak artifact from metal shoulder prostheses and motion artifact limit assessment. Pulmonary arteries: No abnormality noted. No pulmonary embolism. Aorta: No acute change noted. No thoracic aortic aneurysm or dissection. Lungs and pleural spaces: Moderate layering pleural effusions noted bilaterally. No pneumothorax. There is centrilobular emphysema. Mild interstitial scarring noted. There is slight increased size of a 3 mm noncalcified medial right upper lobe pulmonary nodule series 4 image 176. There is a new pleural-based left upper lobe nodule measuring 5 x 6 mm image 147. There is a new noncalcified left upper lobe nodule measuring 5 x 7 mm image 129. There is dependent atelectasis in both lungs. No pneumothorax. Heart: Enlarged. The right ventricle is prominent and there is IVC reflux concerning for right heart strain. Very small pericardial effusion present. Mediastinum: Esophagectomy with gastric pull-up. There is formed material and fluid slightly dilating the pull-up. Thyroid: Stable rim calcified left thyroid nodule. Bones/joints: Old bilateral scapular fractures noted. Soft tissues: No abnormality noted. Lymph nodes: No abnormality noted. No enlarged lymph nodes. IMPRESSION: 1. No pulmonary embolus noted. 2. Moderate pleural effusions and dependent atelectasis. 3. Bilateral upper lobe nodules. Fleischner Society Guidelines (MacMahon, et al. Radiology 2017; 284(1):228-43) suggest the following. For low-risk patients recommend follow-up chest CT at 3-6 months. If unchanged consider an additional follow-up CT at 18-24 months. For high-risk patients initial follow-up chest CT at 3-6 months and if unchanged, 18-24 months. ACT 112: Negative or not required by law. Electronically signed by Ellyn Hogan 08-11-2024 7:19 PM
[2024-08-11] MEDS: VANCOMYCIN HCL 1,000 MG/270 ML BAG IV SCH (20:30)
--- NOTE | 2024-08-11 23:52 | Ultrasound Report ---
Exam(s): US VENOUS BILATERAL LOWER EXTREMITIES EXAM: US Duplex Bilateral Lower Extremities Veins CLINICAL HISTORY: Reason for exam: elevated d-dimer, mild calf pain. TECHNIQUE: Real-time duplex ultrasound scan of the bilateral lower extremity veins integrating B-mode two-dimensional vascular structure, Doppler spectral analysis, color flow Doppler imaging and compression. COMPARISON: No relevant prior studies available. FINDINGS: Right deep veins: Unremarkable. No DVT in the right common femoral, femoral, proximal deep femoral or popliteal veins. The veins demonstrate normal color flow, are normally compressible, with normal phasic flow and/or augmentation response. Right superficial veins: Unremarkable. No thrombus in the visualized right great saphenous vein. Left deep veins: The left peroneal veins are not visualized. No DVT in the left common femoral, femoral, proximal deep femoral or popliteal veins. The veins demonstrate normal color flow, are normally compressible, with normal phasic flow and/or augmentation response. Left superficial veins: Unremarkable. No thrombus in the visualized left great saphenous vein. Soft tissues: No acute findings. No popliteal cyst. IMPRESSION: No evidence of deep venous thrombosis in the bilateral lower extremities. Electronically signed by: Robert Weeks MD 08/11/24 23:51 PM
[2024-08-12] MEDS: GLUCOSE 40% GEL 15 GM TUBE PO PRN (00:14)
[2024-08-12] MEDS: GLUCOSE 10 TAB/TUBE PO PRN (01:27)
--- NOTE | 2024-08-12 02:35 | Procedure Note ---
Procedure Note Date of Service August 12, 2024 INTERNAL JUGULAR CENTRAL LINE PROCEDURE NOTE: Procedure: Internal Jugular Central Line Placement Attending: Dr. Paulino APC: Ely Michael PA-C Indication: Central Drug Administration, Poor Venous Access, Multiple Lab Draws Necessary, etc. Ultrasound guided IV placement was attempted without success by multiple users. Anesthesia: Lidocaine 1% Consent was signed by the patient and placed on the chart prior to procedure. Indication, risks, and benefits were explained at length. A time-out was completed verifying correct patient, procedure, site, positioning, and implants(s) or special equipment if applicable. Patients R Neck was cleansed and draped in the typical sterile fashion using Chloraprep. The Internal Jugular Vein and Carotid Artery were identified using ultrasound. The superficial tissue was anesthetized using 5 mL of 1% lidocaine without epinephrine under direct visualization with the ultrasound. After adequate anesthetization was achieved, the Internal Jugular vein was cannulated under direct ultrasound guidance using an introducer needle on a syringe. Good venous blood return was maintained prior to removal of syringe from introducer needle. Using Seldinger Technique, a guide wire was advanced through the introducer needle without resistance. The introducer needle was removed and guidewire noted in IJ on multiple views. A small incision was made in penetrating fashion at the guide wire insertion site utilizing an 11 blade scalpel. The dilator was advanced to the vessel without resistance. The dilator was exchanged for the triple lumen catheter which was advanced into the vessel without resistance. The guide wire was removed intact from the catheter without issue. Claves were placed on each catheter tip with confirmation of good blood flow from each lumen. Each port was easily flushed with sterile saline. The catheter was placed at 16 cm and sut[address] in place. A sterile CHG-embedded Tegaderm dressing was applied over the catheter with careful attention to sterility. Patient tolerated procedure well. No immediate complications were met. Post procedure x-ray was completed, placement was appropriate and no pneumothorax was noted. Procedural Ultrasound Guidance: Procedure Date: 08/12/2024 Indication: Central line insertions Attending: Dr. Paulino APC: Ely Michael PA-C Artery AND Vein visualized: Y Compressible Vein: Y Guidewire or Short Catheter seen in vein prior to dilation: Y Line confirmed in Vein with ultrasound: Y This line should not be left in place for > 10 days. Please assess daily for removal. Notify our team with any issues regarding the central venous catheter. [facility] [place] Procedure Codes (Charges) Tubes, Drains, and Vasc Access Procedure 1: Tubes, Drains, and Vasc Access: [id number] Insertion Of Non-tunneled Catheter Age 6 Yrs> Procedure 2: Tubes, Drains, and Vasc Access: [id number] Ultrasound Guidance For Vascular Coding CPT Codes Tubes, Drains, and Vasc Access - Tubes, Drains, and Vasc Access: [id number] Insertion Of Non-tunneled Catheter Age 6 Yrs> ([id number]) Tubes, Drains, and Vasc Access - Tubes, Drains, and Vasc Access: [id number] Ult rasound Guidance For Vascular ([id number]) Additional Codes Date of Service ([facility].SURGERY)
--- NOTE | 2024-08-12 03:30 | XRay Report ---
EXAM: XR chest 1V portable CLINICAL HISTORY: central line placement TECHNIQUE: An X-ray image of the chest is obtained in AP projection. COMPARISON: CR Chest 08/10/2024. Prior CT chest dated 08/11/2024 was also reviewed FINDINGS: Pulmonary Parenchyma: Chest leads are seen Patient is rotated Central venous catheter is identified with tip slightly at the level of right atrium. Patchy airspace opacification seen in both perihilar region and lower zones. Blunting of left costophrenic angle, hemidiaphragm and partial obscuration of the left cardiac border seen. Blunting of right costophrenic angle is also identified. Heart and Mediastinum: Heart size is borderline enlarged in AP projection. No mediastinal widening or masses. No hilar or mediastinal lymphadenopathy. Both collette appear prominent. Bony Thorax: Bony thorax appears intact without fractures or deformities. Bilateral shoulder prosthesis are identified. Degenerative changes seen in visualized spine Soft Tissues: Soft tissues overlying the chest wall are unremarkable. IMPRESSION: 1. Interval placement of central venous catheter with tip likely at the level of right atrium. 2. Blunting of both costophrenic angles suggests pleural effusion. Interval mild internal regression was seen in comparison to the prior CT exam. 3. Patchy airspace opacification seen in both perihilar region and lower zones. Interval mild progression of opacification in both lungs in comparison to prior xray and CT. 4. Bilateral hilar vascular congestion still seen. 5. No other significant interval changes seen Electronically signed by Roscoe Mckinley 08-12-2024 03:30 AM
[2024-08-12 07:01] LABS: Basophils # (auto) 0.03 K/uL (0.00-0.20); Basophils % (auto) 0.2 %; Eosinophils # (auto) 0.41 K/uL (0.00-0.50); Hemoglobin 9.2 g/dl (12.0-16.0); Immature Granulocytes # (auto) 0.12 K/uL (0.01-0.20); Immature Granulocytes % (auto) 0.9 %; Lymphocytes # (auto) 0.96 K/uL (1.20-3.40); Lymphocytes % (auto) 7.1 %; Mean Corpuscular Hemoglobin 31.3 pg (25.0-34.0); Mean Corpuscular Hgb Conc 32.9 g/dL (32.0-36.0); Mean Corpuscular Volume 95.2 fL (80.0-100.0); Mean Platelet Volume 12.4 fL (9.4-12.4); Monocytes # (auto) 1.15 K/uL (0.11-0.59); Monocytes % (auto) 8.5 %; Neutrophils # (auto) 10.88 K/uL (1.40-6.50); Neutrophils % (auto) 80.3 %; Platelet Count 125 K/uL (130-400); RDW Coefficient of Variation 15.6 % (11.5-14.5); RDW Standard Deviation 54.3 fL (36.4-46.3); Red Blood Count 2.94 M/uL (4.20-5.40); White Blood Count 13.55 K/ul (4.8-10.8)
[2024-08-12 07:08] LABS: Albumin Globulin Ratio 0.9 (0.9-2); BUN Creatinine Ratio 14.8 (10-20); Bilirubin,Total 0.4 mg/dl (0.2-1.0); Calcium 9.8 mg/dl (8.6-10.3); Creatinine Clr Calc Pharmacy 37.7 ml/min; Globulin 2.3 gm/dl (2.5-4.0); Potassium 3.5 mmol/L (3.5-5.1); Total Protein 4.3 gm/dl (6.0-8.3)
--- NOTE | 2024-08-12 07:26 | Hospitalist Progress Note ---
Date of Service August 12, 2024 Assessment & Plan (1) UTI (urinary tract infection): (2) RSV infection: (3) Acute kidney injury superimposed on chronic kidney disease: (4) Hypomagnesemia: (5) Elevated brain natriuretic peptide (BNP) level: (6) CHF (congestive heart failure): (7) Moderate aortic regurgitation: (8) Hypotension: (9) Anemia: (10) Elevated d-dimer: Plan RSV infection/mild respiratory distress - On admission, BioFire panel positive for RSV. Normal procalcitonin and lactate - CXR on 08/04 showed cardiomegaly w/ pulm vascular congestion, small pleural effusions w/ mild bibasilar atelectasis - Slightly more hypoxic in the past day, requiring 4L NC at present -XR on 08/10 shows progressive L lower lobe density likely representing pneumonia -Positive MRSA nares, ID consulted-> vancomycin added - Difficulty obtaining labs in past few days. due to poor venous access. Labs showed critical platelets of 3 on a.m. of 08/11, after multiple tries for access more labs obtained which showed platelets of 117 - DIC panel ordered while awaiting repeat blood work, results showed elevated D- dimer at 4820, CTA chest for PE protocol completed without evidence of PE - Central line placed overnight on 08/11 due to poor venous access - CTA did show moderate pleural effusions, suspect this could be secondary to malnutrition/albumin currently at 2.0 - Echo was obtained due to suggestion of pericardial effusion and R heart strain- EF 60-65%, no significant change from prior, no documentation of pericardial effusion on echo UTI - Ur Cx pos for E. coli, ESBL+, Sensitivities: Zosyn, Ertapenem, Meropenem, Tobr amycin, Amikacin - Initial antibiotics included Zosyn and later Ceftriaxone, now transitioned to Ertapenem 500mg q24h Hypotension-low normotensive - BP as low as 95/41 upon admission - pt's BP meds: HCTZ and metoprolol succinate held - BP's have been intermittently low, BP ; pt on midodrine, 5 mg, PO, TID - pt's BP has been low for ~ 6 months (parallels pt's wgt loss) HFpEF/Aortic regurgitation - BNP with mild elevation at 265 - Last Echo (Oct, 2023): EF 65-70%, moderate aortic regurgitation, Normal r. ventricular sys pressure - As above, repeat echo obtained and no significant changes from prior Nausea, vomiting, S/p Cauterization of gastric ulcers - patient has been vomiting almost daily since EGD cauterization procedure - patient had EGD cauterization of 3 gastric ulcers on 07/14/24 - has lost ~ 15 lbs since beginning of year (maybe 25-30 lbs overall) due to decreased oral intake d/t gastric ulcers, weight loss - Metoclopramide and Zofran scheduled, will add Carafate - Miralax and Senna for bowel regimen - KUB obtained on 08/09: no significant stool burden or bowel obstruction - Due to refractory nausea/vomiting, GI consulted for further evaluation -Suspect she may require EGD for further evaluation - Tinning Equipment Tender consulted, appreciate recommendations Anemia - Likely secondary to previous gastric ulcers; pt denied any hematemesis s/p EGD cauterization - improvement could just be due to dehydration from vomiting JUAN (borderline) - Baseline Cr ~ 0.95, currently Cr 1.25 - Likely secondary to poor PO intake with refractory vomiting Electrolyte deficiencies (Hypomagnesemia, borderline hyponatremia) - Na 133 today - Monitor daily BMP Elevated troponin #resolved - HSTrop, 32.7 <-- 38.6 Hypoglycemia - Multiple episodes of hypoglycemia throughout admission - Hypoglycemia protocol ordered, also continuing with D5W w/ 1/2 NSS @ 100mL until PO intake improves Chronic conditions GERD: continue Nexium RLS: continue gabapentin and ropinirole Chronic pain/cervical radiculopathy (C8): continue duloxetine, pregabalin Code status: Full code Disposition: [facility] FENGI: regular diet VTE Prophylaxis: SCD's Admission and Anticipated Discharge Date Admission Date: August 04, 2024 Supervising Physician Co-Signing Physician Notes ATTESTATION I also saw the patient and confirmed churchill portions of the history and exam. I agree with the impression and plan in the resident documentation, and as summarized below. She had a long night due to some imaging ( CTA and lower extremity Dopplers) as well as the time it took to place a central line for better access. However, she reports having slept into around lunch, and feels much better today compared to yesterday. She is working with the occupational therapist when we see her earlier this afternoon. EXAM 103/65, 87, 18, 37 C, 96% nasal cannula alert and oriented. Smiles. Appears weak/frail. Heart regular respirations nonlabored DATA Labs White blood cell count 13.55, hemoglobin 9.2, platelet count 125 Sodium 133, potassium 3.5, BUN 16, creatinine 1.08 BNP 299 Random cortisol 19.57 Imaging Lower extremity venous Dopplers 08/11/2024 negative. CTA completed 08/11/2024 negative for PE. Does show moderate pleural effusions and dependent atelectasis along with some bilateral upper lobe nodules. Echocardiogram completed today shows left ventricular function 60 to 65%, mild aortic regurgitation. Micro Urine culture 08/05/2024 E. coli ESBL. Blood cultures 08/04/2024 -5 days IMPRESSION & PLAN RSV UTI nausea with vomiting, improved Protein calorie malnutrition overall improvement today PT/OT discussed efforts to improve nutrition Additional per resident documentation Subjective Patient seen and examined at bedside. Overnight patient had additional episode of hypoglycemia, eventually required placement of central line. Patient states she is very exhausted, barely slept overnight due to multiple tests/imaging studies. Later in the afternoon patient was working with OT, seemed to be a bit more bright and interactive. Denies any nausea at present, was able to eat some food (thinks it was jello that she ate). Review of Systems Review of Systems: As per above Physical Exam Constitutional: Frail appearing, resting comfortably in bed. Eyes: + anicteric sclerae; no conjunctival abn ormality ENMT: Ears: no external ear abnormality Nose: no external nose abnormality moist mucous membranes Neck: Central line in place at R neck Respiratory: Few crackles, no increased respiratory efforts or accessory muscle use. Cardiovascular: Rate/Rhythm: regular rate and regular rhythm Extremities: no edema Gastrointestinal (Abdomen): Inspection/Auscultation: abdomen not distended Percussion/Palpation: abdomen soft; abdomen nontender and no guarding Skin: Some ecchymosis at bilateral upper extremities. Psychiatric: A+Ox3, euthymic affect Results & Data Results & Data Vital Signs (Past 12 Hours) Vital Signs Temp Pulse Pulse Resp BP Pulse Ox O2 Del Method 08/12/24 03:46 36.3 C L 82 16 96/60 L 08/11/24 23:27 36.5 C 83 15 98/65 L Nasal Cannula 08/11/24 21:51 89 08/11/24 21:00 36.7 C 95 H 18 97/61 L 93 Nasal Cannula 08/11/24 19:50 Nasal Cannula O2 Flow Rate 08/12/24 03:46 08/11/24 23:27 08/11/24 21:51 08/11/24 21:00 08/11/24 19:50 2 Diagnostic Findings Chest CTA 08/11/24 16:06 EXAM: CT Angiography Chest With Intravenous Contrast INDICATION: Shortness of breath TECHNIQUE: Axial computed tomographic angiography images of the chest with intravenous contrast. Sagittal and coronal reformatted images were created and reviewed. This CT exam was performed using one or more of the following dose reduction techniques: automated exposure control, adjustment of the mA and/or kV according to patient size, and/or use of iterative reconstruction technique. MIP reconstructed images were created and reviewed. CONTRAST: 78 ml of Optiray 320 was administered intravenously. COMPARISON: 05/22/2022 FINDINGS: Limitations: Streak artifact from metal shoulder prostheses and motion artifact limit assessment. Pulmonary arteries: No abnormality noted. No pulmonary embolism. Aorta: No acute change noted. No thoracic aortic aneurysm or dissection. Lungs and pleural spaces: Moderate layering pleural effusions noted bilaterally. No pneumothorax. There is centrilobular emphysema. Mild interstitial scarring noted. There is slight increased size of a 3 mm noncalcified medial right upper lobe pulmonary nodule series 4 image 176. There is a new pleural-based left upper lobe nodule measuring 5 x 6 mm image 147. There is a new noncalcified left upper lobe nodule measuring 5 x 7 mm image 129. There is dependent atelectasis in both lungs. No pneumothorax. Heart: Enlarged. The right ventricle is prominent and there is IVC reflux concerning for right heart strain. Very small pericardial effusion present. Mediastinum: Esophagectomy with gastric pull-up. There is formed material and fluid slightly dilating the pull-up. Thyroid: Stable rim calcified left thyroid nodule. Bones/joints: Old bilateral scapular fractures noted. Soft tissues: No abnormality noted. Lymph nodes: No abnormality noted. No enlarged lymph nodes. IMPRESSION: 1. No pulmonary embolus noted. 2. Moderate pleural effusions and dependent atelectasis. 3. Bilateral upper lobe nodules. Fleischner Society Guidelines (MacMahon, et al. Radiology 2017; 284(1):228-43) suggest the following. For low-risk patients recommend follow-up chest CT at 3-6 months. If unchanged consider an additional follow-up CT at 18-24 months. For high-risk patients initial follow-up chest CT at 3-6 months and if unchanged, 18-24 months. ACT 112: Negative or not required by law. Electronically signed by Ellyn Hogan 08-11-2024 7:19 PM Venous Doppler Study 08/11/24 21:27 Exam(s): US VENOUS BILATERAL LOWER EXTREMITIES EXAM: US Duplex Bilateral Lower Extremities Veins CLINICAL HISTORY: Reason for exam: elevated d-dimer, mild calf pain. TECHNIQUE: Real-time duplex ultrasound scan of the bilateral lower extremity veins integrating B-mode two-dimensional vascular structure, Doppler spectral analysis, color flow Doppler imaging and compression. COMPARISON: No relevant prior studies available. FINDINGS: Right deep veins: Unremarkable. No DVT in the right common femoral, femoral, proximal deep femoral or popliteal veins. The veins demonstrate normal color flow, are normally compressible, with normal phasic flow and/or augmentation response. Right superficial veins: Unremarkable. No thrombus in the visualized right great saphenous vein. Left deep veins: The left peroneal veins are not visualized. No DVT in the left common femoral, femoral, proximal deep femoral or popliteal veins. The veins demonstrate normal color flow, are normally compressible, with normal phasic flow and/or augmentation response. Left superficial veins: Unremarkable. No thrombus in the visualized left great saphenous vein. Soft tissues: No acute findings. No popliteal cyst. IMPRESSION: No evidence of deep venous thrombosis in the bilateral lower extremities. Electronically signed by: Robert Weeks MD 08/11/24 23:51 PM Chest X-Ray 08/12/24 02:18 EXAM: XR chest 1V portable CLINICAL HISTORY: central line placement TECHNIQUE: An X-ray image of the chest is obtained in AP projection. COMPARISON: CR Chest 08/10/2024. Prior CT chest dated 08/11/2024 was also reviewed FINDINGS: Pulmonary Parenchyma: Chest leads are seen Patient is rotated Central venous catheter is identified with tip slightly at the level of right atrium. Patchy airspace opacification seen in both perihilar region and lower zones. Blunting of left costophrenic angle, hemidiaphragm and partial obscuration of the left cardiac border seen. Blunting of right costophrenic angle is also identified. Heart and Mediastinum: Heart size is borderline enlarged in AP projection. No mediastinal widening or masses. No hilar or mediastinal lymphadenopathy. Both collette appear prominent. Bony Thorax: Bony thorax appears intact without fractures or deformities. Bilateral shoulder prosthesis are identified. Degenerative changes seen in visualized spine Soft Tissues: Soft tissues overlying the chest wall are unremarkable. IMPRESSION: 1. Interval placement of central venous catheter with tip likely at the level of right atrium. 2. Blunting of both costophrenic angles suggests pleural effusion. Interval mild internal regression was seen in comparison to the prior CT exam. 3. Patchy airspace opacification seen in both perihilar region and lower zones. Interval mild progression of opacification in both lungs in comparison to prior xray and CT. 4. Bilateral hilar vascular congestion still seen. 5. No other significant interval changes seen Electronically signed by Roscoe Mckinley 08-12-2024 03:30 AM Resident Activity Tracking Resident Involvement: Resident Care Provided Care Provided: Adult [facility] Medicine
[2024-08-12] MEDS: ENOXAPARIN INJ 40 MG/0.4 ML SYR SQ SCH (11:42)
--- NOTE | 2024-08-12 12:17 | XCELERA ---
[id number] \\[id number]
[2024-08-12] MEDS: D5W AND 1/2NSS 1,000 ML IV SCH (18:15)
[2024-08-12] MEDS: SUCRALFATE 1 GM/10 ML UDC PO SCH (20:31)
--- NOTE | 2024-08-13 01:45 | XRay Report ---
Exam(s): XR CXR 1 VIEW EXAM: XR Chest, 1 View CLINICAL HISTORY: Reason for exam: desat. TECHNIQUE: Frontal view of the chest. COMPARISON: Chest radiograph on 08/12/2024 at 217 hours FINDINGS: Hardware: Right-sided central venous catheter terminates near the cavoatrial junction. Lungs/pleura: Similar bilateral pleural effusions. Similar prominent lung markings and lower lung opacities may represent pulmonary vasculature congestion/edema. Infectious/inflammatory is not excluded. Heart/mediastinum: Normal. No cardiomegaly. Soft tissues: Unremarkable. Bones: No acute fracture. Bilateral shoulder arthroplasties partially seen. Upper abdomen: Normal. IMPRESSION: 1. Right-sided central venous catheter terminates near the cavoatrial junction. 2. Similar bilateral pleural effusions. Similar prominent lung markings and lower lung opacities may represent pulmonary vasculature congestion/edema. Infectious/inflammatory is not excluded. Electronically signed by: Saúl Peace M.D. 08/13/24 01:44 AM
[2024-08-13 05:10] LABS: Basophils # (auto) 0.03 K/uL (0.00-0.20); Basophils % (auto) 0.2 %; Eosinophils # (auto) 0.42 K/uL (0.00-0.50); Hematocrit (blood only) 25.5 % (37.0-47.0); Hemoglobin 8.3 g/dl (12.0-16.0); Immature Granulocytes # (auto) 0.36 K/uL (0.01-0.20); Immature Granulocytes % (auto) 2.6 %; Lymphocytes # (auto) 1.26 K/uL (1.20-3.40); Lymphocytes % (auto) 9.1 %; Mean Corpuscular Hemoglobin 30.6 pg (25.0-34.0); Mean Corpuscular Hgb Conc 32.5 g/dL (32.0-36.0); Mean Corpuscular Volume 94.1 fL (80.0-100.0); Mean Platelet Volume 11.4 fL (9.4-12.4); Monocytes # (auto) 1.26 K/uL (0.11-0.59); Monocytes % (auto) 9.1 %; Neutrophils # (auto) 10.45 K/uL (1.40-6.50); Platelet Count 119 K/uL (130-400); RDW Coefficient of Variation 15.5 % (11.5-14.5); RDW Standard Deviation 53.5 fL (36.4-46.3); Red Blood Count 2.71 M/uL (4.20-5.40); White Blood Count 13.78 K/ul (4.8-10.8)
[2024-08-13 05:27] LABS: Bilirubin,Total 0.4 mg/dl (0.2-1.0); Calcium 10.1 mg/dl (8.6-10.3); Creatinine Clr Calc Pharmacy 38.5 ml/min; Globulin 2.1 gm/dl (2.5-4.0); Potassium 3.7 mmol/L (3.5-5.1); Total Protein 4.1 gm/dl (6.0-8.3)
--- NOTE | 2024-08-13 07:25 | Hospitalist Progress Note ---
"Date of Service August 13, 2024 Assessment & Plan (1) UTI (urinary tract infection): (2) RSV infection: (3) Acute kidney injury superimposed on chronic kidney disease: (4) Hypomagnesemia: (5) Elevated brain natriuretic peptide (BNP) level: (6) CHF (congestive heart failure): (7) Moderate aortic regurgitation: (8) Hypotension: (9) Anemia: (10) Elevated d-dimer: Plan Severe Malnutrition | Refractory Nausea/Vomiting | S/p Cauterization of gastric ulcers - patient had EGD cauterization of 3 gastric ulcers on 07/14/24 at [facility], daily N/V for about 2 months - has lost ~ 15 lbs since beginning of year (maybe 25-30 lbs overall) due to decreased oral intake d/t gastric ulcers, weight loss - Metoclopramide and Zofran scheduled, added Carafate. Miralax and Senna for bowel regimen. Protonix BID. - Due to refractory nausea/vomiting, GI consulted for further evaluation -Suspect she may require EGD for further evaluation -Will make NPO at midnight and hold Lovenox while awaiting GI evaluation on 08/14 -Patient and daughter are open to possible feeding tube if appropriate - Has ongoing edema at bilateral upper extremities- likely secondary to poor oncotic pressure/low albumin. If edema worsening, consider upper extremity venous duplexes - Engineering Drafter consulted, appreciate recommendations * Had extensive discussion with patient and daughter, Vanda regarding concern for patient's decline over several months. * Reviewed code status- patient still confirms she is full code. Daughter, Vanda, is next of kin and would be decision maker if patient is no longer able to make medical decisions * Vanda understands patient's current medical condition and possibility that she could decline further despite interventions/EGD etc. If there is a significant change overnight, please notify Vanda. * Patient and her daughter would consider a feeding tube as a temporary measure to improve nutrition/build strength but understand it is not a solution to address every medical concern at present RSV infection/mild respiratory distress - On admission, BioFire panel positive for RSV. Normal procalcitonin and lactate - CXR on 08/04 showed cardiomegaly w/ pulm vascular congestion, small pleural effusions w/ mild bibasilar atelectasis. Repeat CXR overnight on 08/12. -XR on 08/10 shows progressive L lower lobe density likely representing pneumonia -Positive MRSA nares, ID consulted-> vancomycin added - Difficulty obtaining labs in past few days. due to poor venous access. Labs showed critical platelets of 3 on a.m. of 08/11, after multiple tries for access more labs obtained which showed platelets of 117 - DIC panel ordered while awaiting repeat blood work, results showed elevated D- dimer at 4820, CTA chest for PE protocol completed without evidence of PE - Central line placed overnight on 08/11 due to poor venous access - CTA did show moderate pleural effusions, suspect this could be secondary to malnutrition/albumin currently at 2.0 - Echo was obtained due to suggestion of pericardial effusion and R heart strain- EF 60-65%, no significant change from prior, no documentation of pericardial effusion on echo UTI - Ur Cx pos for E. coli, ESBL+, Sensitivities: Zosyn, Ertapenem, Meropenem, Tobramycin, Amikacin - Initial antibiotics included Zosyn and later Ceftriaxone, now transitioned to Ertapenem 500mg q24h Hypotension-low normotensive - pt's BP meds: HCTZ and metoprolol succinate held - BP's have been intermittently low, BP ; pt on midodrine, 5 mg, PO, TID - pt's BP has been low for ~ 6 months (parallels pt's wgt loss) HFpEF/Aortic regurgitation - BNP with mild elevation at 265 - Last Echo (Oct, 2023): EF 65-70%, moderate aortic regurgitation, Normal r. ventricular sys pressure - As above, repeat echo obtained and no significant changes from prior Anemia - Likely secondary to previous gastric ulcers; pt denied any hematemesis s/p EGD cauterization - Hgb 8.3 on 08/13, slowly downtrending JUAN (borderline) #resolved - Baseline Cr ~ 0.95, currently Cr 1.06 - Likely secondary to poor PO intake with refractory vomiting Electrolyte deficiencies (Hypomagnesemia, borderline hyponatremia) - Na 129 today - Monitor daily BMP, magnesium Elevated troponin #resolved - HSTrop, 32.7 <-- 38.6 Hypoglycemia - Multiple episodes of hypoglycemia throughout admission - Hypoglycemia protocol ordered, also continuing with D5W w/ 1/2 NSS @ 80mL until PO intake improves Chronic conditions GERD: continue PPI RLS: continue gabapentin and ropinirole Chronic pain/cervical radiculopathy (C8): continue duloxetine, pregabalin Code status: Full code Disposition: PCU FENGI: regular diet VTE Prophylaxis: Lovenox Admission and Anticipated Discharge Date Admission Date: August 04, 2024 Supervising Physician Co-Signing Physician Notes ATTESTATION I also saw the patient and confirmed churchill portions of the history and exam. I agree with the impression and plan in the resident documentation, and as summarized below. While she and felt better yesterday, she looks worse this morning. Daughter is at bedside and agrees. Brandi reports feeling progressively more weak and tired today. We had a rather long discussion with the patient and daughter who is at bedside; it sounds as if she has had a steady decline since late April/early May, which has accelerated over the past 2-3 weeks. We did have a conversation regarding CODE STATUS, although no final decisions were made. Brandi's overriding complaint is that of nausea and lack of appetite/food aversion. EXAM 131/75, 86, 20, 37 C, 95% room air awake and alert. Voice is soft. Appears weak/frail. Upper extremities appear edematous. Heart regular respirations nonlabored Trace lower extremity edema DATA Labs White blood cell count 13.78, hemoglobin 13.788.3, platelet count 119 Sodium 129, potassium 3.7, BUN 17, creatinine 1.06 Imaging Lower extremity venous Dopplers 08/11/2024 negative. CTA completed 08/11/2024 negative for PE. Does show moderate pleural effusions and dependent atelectasis along with some bilateral upper lobe nodules. Echocardiogram completed today shows left ventricular function 60 to 65%, mild aortic regurgitation. Micro Urine culture 08/05/2024 E. coli ESBL. Blood cultures 08/04/2024 -5 days IMPRESSION & PLAN RSV UTI possible pneumonia due to MRSA nausea with vomiting, improved Protein calorie malnutrition while she looked improved yesterday, some decline today discussion with daughter and patient today with regards to CODE STATUS; no definitive changes made, though seems as if they are leaning away from full code given her continued nausea, food aversion, and following hemoglobin, will reach out to GI to see if they would be willing to rescope with possible PEG will hold Lovenox; make n.p.o. overnight Additional per resident documentation Subjective Overnight patient was noted to have additional episodes of hypoglycemia as well as increased oxygen requirement, seemed to have possible aspiration after vomiting after trying to eat some jello last night. Currently on 4L NC. On initial evaluation at bedside, patient was very fatigued and had just finished trying to eat some breakfast. Had drank most of the juice but per nursing only has had about 3 bites per meal in the past day. Daughter is at bedside later this morning, provides additional context of patient's decline- Has lived at [facility] since 2019 but daughter states that over Thanks Brandi was able to be at home with the family for the Josey meal but ever since then it has been a gradual decline. Recent hospitalization in June at [place] lead to transfer [facility] where she had the last EGD which showed bleeding ulcers. Review of Systems Review of Systems: As per above Physical Exam Constitutional: Frail appearing. Difficult to understand verbally at times but interactive. Eyes: + anicteric sclerae; no conjunctival abn ormality ENMT: Ears: no external ear abnormality Nose: no external nose abnormality Tacky mucous membranes Respiratory: No increased respiratory efforts. Some coarse lung sounds on auscultation bilaterally. No wheezing. Nasal cannula in please. Cardiovascular: Rate/Rhythm: regular rate and regular rhythm No lower extremity edema, bilateral upper extremities with +1 edema. Radial pulses +2 bilaterally Gastrointestinal (Abdomen): Inspection/Auscultation: abdomen not distended Percussion/Palpation: abdomen soft; abdomen nontender and no guarding Skin: no rashes, warm and dry Ecchymosis and edema at bilateral upper extremities. Psychiatric: Oriented to place/self. Fatigued and drifts off at times during conversation. Results & Data Results & Data Vital Signs (Past 12 Hours) Vital Signs Temp Pulse Pulse Resp BP Pulse Ox O2 Del Method 08/13/24 03:16 36.3 C L 83 18 90/56 L 94 Nasal Cannula 08/12/24 23:24 36.5 C 84 19 95/59 L 90 Nasal Cannula 08/12/24 22:13 19 94 Oxymask 08/12/24 21:46 92 H 08/12/24 20:29 Oxymask 08/12/24 19:40 36.9 C 91 H 18 100/66 91 Oxymask O2 Flow Rate 08/13/24 03:16 6 08/12/24 23:24 6 02/22/25 22:13 6 08/12/24 21:46 08/12/24 20:29 2 08/12/24 19:40 Resident Activity Tracking Resident Involvement: Resident Care Provided Care Provided: Adult Hospital Medicine"
--- NOTE | 2024-08-13 09:36 | Pharmacy Report ---
Pharmacy PK ABX Note - Date of Service August 13, 2024 - Assessment and Plan Assessment * 84 year old F receiving vancomycin and ertapenem for treatment of pneumonia and a UTI. She was admitted to [facility] on 08/04 with shortness of breath and increased lethargy x 7-10 days. Respiratory Biofire was positive for RSV at that time. On 08/05, she developed hypotension which resolved with IVFs. She was then started on Zosyn which was changed to ertapenem on 08/08 based on urine culture which grew ESBL. On 08/10, patient was more hypoxic and reported worsening cough associated with shortness of breath. Chest XRay from 08/10 showed progressive density in left lung base consistent with either pneumonia or worsening atelectasis, small bilateral pleural effusions. ID was consulted and recommended adding vancomycin at this time. * Pertinent microbiologic data includes: Positive MRSA Nasal Swab, Sputum cultures were ordered * SCr was slightly elevated two days ago, but now stable x24 hours Plan Vancomycin * Target AUC/CASEY of 400-600 mg/L.hr * Random level of 22.1 mcg/mL this AM is associated with a therapeutic AUC of 501 mg/L.hr * Continue same maintenance dose of 1000 mg IV every 24 hours * Random level ordered for: 08/15/24 with morning labs. Pharmacy will continue to follow and will adjust dose/frequency as necessary. Thank you. Pharmacy has transitioned to AUC monitoring for vancomycin. AUC/CASEY is the preferred PK/PD target and is associated with decreased risk of nephrotoxicity compared to traditional trough targets.
[2024-08-14] MEDS: FUROSEMIDE 40 MG/4 ML VIAL IV ONE (05:20)
--- NOTE | 2024-08-14 06:06 | XRay Report ---
EXAM: XR chest 1V portable CLINICAL HISTORY: increased o2 demand TECHNIQUE: Radiograph of chest was acquired. COMPARISON: Prior x ray dated 08/12/2024 is available for comparison. FINDINGS: Pulmonary Parenchyma: Chest leads are seen. Patient is rotated. Persistent central venous catheter is identified with tip at the level of right atrium. Patchy airspace opacities are seen in both lung ruvalcaba- increased as compared to prior scan in all other zones except for left lower zone. Persistent blunting of bilateral costophrenic angles with meniscus on left and decreased height of left compared to prior. Heart and Mediastinum: Heart size is borderline enlarged in AP projection. No mediastinal widening or masses. No hilar or mediastinal lymphadenopathy. Both collette appear prominent. Bony Thorax: Bony thorax appears intact without fractures or deformities. Bilateral shoulder prosthesis are identified. Degenerative changes seen in visualized spine. Soft Tissues: Soft tissues overlying the chest wall are unremarkable. IMPRESSION: 1. Interval increase in bilateral lung opacities suggestive of progressive infection. 2. Persistent blunting of both costophrenic angles with decreased level on left. 3. Bilateral hilar vascular congestion still seen. Electronically signed by Tristan Covington 08-14-2024 06:05 AM
--- NOTE | 2024-08-14 07:06 | Hospitalist Progress Note ---
"Date of Service August 14, 2024 Assessment & Plan (1) UTI (urinary tract infection): (2) RSV infection: (3) Acute kidney injury superimposed on chronic kidney disease: (4) Hypomagnesemia: (5) Elevated brain natriuretic peptide (BNP) level: (6) CHF (congestive heart failure): (7) Moderate aortic regurgitation: (8) Hypotension: (9) Anemia: (10) Elevated d-dimer: Plan Pt is an 84 yo female with a past med hx of CAD with stent, chronic hyponatremia, HTN, HLD, idiopathic polyneuropathy, HFpEF and recent hx of severe malnutrition who presents to the hosp on 08/04 for ARDS in the setting of RSV and CHF exac. After discussion with POA daughter Vanda and son Brandon, they have decided to transition her to [employer]IL [employer] with emphasis on quality of life over quantity. They state pt would not want to be on a ventilator or intubated or have CPR. Orders placed. 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 RSV infection/mild respiratory distress - On admission, BioFire panel positive for RSV. Normal procalcitonin and lactate - CXR on 08/04 showed cardiomegaly w/ pulm vascular congestion, small pleural effusions w/ mild bibasilar atelectasis. Repeat CXR overnight on 08/12. -XR on 08/10 shows progressive L lower lobe density likely representing pneumonia -Positive MRSA nares, ID consulted-> vancomycin added which is now discontinued - CTA did show moderate pleural effusions, suspect this could be secondary to malnutrition/albumin - Echo was obtained due to suggestion of pericardial effusion and R heart strain- EF 60-65%, no significant change from prior, no documentation of pericardial effusion on echo - investigated for DIC but this is not seen UTI - Ur Cx pos for E. coli, ESBL+, Sensitivities: Zosyn, Ertapenem, Meropenem, Tobramycin, Amikacin - Initial antibiotics included Zosyn and later Ceftriaxone, transitioned to Ertapenem then discontinued on 08/14 as pt now TR[employer] by family Hypotension-low normotensive - pt's BP meds: HCTZ and metoprolol succinate held - BP's have been intermittently low, BP ; pt on midodrine, 5 mg, PO, TID -> now discontinued for TR[employer]IL [employer]ER status - pt's BP has been low for ~ 6 months (parallels pt's wgt loss) HFpEF/Aortic regurgitation - BNP with mild elevation at 265 - Last Echo (Oct, 2023): EF 65-70%, moderate aortic regurgitation, Normal r. ventricular sys pressure - As above, repeat echo obtained and no significant changes from prior - worsening lungs may be due to CHF exac, lasix 40 mg given at 5 am, pt now TR[employer]IL [employer] status Hypoglycemia - Multiple episodes of hypoglycemia throughout admission requiring IV support VTE Prophylaxis: Lovenox discontinued on 08/14 as pt now TR[employer]IL [employer]ER Dispo: TR[employer]ENCIL [employer] Admission and Anticipated Discharge Date Admission Date: August 04, 2024 Supervising Physician Co-Signing Physician Notes I personally examined the patient and verified all churchill points of history and exam, discussed case, and agree with decision making with Dr Colbert no HPI or ROS obtainable. family has no needs. pt has been transitioned to comfort measures. vitals noted laying in bed no meaningful responsiveness but no distress. no appearance of pain/discomfort IMPRESSION & PLAN RSV UTI possible pneumonia due to MRSA nausea with vomiting Protein calorie malnutrition/prolonged failure to thrive worsened again with respiratory distress/hypercapnic respiratory failure - after discussion of escalation of care family decided quite reasonably that it would be far more in her best interest to change goals of care to comfort measures only - continue current care Additional per resident documentation Subjective Pt seen this morning at bedside. She is on HFNC and was minimally responsive, she did squeeze my hand upon request on either side and noted nausea but otherwise did not speak in full sentences and was difficult to understand. Pt seen later in the morning at bedside with daughter Vanda and her brother in law present and once again later in the morning with daughter Vanda, her brother in law, and son Brandon. Vanda is her POA. Vanda and Brandon both updated on her wors ening resp condition as she maintains O2 sats on HFNC but is not ventilating enough on her own to release adequate CO2 hence her VBG pH is 7.25 and CO2 is 57. I advised them I expect this to worsen with time given her subpar respirations despite increasing resp distress. I advised to them we have several options at this point; 1. bipap although I would not recommend this as pt is altered and has been repeatedly vomiting the last few days and so she cannot protect her airway enough for this to be safe, 2. intubation and mechanically ventilated although family insists that she would not want this and agree that she has a low likelihood of coming off the vent and highly unlikely after being on a vent she will ever go back to her previous baseline which was poor to start with, 3. continue with HFNC and medical treatment and 4. focus on comfort measures. Advised that her gradual nutritional decline is likely to worsen with time and that with a poor baseline I do not expect meaningful recovery without excalation to intubation and ventilation for expiration of CO2 and even then her prognosis is poor. Overnight had only 75 cc urine output per nurse. Son Brandon states he felt she was no longer herself even just by how she looked the second he walked in the room today and his highest goal would be for her to be kept comfortable. Vanda is in agreement with this. Discussed with family that tr ansition to [employer] STENCIL MAKER would be discontinuing all unnecessary or life prolonging medications such as antibiotics and they are in agreement with this. Family POA Vanda and son agree from this point forward for TR[employer] STENCIL [employer]KER care and to optimize pt's quality of life over quantity. Advised them I will add medications such as morphine as it treats pain but also air hunger and agitation. I advised them I will also but in for ativan for anxiety if needed. They agree with this plan. Orders placed. Advised I expect hours to days of life. Advised family on signs of distress to look for such as furrowed brow or restlessness or increase resp rate and if any of those noted to let nurse know. Review of Systems Review of Systems: Per HPI. Physical Exam Physical Exam: General:On HFNC, altered and mumbles at times but hard to understand, respiratory distress noted and notably worsened on repeat visit with family HEENT: Normocephalic, dry oral mucosa Cardio: Regular rate and rhythm, Resp:Lungs with diffuse crackles in middle/lower lobes with faint crackles in upper lung ruvalcaba GI: Soft and nontender, Skin: Warm, pale, dry, Results & Data Results & Data Vital Signs (Past 12 Hours) Vital Signs Temp Pulse Pulse Resp BP Pulse Ox O2 Del Method 08/14/24 05:03 86 14 90 High Flow Nasal Cannula 08/14/24 04:33 115 H 20 88 L Non-rebreather 08/14/24 03:42 36.4 C L 106 H 16 89/50 L 92 Room Air 08/13/24 23:23 36.8 C 93 H 16 92/52 L 94 Room Air 08/13/24 21:58 94 H 08/13/24 20:45 Nasal Cannula 08/13/24 19:50 36.9 C 97 H 16 87/52 L 93 Room Air O2 Flow Rate FiO2 08/14/24 05:03 60 100 08/14/24 04:33 15 08/14/24 03:42 08/13/24 23:23 08/13/24 21:58 08/13/24 20:45 6 08/13/24 19:50 Resident Activity Tracking Resident Involvement: Resident Care Provided Care Provided: Adult Hospital Medicine"
[2024-08-14 07:07] LABS: Hematocrit (blood only) 28.7 % (37.0-47.0); Hemoglobin 9.2 g/dl (12.0-16.0); Mean Corpuscular Hemoglobin 31.1 pg (25.0-34.0); Mean Corpuscular Hgb Conc 32.1 g/dL (32.0-36.0); Mean Platelet Volume 11.6 fL (9.4-12.4); Platelet Count 156 K/uL (130-400); RDW Coefficient of Variation 15.2 % (11.5-14.5); RDW Standard Deviation 53.7 fL (36.4-46.3); Red Blood Count 2.96 M/uL (4.20-5.40)
[2024-08-14 07:14] VITALS: BP 101/59; TEMP 97.7
[2024-08-14 07:21] LABS: Albumin Globulin Ratio 0.9 (0.9-2); BUN Creatinine Ratio 16.4 (10-20); Bilirubin,Total 0.4 mg/dl (0.2-1.0); Calcium 10.4 mg/dl (8.6-10.3); Creatinine Clr Calc Pharmacy 37.6 ml/min; Globulin 2.3 gm/dl (2.5-4.0); Magnesium 1.4 mg/dl (1.7-2.4); Potassium 3.8 mmol/L (3.5-5.1); Total Protein 4.3 gm/dl (6.0-8.3)
[2024-08-14 07:51] LABS: White Blood Count 13.15 K/ul (4.8-10.8)
[2024-08-14 07:52] LABS: Acanthocytes 1+; Basophilic Stippling 1+; Basophils # (auto) 0.06 K/uL (0.00-0.20); Basophils % (auto) 0.5 %; Dohle Bodies 1+; Eosinophils # (auto) 0.05 K/uL (0.00-0.50); Eosinophils % (auto) 0.4 %; Immature Granulocytes # (auto) 0.06 K/uL (0.01-0.20); Immature Granulocytes % (auto) 0.5 %; Lymphocytes # (auto) 0.82 K/uL (1.20-3.40); Lymphocytes % (auto) 6.2 %; Monocytes # (auto) 0.52 K/uL (0.11-0.59); Neutrophils # (auto) 11.64 K/uL (1.40-6.50); Neutrophils % (auto) 88.4 %; Ovalocytes 1+; Polychromasia 1+; Toxic Granulation 1+; Toxic Vacuolation 1+
[2024-08-14 08:18] LABS: Base Excess VBG -3.1 mEq/L; HCO3 VBG 25 mmol/L; Oxygen Saturation VBG 61.9 %; PCO2 VBG 57 mmHg (38-50); PO2 VBG 35 mmHg; pH VBG 7.25 (7.36-7.41)
[2024-08-14] MEDS ORDERED: ONDANSETRON INJ 2 MG/ML 2 ML VIAL IV PRN (11:18)
[2024-08-14] MEDS: MAGNESIUM SULFATE / D5W 1 GM/100 ML BAG IV SCH (11:48)
--- NOTE | 2024-08-14 12:02 | Communication Note ---
Date of Service: August 14, 2024 GI was asked to come back and see for possible EGD for ongoing nausea and vomiting. Discussed with the family and they do not want this set up, they are moving forward with comfort measures. They do not want any GI evaluation at this time. All questions answered.
[2024-08-14] MEDS: MoRPHine SULFATE 2 MG/ML CARP IV PRN ×2 (14:41→17:58)
[2024-08-14] MEDS: GLYCOPYRROLATE 0.2 MG/ML VIAL IV PRN (14:42)
[2024-08-14] MEDS: ATROPINE SULFATE 1% OP SOLN 5 ML BTL SL PRN (16:22)
--- NOTE | 2024-08-14 19:06 | Billing Data ---
Date of Service August 14, 2024 Coding Level of Care Code 95570 SUB INP/OBS CARE MIN
[2024-08-14 23:16] VITALS: RESP 26
[2024-08-14] MEDS: LORazepam 2 MG/1 ML VIAL IV PRN (23:37)
[2024-08-15 03:53] VITALS: PULSE 128; O2SAT 68
--- NOTE | 2024-08-15 06:53 | Hospitalist Progress Note ---
"Date of Service August 15, 2024 Assessment & Plan (1) UTI (urinary tract infection): (2) RSV infection: (3) Acute kidney injury superimposed on chronic kidney disease: (4) Hypomagnesemia: (5) Elevated brain natriuretic peptide (BNP) level: (6) CHF (congestive heart failure): (7) Moderate aortic regurgitation: (8) Hypotension: (9) Anemia: (10) Elevated d-dimer: Plan Pt is an 84 yo female with a past med hx of CAD with stent, chronic hyponatremia, HTN, HLD, idiopathic polyneuropathy, HFpEF and recent hx of severe malnutrition who presents to the [facility] on 08/04 for ARDS in the setting of RSV and CHF exac. Continue HOME HEALTH CLINICIAN today. Advised family I anticipate hours, at most 48 hours at this point. 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 RSV infection/mild respiratory distress - On admission, BioFire panel positive for RSV. Normal procalcitonin and lactate - CXR on 08/04 showed cardiomegaly w/ pulm vascular congestion, small pleural effusions w/ mild bibasilar atelectasis. Repeat CXR overnight on 08/12. -XR on 08/10 shows progressive L lower lobe density likely representing pneumonia -Positive MRSA nares, ID consulted-> vancomycin added which is now disc ontinued - CTA did show moderate pleural effusions, suspect this could be secondary to malnutrition/albumin - Echo was obtained due to suggestion of pericardial effusion and R heart strain- EF 60-65%, no significant change from prior, no documentation of pericardial effusion on echo - investigated for DIC but this is not seen UTI - Ur Cx pos for E. 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 family has no needs. on comfort measures. vitals noted laying in bed no meaningful responsiveness but no distress. no appearance of pain/discomfort. breathing fairly slow and at times agonal IMPRESSION & PLAN RSV UTI possible pneumonia due to MRSA nausea with vomiting Protein calorie malnutrition/prolonged failure to thrive appears likely to be passing imminently Additional per resident documentation Subjective Pt seen at bedside today with daughter Vanda present. She appears to be resting comfortably, no distress noted. Family updated on signs to look for such as long breaks between respirations and eventually respirations would stop. Extremities may start to get cold. Family to remain at bedside throughout today. Vanda states she has noticed occasional long pauses between breaths already. All questions/concerns answered. Review of Systems Review of Systems: Per HPI. Physical Exam Physical Exam: General:On nasal canula, comfortable appearing, nonlabored respirations Resp:Respirations not labored, no resp distress Skin: Warm, pale, dry, Results & Data Results & Data Vital Signs (Past 12 Hours) Vital Signs Pulse Resp Pulse Ox O2 Del Method O2 Flow Rate FiO2 08/15/24 03:52 128 H 68 L High Flow Nasal Cannula 60 100 08/14/24 22:33 122 H 26 H 83 L High Flow Nasal Cannula 60 100 08/14/24 21:00 High Flow Nasal Cannula 08/14/24 19:10 114 H 25 H 88 L High Flow Nasal Cannula 60 100 Resident Activity Tracking Resident Involvement: Resident Care Provided Care Provided: Adult Hospital Medicine"
--- NOTE | 2024-08-15 13:22 | Billing Data ---
Date of Service August 15, 2024 Coding Level of Care Code 26225 SUB INP/OBS CARE
--- NOTE | 2024-08-15 16:02 | Death Pronouncement Note ---
Date of Service August 15, 2024 Pronouncement Note Admission Date Admission Date: August 04, 2024 Contributing Factors (1) UTI (urinary tract infection): (2) RSV infection: (3) Acute kidney injury superimposed on chronic kidney disease: (4) Hypomagnesemia: (5) Elevated brain natriuretic peptide (BNP) level: (6) CHF (congestive heart failure): (7) Moderate aortic regurgitation: (8) Hypotension: (9) Anemia: (10) Elevated d-dimer: Summary Additional details: I was called to pronounce the of Brandi Ibarra ( 1940) by [facility] staff on 08/15/2024. Upon entering the room, the patient was found to be in a terminal state. They were unresponsive to, and did not withdraw from, verbal or tactile stimuli. They were unresponsive to corneal, pupillary, and oculocephalic reflexes. On cardiopulmonary exam, they were found to be without detectable carotid pulses, and without spontaneous heart tones or respirations. Time of was pronounced by me on 08/15/2024 at 15:33. Attending physician was notified. Next of kin was present at bedside and notified. Additional Data Attending physician: Santiago Ayon DO Supervising Physician Co-Signing Physician Notes passed. see above.
--- NOTE | 2024-08-15 16:03 | Discharge Summary ---
"Date of Service August 15, 2024 Admission HPI Per Admitting Provider Patient is a 84 yo F w/ a PMHx of arthritis, CAD, CKD, obesity, HTN, Hx of endometrial cancer, Hx of kidney stones, Hx of CT, Hx of DVT, GERD, RLS, and osteoporosis. Patient presents due to shortness of breath and increased lethargy over the past 7-10 days. She started to lose weight since the beginning of the year. Patient had a procedure on Jul 14 at [facility] to cauterize several gastric ulcers (3 actively bleeding) and since that time has continued to lose weight. Because of this she has been feeling much weaker than normal and is unable to use her walker as normal. Instead she's been using a wheelchair and a lift has been needed to transfer her from the wheelchair to the bed. Patient's daughter feels like it's only been in the past week that the patient has been feeling increased shortness of breath. The staff at [facility] were concerned enough due to the dyspnea and because they were getting readings for her O2Sats in the 70s. These were found to be in the low 90s once the patient arrived at the hospital. Patient's daughter also feels her mother has been increasingly lethargic since the GI procedure but today felt like it got a lot worse. Admission Exam Per Admitting Provider Constitutional: WD/WN, vitals as above Respiratory: + labored breathing, + cough and able to speak in complete sentences Auscultation: + wheezes; breath sounds present and no crackles Cardiovascular: RRR, no murmur, no edema (no murmur appreciated on exam) Extremities: normal capillary refill; no calf tenderness, no pedal edema and no edema Gastrointestinal (Abdomen): normal bowel sounds, soft, nontender, no hepatosplenomegaly Psychiatric: A+Ox3, euthymic affect Principal Diagnosis Hypoxic respiratory failure due to RSV, Protein Calorie Malnutrition due to Failure to Thrive Discharge Exam Eyes No pupillary, corneal or oculocephalic reflexes. Respiratory No respirations on auscultation. No chest rise. Cardiovascular No detectable heart tones and no carotid or radial pulses appreciated bilaterally. Discharge Data Allergies Allergy/AdvReac Type Severity Reaction Status Date / Time cyclobenzaprine Allergy Unknown PASSED OUT Verified 06/29/24 10:14 hydrocodone Allergy Unknown SHORTNESS Verified 06/29/24 10:14 OF BREATH ketorolac Allergy Unknown Unknown Verified 06/29/24 10:14 oxaprozin Allergy Unknown RASH Verified 06/29/24 10:14 sulfamethoxazole Allergy Unknown INCREASED Verified 06/29/24 10:14 POTASSIUM LEVELS trimethoprim Allergy Unknown INCREASED Verified 06/29/24 10:14 POTASSIUM LEVELS azithromycin AdvReac Intermediate UPSET Verified 06/29/24 10:14 STOMACH erythromycin base AdvReac Mild N/V Verified 06/29/24 10:14 lisinopril AdvReac Mild cough Verified 06/29/24 10:14 sertraline AdvReac Mild MOOD SWING Verified 06/29/24 10:14 Consultations 08/04/24 19:16 ED Decision to Admit Stat 08/10/24 07:20 Consult Gastroenterology Routine 08/10/24 12:32 Consult Infectious Diseases Routine 08/13/24 15:40 Consult Gastroenterology Routine Ordered Studies 08/11/24 13:52 US point of care ultrasound Routine 08/11/24 16:06 CT for pulmonary embolism PE [CT angio chest PE protocol] Stat 08/11/24 21:27 US venous doppler [facility] Urgent Hospital Course (1) UTI (urinary tract infection): (2) RSV infection: (3) Acute kidney injury superimposed on chronic kidney disease: (4) Hypomagnesemia: (5) Elevated brain natriuretic peptide (BNP) level: (6) CHF (congestive heart failure): (7) Moderate aortic regurgitation: (8) Hypotension: (9) Anemia: (10) Elevated d-dimer: Plan Pt is an 84 yo female with a past med hx of CAD with stent, chronic hyponatremia, HTN, HLD, idiopathic polyneuropathy, HFpEF and recent hx of severe malnutrition who presented to the hospital on 08/04 for ARDS in the setting of RSV and CHF exacerbation. Patient transitioned to CHASER HELPER status and on 08/15/2024 at 15:33. Severe Malnutrition | Refractory Nausea/Vomiting | S/p Cauterization of gastric ulcers Patient had EGD cauterization of 3 gastric ulcers on 07/14/24 at [facility], daily N/V for about 2 months. Had lost ~ 15 lbs since beginning of year (maybe 25-30 lbs overall) due to decreased oral intake d/t gastric ulcers, weight loss. Multiple acid suppression and antinausea medications were trialed without success and patient continued to have frequent vomiting which severely limited her oral intake of food and liquids. Patient had frequent episodes of hypoglycemia due to this limited PO intake, IV fluids containing dextrose were utilized to help maintain blood sugar however due to malnutrition, patient continued to be intravascularly depleted. Patient also was noted to have ongoing edema at bilateral upper extremities- likely secondary to poor oncotic pressure/low albumin. Due to refractory nausea/vomiting, GI consulted for further evaluation and possible EGD, however pt was then made CHASER HELPER on 08/14. RSV infection/mild respiratory distress On admission, [employer] panel positive for RSV. Normal procalcitonin and lactate. Inital imaging showed cardiomegaly w/ pulm vascular congestion, small pleural effusions w/ mild bibasilar atelectasis. Repeat CXR later in admission showed progressive L lower lobe density likely representing pneumonia. Vancomycin was added due to positive MRSA nares, consulted by ID. CTA showed moderate pleural effusions, suspect this could be secondary to malnutrition/albumin. Echo was obtained due to suggestion of pericardial effusion and R heart strain- EF 60-65%, no significant change from prior, no documentation of pericardial effusion on echo. Investigated for DIC but this is not seen. Patient required escalation of oxygen to high flow and diuretics were utilized to try to alleviate some of the additional fluid accumulating in patient's lungs, however due to intravascular depletion (as described above) this had limited benefit. Hospitalist team had ongoing conversations with family regarding escalation of care and code status, family ultimately decided to transition from full code to DNR/DNI and transitioned to comfort measures only. Patient on 08/15/2024 at 15:33. UTI Ur Cx pos for E. coli, ESBL+. Initial antibiotics included Zosyn and later Ceftriaxone, transitioned to Ertapenem then discontinued on 08/14 as pt transitioned to CHASER HELPER by family. Hypotension-low normotensive Pt's BP meds: HCTZ and metoprolol succinate held during admission. BP's have been intermittently low, BP ; pt on midodrine, 5 mg, PO, TID -> now discontinued for CHASER HELPER status HFpEF/Aortic regurgitation BNP with mild elevation at 265. Last Echo (Oct, 2023): EF 65-70%, moderate aortic regurgitation, Normal r. ventricular sys pressure. As above, repeat echo obtained and no significant changes from prior. Worsening lungs may be due to CHF exac, lasix 40 mg given at 5 am, pt transitioned to CHASER HELPER status. Hypoglycemia Multiple episodes of hypoglycemia throughout admission requiring IV support during admission. VTE Prophylaxis: Lovenox discontinued on 08/14 as pt transitioned to CHASER HELPER. Total Time Total Time Spent Total Time Spent (In Minutes): . Discharge Plan Discharge Items Patient Disposition: Other Date/Time: 08/15/24 15:33 Supervising Physician Co-Signing Physician Notes passed. see above."
--- NOTE | 2024-08-15 17:59 | Billing Data ---
Date of Service August 15, 2024 Coding Level of Care Code 51928 IN/OBS DISCH 30 MIN/LESS
--- NOTE | 2024-08-16 09:28 | Coding Query ---
CONGESTIVE HEART FAILURE To Promote full compliance with coding requirements relating to patient care, physician participation is requested in all cases of bridge/structure inspection team leader uncertainty. Please assist us with the following questions. A diagnosis of Congestive Heart Failure is documented in the patient's medical record. To accurately code this diagnosis and to compare patient severity, we ask that you specify the type of heart failure by placing an X within the parenthesis (x). SYSTOLIC HEART FAILURE ( ) Acute ( ) Chronic ( ) Acute on Chronic ( ) Rheumatic ( ) Unknown DIASTOLIC HEART FAILURE ( ) Acute ( ) Chronic ( x) Acute on Chronic ( ) Rheumatic ( ) Unknown COMBINED SYSTOLIC AND DIASTOLIC HEART FAILURE ( ) Acute ( ) Chronic ( ) Acute on Chronic ( ) Rheumatic ( ) Unknown Was the CHF Present On Admission? Please check the appropriate box: ( x) Present on Admission ( ) Not Present On Admission ( ) Clinically undetermined Thank you [facility]IMITRIS [facility]
[2024-08-21] MEDS ORDERED: CYANOCOBALAMIN 1000 MCG/ML VIAL IM SCH (09:00)
== END 2024-08-15 17:23 | disposition expired | DRG 189 ==
LOC: ED 15:33 → SUATTDRO 23:30 → EDINP 23:30 → 4W 08-05 01:24